=== PATIENT | female | born 1955 ===

== ENCOUNTER → 2022-01-19 11:05 | Outpatient (CLI) | payer MEDICARE, SELFPAY ==
--- NOTE | ~2022-01-19 | XR_ITS ---
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 RESULT: Lines, tubes, and devices: Bilateral breast augmentation. Lungs and pleura: Clear. Cardiomediastinal silhouette: Aortic ectasia, otherwise unremarkable. Other: No acute osseous or upper abdominal finding. Degenerative disc disease in the thoracic spine. IMPRESSION: No acute cardiopulmonary process. Reviewed, dictated and finalized at location K. Y MARKET DEALER
== END ==
PROVIDERS: PCP Internal Medicine; Visit Provider Internal Medicine
DX: R06.02 Shortness of breath (principal)
CPT/HCPCS: 71046

== ENCOUNTER 2022-02-18 10:08 | Inpatient (IN) | payer MEDICARE, SELFPAY ==
[2022-02-18] VITALS (37 sets, daily range): BP systolic 115–144; BP diastolic 70–97; PULSE 91–110; RESP 12–27; TEMP 36.6–36.7; O2SAT 95–100; BMI 22.1
--- NOTE | ~2022-02-18 | NM_ITS ---
EXAMINATION: NM hepatobiliary wo pharm DATE: 02/19/2022 14:28 INDICATION: Gallbladder sludge. COMPARISON: Abdomen ultrasound 02/18/2022 TECHNIQUE: 5.9 mCi Tc-99m mebrofenin (Choletec) was administered intravenously. Scintigraphic images of the abdomen were obtained for 52 minutes. The patient ended the exam at that time. FINDINGS: There is normal clearance of radiotracer from the blood pool. There is homogeneous tracer u ptake by the liver. Activity progresses to the bowel and gallbladder. IMPRESSION: 1. Normal hepatobiliary scintigraphy. Gallbladder ejection fraction was not measured. Reviewed, dictated and finalized at location A. OMER SUCCESS DIRECTOR IMPRESSION: 1. Normal hepatobiliary scintigraphy. Gallbladder ejection fraction was not me asured.
--- NOTE | ~2022-02-18 | US_ITS ---
EXAMINATION: US abdomen limited DATE: 02/18/2022 13:45 INDICATION: Elevated liver enzymes TECHNIQUE: Multiple grayscale and Doppler ultrasound images of the abdomen were obtained. COMPARISON: None available FINDINGS: The head and body of the pancreas are normal. The pancreatic tail is obscured by bowel gas. The liver demonstrates increased echogenicity, heterogenous echotexture, and decreased through trans mission. No surface nodularity. Normal hepatopetal flow in the main portal vein. There is sludge in t he gallbladder. No gallbladder wall thickening or pericholecystic fluid are identified. The normal co mmon bile duct measures 4 mm. There was no sonographic Trujillo sign. IMPRESSION: 1. Gallbladder sludge without additional findings to suggest cholecystitis. 2. Diffuse hepatic steatosis. Reviewed, dictated and finalized at location L. USION PRESS SUPERVISOR
--- NOTE | 2022-02-18 10:54 | ECG_ITS ---
Measurements Intervals [place] Rate: 90 P: -16 [place]: 144 QRS: 11 QRSD: 84 T: -6 QT: 353 QTc: 433 Interpretive Statements SINUS RHYTHM WITH SINUS ARRHYTHMIA NONSPECIFIC ST & T-WAVE ABNORMALITY NO PREVIOUS ECG AVAILABLE FOR COMPARISON Electronically Signed On 02-18-2022 14:59:45 BATHHOUSE ATTENDANT by Brian Musa M.D.
[2022-02-18] MEDS: SODIUM CHLORIDE 0.9% IV 1,000 ML 999 ML IV CONT (11:11)
[2022-02-18 11:12] LABS: Basophils Percent Auto 0.6 % (0.2-1.2); Hematocrit 26.6 % (37.0-47.0); Hemoglobin 8.8 g/dL (12.0-15.0); Immature Granulocyte Absolute 0.01 K/mm3 (0.00-0.031); Immature Granulocyte Percent A 0.3 % (0-0.5); Lymphocytes Absolute Auto 0.54 K/mm3 (0.9-3.2); Lymphocytes Percent Auto 16.5 % (18.3-44.2); Mean Corpuscular HGB Conc 33.1 g/dl (32-36); Mean Corpuscular Hemoglobin 33.5 pg (26-34); Mean Corpuscular Volume 101.1 fl (80-100); Mean Platelet Volume 9.2 fl (7.4-10.4); Monocytes Absolute Auto 0.4 K/mm3 (0.1-0.6); Monocytes Percent Auto 11.3 % (2.6-8.5); Neutrophils Absolute Auto 2.3 K/mm3 (1.3-6.7); Neutrophils Percent Auto 71.3 % (45.5-73.1); Platelet Count Result 256 k/mm3 (150-375); Red Blood Count 2.63 M/mm3 (4.2-5.4); Red Cell Distribution Width 17.8 % (11.5-14.5); White Blood Count 3.3 K/mm3 (4.5-10.0)
[2022-02-18 11:23] LABS: Alanine Aminotransferase 46 U/L (6-35); Albumin Level 3.3 g/dL (3.5-5.1); Alkaline Phosphatase 168 U/L (38-126); Anion Gap 9 mmol/L (8-16); Aspartate Amino Transferase 255 U/L (14-36); Bilirubin,Total 1.6 mg/dL (0.2-1.3); Blood Urea Nitrogen 6 mg/dL (7-17); Calcium 8.4 mg/dL (8.4-10.2); Carbon Dioxide 28 mmol/L (22-30); Chloride 96 mmol/L (98-107); Creatine Kinase < 20 U/L (30-135); Estimated CRCL calculation 52 ml/min; Estimated Glomerular Filt Rate > 60; Glucose 133 mg/dL (65-110); Lipase 116 U/L (23-300); Magnesium 1.3 mg/dL (1.6-2.3); Potassium 2.1 mmol/L (3.4-5.0); Sodium 133 mmol/L (137-145)
[2022-02-18 11:29] LABS: NT Pro B Type Natriuretic Pept 202 pg/mL (5-100)
[2022-02-18 11:34] LABS: Troponin I < 0.012 ng/mL (0.000-0.034)
[2022-02-18 11:45] LABS: Influenza A QL RT-PCR Negative (Negative); Influenza B QL RT-PCR Negative (Negative); RSV RNA, RT-PCR Negative (Negative); SARS-CoV-2 RNA PCR Negative
--- NOTE | 2022-02-18 12:18 | ED.GENADULT ---
HPI - General Adult General Chief complaint: Recheck/Abnormal Lab/Rx Stated complaint: ABNORMAL LABS Time Seen by Provider: 02/18/22 10:27 History of Present Illness HPI narrative: This is a 66-year-old female presenting ED with a chief complaint of abnormal lab work. Patient has been feeling weak over the last several days. She has had been having difficulty getting up and down the stairs in her house. She also had decreased appetite over the last several months. Patient has had several episodes of diarrhea. She denies fever, chills, headache, body aches, nausea or vomiting. She is vaccinated against flu and COVID. She wants our primary care physician who ordered some basic lab work. She was found have a dangerously low potassium was sent into the emergency department. The patient does not know what the potassium number was. Related Data Allergies Allergy/AdvReac Type Severity Reaction Status Date / Time No Known Allergies Allergy Verified 02/18/22 11:00 Review of Systems Review of Systems: CONSTITUTIONAL: Denies night sweats. EYES: No eye pain ENT: Denies rhinorrhea CARDIOVASCULAR: Denies palpitations RESPIRATORY: Denies hemoptysis GASTROINTESTINAL: Denies hematemesis GENITOURINARY: Denies hematuria. SKIN: Denies rash MUSCULOSKELETAL: Denies myalgia. NEUROLOGIC: Denies weakness. PSYCHIATRIC: Denies delusions PMFSH Past Medical History Medical History (Updated 02/18/22 @ 13:12 by Hiren Kirk MD) Hypertension Surgical History Surgical History (Updated 02/18/22 @ 12:20 by Hiren Kirk MD) H/O total knee replacement Social History Social History (Updated 02/18/22 @ 12:20 by Hiren Kirk MD) Social History: Denies use of drugs alcohol and tobacco Exam Narrative: APPEARANCE: patient appears frail, Head: atraumatic. EYES: EOMI, NOSE: Atraumatic NECK: Trachea midline RESPIRATORY: No increased rate of breathing, clear to auscultation CARDIOVASCULAR: RRR, no peripheral edema ABDOMINAL: Non-distended, nontender no guarding or rebound MUSCULOSKELETAl: No obvious deformities NEURO: Alert. Moving 4/4 extremities SKIN:: Warm, dry. Normal color PSYCHIATRIC: Normal affect Course Vital Signs Vital signs: Vital Signs Temperature 98.1 F 02/18/22 10:18 Pulse Rate 110 H 02/18/22 10:18 Respiratory Rate 16 12/29/22 10:18 Blood Pressure 115/76 02/18/22 10:18 Pulse Oximetry 100 02/18/22 10:18 Oxygen Delivery Room Air 02/18/22 10:18 Temperature 98.1 F 02/18/22 10:18 Pulse Rate 110 H 02/18/22 10:18 Respiratory Rate 16 02/18/22 10:18 Blood Pressure 115/76 02/18/22 10:18 Pulse Oximetry 100 02/18/22 10:18 Oxygen Delivery Room Air 02/18/22 10:18 Medical Decision Making MDM Narrative Medical decision making narrative: this is a 66-year-old female presenting for abnormal labs. Patient has had weakness over last several days. She will get lab work, viral swabs and urinalysis. Lab work was significant for potassium of 2.1. Magnesium is 1.3. These will be repleted via IV and orally. Viral swabs were negative. EKG interpretation: Rhythm [sinus], Rate 90, [place] -[normal], [place] -[normal], QRS [narrow], QTC [normal], T waves -[negative for concerning inversions], ST Segments - [Negative for concerning elevations] Final interpretations: Normal sinus rhythm with nonspecific T-wave abnormalities Urinalysis was indicative of infection. The patient will be started on ceftriaxone. Patient has had decreased oral intake for several months. Additionally she has had diarrhea over the last several days. Hyperkalemia is likely multifactorial. patient will be admitted to the hospital for repletion of her potassium. Vital Signs Vital Signs: Vital Signs Temperature 98.1 F 02/18/22 10:18 Pulse Rate 110 H 02/18/22 10:18 Respiratory Rate 16 02/18/22 10:18 Blood Pressure 115/76 02/18/22 10:18 Pulse Oximetry 100 02/18/22 10:18 O
[2022-02-18 12:27] LABS: Add Urine Microscopic? YES; Appearance Urine Cloudy (Clear); Bilirubin Urine 1+ (Negative); Blood Urine Trace-Intact (Negative); Color Urine Yellow (Yellow); Glucose Urine UA Negative (Negative); Ketones Urine Negative (Negative); Leukocyte Esterase Ur 3+ LEU/UL (Negative); Nitrate Urine Positive (Negative); Protein Urine Trace mg/dL (Negative); Specific Grav Ur <= 1.005 (1.001-1.035)
[2022-02-18] MEDS: MAGNESIUM SULF 2 GM/WATER 50ML 2 GM/50 ML BAG IVPB (12:35)
[2022-02-18] MEDS: POTASSIUM CHLORIDE 20 MEQ TABLET 80 MEQ PO (12:36)
[2022-02-18] MEDS: POTASSIUM CHLORIDE INJ 40 MEQ in SODIUM CHLORIDE 0.9% IV 500 ML 130 MEQ IVPB ×2 (12:44→23:27)
[2022-02-18 12:46] LABS: Bacteria Urine 1+ /hpf; Mucus Urine Rare /lpf; Squamous Epithelial Cell Urine Few /hpf (Few); WBC Clumps Urine Present /HPF; WBC Urine >75 /hpf
--- NOTE | 2022-02-18 13:19 | PM.IMHP ---
H&P: HPI History of Present Illness Date/Time: 02/18/22 13:19 Chief Complaint: Abnormal labs Narrative: This is a 66-year-old female patient who has been feeling ill for the last several days. The patient recently had an abdominal CT and was seen by Dr. julio. The patient received a phone call today telling her that she needed to go to the emergency room due to her abnormal labs. The patient has been feeling weak over the last several days. She has had poor oral intake. She has been having difficulty getting up and down her stairs due to the weakness. She has had decreased appetite over the last several months. The patient stated that she was a heavy drinker until this last October she quit drinking. The patient was told today that she has a dangerously low potassium and needed to go to the emergency room. The patient is no longer on hydrochlorothiazide as she stopped taking that 1 month ago. She has had no fever chills and no nausea and vomiting. However she has had several episodes of diarrhea. Her white count is 3.3. Her hemoglobin is 8.8 and hematocrit 26.6. I have no previous labs for comparison. Sodium 133. Potassium is 2.1. Chloride 96. Magnesium was 1.3. Total bilirubin 1.6. AST 255, ALT 46, alkaline phosphatase 168, and total creatinine kinase less than 20. The patient was found to be positive for UTI. She was negative for influenza A/B RSV and COVID. The patient was started on Rocephin. Patient was given magnesium, IV fluids Rocephin, IV potassium and p.o. potassium. The patient is being admitted to observation status on the date of service of 02/18/2022. Review of Systems Review of Systems: See HPI All systems reviewed & are unremarkable except as noted in HPI and below Constitutional: Constitutional: Reports as per HPI and Reports no additional constitutional complaints Eyes: Eyes: Reports as per HPI and Reports no additional eye complaints ENT: Reports system reviewed and no additional complaints, except as documented and Reports Normal hearing present Cardiovascular: Cardiovascular: Reports no additional cardiovascular complaints Respiratory: Respiratory: Reports no additional respiratory complaints and Reports no additional respiratory complaints Gastrointestinal: Gastrointestinal: Reports as per HPI and Reports no additional gastrointestinal complaints Musculoskeletal: Musculoskeletal: Reports no additional musculoskeletal complaints Integumentary/Breasts: Skin/Breast: Reports system reviewed and no additional complaints, except as docu and Reports as per HPI Neurologic: Reports system reviewed and no additional complaints, except as documented, Reports as per HPI and Reports Normal hearing present Psychiatric: Psychiatric: Reports no additional psychiatric complaints and Reports as per HPI Endocrine: Endocrine: Reports no additional endocrine complaints Hematologic/Lymphatic: Hematologic/Lymphatic: Reports no additional hematologic/lymphatic complaints Allergic/Immunologic: Allergic/Immunologic: Reports no additional allergic/immunologic complaints PMFSH Past Medical History Medical History (Updated 02/18/22 @ 14:03 by Bety Wong NP) History of alcoholism History of marijuana use Hypertension Tobacco abuse Surgical History Surgical History (Updated 02/18/22 @ 13:22 by Bety Wong NP) H/O total knee replacement History of parathyroid surgery Family History Family History (Updated 02/18/22 @ 13:26 by Bety Wong NP) Sibling Hypothyroidism Mother Diabetes mellitus Hypertension Father Heart disease Social History Social History (Updated 02/18/22 @ 14:04 by Bety oWng NP) Social History: The patient used to use marijuana but not recently. The patient stated she was a heavy drinker up until October of this year. The patient has 3 children and she is . 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 She does not have a du
[2022-02-18 14:59] LABS: Hepatitis B Surface Antigen Negative (Negative)
[2022-02-18 15:01] LABS: HAV RESULT Negative (Negative); Hepatitis B Core IgM Result Negative (Negative)
[2022-02-18] MEDS: LACTATED RINGERS 1,000 ML 100 ML IV CONT (15:10)
[2022-02-18 15:13] LABS: Hepatitis C Virus Antibody Negative (Negative)
[2022-02-18] MEDS: ACETAMINOPHEN 500 MG TABLET 1000 MG PO (15:20)
[2022-02-18] MEDS: PANTOPRAZOLE SODIUM IV 40 MG VIAL IV PUSH ×2 (15:21→20:33)
--- NOTE | 2022-02-18 17:31 | ADMGEN ---
This patient, Bharati Varma, was admitted to [facility] Surg Room 307-01 at 1620. Patient/family oriented to hospital policies and general routines including ID bracelet, bed and alarms, visiting hours, pain management, procedures, bathroom and other care routines, personal items, smoking policy, room service/diet, and visiting hours. Information on how to activate the Rapid Response Team has been discussed. Patient/Family are encouraged to report perceived risks to care and to ask questions if they do not understand what they are told or what they should do.
[2022-02-18 18:12] LABS: Hematocrit 27.3 % (37.0-47.0); Hemoglobin 8.7 g/dL (12.0-15.0); Immature Reticulocyte Fraction 21.1 % (3.0-15.9); Reticulocyte Hemoglobin Conten 26.2 pg (28.2-35.7); Reticulocyte Percent 1.03 % (0.7-4.3); Reticulocytes Absolute 0.03 B/L (32.2-175.7)
[2022-02-18 18:36] LABS: Iron 185 ug/dL (37-170)
[2022-02-18 18:44] LABS: Transferrin 135 mg/dL (206-381)
[2022-02-18 18:48] LABS: Percent Iron Saturation 137 % (20-50)
[2022-02-18 19:44] LABS: Folic Acid 2.5 ng/mL (2.76->20)
[2022-02-18 22:15] LABS: Anion Gap 5 mmol/L (8-16); Blood Urea Nitrogen 5 mg/dL (7-17); Calcium 7.7 mg/dL (8.4-10.2); Carbon Dioxide 24 mmol/L (22-30); Chloride 104 mmol/L (98-107); Estimated CRCL calculation 58 ml/min; Estimated Glomerular Filt Rate > 60; Glucose 102 mg/dL (65-110); Potassium 2.8 mmol/L (3.4-5.0); Sodium 133 mmol/L (137-145)
[2022-02-18] MEDS: LORazepam INJ (*CRX) 2 MG/ML VIAL 0.5 MG IV PUSH (22:43)
[2022-02-18] MEDS: POTASSIUM CHLORIDE 20 MEQ PACKET (FOR LIQUID) 80 MEQ PO (22:46)
[2022-02-19] VITALS (8 sets, daily range): BP systolic 126–139; BP diastolic 81–99; PULSE 86–97; RESP 16–18; TEMP 36.2–36.6; O2SAT 99–100; BMI 22.1
[2022-02-19 00:46] LABS: Hematocrit 22.1 % (37.0-47.0)
[2022-02-19] MEDS: LACTATED RINGERS 1,000 ML 100 ML IV CONT ×2 (02:00→09:26)
[2022-02-19 03:17] LABS: Basophils Percent Auto 0.8 % (0.2-1.2); Eosinophils Percent Auto 1.5 % (0-4.4); Hematocrit 23.7 % (37.0-47.0); Hemoglobin 7.4 g/dL (12.0-15.0); Immature Granulocyte Absolute 0.01 K/mm3 (0.00-0.031); Immature Granulocyte Percent A 0.4 % (0-0.5); Lymphocytes Absolute Auto 0.92 K/mm3 (0.9-3.2); Lymphocytes Percent Auto 34.7 % (18.3-44.2); Mean Corpuscular HGB Conc 31.2 g/dl (32-36); Mean Corpuscular Hemoglobin 32.5 pg (26-34); Mean Corpuscular Volume 103.9 fl (80-100); Mean Platelet Volume 9.7 fl (7.4-10.4); Monocytes Absolute Auto 0.3 K/mm3 (0.1-0.6); Monocytes Percent Auto 9.4 % (2.6-8.5); Neutrophils Absolute Auto 1.4 K/mm3 (1.3-6.7); Neutrophils Percent Auto 53.2 % (45.5-73.1); Platelet Count Result 213 k/mm3 (150-375); Red Blood Count 2.28 M/mm3 (4.2-5.4); Red Cell Distribution Width 18.1 % (11.5-14.5); White Blood Count 2.7 K/mm3 (4.5-10.0)
[2022-02-19 03:27] LABS: Alanine Aminotransferase 42 U/L (6-35); Albumin Level 2.8 g/dL (3.5-5.1); Alkaline Phosphatase 140 U/L (38-126); Anion Gap 5 mmol/L (8-16); Aspartate Amino Transferase 232 U/L (14-36); Bilirubin,Total 1.2 mg/dL (0.2-1.3); Blood Urea Nitrogen 4 mg/dL (7-17); Calcium 7.4 mg/dL (8.4-10.2); Carbon Dioxide 23 mmol/L (22-30); Chloride 111 mmol/L (98-107); Estimated CRCL calculation 58 ml/min; Estimated Glomerular Filt Rate > 60; Glucose 96 mg/dL (65-110); Lactate Dehydrogenase 250 U/L (120-246); Magnesium 1.8 mg/dL (1.6-2.3); Potassium 3.5 mmol/L (3.4-5.0); Sodium 139 mmol/L (137-145)
[2022-02-19 04:12] LABS: Thyroid Stimulating Hormone Reflex 0.925 uIU/mL (0.465-4.68)
--- NOTE | 2022-02-19 08:46 | PM.IMPN ---
Progress Note: A&P Assessment and Plan (1) Urinary tract infection: Code(s): N39.0 - Urinary tract infection, site not specified Status: Acute Assessment and Plan: UA concerning for infection. +suprapubic tenderness and frequency. continue with Rocephin. Adjust antibiotics per urine culture, which is pending. (2) Acute hypokalemia: Code(s): E87.6 - Hypokalemia Status: Acute Assessment and Plan: K 2.1 on admission. May be related to poor oral intake, frequent diarrhea and prior HCTZ use, although she has not taken it for at least a month. Given 80 mEQ PO KCL and 40 mEQ IV KCL x 2 in the ED and upon admission to the floor Repeat K today 3.5. Monitor telemetry. Replace K as needed. (3) Low magnesium level: Code(s): R79.0 - Abnormal level of blood mineral Status: Acute Assessment and Plan: Magnesium 1.3 and 2 grams IVPB given in the ED. Likely secondary to diarrhea and poor oral intake. Repeat magnesium 1.8 Monitor. (4) Transaminitis: Code(s): R74.01 - Elevation of levels of liver transaminase levels Status: Acute Assessment and Plan: -the patient stated that Dr. Simms recently performed a CT on her and I a.m. attempting to obtain records from that office for the CT scan results. -hepatitis panel negative -the patient is a recovering alcoholic and quit drinking this past October. -GI has been consulted. -her ultrasounds showed is some gallbladder sludge HIDA scan shows normal gallbladder. Trend LFTs. Reinforce alcohol cessation (5) Anemia: Code(s): D64.9 - Anemia, unspecified Status: Acute Assessment and Plan: Hemoglobin 8.8 on admission, 7.4 this morning. The patient stated she has been having some black stools. stool for occult blood ordered. GI consulted and appreciate recommendations. Trend H/H. Transfuse if Hgb <7 Folate low- supplement with folic acid 1 mg daily B12 486, however, she does endorse symptoms of neuropathy. Will defer to hematology. Continue PPI BID (6) Tobacco abuse: Code(s): Z72.0 - Tobacco use Status: Acute Assessment and Plan: the patient stated that she is down to about 2-3 cigarettes a day and would like information about smoking cessation. counseled to quit. (7) Hypertension: Code(s): I10 - Essential (primary) hypertension Status: Acute Assessment and Plan: -continue with home medication. except hold HCTZ -p.r.n. hydralazine with parameters. Time Spent With Patient Time with patient: 15 - 25 minutes Subjective Date/time seen: 02/19/22 08:46 She feels less weak today than yesterday. She endorses shooting pains to both legs for the past few weeks and has been unable to keep them still. She has to elevate them on pillows due to pain. She has some loose stools still. No abdominal pain, nausea, or vomiting. Urinary frequency and hesitacy is improving. Review of Systems Review of Systems: All systems reviewed & are unremarkable except as noted in HPI and below Exam Narrative: General: No acute distress.? Well-developed older adult female sitting up in bed. Mental Status/Psych: Awake, alert and oriented x4 with clear speech. Neutral mood and affect. Pleasant and cooperative. Skin: Skin fair, warm, dry and intact without rashes or lesions. Normal color for ethnicity. HEENT: Normocephalic. Sclera is non-icteric. Pupils equal and round. Grossly normal hearing. Oral mucosa pink and moist. Tongue midline. Oropharynx within normal limits. Neck: Supple. Thyroid without nodularity. Trachea midline. No JVD. Heart: S1 and S2 regular rate and rhythm. No murmurs, gallops, or rubs auscultated. Chest: Respirations even and unlabored. Lung sounds are clear to auscultation in all lobes bilaterally without wheezes, rhonchi, or rales. Abdomen: Soft, round and mild suprapubic tenderness to palpation.? Bowel sounds present in all 4 quadrants. No CVA
[2022-02-19] MEDS: amLODIPine BESYLATE 5 MG TABLET 10 MG PO (09:26)
[2022-02-19] MEDS: PANTOPRAZOLE SODIUM IV 40 MG VIAL IV PUSH ×2 (09:27→21:32)
[2022-02-19 11:00] LABS: IFOB Positive Control Positive; Immunochemical Fecal Occult Bl Negative (N)
[2022-02-19 11:05] LABS: Toxigenic C. Diff NEGATIVE (NEGATIVE)
--- NOTE | 2022-02-19 13:39 | PDONCCONNOTE ---
Impression mild leukopenia and anemia with macrocytosis would supplement Folate and follow as outpatient for further work up if necessary [facility] - Date/Time Seen 02/19/22 13:39 - History of Present Illness 66 yo female with mild anemia and leukopenia with macrocytosis she has history of alcohol intake in the past U/S shows steatosis she has no history of blood disorders She has a mildly decreased Folate - Medical History Medical History (Last Updated 02/18/22 @ 14:03 by Bety Wong NP) History of alcoholism History of marijuana use Hypertension Tobacco abuse - Surgical History Surgical History (Last Updated 02/18/22 @ 13:22 by Bety Wong NP) H/O total knee replacement History of parathyroid surgery - Family History Family History (Last Updated 02/18/22 @ 13:26 by Bety Wong NP) Sibling Hypothyroidism Mother Diabetes mellitus Hypertension Father Heart disease - Social History Social History (Last Updated 02/18/22 @ 14:04 by Bety Wong NP) Alcohol Use: Alcohol intake: former Substance Use: Substance use: never Others: Spiritual care concerns: No Smoking Status: Smoking status: Current every day smoker Tobacco type: cigarettes Smoking Pack-years: Smoking cigarettes per day: 3 Social Determinants of Health: Has the Lack of Transportation Kept You From Medical Appointments or From Getting Medications?: No Within the Past 12 Months, Were You Worried Whether Your Food Would Run Out Before You Got Money to Buy More?: Never True What is Your Housing Situation Today?: I Have Housing Are You Worried That in the Next 2 Months, You May Not Have Your Own Housing to Live In?: No Do You Have Trouble Paying Your Heating Or Electricity Bill?: No Do You Have Trouble Paying For Medicines?: No Are You Currently Unemployed and Looking for Work?: No Highest Level of Education Completed: Associate Degree Do You Have Trouble With Childcare or the Care of a Family Member?: No - Medications Active Medications Generic Name Dose Route Start Last Admin Trade Name Freq PRN Reason Stop Dose Admin Amlodipine Besylate 10 mg 02/19/22 09:00 02/19/22 09:26 Amlodipine Besylate 5 Mg Tablet PO 10 mg DAILY DONALD Administration Hydralazine HCl 10 mg 02/18/22 14:09 Hydralazine Hcl 20 Mg/Ml Vial IV PUSH Q8H PRN Blood Pressure - High Lactated Ringer's 1,000 mls @ 100 mls/hr 02/18/22 12:45 02/19/22 09:26 Lr - Lactated Ringers Iv IV CONT 100 mls/hr .Q10H DONALD Administration Ceftriaxone Sodium/Dextrose 1 gm in 50 mls @ 100 mls/hr 02/19/22 16:00 Rocephin 1 Gm/D5w 50 Ml IVPB Q24H DONALD Pantoprazole Sodium 40 mg 02/18/22 21:00 02/19/22 09:27 Pantoprazole Sodium Iv 40 Mg Vial IV PUSH 40 mg Q12HR DONALD Administration - Allergies Allergies Allergy/AdvReac Type Severity Reaction Status Date / Time No Known Allergies Allergy Verified 02/18/22 11:00 Review of Systems - Review of Systems All systems reviewed & are unremarkable except as noted in HPI and bel - Constitutional Reports anorexia - Respiratory Reports dyspnea - Neurologic Reports system reviewed and no additional complaints, except as documented, Reports hearing normal Exam - Vital Signs Vital Signs - 24 hr 02/18/22 13:45 02/18/22 13:46 02/18/22 14:31 Temperature Pulse Rate 92 92 Respiratory Rate 13 13 Blood Pressure Pulse Oximetry 96 Oxygen Delivery 02/18/22 14:45 02/18/22 15:07 02/18/22 15:09 Temperature Pulse Rate 92 Respiratory Rate 27 H 14 Blood Pressure 142/97 H Pulse Oximetry 97 98 Oxygen Delivery 02/18/22 15:15 02/18/22 15:16 02/18/22 15:31 Temperature Pulse Rate 94 92 92 Respiratory Rate 12 14 15 Blood Pressure 144/94 H 133/90 Pulse Oximetry 98 97 97 Oxygen Delivery 02/18/22 15:32 02/18/22 15:45 02/18/22 15:46 Te
--- NOTE | 2022-02-19 15:21 | WPDGICN ---
Assessment and Plan Assessment and plan (1) Weakness: Code(s): R53.1 - Weakness Status: Acute Assessment and Plan: Patient has been weak for the last several weeks particularly last several days. Likely related to urinary tract infection. Potentially related to alcoholic liver disease and macrocytic anemia. (2) Urinary tract infection: Code(s): N39.0 - Urinary tract infection, site not specified Status: Acute Assessment and Plan: Patient with apparent UTI. This likely contributes to weakness. Treatment defer to the primary care service. (3) Alcoholic hepatitis: Code(s): K70.10 - Alcoholic hepatitis without ascites Status: Acute Assessment and Plan: Patient with elevated LFTs. Suspicious for alcohol liver disease with AST more than 5 times her ALT. Patient has an extended long history of alcohol abuse until recently when it was discontinued. Hepatitis viral serologies are negative. Other lab parameters including antinuclear antibody will be obtained. Recommend observation at this time. hepatic steatosis identified on ultrasound. No clear indication for cirrhosis on imaging studies but potentially so given her lab parameters that include elevated LFTs and macrocytic anemia. Recommend conservative therapy at this time. In observation. Currently she appears clinically compensated. Continued alcohol abstinence strongly encouraged. Outpatient follow-up is encouraged electively. She can be discharged from our perspective. Follow-up with primary care service and C are office as needed. (4) Macrocytic anemia: Code(s): D53.9 - Nutritional anemia, unspecified Status: Acute Assessment and Plan: Macrocytic anemia peers to be on the basis of alcoholic liver disease. Folate B12 level should be obtained if not already accomplished. Continue to monitor conservatively at this time. Hematology is already assess patient. GI Consult Note Consult date/time: 02/19/22 15:21 Reason for consult: Elevated LFTs. HPI: Bharati Varma is a 66 year old female I am asked to see at the request of the hospitalist service. Patient reports feeling poorly and very weak over the last several weeks. She is followed by Dr. Bill child in. Outpatient CT scan and laboratory test apparently were identified she was sent to the emergency room. In our emergency room she was identified as having a urinary tract infection. Her LFTs are quite elevated. Patient has a history of rather heavy alcohol intake for many years. She discontinue this in October. She has had no recent change in medications. She has no known exposure to hepatitis. She has never had hepatitis in the past. No one she is associated with his ill. Family history is noncontributory. Review of Systems Review of Systems: Review of systems noncontributory. [facility] Past Medical History Medical History (Updated 02/19/22 @ 15:27 by Rodolfo Browne MD) History of alcoholism History of marijuana use Hypertension Tobacco abuse Surgical History Surgical History (Updated 02/18/22 @ 13:22 by Bety Wong NP) H/O total knee replacement History of parathyroid surgery Family History Family History (Updated 02/18/22 @ 13:26 by Bety Wong NP) Sibling Hypothyroidism Mother Diabetes mellitus Hypertension Father Heart disease Social History Social History (Updated 02/18/22 @ 14:04 by Bety Wong NP) Social History: The patient used to use marijuana but not recently. The patient stated she was a heavy drinker up until October of this year. The patient has 3 children and she is . 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 She does not have a durable power managing attorney for healthcare. Patient only smokes a couple cigarettes a day. Code status full code Smoking status: Current every day smoker Tobacco type: cigarettes Alcohol intake: former Subs
[2022-02-19] MEDS: MELATONIN 5 MG TABLET PO (21:32)
[2022-02-19] MEDS: PROMETHAZINE HCL 25 MG TABLET PO (22:21)
--- NOTE | 2022-02-20 02:13 | PC.NURSE ---
Patient ripped out IV causing left arm skin tear #2 to self from leftover tape. Cleaned wound with water. Mepilex dressing applied to both skin tears. No bleeding noted.
[2022-02-20] MEDS: LACTATED RINGERS 1,000 ML 100 ML IV CONT ×3 (02:50→23:52)
--- NOTE | 2022-02-20 03:01 | PC.NURSE ---
Walked into patients room following bed alarm going off. Patient is up trying to go to bathroom with IV almost coming out. Walked patient SB assist to the bathroom. Noticed IV was very bloody, but is still intact and flushing. Upon walking her back to bed, noticed a small red abrasion on left knee. When asking her about the abrasion, she admitted to falling during day shift on 02/20/22. Scab looks dried. Will chart wound assessment in chart. Bed alarm has been on patient throughout shift. Patient is now high fall risk and impulsive. Will communicate to charge nurse, dayshift nurse, and tech. High risk fall safety precautions in place currently.
[2022-02-20] MEDS: PROMETHAZINE HCL 25 MG/ML AMPUL 12.5 MG IV PUSH ×2 (03:34→20:33)
[2022-02-20 05:39] VITALS: BP 125/82; PULSE 91; RESP 18; TEMP 36.4; O2SAT 100
[2022-02-20 07:52] LABS: Basophils Percent Auto 0.6 % (0.2-1.2); Eosinophils Absolute Auto 0.1 K/mm3 (0-0.3); Eosinophils Percent Auto 2.6 % (0-4.4); Hematocrit 25.9 % (37.0-47.0); Immature Granulocyte Absolute 0.02 K/mm3 (0.00-0.031); Immature Granulocyte Percent A 0.6 % (0-0.5); Lymphocytes Percent Auto 48.1 % (18.3-44.2); Mean Corpuscular HGB Conc 30.9 g/dl (32-36); Mean Corpuscular Hemoglobin 32.1 pg (26-34); Monocytes Absolute Auto 0.2 K/mm3 (0.1-0.6); Monocytes Percent Auto 7.7 % (2.6-8.5); Neutrophils Absolute Auto 1.3 K/mm3 (1.3-6.7); Neutrophils Percent Auto 40.4 % (45.5-73.1); Platelet Count Result 260 k/mm3 (150-375); Red Blood Count 2.49 M/mm3 (4.2-5.4); Red Cell Distribution Width 18.1 % (11.5-14.5); White Blood Count 3.1 K/mm3 (4.5-10.0)
[2022-02-20 08:09] LABS: Alanine Aminotransferase 40 U/L (6-35); Albumin Level 3.4 g/dL (3.5-5.1); Alkaline Phosphatase 150 U/L (38-126); Anion Gap 4 mmol/L (8-16); Aspartate Amino Transferase 166 U/L (14-36); Bilirubin,Total 0.8 mg/dL (0.2-1.3); Blood Urea Nitrogen 2 mg/dL (7-17); Calcium 8.2 mg/dL (8.4-10.2); Carbon Dioxide 31 mmol/L (22-30); Chloride 101 mmol/L (98-107); Estimated CRCL calculation 65 ml/min; Estimated Glomerular Filt Rate > 60; Glucose 95 mg/dL (65-110); Magnesium 1.4 mg/dL (1.6-2.3); Sodium 136 mmol/L (137-145)
[2022-02-20 08:54] VITALS: BP 118/82; PULSE 87; O2SAT 100
[2022-02-20] MEDS: POTASSIUM CHLORIDE 20 MEQ TABLET 60 MEQ PO (09:36)
[2022-02-20] MEDS: MAGNESIUM SULF 2 GM/WATER 50ML 2 GM/50 ML BAG IVPB (09:36)
[2022-02-20] MEDS: amLODIPine BESYLATE 5 MG TABLET 10 MG PO (09:43)
[2022-02-20] MEDS: FOLIC ACID 1 MG TABLET PO (09:43)
[2022-02-20] MEDS: PANTOPRAZOLE SODIUM IV 40 MG VIAL IV PUSH ×2 (09:43→20:33)
[2022-02-20] MEDS: NITROFURANTOIN MONOHYD MACROCR 100 MG CAP PO ×2 (10:03→20:32)
[2022-02-20] MEDS: ACETAMINOPHEN 500 MG TABLET 1000 MG PO ×2 (11:12→23:51)
[2022-02-20] MEDS: CYANOCOBALAMIN INJ 1,000 MCG/ML VIAL 1000 MCG IM (13:47)
[2022-02-20] MEDS: LOPERAMIDE HCL 2 MG CAPSULE PO (13:47)
[2022-02-20 14:00] VITALS: BP 131/82; PULSE 89; RESP 16; TEMP 36.6; O2SAT 100
--- NOTE | 2022-02-20 15:55 | PM.IMPN ---
Progress Note: A&P Assessment and Plan (1) Urinary tract infection: Qualifiers: Urinary tract infection type: acute cystitis Hematuria presence: without hematuria Qualified Code(s): N30.00 - Acute cystitis without hematuria Code(s): N39.0 - Urinary tract infection, site not specified Status: Acute Assessment and Plan: UA concerning for infection. +suprapubic tenderness and frequency. Treated with Rocephin 02/18-02/19 urine culture without growth, however, patient has symptoms consistent with UTI. Change to macrobid 100 mg BID x 5 days (2) Acute hypokalemia: Code(s): E87.6 - Hypokalemia Status: Acute Assessment and Plan: K 2.1 on admission. May be related to poor oral intake, frequent diarrhea and prior HCTZ use, although she has not taken it for at least a month.? Given 80 mEQ PO KCL and 40 mEQ IV KCL x 2 in the ED and upon admission to the floor Repeat K today 3.5. Monitor telemetry. 02/20 K 3.0. Give additional 60 mEQ PO x1. Repeat labs in am. Start loperamide for diarrhea (3) Low magnesium level: Code(s): R79.0 - Abnormal level of blood mineral Status: Acute Assessment and Plan: Magnesium 1.3 and 2 grams IVPB given in the ED. Likely secondary to diarrhea and poor oral intake. Repeat magnesium 1.8 02/19 02/20 Magnesium 1.4. give additional 2 grams IVPB x1. Slow loose stool as above. Monitor. (4) Transaminitis: Code(s): R74.01 - Elevation of levels of liver transaminase levels Status: Acute Assessment and Plan: She reported Dr. Simms recently performed a CT on her and attempting to obtain records from that office. hepatitis panel negative the patient is a recovering alcoholic and quit drinking this past October. GI consulted and likely alcoholic hepatitis. Recommending conservative therapy. Abd ultrasound showed gallbladder sludge. HIDA scan shows normal gallbladder. Unlikely cause of transaminitis. Trend LFTs. Reinforce alcohol cessation (5) Alcoholic hepatitis: Qualifiers: Ascites presence: without ascites Qualified Code(s): K70.10 - Alcoholic hepatitis without ascites Code(s): K70.10 - Alcoholic hepatitis without ascites Status: Acute Assessment and Plan: As above. (6) Macrocytic anemia: Code(s): D53.9 - Nutritional anemia, unspecified Status: Acute Assessment and Plan: Hemoglobin 8.8 on admission, 7.4 the following morning. The patient stated she has been having some black stools prior to admission. stool for occult blood negative GI consulted and appreciate recommendations. Trend H/H. Transfuse if Hgb <7 Folate low- supplement with folic acid 1 mg daily. Slow diarrhea B12 486, however, she does endorse symptoms of neuropathy. Give B12 1000 mcg IM injection x1 now. On PPI BID (7) Tobacco abuse: Code(s): Z72.0 - Tobacco use Status: Acute Assessment and Plan: the patient stated that she is down to about 2-3 cigarettes a day and would like information about smoking cessation.? counseled to quit (8) Hypertension: Qualifiers: Hypertension type: primary hypertension Qualified Code(s): I10 - Essential (primary) hypertension Code(s): I10 - Essential (primary) hypertension Status: Acute Assessment and Plan: Chronic, continue with home medication.? except hold HCTZ d/t electrolyte abnormalities -p.r.n. hydralazine with parameters. (9) Restless leg syndrome: Code(s): G25.81 - Restless legs syndrome Status: Acute Assessment and Plan: Secondary to folate and ?B12 deficiency. She refused gabapentin or Requip. B12 1000 mcg IM x1 given Continue folic acid She reports mild snoring, but denies daytime fatigue or family reported episodes of apnea. PRN acetaminophen & norco (10) Weakness: Code(s): R53.1 - Weakness Status: Acute Assessment and Plan: Secondary to anemia and U
[2022-02-20] MEDS: HYDROcodone/acetaminophen (*CRX) 5-325 MG TABLET 1 TAB PO (16:34)
[2022-02-20 17:06] VITALS: BP 111/80; BP 123/85; PULSE 93; O2SAT 100
[2022-02-20 20:15] VITALS: BP 104/72; PULSE 91; RESP 20; TEMP 36.6; O2SAT 100
[2022-02-20] MEDS: MELATONIN 5 MG TABLET PO (20:32)
[2022-02-21] VITALS (8 sets, daily range): BP systolic 100–123; BP diastolic 61–88; PULSE 88–102; RESP 16–18; TEMP 35.8–36.6; O2SAT 96–100
[2022-02-21 06:59] LABS: Alanine Aminotransferase 29 U/L (6-35); Albumin Level 2.7 g/dL (3.5-5.1); Alkaline Phosphatase 123 U/L (38-126); Anion Gap 2 mmol/L (8-16); Aspartate Amino Transferase 93 U/L (14-36); Bilirubin,Total 0.5 mg/dL (0.2-1.3); Blood Urea Nitrogen 2 mg/dL (7-17); Calcium 7.6 mg/dL (8.4-10.2); Carbon Dioxide 31 mmol/L (22-30); Chloride 106 mmol/L (98-107); Estimated CRCL calculation 65 ml/min; Estimated Glomerular Filt Rate > 60; Glucose 87 mg/dL (65-110); Potassium 2.9 mmol/L (3.4-5.0); Sodium 139 mmol/L (137-145)
[2022-02-21 08:25] LABS: Basophils Percent Auto 0.9 % (0.2-1.2); Eosinophils Absolute Auto 0.1 K/mm3 (0-0.3); Eosinophils Percent Auto 3.4 % (0-4.4); Hematocrit 22.1 % (37.0-47.0); Immature Granulocyte Absolute 0.02 K/mm3 (0.00-0.031); Immature Granulocyte Percent A 0.9 % (0-0.5); Lymphocytes Absolute Auto 0.99 K/mm3 (0.9-3.2); Lymphocytes Percent Auto 42.7 % (18.3-44.2); Mean Corpuscular HGB Conc 31.2 g/dl (32-36); Mean Corpuscular Hemoglobin 32.5 pg (26-34); Mean Corpuscular Volume 104.2 fl (80-100); Mean Platelet Volume 10.3 fl (7.4-10.4); Monocytes Absolute Auto 0.2 K/mm3 (0.1-0.6); Monocytes Percent Auto 9.5 % (2.6-8.5); Neutrophils Percent Auto 42.6 % (45.5-73.1); Platelet Count Result 246 k/mm3 (150-375); Red Blood Count 2.12 M/mm3 (4.2-5.4); Red Cell Distribution Width 18.5 % (11.5-14.5); White Blood Count 2.3 K/mm3 (4.5-10.0)
[2022-02-21 08:31] LABS: Hemoglobin 6.9 g/dL (12.0-15.0)
--- NOTE | 2022-02-21 08:32 | PM.IMPN ---
Progress Note: A&P Assessment and Plan (1) Urinary tract infection: Qualifiers: Hematuria presence: without hematuria Urinary tract infection type: acute cystitis Qualified Code(s): N30.00 - Acute cystitis without hematuria Code(s): N39.0 - Urinary tract infection, site not specified Status: Acute Assessment and Plan: UA concerning for infection. +suprapubic tenderness and frequency. Treated with Rocephin 02/18-02/19 urine culture without growth, however, patient has symptoms consistent with UTI. 02/20 Changed to macrobid 100 mg BID x 5 days (2) Acute hypokalemia: Code(s): E87.6 - Hypokalemia Status: Acute Assessment and Plan: K 2.1 on admission. May be related to poor oral intake, frequent diarrhea and prior HCTZ use, although she has not taken it for at least a month.? Given 80 mEQ PO KCL and 40 mEQ IV KCL x 2 in the ED and upon admission to the floor Repeat K today 3.5. Monitor telemetry. 02/20 K 3.0. Give additional 60 mEQ PO x1. Repeat labs in am. Start loperamide for diarrhea 02/21/22 K 2.9. Give 80 mEQ PO x1, 40 mEQ IV x1, check urine potassium and urine creatinine. check magnesium level. repeat K at 1400. Decrease protonix to 20 mg PO daily. Start daily supplement 40 mEQ daily (3) Low magnesium level: Code(s): R79.0 - Abnormal level of blood mineral Status: Acute Assessment and Plan: Magnesium 1.3 and 2 grams IVPB given in the ED. Likely secondary to diarrhea and poor oral intake. Repeat magnesium 1.8 02/19 02/20 Magnesium 1.4. give additional 2 grams IVPB x1. Slow loose stool as above. 02/21/22 Magnesium 1.6 Monitor. (4) Transaminitis: Code(s): R74.01 - Elevation of levels of liver transaminase levels Status: Acute Assessment and Plan: She reported Dr. Simms recently performed a CT on her and attempting to obtain records from that office. hepatitis panel negative the patient is a recovering alcoholic and quit drinking this past October. GI consulted and likely alcoholic hepatitis. Recommending conservative therapy. Abd ultrasound showed gallbladder sludge. HIDA scan shows normal gallbladder. Unlikely cause of transaminitis. Trend LFTs - improving Reinforce alcohol cessation (5) Alcoholic hepatitis: Qualifiers: Ascites presence: without ascites Qualified Code(s): K70.10 - Alcoholic hepatitis without ascites Code(s): K70.10 - Alcoholic hepatitis without ascites Status: Acute Assessment and Plan: As above. (6) Macrocytic anemia: Code(s): D53.9 - Nutritional anemia, unspecified Status: Acute Assessment and Plan: Hemoglobin 8.8 on admission, 7.4 the following morning. The patient stated she has been having some black stools prior to admission. stool for occult blood negative GI consulted and appreciate recommendations. Trend H/H. Transfuse if Hgb <7 Folate low- supplement with folic acid 1 mg daily. Slow diarrhea B12 486, however, she does endorse symptoms of neuropathy. Give B12 1000 mcg IM injection x1 now. Change protonix 20 mg PO daily since FOBT is negative 02/21/22 Hgb 6.9. Patient was tachycardic walking from the bathroom and c/o fatigue. Transfuse 1 unit PRBC. Patient is agreeable. (7) Tobacco abuse: Code(s): Z72.0 - Tobacco use Status: Acute Assessment and Plan: the patient stated that she is down to about 2-3 cigarettes a day and would like information about smoking cessation.? counseled to quit (8) Hypertension: Qualifiers: Hypertension type: primary hypertension Qualified Code(s): I10 - Essential (primary) hypertension Code(s): I10 - Essential (primary) hypertension Status: Acute Assessment and Plan: Chronic, continue amlodipine Holding HCTZ d/t electrolyte abnormalities -p.r.n. hydralazine with parameters. (9) Restless leg syndrome: Code(s): G25.81 - Restless legs syndrome Status: Acut
[2022-02-21 08:33] LABS: Anisocytosis 1+ (NORMAL); Ovalocytes 1+ (NORMAL); Platelet Estimate Adequate (Adequate); Schistocytes None Seen (NORMAL); Target Cells 1+ (NORMAL)
[2022-02-21 08:53] LABS: Magnesium 1.6 mg/dL (1.6-2.3)
[2022-02-21] MEDS: POTASSIUM CHLORIDE INJ 40 MEQ in SODIUM CHLORIDE 0.9% IV 500 ML 130 MEQ IVPB (09:16)
[2022-02-21] MEDS: PROMETHAZINE HCL 25 MG/ML AMPUL 12.5 MG IV PUSH ×2 (09:16→21:08)
[2022-02-21] MEDS: amLODIPine BESYLATE 5 MG TABLET 10 MG PO (10:50)
[2022-02-21] MEDS: POTASSIUM CHLORIDE 20 MEQ TABLET 80 MEQ PO (10:50)
[2022-02-21] MEDS: FOLIC ACID 1 MG TABLET PO (10:50)
[2022-02-21] MEDS: NITROFURANTOIN MONOHYD MACROCR 100 MG CAP PO ×2 (10:51→21:04)
[2022-02-21 12:33] LABS: Creatinine Urine 51.7 mg/dL
[2022-02-21 12:36] LABS: Potassium Urine Random 23.3 meq/L
--- NOTE | 2022-02-21 13:10 | PC.NURSE ---
discussed reason for tele r/t low potassium and receiving potassium. our concern is heart dysrrthymias and changes that might not be noticed immediately without the heart monitor. patient states that she understands the reason for the heart monitor and that she is aware of the risk, but refusing to have the heart monitor. she states that it is too bulky and it makes her too anxious. Provider aware.
[2022-02-21] MEDS: SODIUM CHLORIDE 0.9% IV 250 ML 30 ML IV CONT (14:28)
[2022-02-21] MEDS: HYDROcodone/acetaminophen (*CRX) 5-325 MG TABLET 1 TAB PO (17:00)
--- NOTE | 2022-02-21 17:00 | PC.NURSE ---
Lab had been in the room about 1400 to draw potassium level, but no results in the computer. Lab notified and they stated that there had been an issue with the sample and they would need to redraw. Lab stated that the phlebotamist would be up soon
--- NOTE | 2022-02-21 19:45 | PC.NURSE ---
lab here now to draw potassium level and h/h
[2022-02-21 19:54] LABS: Hematocrit 29.8 % (37.0-47.0); Hemoglobin 9.4 g/dL (12.0-15.0)
[2022-02-21] MEDS: MELATONIN 5 MG TABLET PO (21:04)
[2022-02-22 06:00] VITALS: BP 121/84; PULSE 92; RESP 18; TEMP 36.9; O2SAT 100
[2022-02-22] MEDS: POTASSIUM CHLORIDE 20 MEQ TABLET.ER 40 MEQ PO (08:17)
[2022-02-22] MEDS: amLODIPine BESYLATE 5 MG TABLET 10 MG PO (08:17)
[2022-02-22] MEDS: NITROFURANTOIN MONOHYD MACROCR 100 MG CAP PO (08:17)
[2022-02-22] MEDS: FOLIC ACID 1 MG TABLET PO (08:17)
[2022-02-22] MEDS: PANTOPRAZOLE SOD SESQUIHYDRATE 20 MG TAB PO (08:17)
[2022-02-22] MEDS: PROMETHAZINE HCL 25 MG/ML AMPUL 12.5 MG IV PUSH (08:22)
[2022-02-22 08:27] LABS: Potassium 4.2 mmol/L (3.4-5.0)
[2022-02-22] MEDS: HYDROcodone/acetaminophen (*CRX) 5-325 MG TABLET 1 TAB PO (10:11)
[2022-02-22 10:27] LABS: Hematocrit 28.8 % (37.0-47.0); Hemoglobin 9.1 g/dL (12.0-15.0)
[2022-02-22 10:37] LABS: Anion Gap 6 mmol/L (8-16); Blood Urea Nitrogen 3 mg/dL (7-17); Calcium 7.5 mg/dL (8.4-10.2); Carbon Dioxide 24 mmol/L (22-30); Chloride 106 mmol/L (98-107); Estimated CRCL calculation 65 ml/min; Estimated Glomerular Filt Rate > 60; Glucose 123 mg/dL (65-110); Magnesium 1.3 mg/dL (1.6-2.3); Potassium 3.8 mmol/L (3.4-5.0); Sodium 136 mmol/L (137-145)
[2022-02-22] MEDS: MAGNESIUM SULF 2 GM/WATER 50ML 2 GM/50 ML BAG IVPB (11:13)
--- NOTE | 2022-02-22 13:29 | PM.DS ---
DS: Admitting Diagnosis Discharge Date 02/22/2022 1329 Admitting Diagnosis Urinary tract infection? Acute hypokalemia? Low magnesium level Transaminitis Anemia Tobacco abuse DS: Discharge Diagnosis Discharge Diagnosis (1) Urinary tract infection: Qualifiers: Hematuria presence: without hematuria Urinary tract infection type: acute cystitis Qualified Code(s): N30.00 - Acute cystitis without hematuria Code(s): N39.0 - Urinary tract infection, site not specified Status: Acute Assessment and Plan: UA concerning for infection. +suprapubic tenderness and frequency on physical exam Treated with Rocephin 02/18-02/19 urine culture without growth, however, patient had symptoms consistent with UTI. 02/20 Changed to macrobid 100 mg BID x 5 days (2) Acute hypokalemia: Code(s): E87.6 - Hypokalemia Status: Acute Assessment and Plan: K 2.1 on admission. Secondary to poor oral intake, frequent diarrhea and prior HCTZ use, although she has not taken it for at least a month.? Given 80 mEQ PO KCL and 40 mEQ IV KCL x 2 in the ED and upon admission to the floor Repeat K 3.5 hospital day 2 Monitored telemetry. 02/20 K 3.0. Give additional 60 mEQ PO x1. Repeat labs in am. Start loperamide for diarrhea 02/21/22 K 2.9. Give 80 mEQ PO x1, 40 mEQ IV x1, urine potassium and urine creatinine within normal limits. Decreased protonix to 20 mg PO daily. Started daily supplement 40 mEQ daily 02/22/22 K 3.8 (3) Low magnesium level: Code(s): R79.0 - Abnormal level of blood mineral Status: Acute Assessment and Plan: Magnesium 1.3 and 2 grams IVPB given in the ED. Likely secondary to diarrhea and poor oral intake. Repeat magnesium 1.8 02/19 02/20 Magnesium 1.4. give additional 2 grams IVPB x1. Slow loose stool as above. 02/21/22 Magnesium 1.6 02/22/22 Magnesium 1.3 (4) Transaminitis: Code(s): R74.01 - Elevation of levels of liver transaminase levels Status: Acute Assessment and Plan: She reported Dr. Simms recently performed a CT on her and attempting to obtain records from that office. hepatitis panel negative the patient is a recovering alcoholic and quit drinking this past October. GI consulted and likely alcoholic hepatitis. Recommending conservative therapy. Abd ultrasound showed gallbladder sludge. HIDA scan shows normal gallbladder. Unlikely cause of transaminitis. LFTs trending down Reinforced alcohol cessation (5) Alcoholic hepatitis: Qualifiers: Ascites presence: without ascites Qualified Code(s): K70.10 - Alcoholic hepatitis without ascites Code(s): K70.10 - Alcoholic hepatitis without ascites Status: Acute Assessment and Plan: As above. (6) Macrocytic anemia: Code(s): D53.9 - Nutritional anemia, unspecified Status: Acute Assessment and Plan: Hemoglobin 8.8 on admission, 7.4 the following morning. The patient stated she has been having some black stools prior to admission. stool for occult blood negative GI consulted and appreciate recommendations. Trended H/H. Transfuse if Hgb <7 Folate low- supplement with folic acid 1 mg daily. Slow diarrhea with loperamide B12 486, however, she does endorse symptoms of neuropathy. Give B12 1000 mcg IM injection x1. Changed protonix 20 mg PO daily since FOBT is negative 02/21/22 Hgb 6.9. Patient was tachycardic walking from the bathroom and c/o fatigue. Transfused 1 unit PRBC. 02/22/22 Hgb 9.1 (7) Tobacco abuse: Code(s): Z72.0 - Tobacco use Status: Chronic Assessment and Plan: the patient stated that she is down to about 2-3 cigarettes a day and would like information about smoking cessation.? counseled to quit (8) Hypertension: Qualifiers: Hypertension type: primary hypertension Qualified Code(s): I10 - Essential (primary) hypertension Code(s): I10 - Essential (primary) hypertension Status: Chronic Assess
[2022-02-22 21:04] LABS: Mitochondrial (M2) Ab (IgG) <=20.0 U (<=20.0)
[2022-02-23 10:02] LABS: Ceruloplasmin 24 mg/dL (18-53)
[2022-02-23 10:02] LABS: Haptoglobin 116 mg/dL (43-212)
[2022-02-24 18:07] LABS: Soluble Transferrin Receptor 1.18 mg/L (0.76-1.76)
[2022-02-26 00:20] LABS: Creatinine, Random Urine 94 mg/dL (20-275); Total Protein/Creatinine Ratio 351 mg/g creat (24-184)
== END 2022-02-22 14:30 | disposition home or self-care (01) | DRG 641 ==
LOC: ANHED 12:23 → ANH3MEDSUR 18:08 → ANH2MED 02-19 11:19 → ANH3MEDSUR 02-19 11:19
PROVIDERS: Internal Medicine Gastroenterology; Nurse Practitioner; Admitting Provider Chiropractor; Emergency Provider Emergency Medicine; PCP Internal Medicine; Visit Provider Nurse Practitioner Family
DX: E87.6 Hypokalemia (principal); N39.0 Urinary tract infection, site not specified; E83.42 Hypomagnesemia; K70.10 Alcoholic hepatitis without ascites; K76.0 Fatty (change of) liver, not elsewhere classified; D53.9 Nutritional anemia, unspecified; I10 Essential (primary) hypertension; G25.81 Restless legs syndrome; R19.7 Diarrhea, unspecified; F10.21 Alcohol dependence, in remission; F17.210 Nicotine dependence, cigarettes, uncomplicated; Z20.822 Contact with and (suspected) exposure to COVID-19; Z96.659 Presence of unspecified artificial knee joint
CPT/HCPCS: 36415; 36430; 76705; 78226; 80048; 80053; 80074; 81001; 82274; 82390; 82550; 82570; 82607; 82728; 82746; 83010; 83520; 83540; 83550; 83615; 83690; 83735; 83880; 84100; 84132; 84133; 84156; 84166; 84238; 84443; 84466; 84484; 85014; 85018; 85025; 85046; 86850; 86880; 86900; 86901; 86923; 87040; 87045; 87086; 87269; 87272; 87427; 87493; 87637; 89055; 93005; 96365; 96366; 96367; 96375; 97161; 97165; 99285; A9270; A9537; C9113; G0378; J0696; J2060; J2550; J3420; J3475; J3480; J7030; J7040; J7050; J7120; P9016

== ENCOUNTER 2023-03-27 17:27 | Inpatient (IN) | payer MEDICARE, SELFPAY ==
[2023-03-27] VITALS (8 sets, daily range): BP systolic 106–165; BP diastolic 75–104; PULSE 91–111; RESP 11–26; TEMP 37; O2SAT 99–100
--- NOTE | ~2023-03-27 | US_ITS ---
EXAMINATION: US right upper quadrant DATE: 03/28/2023 14:58 INDICATION: Hepatitis TECHNIQUE: Multiple grayscale and Doppler ultrasound images of the abdomen were obtained. COMPARISON: CT abdomen and pelvis dated 03/27/2023 FINDINGS: The visualized proximal inferior vena cava is normal. Liver has normal contour, with a smooth surface . There is increased parenchymal echogenicity and coarsened echotexture consistent with diffuse hepat ic steatosis. No liver lesion identified. No intrahepatic biliary duct dilation suspected. Portal ve nous flow was seen in the hepatopetal, normal direction and has normal Doppler waveform. The gallblad meredith is normal in appearance. There is no cholelithiasis. The common bile duct measures 3 mm, which i s normal. Sonographic Trujillo sign was reported as positive by the shirt operator. The pancreatic head an d body are normal in appearance. The pancreatic tail is not visualized. Visualized portion of the ri ght kidney demonstrates normal contour and echogenicity with no hydronephrosis. IMPRESSION: 1. Diffuse hepatic steatosis. 2. Positive sonographic Trujillo's on but with normal-appearing gallbladder and no cholelithiasis. If t here is clinical concern for acute cholecystitis could consider HIDA scan for further evaluation. Reviewed, dictated and finalized at location A. [employer]ES IMPRESSION: 1. Diffuse hepatic steatosis. 2. Positive sonographic Trujillo's on but with normal-appearing gallbladder and n o cholelithiasis. If there is clinical concern for acute cholecystitis could co nsider HIDA scan for further evaluation.
--- NOTE | ~2023-03-27 | CT_ITS ---
EXAMINATION: CT abdomen pelvis w con DATE: 03/27/2023 23:39 INDICATION: Abdominal pain. TECHNIQUE: Computed tomography (CT) of the abdomen and pelvis was performed with 100 mL Omnipaque 350 intravenous contrast. Automated exposure control and iterative reconstruction technique were employe d. The dose-length product was 342.77 mGy-cm. COMPARISON: None. FINDINGS: The visualized portions of the lung bases demonstrate mild atelectasis. There are subpleura l bands in right lower lobe. No pleural effusion. The heart size is normal. There are coronary artery calcifications. No pericardial effusion. There are bilateral breast implants. There is diffuse hepat ic steatosis. There is a paraumbilical portacaval shunt. Paraesophageal varices are noted. The spleen , pancreas, and adrenal glands are normal. There are cysts in the kidneys measuring up to 5 mm on the right. There are 4 mm and 2 mm stones in right kidney. There are 3 stones in left kidney measuring u p to 6 mm. There is diverticulosis of the colon without evidence of diverticulitis. The appendix is n ormal. There are no pathologically enlarged lymph nodes. There is no free intraperitoneal fluid. Ther e is severe thoracic and lumbar spondylosis. IMPRESSION: 1. Diffuse hepatic steatosis. 2. Portal venous hypertension. 3. Bilateral nonobstructing kidney stones. Reviewed, dictated and finalized at location E. OFF WORKER
--- NOTE | 2023-03-27 21:01 | PC.NURSE ---
Pt daughter, who states is she POA, comes up to desk stating I think there are more things I need to tell you that she didn't . She continues to state that pt struggles with alcoholism, drinks vodka everyday, has fatty liver disease & cirrhosis, but patient does not disclose this.
--- NOTE | 2023-03-27 21:19 | ECG_ITS ---
Measurements Intervals [place] Rate: 101 P: 8 [place]: 149 QRS: 17 QRSD: 78 T: 20 QT: 349 QTc: 454 Interpretive Statements SINUS TACHYCARDIA NONSPECIFIC ST AND T-WAVE ABNORMALITY ABNORMAL ECG COMPARED TO ECG 02/18/2022 11:49:54 NO SIGNIFICANT CHANGE Electronically Signed On 03-28-2023 7:41:31 [employer]NAGER [employer]ICE by Alexis Robles M.D.
[2023-03-27 21:25] LABS: Basophils Percent Auto 0.6 % (0.2-1.2); Hematocrit 33.8 % (37.0-47.0); Hemoglobin 10.9 g/dL (12.0-15.0); Immature Granulocyte Absolute 0.01 K/mm3 (0.00-0.031); Immature Granulocyte Percent A 0.3 % (0-0.5); Lymphocytes Absolute Auto 0.84 K/mm3 (0.9-3.2); Lymphocytes Percent Auto 23.2 % (18.3-44.2); Mean Corpuscular HGB Conc 32.2 g/dl (32-36); Mean Corpuscular Hemoglobin 33.5 pg (26-34); Monocytes Absolute Auto 0.3 K/mm3 (0.1-0.6); Monocytes Percent Auto 8.3 % (2.6-8.5); Neutrophils Absolute Auto 2.5 K/mm3 (1.3-6.7); Neutrophils Percent Auto 67.6 % (45.5-73.1); Platelet Count Result 171 k/mm3 (150-375); Red Blood Count 3.25 M/mm3 (4.2-5.4); Red Cell Distribution Width 15.4 % (11.5-14.5); White Blood Count 3.6 K/mm3 (4.5-10.0)
[2023-03-27 21:36] LABS: Alanine Aminotransferase 62 U/L (6-35); Albumin Level 3.9 g/dL (3.5-5.1); Alkaline Phosphatase 183 U/L (38-126); Anion Gap 24 mmol/L (8-16); Aspartate Amino Transferase 209 U/L (14-36); Bilirubin,Total 2.3 mg/dL (0.2-1.3); Blood Urea Nitrogen 15 mg/dL (7-17); Calcium 9.3 mg/dL (8.4-10.2); Carbon Dioxide 12 mmol/L (22-30); Chloride 97 mmol/L (98-107); Estimated CRCL calculation 46 ml/min; Estimated Glomerular Filt Rate 55; Glucose 101 mg/dL (65-110); Lipase 138 U/L (23-300); Potassium 3.7 mmol/L (3.4-5.0); Sodium 133 mmol/L (137-145)
--- NOTE | 2023-03-27 22:19 | ED.WEAKNESS ---
HPI - Weakness General Chief complaint: Weakness Stated complaint: weak Time Seen by Provider: 03/27/23 21:44 Source: patient Mode of arrival: ambulatory Limitations: no limitations History of Present Illness HPI Narrative: this is a 67-year-old female that presents to the emergency department for generalized weakness. Reports she has been having black stools the last week. She has been feeling lightheaded. Also reports abdominal discomfort. No previous history of GI bleeding. She is not on anticoagulation. Denies fevers or vomiting. Related Data Home Medications Medication Instructions Recorded Confirmed amlodipine 10 mg tablet 10 mg PO DAILY 02/18/22 02/18/22 omeprazole 20 mg tablet,delayed 20 mg PO DAILY 02/18/22 02/18/22 release Allergies Allergy/AdvReac Type Severity Reaction Status Date / Time tramadol AdvReac Intermediate Itching Verified 03/27/23 17:27 Review of Systems Review of Systems: CONSTITUTIONAL: Denies fever GASTROINTESTINAL: Reports abdominal pain and diarrhea. Denies vomiting All systems reviewed & are unremarkable except as noted in HPI and below PMFSH Past Medical History Medical History (Updated 03/28/23 @ 03:23 by Flora Torres PA-C) History of alcoholism History of marijuana use Hypertension Tobacco abuse Surgical History Surgical History (Updated 02/20/22 @ 16:11 by Kenzie Norris, STUMP SHOOTER) H/O total knee replacement History of parathyroid surgery Family History Family History (Updated 02/18/22 @ 13:26 by Bety Wong NP) Sibling Hypothyroidism Mother Diabetes mellitus Hypertension Father Heart disease Social History Social History (Updated 02/18/22 @ 14:04 by Bety Wong NP) Social History: The patient used to use marijuana but not recently. The patient stated she was a heavy drinker up until October of this year. The patient has 3 children and she is . 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 She does not have a durable power insurance defense attorney for healthcare. Patient only smokes a couple cigarettes a day. Code status full code Smoking status: Current every day smoker Tobacco type: cigarettes Alcohol intake: former Substance use: never Lack of Transportation: No Lack of Food: Never True Current Housing: I Have Housing Concerned About Future Housing: No Difficulty Paying Gas/Electric Bills: No Difficulty Paying for Meds: No Currently Unemployed: No Education: Associate Degree Difficulty w/ Childcare or Family Care: No Spiritual care concerns: No Exam Narrative: GENERAL: Well-appearing, well-nourished, and in no acute distress. HEAD: Normocephalic, atraumatic. EYES: EOMI. ENT: Nares clear, no rhinorrhea or epistaxis. Mucous membranes moist. Oropharynx without tonsillar hypertrophy exudate or other lesions. CHEST: Clear to auscultation. No respiratory distress. No wheezes rales or rhonchi HEART: Regular rate and rhythm. No murmur heard. Normal peripheral pulses. ABDOMEN: Soft, nondistended, normal active bowel sounds. Mild tenderness to palpation in the mid abdomen, without guarding EXTREMITIES: Normal range of motion. No edema. SKIN: Warm, dry, no rash. NEURO: No focal deficits. Alert and oriented x3. PSYCH: Normal mood and affect RECTAL: Hemoccult positive Course Course Emergency Course: Patient updated on workup and recommendation for admission Consultations Consultation #1: Spoke with hospitalist about patient and workup who accepts admission. Patient will be started on bicarb drip. Hold off on antibiotics for colitis for now as patient is afebrile without leukocytosis Date: 03/28/23 Consultation #2: Spoke with GI, Dr. Salinas who will consult Date: 03/28/23 Vital Signs Vital signs: Vital Signs Temperature 98.6 F 03/27/23 17:28 Pulse Rate 100 03/27/23 17:28 Respiratory Rate 18 03/27/23 17:28 Blood Pressure 106/75 03/27/23 17:28 Pu
[2023-03-27] MEDS: SODIUM CHLORIDE 0.9% IV 500 ML 999 ML IV CONT (22:38)
[2023-03-27] MEDS: PANTOPRAZOLE SODIUM IV 40 MG VIAL 80 MG IV PUSH (22:39)
[2023-03-28] VITALS (15 sets, daily range): BP systolic 110–181; BP diastolic 64–105; PULSE 87–104; RESP 10–22; TEMP 36.5–37.9; O2SAT 99–100; BMI 23.2
[2023-03-28 00:42] LABS: Appearance Urine Clear (Clear); Bacteria Urine None Seen /hpf; Bilirubin Urine 1+ (Negative); Blood Urine Negative (Negative); Color Urine Dark Yellow (Yellow); Glucose Urine UA Negative (Negative); Ketones Urine 3+ mg/dL (Negative); Leukocyte Esterase Ur Negative LEU/UL (Negative); Need Manual Microscopic Reviewed; Nitrate Urine Negative (Negative); Protein Urine Trace mg/dL (Negative); RBC Urine 0-2 /hpf (0-2); Squamous Epithelial Cell Urine None seen /hpf (Few); WBC Urine 0-5 /hpf
[2023-03-28 00:43] LABS: Add Urine Microscopic? YES
[2023-03-28] MEDS: SODIUM CHLORIDE 0.9% IV 500 ML 999 ML IV CONT (01:07)
[2023-03-28] MEDS: PROMETHAZINE HCL 25 MG/ML AMPUL 12.5 MG IV PUSH (01:07)
[2023-03-28 02:35] LABS: Lactic Acid Reflex 0.9 mmol/L (0.7-2.0)
[2023-03-28] MEDS: SODIUM CHLORIDE 0.9% IV 1,000 ML 999 ML IV CONT (02:37)
[2023-03-28 02:38] LABS: Fractional Inspired Oxygen 21 %; HCO3 VBG 12.6 mEq/l (24.0-30.0); PO2 VBG 63.7 mmHg (35.0-45.0); pH VBG 7.381 (7.300-7.400)
[2023-03-28 02:40] LABS: Device ROOM AIR; PCO2 VBG 21.8 mmHg (42.0-48.0)
[2023-03-28 02:54] LABS: Ethanol < 10 mg/dL (<10)
--- NOTE | 2023-03-28 05:30 | ADMGEN ---
This patient, Bharati Varma, was admitted to 3 [facility] Surg Room 306-01. Patient/family oriented to hospital policies and general routines including ID bracelet, bed and alarms, visiting hours, pain management, procedures, bathroom and other care routines, personal items, smoking policy, room service/diet, and visiting hours. Information on how to activate the Rapid Response Team has been discussed. Patient/Family are encouraged to report perceived risks to care and to ask questions if they do not understand what they are told or what they should do.
[2023-03-28] MEDS: SODIUM BICARBONATE 8.4% 150 MEQ in DEXTROSE 5% 1,000 ML 950 ML IV CONT ×2 (05:59→15:24)
[2023-03-28] MEDS: ONDANSETRON INJ 4 MG/2 ML VIAL IV PUSH (06:00)
[2023-03-28 06:50] LABS: Hematocrit 29.8 % (37.0-47.0); Hemoglobin 9.5 g/dL (12.0-15.0)
--- NOTE | 2023-03-28 07:01 | PC.NURSE ---
Patient admitted from ER with complaints of abdominal discomfort and black/tarry stools over past week. Patient alert and oriented to person, place and time. Tremors noted to upper extremities and generalized weakness. Complains of nausea present medications given. 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 Patient does have recent history of alcohol abuse. Patient oriented to room and call system, all questions answered at time of admission. Awaiting plan of care.
[2023-03-28 08:11] LABS: Basophils Percent Auto 0.8 % (0.2-1.2); Eosinophils Percent Auto 0.3 % (0-4.4); Hematocrit 29.2 % (37.0-47.0); Hemoglobin 9.3 g/dL (12.0-15.0); Immature Granulocyte Absolute 0.02 K/mm3 (0.00-0.031); Immature Granulocyte Percent A 0.5 % (0-0.5); Lymphocytes Absolute Auto 1.15 K/mm3 (0.9-3.2); Lymphocytes Percent Auto 30.7 % (18.3-44.2); Mean Corpuscular HGB Conc 31.8 g/dl (32-36); Mean Corpuscular Hemoglobin 33.7 pg (26-34); Mean Corpuscular Volume 105.8 fl (80-100); Mean Platelet Volume 10.6 fl (7.4-10.4); Monocytes Absolute Auto 0.3 K/mm3 (0.1-0.6); Monocytes Percent Auto 7.5 % (2.6-8.5); Neutrophils Absolute Auto 2.3 K/mm3 (1.3-6.7); Neutrophils Percent Auto 60.2 % (45.5-73.1); Platelet Count Result 133 k/mm3 (150-375); Red Blood Count 2.76 M/mm3 (4.2-5.4); Red Cell Distribution Width 15.6 % (11.5-14.5); White Blood Count 3.7 K/mm3 (4.5-10.0)
[2023-03-28] MEDS: PANTOPRAZOLE SODIUM IV 40 MG VIAL IV PUSH ×2 (08:45→21:25)
[2023-03-28 08:49] LABS: Hypochromasia 1+ (NORMAL); Schistocytes None Seen (NORMAL)
[2023-03-28 09:00] LABS: Alanine Aminotransferase 52 U/L (6-35); Albumin Level 3.1 g/dL (3.5-5.1); Alkaline Phosphatase 158 U/L (38-126); Anion Gap 18 mmol/L (8-16); Aspartate Amino Transferase 179 U/L (14-36); Bilirubin,Total 2.7 mg/dL (0.2-1.3); Blood Urea Nitrogen 14 mg/dL (7-17); Calcium 7.9 mg/dL (8.4-10.2); Carbon Dioxide 14 mmol/L (22-30); Chloride 102 mmol/L (98-107); Estimated CRCL calculation 46 ml/min; Estimated Glomerular Filt Rate 55; Glucose 87 mg/dL (65-110); Magnesium 1.8 mg/dL (1.6-2.3); Phosphorus 2.2 mg/dL (2.5-4.5); Potassium 3.1 mmol/L (3.4-5.0); Sodium 134 mmol/L (137-145)
--- NOTE | 2023-03-28 11:58 | PM.IMHP ---
H&P: HPI History of Present Illness Date/Time: 03/28/23 11:58 Chief Complaint: Abdominal pain Narrative: 67yo female with hx of alcoholism, HTN and tobacco abuse here for abdominal pain. Patient has been having weakness and abdominal pain for the past 3 days prior to admission. She has had no appetite. She is having nausea with vomiting. She has emesis mostly in the morning when she wakes up and is grayish in color. She sometimes says there was coffee-ground appearance to it. She has had upper abdominal pain for the past 3 days. She had this before last year. She was seen at [place] at that time and underwent colonoscopy and EGD both of which were unrevealing. The abdominal pain is sharp and can last up to 5-10 minutes. She believes that eating meat makes this worse. Usually it is better overall when she eats food however. No dysuria or hematuria. No fevers or chills. No new medications. She takes ibuprofen about once a week. She is on omeprazole at home and takes this daily. She states she quit drinking about 3 weeks ago. She normally drinks bloody Gisell's and drinks about 4 times per week. No chest pain. She does drink excessive amounts of water up to 3 quarts a day. Over the past few weeks she has been having lightheadedness worse in the morning, dyspnea on exertion and shortness of breath at rest, low back pain and diarrhea this occasion black in color. Because of the weakness and abdominal pain, she presented to the emergency room for evaluation. In the ED, vital signs are stable. Stool was guaiac positive. White count was 3600 with hemoglobin 10.9. She had macrocytosis. Serum bicarb was 12 with anion gap 24. Lactic acid was normal. LFTs were elevated. Lipase was normal. Urinalysis was clear but did show 3+ ketones. Alcohol levels less than 10. CT of the abdomen pelvis showed diffuse hepatic steatosis, portal venous hypertension and bilateral nonobstructing renal stones. Also of note is that she had a paraumbilical portacaval shunt and a paraesophageal varices. EKG showed sinus tachycardia rate of [address]-T wave changes but no significant change from prior. She was given IV fluids and IV Protonix. She was started on IV fluids with bicarb. She was admitted for a care. Review of Systems Review of Systems: All systems reviewed & are unremarkable except as noted in HPI and below PMFSH Past Medical History Medical History (Updated 03/28/23 @ 12:39 by Kenton Holman MD) History of alcoholism History of marijuana use Hypertension Tobacco abuse Surgical History Surgical History H/O total knee replacement History of parathyroid surgery Family History Family History Sibling Hypothyroidism Mother Diabetes mellitus Hypertension Father Heart disease Social History Social History Social History: The patient used to use marijuana about once per month. The patient stated she was a heavy drinker and quit 3 weeks ago. The patient has 3 children and she is . 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 She denies other drug use. No hx if IVDU. Smokes 1/4pack per week and has smoked for about 20 yrs. Full code. She nominates her dtr to be the individual to make medical decisions for her if she is unable. Smoking packs per day: 0.5 Smoking cigarettes per day: 10.0 Years smoked: 20 Smoking pack-years: 10.00 Smoking status: Current some day smoker Tobacco type: cigarettes Alcohol intake: current Drinks per week: 4 Substance use: never Do You Feel Safe in your Home?: Yes Lack of Transportation: No Lack of Food: Never True Current Housing: I Have Housing Concerned About Future Housing: No Difficulty Paying Gas/Electric Bills: No Difficulty Paying for Meds: No Currently Unemp
[2023-03-28 12:27] LABS: Hematocrit 26.6 % (37.0-47.0); Hemoglobin 8.4 g/dL (12.0-15.0)
[2023-03-28] MEDS: POTASSIUM CHLORIDE 20 MEQ PACKET (FOR LIQUID) 40 MEQ PO (15:21)
[2023-03-28] MEDS: POTASSIUM/PHOSPHORUS/SODIUM 1.5 GM PACKET 1 PACKET PO (15:22)
[2023-03-28] MEDS: FOLIC ACID 1 MG/0.2 ML INJ IV PUSH (15:22)
[2023-03-28] MEDS: THIAMINE HCL 200 MG/2 ML VIAL 100 MG IV PUSH (15:22)
--- NOTE | 2023-03-28 16:01 | WPDGICN ---
Assessment and Plan Assessment and plan (1) Melena: Code(s): K92.1 - Melena Status: Acute Assessment and Plan: will do egd, history of alcoholic disease differential include varices, ulcer, esophagitis, etc monitor for signs of bleeding, iv protonix, npo after midnight (2) Macrocytic anemia: Code(s): D53.9 - Nutritional anemia, unspecified Status: Acute Assessment and Plan: from liver disease monitor h/h (3) Alcoholic hepatitis: Qualifiers: Ascites presence: without ascites Qualified Code(s): K70.10 - Alcoholic hepatitis without ascites Code(s): K70.10 - Alcoholic hepatitis without ascites Status: Acute Assessment and Plan: thiamine, mvi, nutrition support trend lft she needs to quit drinking altogether (4) Transaminitis: Code(s): R74.01 - Elevation of levels of liver transaminase levels Status: Acute (5) Alcoholic hepatitis: Code(s): K70.10 - Alcoholic hepatitis without ascites Status: Acute Assessment and Plan: thiamine, mvi ciwa protocol and monitor for withdrawal GI Consult Note Consult date/time: 03/28/23 16:01 Reason for consult: melena, abdominal pain, alcoholic liver disease HPI: Bharati Varma is a 67 year old female hx of alcoholism (she claims now only drinking 3-4 drinks a week), HTN and tobacco abuse here for almost 2 weeks of nausea, diffuse abdominal pain, generalized weakness and dark stools. She says that had EGD and colonoscopy 1 year ago at [facility], apparently no major findings per patient.?She has moderate upper abdominal pain, sharp and can last up to 5-10 minutes.? She is on omeprazole at home. ED revealed stool guaiac positive. White count was 3600 with hemoglobin 10.9.? She had macrocytosis.? Serum bicarb was 12 with anion gap 24.? Lactic acid was normal.? bili 2.7, transaminases 50-170 c/w alcohol use. Lipase was normal.? Alcohol levels less than 10.? CT of the abdomen pelvis showed diffuse hepatic steatosis, portal venous hypertension and bilateral nonobstructing renal stones.? Also of note is that she had a paraumbilical portacaval shunt and a paraesophageal varices. Review of Systems Constitutional: Constitutional: Reports weakness Eyes: Eyes: Denies blurry vision ENT: Reports Normal hearing present Cardiovascular: Cardiovascular: Denies chest pain Respiratory: Respiratory: Denies cough Gastrointestinal: Gastrointestinal: Reports abdominal pain Genitourinary: Genitourinary: Denies urinary urgency Musculoskeletal: Musculoskeletal: Denies neck pain Integumentary/Breasts: Skin/Breast: Denies rash Neurologic: Denies confusion Psychiatric: Psychiatric: Reports anxiety PMFSH Past Medical History Medical History (Updated 03/28/23 @ 16:09 by Alfredo Dorman MD) Alcoholic hepatitis History of alcoholism History of marijuana use Hypertension Melena Tobacco abuse Surgical History Surgical History H/O total knee replacement History of parathyroid surgery Family History Family History Sibling Hypothyroidism Mother Diabetes mellitus Hypertension Father Heart disease Social History Social History Social History: The patient used to use marijuana about once per month. The patient stated she was a heavy drinker and quit 3 weeks ago. The patient has 3 children and she is . 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 She denies other drug use. No hx if IVDU. Smokes 1/4pack per week and has smoked for about 20 yrs. Full code. She nominates her dtr to be the individual to make medical decisions for her if she is unable. Smoking packs per day: 0.5 Smoking cigarettes per day: 10.0 Years smoked: 20 Smoking pack-years: 10.00 Smoking status: Current some day smoker Tobacc
[2023-03-28 18:08] LABS: Glucose Point of Care 125 mg/dl (65-105)
[2023-03-28 18:33] LABS: Hematocrit 28.7 % (37.0-47.0)
[2023-03-28 18:44] LABS: Ammonia < 9 umol/L (9-30)
[2023-03-28 18:58] LABS: Iron 168 ug/dL (37-170)
[2023-03-28 19:08] LABS: Percent Iron Saturation 101 % (20-50)
[2023-03-28 19:30] LABS: Thyroid Stimulating Hormone Reflex 0.817 uIU/mL (0.465-4.68)
[2023-03-28 19:35] LABS: Hepatitis B Surface Antigen Negative (Negative)
[2023-03-28 19:41] LABS: HAV RESULT Negative (Negative); Hepatitis B Core IgM Result Negative (Negative)
[2023-03-28 20:05] LABS: Hepatitis B Surface Anti Res Positive; Hepatitis C Virus Antibody Negative (Negative)
[2023-03-28 23:43] LABS: Glucose Point of Care 209 mg/dl (65-105)
[2023-03-29] VITALS (8 sets, daily range): BP systolic 103–118; BP diastolic 63–75; PULSE 76–102; RESP 16–20; TEMP 36.4–37.1; O2SAT 98–100
[2023-03-29] MEDS: SODIUM BICARBONATE 8.4% 150 MEQ in DEXTROSE 5% 1,000 ML 950 ML IV CONT (04:00)
[2023-03-29 06:35] LABS: Glucose Point of Care 155 mg/dl (65-105)
[2023-03-29 06:36] LABS: Basophils Percent Auto 0.2 % (0.2-1.2); Eosinophils Percent Auto 0.5 % (0-4.4); Hematocrit 25.4 % (37.0-47.0); Hemoglobin 8.6 g/dL (12.0-15.0); Immature Granulocyte Absolute 0.01 K/mm3 (0.00-0.031); Immature Granulocyte Percent A 0.2 % (0-0.5); Immature Platelet Fraction Pct 7.8 % (0.9-11.2); Lymphocytes Absolute Auto 1.21 K/mm3 (0.9-3.2); Lymphocytes Percent Auto 27.9 % (18.3-44.2); Mean Corpuscular HGB Conc 33.9 g/dl (32-36); Mean Corpuscular Hemoglobin 33.7 pg (26-34); Mean Corpuscular Volume 99.6 fl (80-100); Mean Platelet Volume 10.8 fl (7.4-10.4); Monocytes Absolute Auto 0.2 K/mm3 (0.1-0.6); Monocytes Percent Auto 4.2 % (2.6-8.5); Neutrophils Absolute Auto 2.9 K/mm3 (1.3-6.7); Nucleated Red Blood Cells Perc 0.5 % (0.0-0.2); Platelet Count Result 100 k/mm3 (150-375); Red Blood Count 2.55 M/mm3 (4.2-5.4); Red Cell Distribution Width 14.6 % (11.5-14.5); White Blood Count 4.3 K/mm3 (4.5-10.0)
[2023-03-29 06:45] LABS: INR 0.9; Prothrombin Time 12.8 Seconds (11.1-14.7)
[2023-03-29 06:48] LABS: Alanine Aminotransferase 41 U/L (6-35); Albumin Level 2.8 g/dL (3.5-5.1); Alkaline Phosphatase 135 U/L (38-126); Anion Gap 3 mmol/L (8-16); Aspartate Amino Transferase 133 U/L (14-36); Bilirubin,Total 1.9 mg/dL (0.2-1.3); Blood Urea Nitrogen 8 mg/dL (7-17); Carbon Dioxide 35 mmol/L (22-30); Chloride 94 mmol/L (98-107); Estimated CRCL calculation 64 ml/min; Estimated Glomerular Filt Rate > 60; Glucose 125 mg/dL (65-110); Magnesium 1.5 mg/dL (1.6-2.3); Potassium 2.7 mmol/L (3.4-5.0); Sodium 132 mmol/L (137-145)
--- NOTE | 2023-03-29 06:55 | PC.NURSE ---
Critical potassium results reported to Dr. Barfield. New orders received for Magnesium 4gm IVPB followed by x2 K-Riders 40 meq to total Potassium 80 meq IVPB.
[2023-03-29 07:12] LABS: Phosphorus < 1.0 mg/dL (2.5-4.5)
[2023-03-29 07:55] LABS: Glucose Point of Care 143 mg/dl (65-105)
[2023-03-29] MEDS: MAGNESIUM SULF 4 GM/WATER100ML 4 GM/100 ML BAG IVPB (08:59)
[2023-03-29] MEDS: POTASSIUM CHLORIDE INJ 40 MEQ in SODIUM CHLORIDE 0.9% IV 500 ML 130 MEQ IVPB ×2 (09:00→12:47)
[2023-03-29] MEDS: THIAMINE HCL 200 MG/2 ML VIAL 100 MG IV PUSH (09:01)
[2023-03-29] MEDS: PANTOPRAZOLE SODIUM IV 40 MG VIAL IV PUSH ×2 (09:01→20:50)
[2023-03-29] MEDS: FOLIC ACID 1 MG/0.2 ML INJ IV PUSH (12:10)
--- NOTE | 2023-03-29 13:03 | WPDGIPROGNO ---
Progress Note: A&P Assessment and Plan (1) Melena: Code(s): K92.1 - Melena Status: Acute Assessment and Plan: egd in am h/h low but stable ppi daily (2) Alcoholic hepatitis: Code(s): K70.10 - Alcoholic hepatitis without ascites Status: Acute Assessment and Plan: liver enzymes trending down thiamine and nutrition support (3) Elevated liver enzymes: Code(s): R74.8 - Abnormal levels of other serum enzymes Status: Acute (4) Abdominal pain: Code(s): R10.9 - Unspecified abdominal pain Status: Acute (5) Hypokalemia: Code(s): E87.6 - Hypokalemia Status: Acute Assessment and Plan: repleting- anesthesia cancelled egd egd tomorrow Subjective Date/time seen: 03/29/23 13:03 Interval history: feeling better today, she is eating lunch no melena today EGD postponed because low K Review of Systems Review of Systems: All systems reviewed & are unremarkable except as noted in HPI and below Exam Const: General: comfortable and no acute distress HENMT: Face/Nose/Sinus: Normal nares present Eyes: Sclera: sclerae normal Neck: Neck: supple Resp: Auscultation: clear to auscultation bilaterally Cardio: Rate: regular rate Rhythm: regular rhythm GI: GI Palp: Yes Soft to palpation and Yes Tenderness to palpation present (GI) (mild epigastric pain) Auscultation: normal bowel sounds Skin: General skin exam: normal color Neuro: Speech: normal speech Motor exam (neuro): 5/5 motor strength present throughout Extrem: General: normal to inspection Psych: Mental Status: mental status grossly normal Objective Data Vital Signs Vital Signs: Vital Signs - 24 hr 03/28/23 16:00 03/28/23 16:00 03/28/23 20:00 Temperature 100.3 F H 97.7 F Pulse Rate 94 95 96 Respiratory Rate 16 20 Blood Pressure 138/85 121/82 Pulse Oximetry 100 100 Oxygen Delivery 03/28/23 20:00 03/28/23 22:00 03/29/23 00:00 Temperature 97.8 F 97.8 F Pulse Rate 92 80 Respiratory Rate 22 H 20 Blood Pressure 110/64 116/63 Pulse Oximetry 99 99 99 Oxygen Delivery Room Air 03/28/23 20:00 03/29/23 00:00 03/29/23 04:00 Temperature 97.7 F Pulse Rate 93 88 83 Respiratory Rate 20 Blood Pressure 118/69 Pulse Oximetry 98 Oxygen Delivery 03/29/23 04:00 03/29/23 06:00 03/29/23 09:04 Temperature 97.8 F Pulse Rate 76 83 Respiratory Rate 20 Blood Pressure 118/69 Pulse Oximetry 98 Oxygen Delivery Room Air 03/29/23 09:01 03/29/23 11:11 Temperature Pulse Rate Respiratory Rate Blood Pressure Pulse Oximetry Oxygen Delivery Room Air Room Air Intake/Output Intake/Output: Intake & Output 03/26/23 03/27/23 03/28/23 03/29/23 23:59 23:59 23:59 23:59 Intake Total 500 4020 120 Balance 500 4020 120 Meds/Results Medications: Active Medications Generic Name Dose Route Start Last Admin Trade Name Freq PRN Reason Stop Dose Admin Folic Acid 1 mg 03/29/23 09:00 03/29/23 12:10 Folic Acid 1 Mg/0.2 Ml Inj IV PUSH 1 mg QAM DONALD Administration Sodium Bicarbonate 150 meq/ 1,100 mls @ 150 mls/hr 03/28/23 03:15 03/29/23 04:00 Dextrose IV CONT 150 mls/hr .[id number] DONALD Administration Potassium Chloride 40 meq/ 520 mls @ 130 mls/hr 03/29/23 11:00 Sodium Chloride IVPB 03/29/23 14:59 ONCE ONE Lorazepam 2 mg 03/28/23 12:48 Lorazepam Inj (*Crx) 2 Mg/Ml Vial IV PUSH Q2H PRN CIWA > 15 Ondansetron HCl 4 mg 03/28/23 03:12 03/28/23 06:00 Ondansetron Inj 4 Mg/2 Ml Vial IV PUSH 4 mg Q4H PRN Administration Nausea Pantoprazole Sodium 40 mg 03/28/23 09:00 03/29/23 09:01 Pantoprazole Sodium Iv 40 Mg Vial IV PUSH 40 mg Q12HR DONALD Administration Thiamine HCl 100 mg 03/29/23 09:00 03/29/23 09:01 Thiamine Hcl 200 Mg/2 Ml Vial IV PUSH 100 mg QAM DONALD Administration Radiology Results: ITS Impressions Abdomen/Pelvis CT 03/28/23 07:03
--- NOTE | 2023-03-29 13:57 | PM.IMPN ---
Progress Note: A&P Assessment and Plan (1) Acute GI bleeding: Code(s): K92.2 - Gastrointestinal hemorrhage, unspecified Status: Acute Assessment and Plan: Patient presents to the emergency room with complaints of weakness and abdominal pain. She was guaiac positive. Hemoglobin was 10.9 and has trended down to 8-9 range. She drinks alcohol on takes ibuprofen; concerned for gastritis versus peptic ulcer disease. She may also has esophageal varices but felt less likely causing her symptoms since it does not. Continue IV Protonix. GI consulted with plans for EGD. (2) Abdominal pain: Code(s): R10.9 - Unspecified abdominal pain Status: Acute Assessment and Plan: Related to above. Follow. (3) Metabolic acidosis: Code(s): E87.20 - Acidosis, unspecified Status: Acute Assessment and Plan: Patient had a significant metabolic gap acidosis related to alcoholism and ketosis. She was started on a bicarb drip. Repeat labs showing resolution of acidosis. Bicarb drip stopped. Also with low potassium, mag and Phos. Replace electrolytes. (4) Alcoholic hepatitis: Qualifiers: Ascites presence: without ascites Qualified Code(s): K70.10 - Alcoholic hepatitis without ascites Code(s): K70.10 - Alcoholic hepatitis without ascites Status: Acute Assessment and Plan: AST/ALT elevated on admission and are trednig down. Viral Hepatitis panel negative. HepB surface Ab positive. RUQ showing diffuse hepatic steatosis with positive Trujillo's sign. Suspect related to alcoholic hepatitis complicated by hepatic steatosis. Consider HIDA if continues to have pain (5) Macrocytic anemia: Code(s): D53.9 - Nutritional anemia, unspecified Status: Acute Assessment and Plan: Patient with macrocytic anemia. B12 and folate levels are normal. TSH normal. Iron studies are more consistent with anemia of chronic disease. May have underlying acute blood loss related to the GI bleed. Has very high iron studies. Check hemochrom PCR Hemoglobin was 10.9 on admission but has dropped to the 8-9 range. Continue to monitor and transfuse as needed. (6) Weakness: Code(s): R53.1 - Weakness Status: Acute Assessment and Plan: Related to above PT/OT ordered (7) Hypertension: Qualifiers: Hypertension type: primary hypertension Qualified Code(s): I10 - Essential (primary) hypertension Code(s): I10 - Essential (primary) hypertension Status: Chronic Assessment and Plan: Patient's blood pressure was reviewed on 03/29 Blood pressure was elevated yesterday but better controlled now. Will continueto monitor (8) History of alcoholism: Code(s): F10.21 - Alcohol dependence, in remission Status: Acute Assessment and Plan: Patient was educated about the benefits of staying from alcohol use. No evidence of alcohol withdrawal. CIWA mostly 4-7 range. Continue thiamine and folate. Continue CIWA protocol. (9) Tobacco abuse: Code(s): Z72.0 - Tobacco use Status: Chronic Assessment and Plan: Patient was educated about the benefits of abstaining from tobacco use Plan DVT prophylaxis - SCDs Code status - full Subjective Date/time seen: 03/29/23 13:57 Interval history: 67yo female with hx of alcoholism, HTN and tobacco abuse here for abdominal pain.?? Patient feeling better. Ate well today and tolerated it. Still with nausea but no vomiting. Exam Narrative: AF 97.8 118/69 83 20 98% ra Gen - NARD Chest - right base crackles o/w clear, nml RR CV - RRR. S1-S2. Abd - soft, protuberat, +BS, nontender Ext - no pedal edema. Neuro - alert and appropriate. Psych - normal mood and affect. Skin - warm and dry. Objective Data Vital Signs Vital Signs: Vital Signs - 24 hr 03/28/23 16:00 03/28/23 16:00 03/28
[2023-03-29] MEDS: PROMETHAZINE HCL 25 MG TABLET PO (16:29)
[2023-03-29] MEDS: POTASSIUM/PHOSPHORUS/SODIUM 1.5 GM PACKET 1 PACKET PO ×2 (16:29→20:50)
[2023-03-29 18:52] LABS: Magnesium 2.6 mg/dL (1.6-2.3); Potassium 3.4 mmol/L (3.4-5.0)
[2023-03-29] MEDS: SODIUM PHOSPHATE 20 MM in DEXTROSE 5% IN WATER 250 ML 50 MM IVPB (20:50)
[2023-03-30] VITALS (7 sets, daily range): BP systolic 101–133; BP diastolic 53–86; PULSE 58–86; RESP 14–18; TEMP 36.5–37.4; O2SAT 92–99
[2023-03-30 06:42] LABS: Basophils Percent Auto 0.5 % (0.2-1.2); Eosinophils Percent Auto 1.5 % (0-4.4); Hematocrit 22.5 % (37.0-47.0); Hemoglobin 7.1 g/dL (12.0-15.0); Immature Granulocyte Absolute 0.01 K/mm3 (0.00-0.031); Immature Granulocyte Percent A 0.5 % (0-0.5); Immature Platelet Fraction Pct 10.3 % (0.9-11.2); Lymphocytes Absolute Auto 0.83 K/mm3 (0.9-3.2); Lymphocytes Percent Auto 40.7 % (18.3-44.2); Mean Corpuscular HGB Conc 31.6 g/dl (32-36); Mean Corpuscular Hemoglobin 32.7 pg (26-34); Mean Corpuscular Volume 103.7 fl (80-100); Mean Platelet Volume 10.8 fl (7.4-10.4); Monocytes Absolute Auto 0.1 K/mm3 (0.1-0.6); Monocytes Percent Auto 6.4 % (2.6-8.5); Neutrophils Percent Auto 50.4 % (45.5-73.1); Platelet Count Result 87 k/mm3 (150-375); Red Blood Count 2.17 M/mm3 (4.2-5.4); Red Cell Distribution Width 15.6 % (11.5-14.5)
[2023-03-30 08:33] LABS: Alanine Aminotransferase 43 U/L (6-35); Albumin Level 2.7 g/dL (3.5-5.1); Alkaline Phosphatase 148 U/L (38-126); Anion Gap -1 mmol/L (8-16); Aspartate Amino Transferase 168 U/L (14-36); Bilirubin,Total 1.2 mg/dL (0.2-1.3); Blood Urea Nitrogen 6 mg/dL (7-17); Calcium 7.8 mg/dL (8.4-10.2); Carbon Dioxide 37 mmol/L (22-30); Chloride 97 mmol/L (98-107); Estimated CRCL calculation 64 ml/min; Estimated Glomerular Filt Rate > 60; Glucose 104 mg/dL (65-110); Magnesium 2.1 mg/dL (1.6-2.3); Phosphorus 1.8 mg/dL (2.5-4.5); Potassium 2.8 mmol/L (3.4-5.0); Sodium 133 mmol/L (137-145)
[2023-03-30] MEDS: PROMETHAZINE HCL 25 MG TABLET PO (08:35)
[2023-03-30] MEDS: PANTOPRAZOLE SODIUM IV 40 MG VIAL IV PUSH ×2 (08:35→20:53)
[2023-03-30] MEDS: THIAMINE HCL 200 MG/2 ML VIAL 100 MG IV PUSH (08:35)
[2023-03-30] MEDS: POTASSIUM CHLORIDE INJ 40 MEQ in SODIUM CHLORIDE 0.9% IV 500 ML 130 MEQ IVPB (09:15)
[2023-03-30] MEDS: FOLIC ACID 1 MG/0.2 ML INJ IV PUSH (09:37)
[2023-03-30] MEDS: POTASSIUM CHLORIDE 20 MEQ PACKET (FOR LIQUID) 30 MEQ PO (09:38)
[2023-03-30] MEDS: POTASSIUM CHLORIDE 20 MEQ ER TABLET PO (09:38)
[2023-03-30 13:38] LABS: Anion Gap 3 mmol/L (8-16); Blood Urea Nitrogen 5 mg/dL (7-17); Calcium 7.9 mg/dL (8.4-10.2); Carbon Dioxide 31 mmol/L (22-30); Chloride 101 mmol/L (98-107); Estimated CRCL calculation 74 ml/min; Estimated Glomerular Filt Rate > 60; Glucose 98 mg/dL (65-110); Potassium 4.3 mmol/L (3.4-5.0); Sodium 135 mmol/L (137-145)
--- NOTE | 2023-03-30 14:08 | WPDGIPROGNO ---
Progress Note: A&P Assessment and Plan (1) Melena: Code(s): K92.1 - Melena Status: Acute Assessment and Plan: no more signs of bleeding, EGD postponed again by anesthesia because low K- she is getting more kcl h/h low but stable ppi daily (2) Alcoholic hepatitis: Code(s): K70.10 - Alcoholic hepatitis without ascites Status: Acute Assessment and Plan: liver enzymes trending down thiamine and nutrition support (3) Elevated liver enzymes: Code(s): R74.8 - Abnormal levels of other serum enzymes Status: Acute (4) Abdominal pain: Code(s): R10.9 - Unspecified abdominal pain Status: Acute Assessment and Plan: this has improved (5) Hypokalemia: Code(s): E87.6 - Hypokalemia Status: Acute Assessment and Plan: hopefully egd tomorrow Subjective Date/time seen: 03/30/23 14:08 Interval history: Similar nausea with mild abdominal pain- she is hungry, had normal stool without dark material anesthesia cancelled procedure because low K- she is getting KCL now Review of Systems Review of Systems: All systems reviewed & are unremarkable except as noted in HPI and below Exam Const: General: comfortable and no acute distress HENMT: Face/Nose/Sinus: Normal nares present Eyes: Sclera: sclerae normal Neck: Neck: supple Resp: Auscultation: clear to auscultation bilaterally Cardio: Rate: regular rate Rhythm: regular rhythm GI: GI Palp: Yes Soft to palpation and Yes Tenderness to palpation present (GI) (mild epigastric pain) Auscultation: normal bowel sounds Skin: General skin exam: normal color Neuro: Speech: normal speech Motor exam (neuro): 5/5 motor strength present throughout Extrem: General: normal to inspection Psych: Mental Status: mental status grossly normal Objective Data Vital Signs Vital Signs: Vital Signs - 24 hr 03/29/23 16:00 03/29/23 16:00 03/29/23 20:00 Temperature 97.5 F L 98.8 F Pulse Rate 95 85 88 Respiratory Rate 16 16 Blood Pressure 106/63 103/66 Pulse Oximetry 100 98 Oxygen Delivery 03/29/23 20:00 03/30/23 00:00 03/29/23 20:00 Temperature 98.2 F Pulse Rate 78 101 H Respiratory Rate 16 Blood Pressure 101/66 Pulse Oximetry 98 98 Oxygen Delivery Room Air 03/30/23 00:00 03/30/23 04:00 03/30/23 04:00 Temperature 97.7 F Pulse Rate 75 77 77 Respiratory Rate 14 Blood Pressure 109/53 L Pulse Oximetry 96 Oxygen Delivery 03/30/23 08:00 03/30/23 08:00 03/30/23 12:00 Temperature 99.4 F 98.6 F Pulse Rate 79 75 75 Respiratory Rate 16 16 Blood Pressure 133/86 130/76 Pulse Oximetry 98 99 Oxygen Delivery 03/30/23 08:00 03/30/23 12:00 Temperature Pulse Rate 75 77 Respiratory Rate 16 Blood Pressure Pulse Oximetry 99 Oxygen Delivery Room Air Intake/Output Intake/Output: Intake & Output 03/27/23 03/28/23 03/29/23 03/30/23 23:59 23:59 23:59 23:59 Intake Total 500 4020 2650 Balance 500 4020 2650 Meds/Results Medications: Active Medications Generic Name Dose Route Start Last Admin Trade Name Freq PRN Reason Stop Dose Admin Folic Acid 1 mg 03/29/23 09:00 03/30/23 09:37 Folic Acid 1 Mg/0.2 Ml Inj IV PUSH 1 mg QAM DONALD Administration Lorazepam 2 mg 03/28/23 12:48 Lorazepam Inj (*Crx) 2 Mg/Ml Vial IV PUSH Q2H PRN CIWA > 15 Pantoprazole Sodium 40 mg 03/28/23 09:00 03/30/23 08:35 Pantoprazole Sodium Iv 40 Mg Vial IV PUSH 40 mg Q12HR DONALD Administration Potassium Chloride 20 meq 03/30/23 08:00 03/30/23 09:38 Potassium Chloride 20 Meq Er Tablet PO 20 meq DAILY@0800 DONALD Administration Promethazine HCl 25 mg 03/29/23 13:57 03/30/23 08:35 Promethazine Hcl 25 Mg Tablet PO 25 mg Q4H PRN Administration Nausea And Vomiting Thiamine HCl 100 mg 03/29/23 09:00 03/30/23 08:35 Thiamine Hcl 200 Mg/2 Ml Vial IV PUSH 100 mg QAM DONALD Administration Radiolo
[2023-03-30 15:35] LABS: Glucose Point of Care 98 mg/dl (65-105)
--- NOTE | 2023-03-30 16:19 | PM.IMPN ---
Progress Note: A&P Assessment and Plan (1) Acute GI bleeding: Code(s): K92.2 - Gastrointestinal hemorrhage, unspecified Status: Acute Assessment and Plan: Patient presents to the emergency room with complaints of weakness and abdominal pain. She was guaiac positive. Hemoglobin was 10.9 and has trended down to 8-9 range. She drinks alcohol on takes ibuprofen; concerned for gastritis versus peptic ulcer disease. She may also has esophageal varices but felt less likely causing her symptoms since it does not. Continue IV Protonix. GI consulted with plans for EGD. 03/30/23: Slated for EGD today (2) Abdominal pain: Code(s): R10.9 - Unspecified abdominal pain Status: Acute Assessment and Plan: Related to above. Follow. (3) Metabolic acidosis: Code(s): E87.20 - Acidosis, unspecified Status: Acute Assessment and Plan: Patient had a significant metabolic gap acidosis related to alcoholism and ketosis. She was started on a bicarb drip. Repeat labs showing resolution of acidosis. Bicarb drip stopped. Also with low potassium, mag and Phos. Replace electrolytes. (4) Alcoholic hepatitis: Qualifiers: Ascites presence: without ascites Qualified Code(s): K70.10 - Alcoholic hepatitis without ascites Code(s): K70.10 - Alcoholic hepatitis without ascites Status: Acute Assessment and Plan: AST/ALT elevated on admission and are trednig down. Viral Hepatitis panel negative. HepB surface Ab positive. RUQ showing diffuse hepatic steatosis with positive Trujillo's sign. Suspect related to alcoholic hepatitis complicated by hepatic steatosis. Consider HIDA if continues to have pain (5) Macrocytic anemia: Code(s): D53.9 - Nutritional anemia, unspecified Status: Acute Assessment and Plan: Patient with macrocytic anemia. B12 and folate levels are normal. TSH normal. Iron studies are more consistent with anemia of chronic disease. May have underlying acute blood loss related to the GI bleed. Has very high iron studies. Check hemochrom PCR Hemoglobin was 10.9 on admission but has dropped to the 8-9 range. Continue to monitor and transfuse as needed. (6) Weakness: Code(s): R53.1 - Weakness Status: Acute Assessment and Plan: Related to above PT/OT ordered (7) Hypertension: Qualifiers: Hypertension type: primary hypertension Qualified Code(s): I10 - Essential (primary) hypertension Code(s): I10 - Essential (primary) hypertension Status: Chronic Assessment and Plan: Patient's blood pressure was reviewed on 03/29 Blood pressure was elevated yesterday but better controlled now. Will continueto monitor (8) History of alcoholism: Code(s): F10.21 - Alcohol dependence, in remission Status: Acute Assessment and Plan: Patient was educated about the benefits of staying from alcohol use. No evidence of alcohol withdrawal. CIWA mostly 4-7 range. Continue thiamine and folate. Continue CIWA protocol. 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
[2023-03-30 16:36] LABS: Basophils Percent Auto 0.4 % (0.2-1.2); Eosinophils Percent Auto 1.1 % (0-4.4); Hematocrit 27.7 % (37.0-47.0); Hemoglobin 8.6 g/dL (12.0-15.0); Immature Granulocyte Absolute 0.02 K/mm3 (0.00-0.031); Immature Granulocyte Percent A 0.8 % (0-0.5); Immature Platelet Fraction Pct 9.8 % (0.9-11.2); Lymphocytes Absolute Auto 1.02 K/mm3 (0.9-3.2); Lymphocytes Percent Auto 38.8 % (18.3-44.2); Mean Corpuscular Volume 106.1 fl (80-100); Mean Platelet Volume 11.2 fl (7.4-10.4); Monocytes Absolute Auto 0.2 K/mm3 (0.1-0.6); Monocytes Percent Auto 7.2 % (2.6-8.5); Neutrophils Absolute Auto 1.4 K/mm3 (1.3-6.7); Neutrophils Percent Auto 51.7 % (45.5-73.1); Platelet Count Result 110 k/mm3 (150-375); Red Blood Count 2.61 M/mm3 (4.2-5.4); Red Cell Distribution Width 15.9 % (11.5-14.5); White Blood Count 2.6 K/mm3 (4.5-10.0)
[2023-03-30 17:30] LABS: Alanine Aminotransferase 49 U/L (6-35); Albumin Level 3.2 g/dL (3.5-5.1); Alkaline Phosphatase 157 U/L (38-126); Anion Gap 5 mmol/L (8-16); Aspartate Amino Transferase 215 U/L (14-36); Bilirubin,Total 1.2 mg/dL (0.2-1.3); Blood Urea Nitrogen 5 mg/dL (7-17); Calcium 8.3 mg/dL (8.4-10.2); Carbon Dioxide 28 mmol/L (22-30); Chloride 101 mmol/L (98-107); Estimated CRCL calculation 74 ml/min; Estimated Glomerular Filt Rate > 60; Glucose 93 mg/dL (65-110); Potassium 3.7 mmol/L (3.4-5.0); Sodium 134 mmol/L (137-145)
[2023-03-30 19:06] LABS: Platelet Estimate Decreased (Adequate); Schistocytes None Seen (NORMAL)
[2023-03-30 19:07] LABS: Anisocytosis 3+ (NORMAL); Macrocytosis 1+ (NORMAL); Microcytosis 1+ (NORMAL)
[2023-03-30 21:56] LABS: Glucose Point of Care 118 mg/dl (65-105)
[2023-03-31] VITALS (11 sets, daily range): BP systolic 99–151; BP diastolic 57–89; PULSE 77–107; RESP 16–22; TEMP 36.6–37.1; O2SAT 98–99
[2023-03-31 00:30] LABS: Toxigenic C. Diff POSITIVE (NEGATIVE)
[2023-03-31 01:14] LABS: Glucose Point of Care 112 mg/dl (65-105)
[2023-03-31] MEDS: VANCOMYCIN HCL 125 MG ORAL CAPSULE PO ×2 (04:00→12:16)
[2023-03-31 04:10] LABS: Hepatitis B Core Ab Total Nonreactive (Nonreactive)
[2023-03-31 06:54] LABS: Alanine Aminotransferase 50 U/L (6-35); Alkaline Phosphatase 167 U/L (38-126); Anion Gap 6 mmol/L (8-16); Aspartate Amino Transferase 180 U/L (14-36); Bilirubin,Total 0.9 mg/dL (0.2-1.3); Blood Urea Nitrogen 4 mg/dL (7-17); Calcium 8.8 mg/dL (8.4-10.2); Carbon Dioxide 29 mmol/L (22-30); Chloride 100 mmol/L (98-107); Estimated CRCL calculation 64 ml/min; Estimated Glomerular Filt Rate > 60; Glucose 110 mg/dL (65-110); Potassium 3.7 mmol/L (3.4-5.0); Sodium 135 mmol/L (137-145)
[2023-03-31 07:01] LABS: Basophils Percent Auto 0.9 % (0.2-1.2); Eosinophils Absolute Auto 0.1 K/mm3 (0-0.3); Eosinophils Percent Auto 2.2 % (0-4.4); Hematocrit 24.7 % (37.0-47.0); Hemoglobin 7.8 g/dL (12.0-15.0); Immature Granulocyte Absolute 0.02 K/mm3 (0.00-0.031); Immature Granulocyte Percent A 0.9 % (0-0.5); Immature Platelet Fraction Pct 10.2 % (0.9-11.2); Lymphocytes Absolute Auto 0.95 K/mm3 (0.9-3.2); Lymphocytes Percent Auto 42.4 % (18.3-44.2); Mean Corpuscular HGB Conc 31.6 g/dl (32-36); Mean Corpuscular Hemoglobin 33.6 pg (26-34); Mean Corpuscular Volume 106.5 fl (80-100); Mean Platelet Volume 11.1 fl (7.4-10.4); Monocytes Absolute Auto 0.2 K/mm3 (0.1-0.6); Monocytes Percent Auto 8.9 % (2.6-8.5); Neutrophils Percent Auto 44.7 % (45.5-73.1); Platelet Count Result 115 k/mm3 (150-375); Red Blood Count 2.32 M/mm3 (4.2-5.4); White Blood Count 2.2 K/mm3 (4.5-10.0)
[2023-03-31 07:01] LABS: Glucose Point of Care 127 mg/dl (65-105)
[2023-03-31] MEDS: THIAMINE HCL 200 MG/2 ML VIAL 100 MG IV PUSH (08:27)
[2023-03-31] MEDS: POTASSIUM CHLORIDE 20 MEQ ER TABLET PO (08:28)
[2023-03-31] MEDS: PANTOPRAZOLE SODIUM IV 40 MG VIAL IV PUSH (08:28)
[2023-03-31 08:35] LABS: Anisocytosis 1+ (NORMAL); Hypochromasia 1+ (NORMAL); Macrocytosis 1+ (NORMAL); Platelet Estimate Adequate (Adequate); Schistocytes None Seen (NORMAL)
[2023-03-31] MEDS: FOLIC ACID 1 MG/0.2 ML INJ IV PUSH (09:26)
--- NOTE | 2023-03-31 09:35 | PM.IMPN ---
Progress Note: A&P Assessment and Plan (1) Acute GI bleeding: Code(s): K92.2 - Gastrointestinal hemorrhage, unspecified Status: Acute Assessment and Plan: Patient presents to the emergency room with complaints of weakness and abdominal pain. She was guaiac positive. Hemoglobin was 10.9 and has trended down to 8-9 range. She drinks alcohol on takes ibuprofen; concerned for gastritis versus peptic ulcer disease. She may also has esophageal varices but felt less likely causing her symptoms since it does not. Continue IV Protonix. GI consulted with plans for EGD. 03/30/23: Slated for EGD today but post-poned due to hypokalemia (2) Abdominal pain: Code(s): R10.9 - Unspecified abdominal pain Status: Acute Assessment and Plan: Related to above. Follow. (3) Metabolic acidosis: Code(s): E87.20 - Acidosis, unspecified Status: Acute Assessment and Plan: Patient had a significant metabolic gap acidosis related to alcoholism and ketosis. She was started on a bicarb drip. Repeat labs showing resolution of acidosis. Bicarb drip stopped. Also with low potassium, mag and Phos. Replace electrolytes. (4) Alcoholic hepatitis: Qualifiers: Ascites presence: without ascites Qualified Code(s): K70.10 - Alcoholic hepatitis without ascites Code(s): K70.10 - Alcoholic hepatitis without ascites Status: Acute Assessment and Plan: AST/ALT elevated on admission and are trednig down. Viral Hepatitis panel negative. HepB surface Ab positive. RUQ showing diffuse hepatic steatosis with positive Trujillo's sign. Suspect related to alcoholic hepatitis complicated by hepatic steatosis. Consider HIDA if continues to have pain (5) Macrocytic anemia: Code(s): D53.9 - Nutritional anemia, unspecified Status: Acute Assessment and Plan: Patient with macrocytic anemia. B12 and folate levels are normal. TSH normal. Iron studies are more consistent with anemia of chronic disease. May have underlying acute blood loss related to the GI bleed. Has very high iron studies. Check hemochrom PCR Hemoglobin was 10.9 on admission but has dropped to the 8-9 range. Continue to monitor and transfuse as needed. (6) Weakness: Code(s): R53.1 - Weakness Status: Acute Assessment and Plan: Related to above PT/OT ordered (7) Hypertension: Qualifiers: Hypertension type: primary hypertension Qualified Code(s): I10 - Essential (primary) hypertension Code(s): I10 - Essential (primary) hypertension Status: Chronic Assessment and Plan: Patient's blood pressure was reviewed on 03/29 Blood pressure was elevated yesterday but better controlled now. Will continueto monitor (8) History of alcoholism: Code(s): F10.21 - Alcohol dependence, in remission Status: Acute Assessment and Plan: Patient was educated about the benefits of staying from alcohol use. No evidence of alcohol withdrawal. CIWA mostly 4-7 range. Continue thiamine and folate. Continue CIWA protocol. (9) Tobacco abuse: Code(s): Z72.0 - Tobacco use Status: Chronic Assessment and Plan: Patient was educated about the benefits of abstaining from tobacco use (10) Hypokalemia: Code(s): E87.6 - Hypokalemia Status: Acute Assessment and Plan: Replete and monitor (11) C. difficile diarrhea: Code(s): A04.72 - Enterocolitis due to Clostridium difficile, not specified as recurrent Status: Acute Assessment and Plan: On PO Vancomycin Plan DVT prophylaxis - SCDs Code status - press tender short goods Spent With Patient Time with patient: 25 - 35 minutes Subjective Date/time seen: 03/31/23 09:35 Interval history: Similar nausea with mild abdominal pain - she is hungry, had normal stool without dark material Review of Systems Review of Systems:
--- NOTE | 2023-03-31 09:50 | PCNFU ---
Nutrition Follow-Up Complete: Inadequate energy intake related to diet order as evidenced by NPO status Goal:Diet advanced PO intake 75% of meals Pt was progressing towards goal. Pt current nutrition is NPO for EGD today. Nutrition recommendation: resume diet post EGD, add Ensure Clear with meals Last recorded weight is 67.2 kg. Bowel Motility: +BM 2/6 Labs Reviewed: Hgb:7.8, HCT:24.7, Alb:3.0, NA:135, BUN:4 Meds Noted: protonix, folic acid, KCL Skin: no skin issues noted Additional Notes: Pt NPO today for EGD, was on a soft diet, intake charted at 75%. Recommend to resume diet post procedure and add Ensure clear as a supplement Monitor diet order, intake, wt, labs. Follow up in 3 days.
--- NOTE | 2023-03-31 10:30 | WPDANESEPPF ---
Anes - Initial Pre Proc Eval Procedure: Operation Date: 03/31/23 13:30 Proposed Procedures p Esophagogastroduodenoscopy - Alfredo Dorman MD Date/Time: 03/31/23 10:30 Surgeon: Soraya Barfield DO Pre Op Diagnosis: GI Bleed Patient Data Age: 67 Gender: F Height: 1.7 m Weight: 67.2 kg Last Vital Signs Temp 98.0 F 03/31/23 08:00 Pulse 77 03/31/23 08:30 Resp 16 03/31/23 08:00 BP 139/89 03/31/23 08:00 Pulse Ox 99 03/31/23 08:00 O2 Del Method Room Air 03/31/23 08:30 Allergies Allergy/AdvReac Type Severity Reaction Status Date / Time tramadol AdvReac Intermediate Itching Verified 03/28/23 05:43 Home Medications Medication Instructions Recorded Confirmed Type amlodipine 10 mg tablet 10 mg PO DAILY 02/18/22 03/28/23 History omeprazole 20 mg tablet,delayed 20 mg PO DAILY 02/18/22 03/28/23 History release folic acid 1 mg tablet 1 mg PO DAILY #30 tabs 02/22/22 03/28/23 Rx potassium chloride 20 mEq 20 meq PO DAILY@0800 #14 tabs 02/22/22 03/28/23 Rx tablet,extended release (K-Tab) Laboratory Tests 03/28/23 03/30/23 03/30/23 18:17 13:23 15:32 WBC RBC Hgb Hct MCV MCH MCHC RDW Plt Count MPV Immature Gran % (Auto) Neut % (Auto) Lymph % (Auto) [place] % (Auto) Eos % (Auto) Baso % (Auto) Lymph # (Auto) [place] # (Auto) Eos # (Auto) Baso # (Auto) Abs Immat Gran (auto) Absolute Neuts (auto) Absolute Nucleated RBC Nucleated RBC % Platelet Estimate % Immature Plt Fraction Hypochromasia Anisocytosis Microcytosis Macrocytosis Schistocytes Sodium 135 L mmol/L (137-145) Potassium 4.3 mmol/L (3.4-5.0) Chloride 101 mmol/L (98-107) Carbon Dioxide 31 H mmol/L (22-30) Anion Gap 3 L mmol/L (8-16) BUN 5 L mg/dL (7-17) Creatinine 0.60 L mg/dL (0.7-1.0) Estim Creat Clear Calc 74 ml/min Estimated GFR > 60 (59 - ) Glucose 98 mg/dL (65-110) POC Capillary Glucose 98 mg/dl (65-105) Calcium 7.9 L mg/dL (8.4-10.2) Total Bilirubin AST ALT Alkaline Phosphatase Total Protein Albumin C. difficile (PCR) Hep B Core Total Ab Nonreactive (Nonreactive) 03/30/23 03/30/23 03/30/23 16:24 21:10 22:42 WBC 2.6 L K/mm3 (4.5-10.0) RBC 2.61 L M/mm3 (4.2-5.4) Hgb 8.6 L g/dL (12.0-15.0) Hct 27.7 L % (37.0-47.0) MCV 106.1 H fl (80-100) MCH 33.0 pg (26-34) MCHC 31.0 L g/dl (32-36) RDW 15.9 H % (11.5-14.5) Plt Count 110 L k/mm3 (150-375) MPV 11.2 H fl (7.4-10.4) Immature Gran % (Auto) 0.8 H % (0-0.5) Neut % (Auto) 51.7 % (45.5-73.1) Lymph % (Auto) 38.8 % (18.3-44.2) [place] % (Auto) 7.2 % (2.6-8.5) Eos % (Auto) 1.1 % (0-4.4) Baso % (Auto) 0.4 % (0.2-1.2) Lymph # (Auto) 1.02 K/mm3 (0.9-3.2) [place] # (Auto) 0.2 K/mm3 (0.1-0.6) Eos # (Auto) 0.0 K/mm3 (0-0.3) Baso # (Auto) 0.0 K/mm3 (0.0-0.1) Abs Immat Gran (auto) 0.02 K/mm3 (0.00-0.031) Absolute Neuts (auto) 1.4 K/mm3 (1.3-6.7) Absolute Nucleated RBC 0.0 K/mm3 (0.0-0.012) Nucleated RBC % 0.0 % (0.0-0.2) Platelet Estimate Decreased (Adequate) % Immature Plt Fraction 9.8 % (0.9-11.2) Hypochromasia Anisocytosis 3+ (NORMAL)
[2023-03-31] MEDS: LACTATED RINGERS 1,000 ML 150 ML IV CONT (10:31)
[2023-03-31] MEDS: BENZOCAINE (*SP) 60 ML SPRAY CAN (HURRICAINE) 1 SPRAY MUCOUS MEM (10:43)
[2023-03-31 12:23] LABS: Glucose Point of Care 102 mg/dl (65-105)
--- NOTE | 2023-03-31 14:43 | PM.DS ---
DS: Admitting Diagnosis Discharge Date 03/31/23 Admitting Diagnosis 1. GI Bleed 2. Gastritis, Alcoholic 3.Metabolic acidosis. Improved 4. Alcoholic hepatitis 5. Macrocytic Anemia. Alcoholic 6. Alcohol dependence, without withdrawal 7. Nicotine dependence 8. Hypokalemia DS: Discharge Diagnosis Discharge Diagnosis (1) Acute GI bleeding: Code(s): K92.2 - Gastrointestinal hemorrhage, unspecified Status: Acute Assessment and Plan: Probably 2/2 Alcohol consumption (2) Abdominal pain: Code(s): R10.9 - Unspecified abdominal pain Status: Acute Assessment and Plan: Improved (3) Metabolic acidosis: Code(s): E87.20 - Acidosis, unspecified Status: Acute Assessment and Plan: Improved (4) Alcoholic hepatitis: Qualifiers: Ascites presence: without ascites Qualified Code(s): K70.10 - Alcoholic hepatitis without ascites Code(s): K70.10 - Alcoholic hepatitis without ascites Status: Acute Assessment and Plan: Cessation counseling, 3 minutes US Liver every 6 months to screen for HCC (5) Macrocytic anemia: Code(s): D53.9 - Nutritional anemia, unspecified Status: Acute Assessment and Plan: Due to alcoholism; Cessation counseling (6) Weakness: Code(s): R53.1 - Weakness Status: Acute Assessment and Plan: Probably 2/2 alcohol induced deconditioning (7) Hypertension: Qualifiers: Hypertension type: primary hypertension Qualified Code(s): I10 - Essential (primary) hypertension Code(s): I10 - Essential (primary) hypertension Status: Chronic Assessment and Plan: chronic, stable (8) History of alcoholism: Code(s): F10.21 - Alcohol dependence, in remission Status: Acute Assessment and Plan: Chronic; Cessation counseling (9) Tobacco abuse: Code(s): Z72.0 - Tobacco use Status: Chronic Assessment and Plan: Chronic; Cessation counseling, 3 minutes (10) Hypokalemia: Code(s): E87.6 - Hypokalemia Status: Acute Assessment and Plan: Acute; Replete and monitor (11) C. difficile diarrhea: Code(s): A04.72 - Enterocolitis due to Clostridium difficile, not specified as recurrent Status: Acute Assessment and Plan: Discharged on PO Vancomycin Plan 1. GI Bleed 2. Gastritis, Alcoholic 3.Metabolic acidosis. Improved 4. Alcoholic hepatitis 5. Macrocytic Anemia. Alcoholic 6. Alcohol dependence, without withdrawal 7. Nicotine dependence 8. Hypokalemia 9. C-diff infection DS: Summary Hospital Course Reason for hospitalization: 1. GI Bleed 2. Gastritis, Alcoholic 3.Metabolic acidosis. Improved 4. Alcoholic hepatitis 5. Macrocytic Anemia. Alcoholic 6. Alcohol dependence, without withdrawal 7. Nicotine dependence 8. Hypokalemia Hospital Course: 67yo female with hx of alcoholism, HTN and tobacco abuse here for abdominal pain.? Patient has been having weakness and abdominal pain for the past 3 days prior to admission.? She has had no appetite.? She is having nausea with vomiting.? She has emesis mostly in the morning when she wakes up and is grayish in color.? She sometimes says there was coffee-ground appearance to it. ? She has had upper abdominal pain for the past 3 days.? She had this before last year. She was seen at [facility] at that time and underwent colonoscopy and EGD both of which were unrevealing.? The abdominal pain is sharp and can last up to 5-10 minutes.? She believes that eating meat makes this worse.? Usually it is better overall when she eats food however.? No dysuria or hematuria.? No fevers or chills.? No new medications.? She takes ibuprofen about once a week.? She is on omeprazole at home and takes this daily.? She states she quit drinking about 3 weeks ago.? She normally drinks bloody [employer] and drinks about 4 times per week.? No chest pain.? She does drink excessive amounts of water up to 3 quarts a
== END 2023-03-31 15:25 | disposition home or self-care (01) | DRG 378 ==
LOC: ANHED 03-28 03:23 → ANH3MEDSUR 03-28 04:15
PROVIDERS: Emergency Medicine; Internal Medicine; Internal Medicine Gastroenterology; Student in an Organized Health Care Education/Training Program; Admitting Provider Internal Medicine; Emergency Provider Physician Assistant; PCP Internal Medicine; Visit Provider Internal Medicine
PROC: 0DJ08ZZ Inspection of Upper Intestinal Tract, Via Natural or Artificial Opening Endoscopic (ICD-10-PCS; CPT 43235; principal; 2023-03-31 13:30)
DX: K92.2 Gastrointestinal hemorrhage, unspecified (principal); A04.72 Enterocolitis due to Clostridium difficile, not specified as recurrent; E87.20 Acidosis, unspecified; K76.6 Portal hypertension; K29.20 Alcoholic gastritis without bleeding; K70.10 Alcoholic hepatitis without ascites; I10 Essential (primary) hypertension; E86.0 Dehydration; E87.6 Hypokalemia; K76.0 Fatty (change of) liver, not elsewhere classified; D53.9 Nutritional anemia, unspecified; F10.21 Alcohol dependence, in remission; F17.210 Nicotine dependence, cigarettes, uncomplicated; Z96.659 Presence of unspecified artificial knee joint
CPT/HCPCS: 36415; 74177; 76705; 80048; 80053; 80307; 81001; 81256; 82140; 82607; 82728; 82746; 82803; 82948; 83540; 83550; 83605; 83690; 83735; 84100; 84132; 84443; 85014; 85018; 85025; 85055; 85610; 86704; 86705; 86706; 86709; 86803; 87340; 87493; 88305; 93005; 96361; 96365; 96366; 96375; 96376; 97161; 97165; 99285; A9270; C9113; G0378; J2001; J2405; J2550; J2704; J3411; J3475; J3480; J7030; J7040; J7060; J7070; J7120; Q9967

== ENCOUNTER 2024-02-25 08:42 | Outpatient (CLI) | payer MEDICARE, SELFPAY ==
--- NOTE | ~2024-02-25 | XR_ITS ---
XR lumbar spine 2-3V DATE: 02/25/2024 09:29 INDICATION: Lumbar radiculopathy TECHNIQUE: AP, lateral, coned lateral lumbosacral standing views COMPARISON: None FINDINGS: Osteopenia. There is mild lumbar dextroscoliosis. There is grade 2 anterolisthesis at L4-5 Severe degenerative disc disease and L4-5. Moderately severe degenerative disc disease at L3-4 and L5-S1. Prominent degenerative change of the apophyseal joints. No fracture or bone destruction is evident. Sacroiliac joints are intact. 4 mm calcification overlying the kidney, suggesting left nephrolithiasis. IMPRESSION: Mild lumbar dextroscoliosis Multilevel degenerative disease, most prominent at L4-5 Osteoarthritic change of the facet joints with associated grade 2 anterolisthesis at L4-5 Reviewed, dictated and finalized at location A. UNT LIAISON IMPRESSION: Mild lumbar dextroscoliosis Multilevel degenerative disease, most prominent at L4-5 Osteoarthritic change of the facet joints with associated grade 2 anterolisthes is at L4-5
--- NOTE | ~2024-02-25 | XR_ITS ---
XR hand LT min 3V DATE: 02/25/2024 09:29 INDICATION: Pain TECHNIQUE: 3 views COMPARISON: None FINDINGS: Osteopenia. Prominent chondrocalcinosis at the triangular cartilage as well as some chondrocalcinosis of the wris t joint. Severe joint space narrowing and spurring at the first carpometacarpal joint consistent with severe o steoarthritis. There is severe osteoarthritis as well at the second and third metacarpophalangeal garth nts and moderate osteophyte is at the remaining metacarpophalangeal joints. Osteoarthritic changes ar e noted at the interphalangeal joints. No fracture, dislocation, periosteal reaction or bone destruction is detected. IMPRESSION: Prominent polyarticular osteoarthritis. Chondrocalcinosis Osteopenia Reviewed, dictated and finalized at location A. AL EDUCATION DIRECTOR
--- NOTE | ~2024-02-25 | XR_ITS ---
XR thoracic spine 3V DATE: 02/25/2024 09:29 INDICATION: Thoracic radiculopathy TECHNIQUE: AP, lateral and swimmer's standing views COMPARISON: None FINDINGS: Mild anterolisthesis at C4-5 3. Degenerative disease C5-6 and C6-7. There is prominent levoscoliosis of the lower thoracic spine. There is prominent degenerative spurrin g involving particularly the mid and lower thoracic spine. No fracture or bone destruction is evident. The thoracic pedicles appear intact. No paraspinal soft t issue thickening. IMPRESSION: Osteopenia Thoracic levoscoliosis Prominent degenerative spurring Reviewed, dictated and finalized at location A. ARCH METHODS INSTRUCTOR
--- NOTE | ~2024-02-25 | XR_ITS ---
XR hand RT min 3V DATE: 02/25/2024 09:29 INDICATION: Pain TECHNIQUE: 3 views COMPARISON: None FINDINGS: Osteopenia. Prominent triangle, image and wrist joint chondrocalcinosis. Polyarticular arthritis is noted at the triscaphe, first carpometacarpal, all metacarpophalangeal and interphalangeal joints. No fracture, dislocation, periosteal reaction or bone destruction is detected. IMPRESSION: Polyarticular osteoarthritis Chondrocalcinosis Osteopenia Reviewed, dictated and finalized at location A. MAKER
--- NOTE | ~2024-02-25 | XR_ITS ---
XR cervical spine 4-5V DATE: 02/25/2024 09:29 INDICATION: Cervical radiculopathy TECHNIQUE: AP, open-mouth, lateral views COMPARISON: None FINDINGS: Straightening of the cervical spine which may be due to muscle spasm. There is 2.8 mm anterolisthesis at C4-5. There is severe degenerative disc disease and prominent anterior and posterior spurring in addition t o minimal retrolisthesis at C5-6. There is severe degenerative disc disease at C6-7. There is prominent uncovertebral joint spurring at C5-6 and C6-7. There is degenerative change at the facet joints. C1 and C2 are normally aligned and the odontoid process is intact. No fracture or dislocation or lock ed facet or prevertebral soft tissue swelling. IMPRESSION: Severe degenerative disc disease, slight retrolisthesis and prominent anterior and marine design engineer ior spurring at C5-6 Severe degenerative disc disease at C6-7 Degenerative change at the facet joints of the cervical spine Degenerative change at the C5-6 and C6-7 uncovertebral joints Mild anterolisthesis at C4-5 Straightening of the cervical spine, possibly due to muscle spasm No fracture or dislocation or locked facet Reviewed, dictated and finalized at location A. ENT CURATOR IMPRESSION: Severe degenerative disc disease, slight retrolisthesis and promine nt anterior and posterior spurring at C5-6 Severe degenerative disc disease at C6-7 Degenerative change at the facet joints of the cervical spine Degenerative change at the C5-6 and C6-7 uncovertebral joints Mild anterolisthesis at C4-5 Straightening of the cervical spine, possibly due to muscle spasm No fracture or dislocation or locked facet
== END 2024-02-25 08:43 | disposition home or self-care (01) ==
PROVIDERS: PCP Internal Medicine
DX: F41.1 Generalized anxiety disorder (principal); M47.22 Other spondylosis with radiculopathy, cervical region; M47.23 Other spondylosis with radiculopathy, cervicothoracic region; M17.9 Osteoarthritis of knee, unspecified; M19.041 Primary osteoarthritis, right hand; M85.841 Other specified disorders of bone density and structure, right hand; M19.042 Primary osteoarthritis, left hand; M85.842 Other specified disorders of bone density and structure, left hand; M51.369 Other intervertebral disc degeneration, lumbar region without mention of lumbar back pain or lower extremity pain; M85.88 Other specified disorders of bone density and structure, other site
CPT/HCPCS: 72050; 72072; 72100; 73130

== ENCOUNTER 2024-04-25 06:29 | Emergency (ER) | payer MEDICARE, SELFPAY ==
[2024-04-25] VITALS (10 sets, daily range): BP systolic 124–179; BP diastolic 81–101; PULSE 94–99; RESP 16–18; TEMP 36.4–36.7; O2SAT 97–100
--- NOTE | ~2024-04-25 | CT_ITS ---
CT brain wo con Ordering provider: Jenna Hudson PA-C History: 68 years Female with . R sided weakness . Comparison: None. Technique: CT of the head without contrast. Radiation reduction technique utilized. The dose-length p roduct was 605.33 mGy-cm. FINDINGS: BRAIN PARENCHYMA AND CSF SPACES: Moderate leukoaraiosis and diffuse cortical atrophy. Moderate athero matous disease. No midline shift, mass effect or hemorrhage. The brain parenchyma and CSF spaces are otherwise normal. VISUALIZED PARANASAL SINUSES: Well aerated. MASTOIDS: Well aerated. BONES: The bones appear intact. SOFT TISSUES: Visualized nasopharynx is normal. Superficial soft tissues are normal. IMPRESSION: No acute intracranial findings. Reviewed, dictated and finalized at location A. EPOINT NET DEVELOPER
--- NOTE | ~2024-04-25 | XR_ITS ---
XR hip RT 2V w AP pelvis Ordering provider: Jnena Hudson PA-C History: . R hip pain x 3d . Comparison: None. FINDINGS: BONES: Sclerotic area in the right inferior pubic ramus with small bony fragment is seen which may in dicate acute or chronic healed fracture. CT evaluation advised. HIP JOINT SPACES: Mild to moderate osteoarthritic changes. SACROILIAC JOINT SPACES/LUMBAR SPINE: The sacroiliac joint spaces are normal. Mild degenerative dennis es of the visualized lower lumbar spine. PUBIC SYMPHYSIS: Normal. SOFT TISSUES: Normal. IMPRESSION: Possible fracture in the right inferior pubic ramus CT evaluation advised. Reviewed, dictated and finalized at location A. ER OR BEAUTY SHOP MANAGER
--- NOTE | ~2024-04-25 | XR_ITS ---
XR shoulder RT min 2V Ordering provider: Jenna Hudson PA-C History: . pain, right shoulder pain . Comparison: None. FINDINGS: BONES: No acute fracture or dislocation. Osteophyte formation in the acromion process with narrowing of the joint space superiorly is seen which may indicate tendinitis injury. JOINT SPACES: The acromioclavicular joint is normal. The glenohumeral joint is normal. SOFT TISSUES: Normal. IMPRESSION: No acute osseous abnormality right shoulder. Narrowing of the joint space superiorly with osteophyte formation in the acromion process. Tendinitis is not excluded. Reviewed, dictated and finalized at location A. O COMMUNICATION COORDINATOR IMPRESSION: No acute osseous abnormality right shoulder. Narrowing of the joint space superiorly with osteophyte formation in the acromi on process. Tendinitis is not excluded.
--- NOTE | ~2024-04-25 | XR_ITS ---
EXAMINATION: XR wrist RT min 3V DATE: 04/25/2024 09:51 INDICATION: Right wrist pain and swelling TECHNIQUE: Posteroanterior, ulnar deviation, oblique, and lateral views of the right wrist were obtai kaci. COMPARISON: Right hand radiographs dated 02/25/24 FINDINGS: Bone alignment is normal. No fracture. Chondrocalcinosis in the region of the triangular fibrocartila ge complex. Polyarticular osteoarthritis, moderate severity at the triscaphe, first carpal metacarpal and second and third metacarpophalangeal joints and mild at the distal radioulnar and remaining carp ometacarpal, metacarpophalangeal and visualized interphalangeal joints. Mild soft tissue swelling abo ut the carpus. IMPRESSION: 1. 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 The dispropo rtion predominance at the second and third metacarpophalangeal joints and chondral calcinosis in the triangular fibrocartilage complex are typical findings associated with calcium pyrophosphate depositi on (CPPD) disease. Reviewed, dictated and finalized at location B. OGICAL MODELER IMPRESSION: 1. Mild to moderate polyarticular osteoarthritis at the right wrist and visuali zed hand. The disproportion predominance at the second and third metacarpophala ngeal joints and chondral calcinosis in the triangular fibrocartilage complex a re typical findings associated with calcium pyrophosphate deposition (CPPD) dis ease.
--- NOTE | ~2024-04-25 | CT_ITS ---
CT pelvis wo con Ordering provider: Jenna Hudson PA-C History: . r hip pain, possible pubic rami fx . Comparison: March 27, 2023 Technique: CT pelvis without oral and IV contrast. . Automated exposure control and iterative recons truction technique were employed. The dose-length product was 284.87 mGy-cm. Findings: BONES: Healing right inferior pubic ramus fracture is noted. Lucency in the right pubic bone is noted most likely due to old fracture. Age appropriate degenerative changes of the visualized lower lumbar spine. Minimal anterolisthesis at the level of L4-L5. The sacroiliac joint spaces are well maintaine d. Mild to moderate osteoarthritic changes of both hips is seen. Pubic symphysitis. SUPERFICIAL SOFT TISSUES: Normal. PELVIC ORGANS: The bladder is normal. VISUALIZED BOWEL AND MESENTERY: Normal. No free air or free fluid. No lymphadenopathy. Bilateral tiny kidney stones are noted. RETROPERITONEUM: Mild atheromatous disease. IMPRESSION: Healing fracture in the right inferior pubic ramus. Bilateral kidney stones. Reviewed, dictated and finalized at location A. UNICATION SIGNALS INTELLIGENCE
--- OUTSIDE RECORDS SUMMARY | 2024-04-25 06:32 | XMS_ITS | Encounter Summary ---
Author Organization [facility] Healthcare Address [address] [place] [id number] Care Team Providers Care Dyer Helper Name Role Phone Bill Simms MD Primary Care Provider [phone] Reason for Visit * Reason Onset Date Comments Ready to schedule 03/11/2022 Encounter Details Date Type Department Care Team (Late st Contact Info) Description 03/11/2022 Telephone [facility] Specialty Services [address] [place] [phone] Miscellaneous, Not In File Ready to schedule Social History Tobacco Use Types Packs/Day Years Used Date Smoking Tobacco: Some Days Cigarettes 0.1 30.2 Started: 1994 Smokeless Tobacco: Never Comments:smokes every other day Alcohol Use Standard Drinks/Week Comments Yes 6 (1 standard drink = 0.6 oz pur e alcohol) social AUDIT-C Answer Date Recorded Q1: How often do you have a drink containing alc ohol? 2-4 times a month 06/17/2020 Q2: How many drinks containi ng alcohol do you have on a typical day when you are drinking? 1 or 2 06/17/2020 Q3: How often do you have si x or more drinks on one occasion? Never 06/17/2020 Comments No Sex and Gender Information Value Date Recorded Sex Assigned at Not on file Legal Sex Female 1:31 AM DIET AIDE Gender Identity Not on file Sexual Orientation Not on file Occupation Industry Job Start Date Job End Date disabled as of 2013 Not on file Not on file Not on f ile documented as of this encounter Plan of Treatment Not on file documented as of this encounter Visit Diagnoses Not on filedocumented in this encounter Care Teams Dyer Helper Relationship Specialty Start Date End Date Bill Simms MD [id number] [facility] [address] [place] [address] PCP - General 07/24/19 documented as of this encounter
--- OUTSIDE RECORDS SUMMARY | 2024-04-25 06:32 | XMS_ITS | Data Portability ---
Author Organization [facility] Address [address] 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 400 mg q.p.m. that seems to be helping with her pain avoidance of alcohol and tobacco discussed in detail GERD continue with omeprazole hypertension Nahun pressure is up just a little bit we will continue to monitor I am not going to change medications quickly because of her recent falls liver steatosis anemia GERD hypertension low vitamin-D level discussed in conjunction with her other medications she will see me back in a couple of months recommended to stay up-to-date on her respiratory immunizations [email or web address] Not available 12/24/2023 16:04:34 03/09/2024 03/09/2024 continue current therapy labs quitting tobacco care instructions all questions answered follow up in 3 months Not available 03/09/2024 21:30:39 Plan of Treatment Reminders Order Date Submit Date Provider Last Modified By Organization Details Last Modified Time Details Appointments ANY 15 2024 10:15A Regan Velez MD Not available Not available Not available Lab lipid panel, serum 2024 025 [facility] [address], [place], [address], 03/10/2024 06:19:18 CMP, serum or plasma 2024 025 [facility] [address], [place], [address], 03/10/2024 06:19:19 CBC w/ auto diff 2024 025 [facility], [address], [place], [address], 03/10/2024 06:19:21 magnesium , serum or plasma 2024 025 [facility] [address], [place], [address], 03/10/2024 06:19:20 Referral None recorded. Procedures None recorded. Surgeries None recorded. Imaging None recorded. Medication Orders gabapenti n 100 mg capsule [address] [facility] [address] [facility], [address] [place], [address], 12/23/2023 13:42:59 gabapenti n 400 mg capsule [address] [facility], [address] [place], [address], 12/23/2023 13:42:59 Patient TargetsNo targets recorded. Patient Instructions Encounter Date Encounter Id Patient Instructions Last Modified By Organization Details Last Modified Time 09/13/2023 [id number] preventing falls : care instructions [email or web address] Not available 09/13/2023 12:34:37 Medicare Well[facility] Preventive Checklist [email or web address] Not available 09/13/2023 12:34:37 03/09/2024 [id number] Quitting Tobacco : Care Instructions [email or web address] Not available 03/09/2024 16:15:18 Reason for Referral None Reported. Results Created Date Observation Date Name Description Value Unit Range Abnormal Flag Note LastModifiedBy Organization Detail LastModifiedTime 08/19/19 24 08/20/2023 COMP. METAB OLIC PANEL (14) glucose 105 mg/dL 70-99 above high normal Not Available [facility] ([facility]) [address] [place], [address], 08/20/2023 08:23:53 08/19/19 24 08/20/2023 COMP. METAB OLIC PANEL (14) BUN 7 mg/dL 8-27 below low normal Not Available [facility] ([facility]) [address] [place], [address], 08/20/2023 08:23:53 08/19/19 24 08/20/2023 COMP. METAB OLIC PANEL (14) creatinine 0.73 mg/dL 0.57-1 .00 Not Available [facility] ([facility]) [address] [place], [address], 08/20/2023 08:23:53 08/19/19 24 08/20/2023 COMP. METAB OLIC PANEL (14) eGFR 89 mL/mi n/1.7 3 >59 Not Available [facility] ([facility]) [address] [place], [address], 08/20/2023 08:23:53 08/19/19 24 08/20/2023 COMP. METAB OLIC PANEL (14) BUN/creatini ne ratio 10 12-28 below low normal Not Available [facility] ([facility]) [address] [place], [address], 08/20/2023 08:23:53 08/19/19 24 08/20/2023 COMP. METAB OLIC PANEL (14) sodium 139 mmol/ L 134-14 4 Not Available [facility] ([facility]) [address] [place], [address], 08/20/2023 08:23:53 08/19/19 24 08/20/2023 COMP. METAB OLIC PANEL (14) potassium 2.9 mmol/ L 3.5-5. 2 below low normal Not Available [facility] ([facility]) [address] [place], [address], 08/20/2023 08:23:53 08/19/19 24 08/20/2023 COMP. METAB OLIC PANEL (14) chloride 97 mmol/ L 96-106 Not Available [facility] ([facility]) [address] [place], [address], 08/20/2023 08:23:53 08/19/19 24 08/20/2023 COMP. METAB OLIC PANEL (14) carbon dioxide, total 24 mmol/ L Not Available [facility] ([facility]) [address] [place], [address], 08/20/2023 08:23:53 08/19/19 24 08/20/2023 COMP. METAB OLIC PANEL (14) calcium 9.1 mg/dL 8.7-10 .3 Not Available [facility] ([facility]) [address] [place], [address], 08/20/2023 08:23:53 08/19/19 24 08/20/2023 COMP. METAB OLIC PANEL (14) protein, total 6.2 g/dL 6.0-8. 5 Not Available [facility] ([facility]) [address] [place], [address], 08/20/2023 08:23:53 08/19/19 24 08/20/2023 COMP. METAB OLIC PANEL (14) albumin 3.6 g/dL 3.9-4. 9 below low normal Not Available [facility] ([facility]) [address] [place], [address], 08/20/2023 08:23:53 08/19/19 24 08/20/2023 COMP. METAB OLIC PANEL (14) globulin, total 2.6 g/dL 1.5-4. 5 Not Available [facility] ([facility]) [address] [place], [address], 08/20/2023 08:23:53 08/19/19 24 08/20/2023 COMP. METAB OLIC PANEL (14) bilirubin, total 0.6 mg/dL 0.0-1. 2 Not Available [facility] ([facility]) [address] [facility] [place], [address], 08/20/2023 08:23:53 08/19/19 24 08/20/2023 COMP. METAB OLIC PANEL (14) alkaline phosphatase 206 IU/L 44-121 above high normal Not Available [facility] ([facility]) [address] [facility] [place], [address], 08/20/2023 08:23:53 08/19/19 24 08/20/2023 COMP. METAB OLIC PANEL (14) AST (SGOT) 258 IU/L 0-40 above high normal Not Available [facility] ([facility]) [address] [facility] [place], [address], 08/20/2023 08:23:53 08/19/19 24 08/20/2023 COMP. METAB OLIC PANEL (14) ALT (SGPT) 62 IU/L 0-32 above high normal Not Available [facility] ([facility]) [address] [facility] [place], [address], 08/20/2023 08:23:53 08/19/19 24 08/20/2023 MAGNE SIUM magnesium 1.7 mg/dL 1.6-2. 3 Not Available [facility] ([facility]) [address] [facility] [place], [address], 08/20/2023 08:23:54 08/19/19 24 08/20/2023 CBC WITH DIFFE RENTI AL/PL ATELE T WBC 3.1 x10e3 /uL 3.4-10 .8 below low normal Not Available [facility] ([facility]) [address] [facility] [place], [address], 08/20/2023 08:23:55 08/19/19 24 08/20/2023 CBC WITH DIFFE RENTI AL/PL ATELE T RBC 3.31 x10e6 /uL 3.77-5 .28 below low normal Not Available [facility] ([facility]) [address] [facility] [place], [address], 08/20/2023 08:23:55 08/19/19 24 08/20/2023 CBC WITH DIFFE RENTI AL/PL ATELE T hemoglobin 11.1 g/dL 11.1-1 5.9 Not Available [facility] ([facility]) [address] [place], [address], 08/20/2023 08:23:55 08/19/19 24 08/20/2023 CBC WITH DIFFE RENTI AL/PL ATELE T hematocrit 32.8 % 34.0-4 6.6 below low normal Not Available [facility] ([facility]) [address] [place], [address], 08/20/2023 08:23:55 08/19/19 24 08/20/2023 CBC WITH DIFFE RENTI AL/PL ATELE T MCV 99 fL 79-97 above high normal Not Available [facility] ([facility]) [address] [place], [address], 08/20/2023 08:23:55 08/19/19 24 08/20/2023 CBC WITH DIFFE RENTI AL/PL ATELE T MCH 33.5 pg 26.6-3 3.0 above high normal Not Available [facility] ([facility]) [address] [facility], [place], [address], 08/20/2023 08:23:55 08/19/19 24 08/20/2023 CBC WITH DIFFE RENTI AL/PL ATELE T MCHC 33.8 g/dL 31.5-3 5.7 Not Available [facility] ([facility]) [address] [facility], [place], [address], 08/20/2023 08:23:55 08/19/19 24 08/20/2023 CBC WITH DIFFE RENTI AL/PL ATELE T RDW 16.9 % 11.7-1 5.4 above high normal Not Available [facility] ([facility]) [address] [facility], [place], [address], 08/20/2023 08:23:55 08/19/19 24 08/20/2023 CBC WITH DIFFE RENTI AL/PL ATELE T platelets 160 x10e3 /uL 150-45 0 Not Available [facility] ([facility]) [address] [facility], [place], [address], 08/20/2023 08:23:55 08/19/19 24 08/20/2023 CBC WITH DIFFE RENTI AL/PL ATELE T neutrophils 39 % notest ab. Not Available [facility] ([facility]) [address] [place], [address], 08/20/2023 08:23:55 08/19/19 24 08/20/2023 CBC WITH DIFFE RENTI AL/PL ATELE T lymphs 49 % notest ab. Not Available [facility] ([facility]) [address] [place], [address], 08/20/2023 08:23:55 08/19/19 24 08/20/2023 CBC WITH DIFFE RENTI AL/PL ATELE T monocytes 10 % notest ab. Not Available [facility] ([facility]) [address] [facility], [place], [address], 08/20/2023 08:23:55 08/19/19 24 08/20/2023 CBC WITH DIFFE RENTI AL/PL ATELE T eos 1 % notest ab. Not Available [facility] ([facility]) [address] [facility], [place], [address], 08/20/2023 08:23:55 08/19/19 24 08/20/2023 CBC WITH DIFFE RENTI AL/PL ATELE T basos 1 % notest ab. Not Available [facility] ([facility]) [address] [facility], [place], [address], 08/20/2023 08:23:55 08/19/19 24 08/20/2023 CBC WITH DIFFE RENTI AL/PL ATELE T neutrophils (absolute) 1.2 x10e3 /uL 1.4-7. 0 below low normal Not Available [facility] ([facility]) [address] [place], [address], 08/20/2023 08:23:55 08/19/19 24 08/20/2023 CBC WITH DIFFE RENTI AL/PL ATELE T lymphs (absolute) 1.5 x10e3 /uL 0.7-3. 1 Not Available [facility] ([facility]) [address] [place], [address], 08/20/2023 08:23:55 08/19/19 24 08/20/2023 CBC WITH DIFFE RENTI AL/PL ATELE T monocytes(ab solute) 0.3 x10e3 /uL 0.1-0. 9 Not Available [facility] ([facility]) [address] [place], [address], 08/20/2023 08:23:55 08/19/19 24 08/20/2023 CBC WITH DIFFE RENTI AL/PL ATELE T eos (absolute) 0.0 x10e3 /uL 0.0-0. 4 Not Available [facility] ([facility]) [address] [place], [address], 08/20/2023 08:23:55 08/19/19 24 08/20/2023 CBC WITH DIFFE RENTI AL/PL ATELE T baso (absolute) 0.0 x10e3 /uL 0.0-0. 2 Not Available [facility] ([facility]) [address] [place], [address], 08/20/2023 08:23:55 08/19/19 24 08/20/2023 CBC WITH DIFFE RENTI AL/PL ATELE T immature granulocytes 0 % notest ab. Not Available [facility] ([facility]) [address] [place], [address], 08/20/2023 08:23:55 08/19/19 24 08/20/2023 CBC WITH DIFFE RENTI AL/PL ATELE T immature grans (abs) 0.0 x10e3 /uL 0.0-0. 1 Not Available [facility] ([facility]) [address] [place], [address], 08/20/2023 08:23:55 08/19/19 24 08/20/2023 CBC WITH DIFFE RENTI AL/PL ATELE T NRBC 1 % 0-0 above high normal Not Available [facility] ([facility]) [address] [place], [address], 08/20/2023 08:23:55 03/09/19 25 03/10/2024 LIPID PANEL cholesterol, total 227 mg/dL 100-19 9 above high normal Not Available [facility] ([facility]) [address] [place], [address], 03/10/2024 06:19:18 03/09/19 25 03/10/2024 LIPID PANEL triglyceride s 129 mg/dL 0-149 Not Available [facility] ([facility]) [address] [place], [address], 03/10/2024 06:19:18 03/09/19 25 03/10/2024 LIPID PANEL HDL cholesterol 66 mg/dL >39 Not Available [facility] ([facility]) [address] [place], [address], 03/10/2024 06:19:18 03/09/19 25 03/10/2024 LIPID PANEL VLDL cholesterol henrique 23 mg/dL 5-40 Not Available [facility] ([facility]) [address] [place], [address], 03/10/2024 06:19:18 03/09/19 25 03/10/2024 LIPID PANEL LDL chol calc ([facility]) 138 mg/dL 0-99 above high normal Not Available [facility] ([facility]) [address] [place], [address], 03/10/2024 06:19:18 03/09/19 25 03/10/2024 COMP. METAB OLIC PANEL (14) glucose 95 mg/dL 70-99 Not Available [facility] ([facility]) [address] [place], [address], 03/10/2024 06:19:19 03/09/19 25 03/10/2024 COMP. METAB OLIC PANEL (14) BUN 11 mg/dL 8-27 Not Available [facility] ([facility]) [address] [place], [address], 03/10/2024 06:19:19 03/09/19 25 03/10/2024 COMP. METAB OLIC PANEL (14) creatinine 0.88 mg/dL 0.57-1 .00 Not Available [facility] ([facility]) [address] [facility], [address], 03/10/2024 06:19:19 03/09/19 25 03/10/2024 COMP. METAB OLIC PANEL (14) eGFR 71 mL/mi n/1.7 3 >59 Not Available [facility] ([facility]) [address], [place], [address], 03/10/2024 06:19:19 03/09/19 25 03/10/2024 COMP. METAB OLIC PANEL (14) BUN/creatini ne ratio 13 12-28 Not Available [facility] ([facility]) [address] [facility], [place], [address], 03/10/2024 06:19:19 03/09/19 25 03/10/2024 COMP. METAB OLIC PANEL (14) sodium 138 mmol/ L 134-14 4 Not Available [facility] ([facility]) [address] [facility], [place], [address], 03/10/2024 06:19:19 03/09/19 25 03/10/2024 COMP. METAB OLIC PANEL (14) potassium 4.5 mmol/ L 3.5-5. 2 Not Available [facility] ([facility]) [address], [place], [address], 03/10/2024 06:19:19 03/09/19 25 03/10/2024 COMP. METAB OLIC PANEL (14) chloride 102 mmol/ L 96-106 Not Available [facility] ([facility]) [address] [facility] [place], [address], 03/10/2024 06:19:19 03/09/19 25 03/10/2024 COMP. METAB OLIC PANEL (14) carbon dioxide, total 23 mmol/ L 20-29 Not Available [facility] ([facility]) [address] [facility] [place], [address], 03/10/2024 06:19:19 03/09/19 25 03/10/2024 COMP. METAB OLIC PANEL (14) calcium 9.8 mg/dL 8.7-10 .3 Not Available [facility] ([facility]) [address] [place], [address], 03/10/2024 06:19:19 03/09/19 25 03/10/2024 COMP. METAB OLIC PANEL (14) protein, total 7.2 g/dL 6.0-8. 5 Not Available [facility] ([facility]) [address] [place], [address], 03/10/2024 06:19:19 03/09/1903/10/2024 COMP. METAB OLIC PANEL (14) albumin 4.2 g/dL 3.9-4. 9 Not Available [facility] ([facility]) [address] [place], [address], 03/10/2024 06:19:19 03/09/19 25 03/10/2024 COMP. METAB OLIC PANEL (14) globulin, total 3.0 g/dL 1.5-4. 5 Not Available [facility] ([facility]) [address] [place], [address], 03/10/2024 06:19:19 03/09/19 25 03/10/2024 COMP. METAB OLIC PANEL (14) bilirubin, total 0.2 mg/dL 0.0-1. 2 Not Available [facility] ([facility]) [address] [place], [address], 03/10/2024 06:19:19 03/09/1903/10/2024 COMP. METAB OLIC PANEL (14) alkaline phosphatase 173 IU/L 44-121 above high normal Not Available [facility] ([facility]) [address] [place], [address], 03/10/2024 06:19:19 03/09/19 25 03/10/2024 COMP. METAB OLIC PANEL (14) AST (SGOT) 33 IU/L 0-40 Not Available [facility] ([facility]) [address] [place], [address], 03/10/2024 06:19:19 03/09/19 25 03/10/2024 COMP. METAB OLIC PANEL (14) ALT (SGPT) 21 IU/L 0-32 Not Available [facility] ([facility]) [address] [facility], [place], [address], 03/10/2024 06:19:19 03/09/1903/10/2024 MAGNE SIUM magnesium 2.1 mg/dL 1.6-2. 3 Not Available [facility] ([facility]) [address] [place], [address], 03/10/2024 06:19:20 03/09/1903/09/2024 CBC WITH DIFFE RENTI AL/PL ATELE T WBC 6.7 x10e3 /uL 3.4-10 .8 Not Available [facility] ([facility]) [address] [place], [address], 03/10/2024 06:19:21 03/09/19 25 03/09/2024 CBC WITH DIFFE RENTI AL/PL ATELE T RBC 4.40 x10e6 /uL 3.77-5 .28 Not Available [facility] ([facility]) [address] [place], [address], 03/10/2024 06:19:21 03/09/1903/09/2024 CBC WITH DIFFE RENTI AL/PL ATELE T hemoglobin 12.9 g/dL 11.1-1 5.9 Not Available [facility] ([facility]) [address] [place], [address], 03/10/2024 06:19:21 03/09/19 25 03/09/2024 CBC WITH DIFFE RENTI AL/PL ATELE T hematocrit 40.3 % 34.0-4 6.6 Not Available [facility] ([facility]) [address] [place], [address], 03/10/2024 06:19:21 03/09/19 25 03/09/2024 CBC WITH DIFFE RENTI AL/PL ATELE T MCV 92 fL 79-97 Not Available [facility] ([facility]) [address] [facility], [place], [address], 03/10/2024 06:19:21 03/09/19 25 03/09/2024 CBC WITH DIFFE RENTI AL/PL ATELE T MCH 29.3 pg 26.6-3 3.0 Not Available [facility] ([facility]) [address] [facility], [place], [address], 03/10/2024 06:19:21 03/09/19 25 03/09/2024 CBC WITH DIFFE RENTI AL/PL ATELE T MCHC 32.0 g/dL 31.5-3 5.7 Not Available [facility] ([facility]) [address] [place], [address], 03/10/2024 06:19:21 03/09/19 25 03/09/2024 CBC WITH DIFFE RENTI AL/PL ATELE T RDW 13.1 % 11.7-1 5.4 Not Available [facility] ([facility]) [address] [place], [address], 03/10/2024 06:19:21 03/09/19 25 03/09/2024 CBC WITH DIFFE RENTI AL/PL ATELE T platelets 266 x10e3 /uL 150-45 0 Not Available [facility] ([facility]) [address] [place], [address], 03/10/2024 06:19:21 03/09/19 25 03/09/2024 CBC WITH DIFFE RENTI AL/PL ATELE T neutrophils 51 % notest ab. Not Available [facility] ([facility]) [address] [facility], [place], [address], 03/10/2024 06:19:21 03/09/1903/09/2024 CBC WITH DIFFE RENTI AL/PL ATELE T lymphs 34 % notest ab. Not Available [facility] ([facility]) [address] [facility], [place], [address], 03/10/2024 06:19:21 03/09/19 25 03/09/2024 CBC WITH DIFFE RENTI AL/PL ATELE T monocytes 11 % notest ab. Not Available [facility] ([facility]) [address] [facility], [place], [address], 03/10/2024 06:19:21 03/09/1903/09/2024 CBC WITH DIFFE RENTI AL/PL ATELE T eos 3 % notest ab. Not Available [facility] ([facility]) [address] [facility], [place], [address], 03/10/2024 06:19:21 03/09/1903/09/2024 CBC WITH DIFFE RENTI AL/PL ATELE T basos 1 % notest ab. Not Available [facility] ([facility]) [address] [facility], [place], [address], 03/10/2024 06:19:21 03/09/1903/09/2024 CBC WITH DIFFE RENTI AL/PL ATELE T neutrophils (absolute) 3.4 x10e3 /uL 1.4-7. 0 Not Available [facility] ([facility]) [address] [facility], [place], [address], 03/10/2024 06:19:21 03/09/19 25 03/09/2024 CBC WITH DIFFE RENTI AL/PL ATELE T lymphs (absolute) 2.3 x10e3 /uL 0.7-3. 1 Not Available [facility] ([facility]) [address] [facility], [place], [address], 03/10/2024 06:19:21 03/09/1903/09/2024 CBC WITH DIFFE RENTI AL/PL ATELE T monocytes(ab solute) 0.7 x10e3 /uL 0.1-0. 9 Not Available [facility] ([facility]) [address] [facility], [place], [address], 03/10/2024 06:19:21 03/09/1903/09/2024 CBC WITH DIFFE RENTI AL/PL ATELE T eos (absolute) 0.2 x10e3 /uL 0.0-0. 4 Not Available [facility] ([facility]) [address] [facility], [place], [address], 03/10/2024 06:19:21 03/09/19 25 03/09/2024 CBC WITH DIFFE RENTI AL/PL ATELE T baso (absolute) 0.0 x10e3 /uL 0.0-0. 2 Not Available [facility] ([facility]) [address] [facility], [place], [address], 03/10/2024 06:19:21 03/09/19 25 03/09/2024 CBC WITH DIFFE RENTI AL/PL ATELE T immature granulocytes 0 % notest ab. Not Available [facility] ([facility]) [address] [facility], [place], [address], 03/10/2024 06:19:21 03/09/1903/09/2024 CBC WITH DIFFE RENTI AL/PL ATELE T immature grans (abs) 0.0 x10e3 /uL 0.0-0. 1 Not Available [facility] ([facility]) [address] [facility], [place], [address], 03/10/2024 06:19:21 08/30/19 24 08/30/2023 CT, head + brain , w/wo contr ast No observ ation record ed. [facility] [address] [place], [address], 09/06/2023 17:12:21 08/30/19 24 08/30/2023 CT, maxil lofac ial, w/wo contr ast No observ ation record ed. [facility] [address] [place], [address], 09/06/2023 17:13:07 08/30/19 24 08/30/2023 CT, cervi henrique spine , w/o contr ast No observ ation record ed. [facility] [address] [place], [address], 09/06/2023 17:13:23 08/30/19 24 08/30/2023 XR, ribs, unila teral , w/ PA chest No observ ation record ed. [facility] [address] [place], [address], 09/06/2023 17:15:07 11/01/19 24 11/01/2023 XR, chest No observ ation record ed. [facility] [address] [place], [address], 11/02/2023 09:55:08 11/01/19 24 11/01/2023 CT, abdom en + pelvi s, w/ contr ast No observ ation record ed. [facility] [address] [place], [address], 11/02/2023 09:55:20 11/02/19 24 11/02/2023 CT, head, w/o contr ast No observ ation record ed. [facility] [address] [place], [address], 11/03/2023 09:40:06 02/25/19 25 02/25/2024 XR, thora cic spine No observ ation record ed. [email or web address] [facility] [address], [place], [address], 02/28/2024 17:44:01 02/25/19 25 02/25/2024 XR, hand No observ ation record ed. [email or web address] [facility] [address], [place], [address], 02/28/2024 17:44:01 02/25/19 25 02/25/2024 XR, lumba r spine No observ ation record ed. [facility] [address], [place], [address], 02/28/2024 17:44:01 02/26/19 25 02/25/2024 XR, cervi henrique spine No observ ation record ed. [email or web address] [facility] [address], [place], [address], 02/28/2024 17:44:02 Result Notes None recorded. Problems Name Problem SNOMED Code Status Onset Date Resolution Date Notes Provider Name and Address Organization Details Recorded Time Essential hypertensio n 81219300 Active 2023 Yasmeen Maddox [place] null, [place] [facility] 4 11:29:56 Anemia 341156547 Active 2023 Yasmeen Maddox [place], [place] [facility] 4 11:29:57 Anxiety 91049777 Active 2023 Yasmeen Maddox [place], [place] [facility] 4 11:29:57 Moderate smoker (20 or less per day) 02113011 Active 2023 Elaine Velez MD Attn: Anastasia roberts,[address] [place], [address] [place] [facility] 4 12:54:21 Alcohol dependence 98378723 Active 2023 Elaine Velez MD Attn: Anastasia roberts,[address] [facility], [place], [address], [place] [facility] 4 12:54:22 Steatosis of liver 279514245 Active 2023 Elaine Velez MD Attn: Anastasia alejandra,[address] [facility], [place], [address], [place] [facility] 4 12:54:24 Closed fracture of multiple left ribs 3745386743572 9102 Active 2023 Elaine Velez MD Attn: Anastasia roberts,[address] [facility], [place], [address] [facility] 4 08:14:12 Subarachnoi d hemorrhage 00306791 Active 2023 Elaine Velez MD Attn: Anastasia roberts,[address] [place], [address] [facility] 4 08:14:13 Subdural hematoma 46679745 Active 2023 Elaine Velez MD Attn: Anastasia roberts,[address] [facility], [place], [address], [place] [facility] 4 08:14:14 Fracture of ramus of pubis Active 2023 Elaine Velez MD Attn: Anastasia roberts,[address] [place], [address] [facility] 4 16:03:08 Gastroesoph ageal reflux disease without esophagitis 519202202 Active 2023 Elaine Velez MD Attn: Anastasia roberts,[address] [place], [address], [place] [facility] 4 16:05:09 Problem Notes None recorded. Procedures Surgical History Date Name Laterality Status Provider Name and Address Organization Details Recorded Time Joint Replacement completed Deepika Rodriguez MA [facility] 06/10/2023 10:58:19 Knee Surgery completed Deepika Rodriguez MA [place] - [facility] 06/10/2023 10:58:25 Imaging Results Imaging Date Name Status LastModified by [facility] Details LastModified Time 08/30/2023 CT, head + brain, w/wo contrast completed [facility] [address] [place], [address], 09/06/2023 17:12:21 08/30/2023 CT, maxillofacial , w/wo contrast completed [facility] [address] [place], [address], 09/06/2023 17:13:07 08/30/2023 CT, cervical spine, w/o contrast completed [facility] [address] [place], [address], 09/06/2023 17:13:23 08/30/2023 XR, ribs, unilateral, w/ PA chest completed [facility] [address] [place], [address], 09/06/2023 17:15:07 11/01/2023 XR, chest completed [facility] [address] [place], [address], 11/02/2023 09:55:08 11/01/2023 CT, abdomen + pelvis, w/ contrast completed [facility] [address] [place], [address], 11/02/2023 09:55:20 11/02/2023 CT, head, w/o contrast completed [facility] [address] [place], [address], 11/03/2023 09:40:06 02/25/2024 XR, thoracic spine completed [facility] [address], [place], [address], 02/28/2024 17:44:01 02/25/2024 XR, hand completed [facility] [address], [place], [address], 02/28/2024 17:44:01 02/25/2024 XR, lumbar spine completed [email or web address] [facility] [address], [place], [address], 02/28/2024 17:44:01 02/25/2024 XR, cervical spine completed [email or web address] [facility] [address], [place], [address], 02/28/2024 17:44:02 Procedure Notes None recorded. Medical Equipment None Reported. Allergies No known drug allergies Medications Name Sig Start Date Stop Date Status Note LastModified by Organization Details LastModified Time carvedilo l 6.25 mg tablet Take 1 tablet by mouth twice daily 2024 active Not Available Not Available Not Avai lable trazodone 50 mg tablet TAKE 1/2 (ONE-MILANA F) TABLET BY MOUTH ONCE DAILY AT BEDTIME 2024 active Not Available Not Available Not Avai lable gabapenti n 400 mg capsule TAKE 1 CAPSULE BY MOUTH IN THE EVENING active Not Available Not Available No t Available sulfameth oxazole 800 mg-trimet hoprim 160 mg tablet TAKE 1 TABLET BY MOUTH EVERY 12 HOURS FOR 2 DAYS 09/12 completed Not Available Not Available Not Available tramadol 50 mg tablet TAKE 1 TABLET BY MOUTH TWICE DAILY NEEDED active Not Available Not Available No t Available vancomyci n 125 mg capsule TAKE 1 CAPSULE BY MOUTH EVERY 6 HOURS 06/09 completed Not Available Not Available Not Available carvedilo l 3.125 mg tablet TAKE 2 TABLETS BY MOUTH TWICE DAILY 11/24 completed pt is taking 6.25mg BID Not Available Not Available Not Available famotidin e 20 mg tablet Take 1 tablet every day by oral route in the morning. active Not Available Not Available No t Available methocarb johnathon 750 mg tablet TAKE 1 TABLET BY MOUTH EVERY 8 HOURS FOR 15 DAYS 09/12 completed Not Available Not Available Not Available amlodipin e 10 mg tablet TAKE 1 TABLET BY MOUTH ONCE DAILY active Not Available Not Available No t Available cephalexi n 500 mg capsule TAKE 1 CAPSULE BY MOUTH EVERY 8 HOURS FOR 7 DAYS 06/09 completed Not Available Not Available Not Available promethaz ine 25 mg tablet TAKE 1 TABLET BY MOUTH 2 TO 3 TIMES DAILY NEEDED 08/18 completed Not Available Not Available Not Available omeprazol e 20 mg capsule,d elayed release Take 1 capsule every day by oral route. active Not Available Not Available No t Available mirtazapi ne 15 mg tablet TAKE 2 TABLETS BY MOUTH ONCE DAILY AT BEDTIME 2023 active Not Available Not Available Not Avai lable gabapenti n 100 mg capsule TAKE 2 CAPSULES BY MOUTH IN THE MORNING active Not Available Not Available No t Available cefdinir 300 mg capsule TAKE 1 CAPSULE BY MOUTH ONCE DAILY 06/09 completed Not Available Not Available Not Available oxycodone 5 mg tablet TAKE 1 TABLET BY MOUTH EVERY 6 HOURS NEEDED FOR MODERATE OR SEVERE PAIN FOR UP TO 5 DAYS, MAX DAILY AMOUNT OF 20MG 12/23 completed Not Available Not Available Not Available midodrine 10 mg tablet TAKE 1 TABLET BY MOUTH EVERY 8 HOURS 10/[address] Velez at visit Not Available Not Available Not Available cyclobenz aprine 5 mg tablet Take 1 tablet 3 times a day by oral route. 12/[address] Velez D/C see Clinical Document Not Available Not Available Not Available bupropion HCl XL 150 mg 24 hr tablet, extended release TAKE 1 TABLET BY MOUTH ONCE DAILY 11/24 completed Pt stopped, could not sleep while on it Not Available Not Available Not Available nitrofura ntoin monohydra te/macroc rystals 100 mg capsule TAKE 1 CAPSULE BY MOUTH TWICE DAILY FOR 5 DAYS 06/09 completed Not Available Not Available Not Available potassium chloride 20meq active Not Available Not Available Not Available folic acid active Not Available Not Available Not Available Probiotic active Not Available Not Va ilable Not Available Multi For Her 50 Plus active Not Available Not Available Not Available potassium chloride ER 20 mEq tablet,ex tended release TAKE 1 TABLET BY MOUTH TWICE DAILY active Not Available Not Available No t Available Voltaren Arthritis Pain 1 % topical gel APPLY 2 GRAMS TO THE AFFECTED AREA(S) BY TOPICAL ROUTE 4 TIMES PER DAY active Not Available Not Available No t Available aspirin 81 mg capsule Take 1 capsule every day by oral route. active Not Available Not Available No t Available Paxlovid 300 mg (150 mg x 2)-100 mg tablets in a dose pack USE DIRECTED 06/09 completed Not Available Not Available Not Available Vitals Date Recorded Body height Body mass index (BMI) Body weight Heart rate Oxygen saturation Oxygen saturation in Arterial blood by Pulse oximetry Systolic blood pressure Diastolic blood pressure Provider Name and Address Organization Details Last Updated DateTime 4 170.18 cm 21.5 kg/m2 41887.1 5 g 84 /min 99 % 99 % 116 mm[Hg] 68 mm[Hg] Sofie Collazo MA [facility] 4 11:47:18 Date Recorded Pain severity - 0-10 verbal numeric rating [Score] - Reported Provider Name and Address Organization Details Last Updated DateTime 09/13/2023 8 Jazzy Beck [facility] 09/13/2023 11:52:43 Date Recorded Body height Body mass index (BMI) Body weight Heart rate Oxygen saturation Oxygen saturation in Arterial blood by Pulse oximetry Systolic blood pressure Diastolic blood pressure Provider Name and Address Organization Details Last Updated DateTime 4 170.18 cm 21 kg/m2 43589.1 g 92 /min 98 % 98 % 112 mm[Hg] 68 mm[Hg] Deepika Rodriguez MA [facility] 4 16:02:59 Date Recorded Body height Body mass index (BMI) Body weight Heart rate Oxygen saturation Oxygen saturation in Arterial blood by Pulse oximetry Systolic blood pressure Diastolic blood pressure Provider Name and Address Organization Details Last Updated DateTime 4 170.18 cm 22.1 kg/m2 50418.6 g 100 /min 93 % 93 % 100 mm[Hg] 64 mm[Hg] Nay Anne MA [facility] 4 10:37:34 Date Recorded Body height Body mass index (BMI) Body weight Heart rate Oxygen saturation Oxygen saturation in Arterial blood by Pulse oximetry Systolic blood pressure Diastolic blood pressure Provider Name and Address Organization Details Last Updated DateTime 4 170.18 cm 22.1 kg/m2 12173.8 8 g 92 /min 98 % 98 % 142 mm[Hg] 64 mm[Hg] Deepika Rodriguez MA [facility] 4 12:07:33 Date Recorded Body height Body mass index (BMI) Body weight Heart rate Oxygen saturation Oxygen saturation in Arterial blood by Pulse oximetry Systolic blood pressure Diastolic blood pressure Provider Name and Address Organization Details Last Updated DateTime 5 170.18 cm 23 kg/m2 85433.7 2 g 81 /min 98 % 98 % 124 mm[Hg] 62 mm[Hg] Deepika Rodriguez [place] - [facility] 5 11:31:10 Social History Question Answer Notes LastModified by Organizat ion Details LastModified Time Tobacco Smoking Status Current Every Day Smoker Deepika Rodriguez MA null, [facility] 06/10/2023 10:55:34 Do You Have An Advance Directive? Yes Information not available 06/10/2023 What Is Your Level Of Alcohol Consumption? None Per Patient, Quit Information not available 09/13/2023 How Many Years Have You Consumed Alcohol? 30 Information not available 06/10/2023 Are You Blind Or Do You Have Difficulty Seeing? No Information not available 06/10/2023 What Is Your Level Of Caffeine Consumption? Moderate 2 Cups Of Coffee A Day, 1 Cup A Day, Green Tea [email or web address] Information not available 08/19/2023 In The 14 Days Before Symptom Onset, Have You Had Close Contact With A Laboratory-confir med COVID-19 While That Case Was Ill? No Information not available 06/10/2023 In The 14 Days Before Symptom Onset, Have You Had Close Contact With A Person Who Is Under Investigation For COVID-19 While That Person Was Ill? No Information not available 06/10/2023 Have You Been To An Area Known To Be High Risk For COVID-19? No Information not available 06/10/2023 Are You Currently Employed? No Information not available 09/13/2023 Are You Deaf Or Do You Have Serious Difficulty Hearing? No Information not available 06/10/2023 What Type Of Diet Are You Following? REGULAR Information not available 06/10/2023 What Is The Highest Grade Or Level Of School You Have Completed Or The Highest Degree You Have Received? [id number] Information not available 09/13/2023 Are There Any Guns Present In Your Home? Yes Information not available 09/13/2023 In The Past 7 Days, How Many Days Did You Exercise? 7 Information not available 09/13/2023 On The Days When You Exercised, How Long Did You Exercise Each Day (in Minutes)? 60 Information not available 09/13/2023 How Intense Was Your Typical Exercise? Moderate (brisk Walking) Information not available 09/13/2023 In The Past 7 Days, How Much Pain Have You [place]? A Lot Information not available 09/13/2023 In General, Would You Say You Health Is: Good Information not available 09/13/2023 How Would You Describe The Condition Of Your Mouth And Teeth- Including False Teeth Or Dentures? Good Information not available 09/13/2023 Each Night, How Many Hours Of Sleep Do You Get? 7 Information no t available 09/13/2023 Has Anyone Ever Told You That You Snore? No Information not available 09/13/2023 In The Past 7 Days, How Often Have You [place] Sleepy In The Daytime? Never Information not available 09/13/2023 # Alcohol Drinks Per Week 0 Information not available 09/13/2023 What Was The Date Of Your Most Recent Tobacco Screening? 03/09/2024 Information not available 03/09/2024 What Is Your Relationship Status? Information not available 06/10/2023 Do You Use Your Seat Belt Or Car Seat Routinely? Yes Information not available 06/10/2023 Do You Have Smoke And Carbon Monoxide Detectors In Your Home? Yes Information not available 06/10/2023 At What Age Did You Start Smoking Tobacco? 34 Information not available 09/13/2023 How Much Tobacco Do You Smoke? 0.25 PPD Information not available 09/13/2023 Do You Feel Stressed (tense, Restless, Nervous, Or Anxious, Or Unable To Sleep At Night)? [id number] Information not available 06/10/2023 Do You Use Any Illicit Or Recreational Drugs? No Information not available 06/10/2023 Do You Use Sunscreen Routinely? Yes Information not available 06/10/2023 Has Tobacco Cessation Counseling Been Provided? No Information not available 06/10/2023 Do You Or Have You Ever Used Any Other Forms Of Tobacco Or Nicotine? No Information not available 06/10/2023 Sex: Female Functional Status Question Answer Note LastModified by Organizat ion Details LastModified Time Are you able to care for yourself? Yes Information not available 06/10/2023 What is your exercise level? Moderate daily walk Information not available 09/13/2023 Mental Status None recorded. Family History Relationship Description Onset Age of this Age Resolved Age Notes LastModified by Organization Details LastModified Time Sister Alcohol abuse mebyma Not available 2023 10:54:43 Brother Alcohol abuse mebyma Not available 2023 10:54:43 Mother Cerebrovascu lar accident mebyma Not available 10:55:00 Mother Hypertensive disorder mebyma Not available 2023 10:55:23 Father Coronary arterioscler osis mebyma Not available 2023 10:55:06 Father Heart disease mebyma Not available 2023 10:55:16 Medical History Condition Response Coronary Artery Disease N Other N High Blood Pressure Y Atrial Fibrillation N Thyroid Problems N Kidney or Bladder Problems N Blood Clots N COPD N Depression Y GI Problems N Have you had a mammogram in the last yea r? N Skin Problems N Anemia Y Heart Attack ([place]) N Anxiety Disorder N Diabetes N Muscle, Joint, or Bone Problems Y Seizures/Epilepsy N Have you had a colonoscopy in the last 1 0 years? Y Acid Reflux (GERD) Y Cancer N Stroke N Asthma N Allergies N Have you had a PSA blood test in the las t year? N High Cholesterol N Hepatitis N Liver Disease Y Headaches N Heart Failure N Osteoporosis N Gynecological History Statement/Question Response If Post Menopausal, Age at Menopause 39 Obstetrics History GPAL:G 0 P 0 0 0 0 Immunizations Vaccine Type Date Status Note Provider Nam e and Address Organization Details Recorded Time Influenza, high-dose, quadrivalent, PF 3 completed Jazzy conway [place] [facility] 06/13/2023 13:52:47 Influenza, high-dose, quadrivalent, PF 2 completed Jazzy [place]way, [place] [facility] 06/13/2023 13:52:47 Influenza, adjuvanted, quadrivalent, PF 1 completed Jazzy Lopezhl [place], [place] [facility] 06/13/2023 13:52:47 COVID-19, mRNA, LNP-S, PF, 100 mcg/0.5mL dose or 50 mcg/0.25mL dose 2 completed [place]az[place] [facility] 06/13/2023 13:52:47 COVID-19, mRNA, LNP-S, PF, 30 mcg/0.3 mL dose 1 completed [place]az[place] [facility] 06/13/2023 13:52:47 COVID-19, mRNA, LNP-S, PF, 30 mcg/0.3 mL dose 1 completed [place]az[place] [facility] 06/13/2023 13:52:47 influenza, unspecified formulation 0 completed [place] [facility] 06/13/2023 13:52:47 Influenza, high-dose, trivalent, PF 4 completed Deepika [place] [facility] 03/09/2024 11:28:40 Pneumococcal conjugate PCV20, polysaccharide YLN011 conjugate, adjuvant, PF 4 completed Deepika [place] [facility] 03/09/2024 11:29:17 Past Encounters Encounter ID Performer Location Encounter Start Date Encounter Closed Date Diagnosis/Indication Diagnosis SNOMED-CT Code Diagnosis ICD10 Code Diagnosis Note [id number] MD Ofelia Clemente (Adult Med) [address] [place] [phone] 06/10/2023 10:18:52 06/10/2023 11:31:10 Anemia 459305284 D64.9 Essential hypertension 52728816 I10 Anxiety 29453839 F41.9 Steatosis of liver 06821 1007 K76.0 Alcohol dependence 27060 003 F10.20 Moderate s moker (20 or less per day) 99013430 F17.142 [id number] MD Ofelia Clemente (Adult Med) [address] [place] [phone] 08/19/2023 10:46:58 08/19/2023 12:08:21 Depression screening 405529360 Z13.31 Smoker 14119432 F17.200 Essential hypertension 46794076 I10 Steatosis of liver 1007 K76.0 [id number] MD Ofelia Clemente (Adult Med) [address] [place] [phone] 09/13/2023 11:16:57 09/13/2023 12:31:45 Adult health examination 398900224 Z00.00 Health Risk Assessment collected and reviewed [id number] MD Ofelia Clemente (Adult Med) [address] [place] [phone] 10/05/2023 15:47:19 10/05/2023 17:02:41 Closed fracture of multiple left ribs 6620515164 4666437 S22.42XD Subarachno id hemorrhage 75012873 I60.9 Subdural hematoma 553885 01 S06.5X0D Essential hypertension 32995395 I10 Steatosis of liver 1007 K76.0 [id number] MD Ofelia Clemente (Adult Med) [address] [place] [phone] 11/25/2023 10:08:41 11/25/2023 11:00:25 Fracture of ramus of pubis 7165102495 S32.501D Gastroesop hageal reflux disease without esophagitis 757395936 K21.9 Anxiety 97946704 F41.9 Essential hypertension 16273686 I10 Steatosis of liver 1007 K76.0 [id number] MD Ofelia Clemente (Adult Med) [address] [place] [phone] 12/23/2023 11:39:31 12/23/2023 13:00:38 Renewal of prescription 723686674 Z76.0 Essential hypertension 31422727 I10 Anxiety 21828824 F41.9 Steatosis of liver 1007 K76.0 Fracture o f ramus of pubis 5921983500 S32.501D Gastroesop hageal reflux disease without esophagitis 598619430 K21.9 [id number] MD Ofelia Clemente (Adult Med) [address] [place] [phone] 03/09/2024 11:00:31 03/09/2024 12:10:58 Smoker 47689457 F17.200 Body mass index 20-24 - normal 064402399 Z68.23 Essential hypertension 12120344 I10 Steatosis of liver 1007 K76.0 Gastroesop hageal reflux disease without esophagitis 203459243 K21.9 Health Concerns Section Related Observation LastModified by Organization Detai ls LastModified Time None Recorded Concern Status LastModified by Organization Details LastModified Time None Recorded Advance Directives Directive Y: Payers Encounter Date Sequence Insurance Name Policy Number Policy Burgos Covered Member ID Burgos Member ID Guarantor Name 09/13/2023 1 [place] Bharati C Foster [id number] Bharati Foster 09/13/2023 2 [employer] OPTIONS (MEDICARE SUPPLEMENT) Bharati Foster [id number] Bharati Foster 10/05/2023 1 [place] Bharati C Foster [id number] Bharati Foster 10/05/2023 2 [employer] OPT[employer] (MEDICARE SUPPLEMENT) Bharati Foster [id number] Bharati Foster 11/25/2023 1 [place] Bharati C Foster [id number] Bharati Foster 11/25/2023 2 [employer] OPTIONS (MEDICARE SUPPLEMENT) Bharati Foster [id number] Bharati Foster 12/23/2023 1 [place] Bharati C Foster [id number] Bharati Foster 12/23/2023 2 [employer] OPTIONS (MEDICARE SUPPLEMENT) Bharati Foster [id number] Bharati Foster 03/09/2024 1 [place] Bharati C Foster [id number] Bharati Foster 03/09/2024 2 [employer] (MEDICARE SUPPLEMENT) Bharati Foster [id number] Bharati Foster Notes Date Note Type Note Provider Name and Address Organization Details Recorded Time 09/13/2023 text/html MAW 2Reported bypatient.Diet and Nutrition:healthy diet Fracture Risk:no sudden unexplained fractures;history of fractures Concentration and Memory:no decreased concentrating ability; no memory lapses or loss; does not forget words Speech/Motor difficulties:no speech difficulties; no difficulty expressing formulated concepts; no difficulty with fine manipulative tasks; no difficulty writing/copying; no slowed reaction time; does not knock things over when trying to pick them up Hearing:no loss of hearing Vision:worse with distance(glasses) Activities of Daily Living:able to bathe with limited or no assistance; able to contol urination and bowels; able to dress with limited or no assistance; able to feed self with limited or no assistance; able to get out of chair or bed with limited or no assistance; able to groom with limited or no assistance; able to toilet with limited or no assistance Instrumental Activities of Daily Living:able to do house work with limited or no assistance; able to grocery shop with limited or no assistance; able to manage medications with limited or no assistance; able to manage money with limited or no assistance; able to prepare meals with limited or no assistance; able to use the phone with limited or no assistance Falls Risk Assessment:no frequent falls while walking; no dizziness/vertigo; fall(s) in the past year 1; fall(s) since last visit1 Home Safety:no unsafe dipesh hazzards; no unsafe stairs; working smoke/CO detectors; practicing 'safer sex'; has hand bars in the bathroom/shower; good lighting in the home;fire arms Elaine Velez MD Attn: Accounting[address] [place], [address], [facility] 09/24/2023 15:18:40 10/05/2023 text/html Subarachnoid hemorrhage no headache no blurred vision. Traumatic intracranial bleed she has had no neurological findings rib fractures healing overall feeling pretty good physically ribs are healing she has gotten no neurological complaints it does have some stress from a daughter who has been in a very challenging situation Elaine Velez MD Attn: [address] [place], [address], [facility] 10/06/2023 08:14:31 11/25/2023 text/html fall after drink ing pubic rami fracture hospitalized in [facility] now home Elaine Velez MD Attn: [address]ing[address] [place], [address], [facility] 12/25/2023 22:38:11 12/23/2023 text/html she has been feeling all right she had a pubic ramus fracture right hip hematoma microcytic anemia hepatic steatosis GERD low vitamin-D level hypertension chronic back pain Elaine Velez MD Attn: [address]ing[address] [place], [address], [facility] 12/24/2023 16:05:44 03/09/2024 text/html Follow up of medical problems her GERD has been doing fine blood pressure has been controlled she is seeing pain management for possible shot in her neck anxiety has been managed her insomnia is doing good Elaine Velez MD Attn: Accounting[address] [facility], [place], [address], [facility] 03/09/2024 21:31:02 OBGyn Episode No OBEpisode recorded.
--- OUTSIDE RECORDS SUMMARY | 2024-04-25 06:32 | XMS_ITS | Referral Summary ---
Author Organization [facility] Address [address] [place] [address] Care Team Providers Care Sales Office Coordinator Name Role Phone Bill Simms MD Primary Care Provider Allergies No known active allergies Medications amLODIPine (NORVASC) 10 mg tabletIndications :Essential hypertension Take 1 tablet (10 mg total) by mouth every morning 90 tablet 3 2 Active omeprazole (PriLOSEC) 20 mg capsule TAKE ONE CAPSULE BY MOUTH EVERY DAY 90 capsule 3 Active magnesium oxide 400 mg magnesium capsule Take 1 capsule by mouth daily Active Active Problems Problem Noted Date Diagnosed Date Anemia 03/09/2022 Assessment & Plan (03/09/2022 12:55 PM HEAD OF MATHEMATICS): [place]/EGD Steatohepatitis 03/09/2022 Assessment & Plan (03/09/2022 12:55 PM HEAD OF MATHEMATICS): Hepatology referral Angeles's esophagus without dysplasia 07/03/2020 Bronchitis 01/24/2020 Generalized osteoarthritis 01/24/2020 Cervical radiculopathy at C5 01/02/2020 Assessment & Plan (04/03/2020 11:58 AM HEAD OF MATHEMATICS): Discussed the possibility of doing a a nerve conduction study to rule out the possibility of carpal tunnel or ulnar tunnel. She would prefer to wait at this time while she completes her therapy but will let me know if this persists Assessment & Plan (01/02/2020 11:53 AM HEAD OF MATHEMATICS): Continues to do stretching. Is kept awake at night at times with this. Refer to Dr. Teague Essential hypertension 10/02/2019 Hyperparathyroidism (CMS/HCC) 10/02/2019 Assessment & Plan (06/09/2020 11:34 AM CDT): Labs Anxiety 09/20/2018 Dyslipidemia 09/20/2018 Resolved Problems Problem Noted Date Diagnosed Date Resolved Date Abdominal pain 02/17/2022 03/09/2022 Assessment & Plan (02/17/2022 2:07 PM HEAD OF MATHEMATICS): Labs today EGD/COLO referral after labs received (suspect she is anemic) Fall 03/09/2021 02/17/2022 Assessment & Plan (03/09/2021 11:17 AM HEAD OF MATHEMATICS): Exam is reassuring (pulses, DTR's, strength WNL) If this reoccurs to call for L-spine MRI Epigastric pain 06/09/2020 02/17/2022 Assessment & Plan (10/16/2021 9:43 AM CDT): With 8 pound weight loss. Has hepatomegaly. Check labs, check ct Assessment & Plan (06/09/2020 11:33 AM CDT): Hx gastritis, repeat EGD (previous in [place], prefers [facility] now) H. Pylori today Start omeprazole 20mg daily x 6-8 weeks then taper off May use OTC pepcid, calcium carbonate PRN Backache 01/24/2020 02/17/2022 Immunizations Immunization Administration Dates Next Due Influenza, Unspecified 01/24/2020 Pfizer SARS-CoV-2 Monovalent Vaccination (12+ Yrs) PURPLE 05/13/2020,04/22/2020 Social History Tobacco Use Types Packs/Day Years Used Date Smoking Tobacco: Some Days Cigarettes 0.1 30.2 Started: 1994 Smokeless Tobacco: Never Comments:smokes every other day Alcohol Use Standard Drinks/Week Comments Yes 6 (1 standard drink = 0.6 oz pur e alcohol) social AUDIT-C Answer Date Recorded Q1: How often do you have a drink containing alcohol? Never 03/25/2022 Q2: How many drinks containi ng alcohol do you have on a typical day when you are drinking? Patient does not drink Q3: How often do you have si x or more drinks on one occasion? Never 03/25/2022 Personal Safety Answer Date Recorded Getting School Help Needed Denies 02/02 Comments No Sex and Gender Information Value Date Recorded Sex Assigned at Not on file Legal Sex Female 1:31 AM HEAD OF MATHEMATICS Gender Identity Not on file Sexual Orientation Not on file Occupation Industry Job Start Date Job End Date disabled as of 2013 Not on file Not on file Not on f ile Last Filed Vital Signs Vital Sign Reading Time Taken Comments Blood Pressure 143/88 03/25/2022 12:28 PM HEAD OF MATHEMATICS Pulse 103 03/25/2022 12:28 PM HEAD OF MATHEMATICS Temperature 36 C (96.8 F) 03/25/2022 12:08 PM HEAD OF MATHEMATICS Respiratory Rate 16 03/25/2022 12:28 PM HEAD OF MATHEMATICS Oxygen Saturation 95% 03/25/2022 12:28 PM HEAD OF MATHEMATICS Inhaled Oxygen Concentration - - Weight 69.4 kg (153 lb) 03/25/2022 10:51 AM HEAD OF MATHEMATICS Height 170.2 cm (5' 7 ) 03/25/2022 10:51 AM HEAD OF MATHEMATICS Body Mass Index 23.96 03/25/2022 10:51 AM HEAD OF MATHEMATICS Plan of Treatment Not on file Procedures Procedure Name Priority Date/Time Associated Diagnosis Comments COLONOSCOPY 03/25/2022 11:48 AM HEAD OF MATHEMATICS HEPATITIS PANEL, ACUTE Routine 10/20/2021 11:08 AM CDT Elevated LFTs from Last 3 Months or Most Recently Relevant to Health Maintenance Results * COLONOSCOPY (03/25/2022 11:48 AM HEAD OF MATHEMATICS) Anatomical Region Laterality Modality Other Narrative Procedure Note Donato Hartley MD - 03/25/2022 11:48 AM [facility] Patient Name: Bharati Varma Procedure Date: 03/25/2022 11:48 AM Date of : 1955 Admit Type: Outpatient Age: 66 Gender: Female Attending MD: Donato Hartley M.D. Room: [facility] ENDOSCOPY ROOM 3 Note Status: Finalized Procedure: Colonoscopy Indications: Iron deficiency anemia Referring MD: Kevin McguireNAnanda Providers: Donato Hartley M.D. Medicines: Monitored Anesthesia Care Complications: No immediate complications. Estimated Blood Loss: Estimated blood loss: none. Procedure: Pre-Anesthesia Assessment: - Immediately prior to administration ofmedications, the patient was re-assessed for adequacy to receive sedatives. - The risks and benefits of the procedure and the sedation options and risks were discussed with the patient. All questions were answered and informed consent was obtained. The benefits, risks and alternatives of theprocedure and sedation were discussed and informed consentwas obtained. All questions were answered. Please referto the signed informed consent document in the medical record. The scope was passed under direct vision.The [id number] endoscope was introduced through the anus and advanced to the cecum, identified by appendiceal orifice and ileocecal valve. The colonoscopy was performed without difficulty. The patient tolerated the procedure well. The qualityof the bowel preparation was good. The bowelpreparation used was HalfLytely. Findings: The perianal and digital rectal examinations were normal. The terminal ileum appeared normal. A few small-mouthed diverticula were found in the sigmoid colon. Internal hemorrhoids were found during retroflexion. The hemorrhoids were small. Impression: - Sigmoid diverticulosis coli - Small internal hemorrhoids Recommendation: - Consider obtaining VCE if the source of anemia is confirmed to be due to GI loss. Electronically Signed by Donato Hartley M.D. Donato Hartley M.D. 03/25/2022 12:06:24 PM . Number of Addenda: 0 Note Initiated On: 03/25/2022 11:48 AM Recognized by the [employer] for promoting quality in endoscopy Donato Hartley MD ENDOSCOPY PROCEDURES F inal Result * Hepatitis panel, acute (10/20/2021 11:08 AM CDT) Hep A IgM Negative Negative [facility] - 01 HepBsAg Negative Negative [facility] - 01 Hep B core IgM Negative Negative [facility] - 01 Hep C Ab <0.1 0.0 - 0.9 s/co ratio [facility] - 01 Blood specimen (specimen) 10/20/2021 11:08 AM CDT 10/20/2021 Narrative [facility] - 10/21/2021 3:08 PM CDT Performed at: 01 - [facility] [address] [id number] [place] Nurse: Edilberto Rivera PhD, Phone: [phone] us Bill Simms MD LAB MICROBIOLOGY - GENERAL OR DERABLES Final Result [facility] - 01 from Last 3 Months or Most Recently Relevant to Health Maintenance Insurance [employer] MEDICARE MEDICARE [facility] MEDICARE [facility] MEDICARE [facility] MEDICARE Advance Directives For more information, please contact: [phone] * Full Code (Latest Code Status on File) Date Activated Date Inactivated Comments 03/25/2022 10:46 AM 03/25/2022 5:01 PM * Full Code Date Activated Date Inactivated Comments 06/17/2020 11:45 AM 06/17/2020 5:23 PM * Full Code Date Activated Date Inactivated Comments 10/02/2019 3:41 PM 10/03/2019 1:18 AM Care Teams Sales Office Coordinator Relationship Specialty Start Date End Date Bill Simms MD [id number] [place] [address] PCP - General 07/24/19
--- OUTSIDE RECORDS SUMMARY | 2024-04-25 06:32 | XMS_ITS | Clinical Summary ---
Author Organization [facility] Address [address] [place] [address] Care Team Providers Care Coffee Roaster Helper Name Role Phone Bill Simms MD Primary Care Provider [phone] Allergies No known active allergies Medications amLODIPine [...] 03/09/2022 Assessment & Plan (03/09/2022 12:55 PM PSYCHOLOGIST CLINICAL): [place]/EGD Steatohepatitis 03/09/2022 Assessment & Plan (03/09/2022 12:55 PM PSYCHOLOGIST CLINICAL): Hepatology referral Angeles's esophagus without dysplasia 07/03/2020 Bronchitis 01/24/2020 Generalized osteoarthritis 01/24/2020 Cervical radiculopathy at C5 01/02/2020 Assessment & Plan (04/03/2020 11:58 AM PSYCHOLOGIST CLINICAL): Discussed the possibility of doing a a nerve conduction study to rule out the possibility of carpal tunnel or ulnar tunnel. She would prefer to wait at this time while she completes her therapy but will let me know if this persists Assessment & Plan (01/02/2020 11:53 AM PSYCHOLOGIST CLINICAL): Continues to do stretching. Is kept awake at night at times with this. Refer to Dr. Teague Essential hypertension 10/02/2019 Hyperparathyroidism (CMS/HCC) 10/02/2019 Assessment & Plan (06/09/2020 11:34 AM CDT): Labs Anxiety 09/20/2018 Dyslipidemia 09/20/2018 Resolved Problems Problem Noted Date Diagnosed Date Resolved Date Abdominal pain 02/17/2022 03/09/2022 Assessment & Plan (02/17/2022 2:07 PM PSYCHOLOGIST CLINICAL): Labs today EGD/COLO referral after labs received (suspect she is anemic) Fall 03/09/2021 02/17/2022 Assessment & Plan (03/09/2021 11:17 AM PSYCHOLOGIST CLINICAL): Exam is reassuring (pulses, DTR's, strength WNL) If this reoccurs to call for L-spine MRI Epigastric pain 06/09/2020 02/17/2022 Assessment & Plan (10/16/2021 9:43 AM CDT): With 8 pound weight loss. Has hepatomegaly. Check labs, check ct Assessment & Plan (06/09/2020 11:33 AM CDT): Hx gastritis, repeat EGD (previous in [place], prefers [facility] now) H. Pylori today Start omeprazole 20mg daily x 6-8 weeks then taper off May use OTC pepcid, calcium carbonate PRN Backache 01/24/2020 02/17/2022 Immunizations Immunization Administration Dates Next Due Influenza, Unspecified 01/24/2020 Pfizer SARS-CoV-2 Monovalent Vaccination (12+ Yrs) PURPLE 05/13/2020,04/22/2020 Surgical History Surgery Date Site/Laterality Comments REPLACEMENT TOTAL KNEE 02/22/2004 - 02/20/2005 Right REPLACEMENT TOTAL KNEE 02/21/2010 - 02/20/2011 Left SECTION 1984,1988 OTHER SURGICAL HISTORY 09/14/2019 Thyroid Biopsy PARATHYROID GLAND SURGERY 09/22/2019 - 10/22/2019 removed 1 of the glands Medical History Medical History Date Comments Hypertension Osteoporosis Family History Medical History Relation Name Comments Heart disease Father Arthritis Mother Hypertension Mother Stroke Mother Relation Name Status Comments Father Mother Social History Tobacco Use Types Packs/Day Years [...] on file Legal Sex Female 1:31 AM PSYCHOLOGIST CLINICAL Gender Identity Not on file Sexual Orientation Not on file Occupation Industry Job Start Date Job End Date disabled as 2013 Not on file Not on file Not on f ile Obstetrics History Comments Menopause at age 54 y/o Last Filed Vital Signs Vital Sign Reading Time Taken Comments Blood Pressure 143/88 03/25/2022 12:28 PM PSYCHOLOGIST CLINICAL Pulse 103 03/25/2022 12:28 PM PSYCHOLOGIST CLINICAL Temperature 36 C (96.8 F) 03/25/2022 12:08 PM PSYCHOLOGIST CLINICAL Respiratory Rate 16 03/25/2022 12:28 PM PSYCHOLOGIST CLINICAL Oxygen Saturation 95% 03/25/2022 12:28 PM PSYCHOLOGIST CLINICAL Inhaled Oxygen Concentration - - Weight 69.4 kg (153 lb) 03/25/2022 10:51 AM PSYCHOLOGIST CLINICAL Height 170.2 cm (5' 7 ) 03/25/2022 10:51 AM PSYCHOLOGIST CLINICAL Body Mass Index 23.96 03/25/2022 10:51 AM PSYCHOLOGIST CLINICAL Plan of Treatment Health Maintenance Due Date Last Done Comments Breast Cancer Screening-Mammogram 1955 Depression Screening 1955 Osteoporosis Screening-Bone Density Scan 1955 DTaP/Tdap/Td Vaccine (1 - Tdap) 1965 Hepatitis B Screening 1972 Pneumococcal vaccine 65+ (1 of 2 - PCV) 1973 Zoster Vaccine (1 of 2) 2004 Well Visit 65+ 07/16/2019 Fall Risk Assessment 03/25/2023 03/25/2022 Covid-19 Vaccine ( season) 2023, 04/22/2020 Influenza Vaccine (#1) 2023 01/24/2020 Colon Cancer Screening-Colonoscopy 03/25/20322022, 07/03/2018 Hepatitis C Screening Completed 10/20/2021 Colon Cancer Screening-CT Colonography Discontinued , 07/03/2018 Colon Cancer Screening-DNA Stool Discontinued 03/25/19, 07/03/2018 Colon Cancer Screening-FIT Discontinued 03/25/2022, Colon Cancer Screening-Sigmoidoscopy Discontinued 03/2022, 07/03/2018 Procedures Procedure Name Priority Date/Time Associated Diagnosis Comments COLONOSCOPY 03/25/2022 11:48 AM PSYCHOLOGIST CLINICAL HEPATITIS PANEL, ACUTE Routine 10/20/2021 11:08 AM CDT Elevated LFTs from Last 3 Months or Most Recently Relevant to Health Maintenance Results * COLONOSCOPY (03/25/2022 11:48 AM PSYCHOLOGIST CLINICAL) Anatomical Region Laterality Modality Other Narrative Procedure Note Donato Hartley MD - 03/25/2022 11:48 AM CST [facility] Patient Name: Bharati Varma Procedure Date: 03/25/2022 11:48 AM Date of : 1955 Admit Type: Outpatient Age: 66 Gender: Female Attending MD: Donato Hartley M.D. Room: [facility] 3 Note Status: Finalized Procedure: Colonoscopy Indications: Iron deficiency anemia Referring MD: Oscar Mcguire Providers: Donato Hartley M.D. Medicines: Monitored Anesthesia [...] The scope was passed under direct vision.The [id number] endoscope was introduced through the anus and [...] On: 03/25/2022 11:48 AM Recognized by the [employer] for promoting quality [...] - 10/21/2021 3:08 PM CDT Performed at: - [facility] [address] [id number] Childhood Teacher: Edilberto Rivera PhD, Phone: [phone] us Bill Simms MD LAB MICROBIOLOGY - GENERAL OR DERABLES Final Result Performing Organization Address City/State/ZIP Co mi Phone Number [facility] - 01 from Last 3 Months or Most Recently Relevant to Health Maintenance Insurance [facility] MEDICARE MEDICARE [facility] MEDICARE [employer] MEDICARE [facility] MEDICARE Advance Directives For more information, please contact: [phone] * Full Code (Latest Code Status on File) Date Activated Date Inactivated Comments 03/25/2022 10:46 AM 03/25/2022 5:01 PM * Full Code Date Activated Date Inactivated Comments 06/17/2020 11:45 AM 06/17/2020 5:23 PM * Full Code Date Activated Date Inactivated Comments 10/02/2019 3:41 PM 10/03/2019 1:18 AM Care Teams Coffee Roaster Helper Relationship Specialty Start Date End Date Bill Simms MD [address] [address] PCP - General 07/24/19
--- OUTSIDE RECORDS SUMMARY | 2024-04-25 06:33 | XMS_ITS | Referral Summary ---
Author Organization [facility] Address [address] [place] [address] Care Team Providers Care Log Scaler Name Role Phone Alexis Velez MD Primary Care Provider [phone] Source Comments [facility],non-owned Affiliates and Associated Physician Practices is amultiple site organization consisting of ambulatory clinics and hospital sitesin [place], [place], [place] and [place]. This disclosure is being madepursuant to the Care Everywhere program and may not contain all information available regarding this patient. Last updated 17.[facility] [employer] Allergies No known active allergies Medications * Be aware that medications may not be up to date on this document. Alwaysverify current medications with the patient. Medication Sig Dispensed Refills Start Date End Date Status carvedilol (Coreg) 3.125 MG tablet Take 2 (two) tablets by mouth 2 times daily 06/14/2023 Active promethazine (Phenergan) 25 MG tablet TAKE 1 TABLET BY MOUTH 2 TO 3 TIMES DAILY NEEDED Active lidocaine (Lidoderm) 5 % patch Apply 1 (one) patch to skin every 24 hours Apply patch to most painful area and remove after 12 hours. May reapply a new patch 12 hours later. 09/03/2023 Active cyanocobalamin 100 MCG tablet Take 1 (one) tablet by mouth once daily 09/04/2023 Active folic acid (Folvite) 1 MG tablet Take 1 (one) tablet by mouth once daily 09/04/2023 Active multiple vitamins with minerals tablet Take 1 (one) tablet by mouth once daily 09/04/2023 Active bacitracin ointment Apply to affected area 3 times daily 30 g 09/03/2023 Active thiamine (Vitamin B-1) 100 MG tablet Take 1 (one) tablet by mouth once daily 09/04/2023 Active vitamin D3 (Cholecaciferol) 125 MCG (5000 UT) tablet Take 1 (one) tablet by mouth once daily 09/04/2023 Active acetaminophen (Tylenol) 500 MG tablet Take 2 (two) tablets by mouth every 8 hours Maximum allowable Acetaminophen amount = 4 Grams (4000 mg) / 24 hours. 11/14/2023 Active diclofenac sodium (Voltaren) 1 % gel Apply 2 (two) g to affected area 4 times daily 11/14/2023 Active vitamin D, ergocalciferol, (Drisdol) 1.25 MG (36974 UT) capsuleIndications :Vitamin D Deficiency Take 1 (one) capsule by mouth every 7 days Reasons: Vitamin D Deficiency 11/16/2023 Active oxyCODONE, immediate release, (Roxicodone) 10 MG tabletIndications: Closed fracture of ramus of right pubis, initial encounter ([facility]) Take 1 (one) tablet by mouth every 6 hours as needed 20 tablet 11/14/2023 Active mirtazapine (Remeron) 7.5 MG tablet Take 1 (one) tablet by mouth at bedtime 11/14/2023 Active Active Problems Problem Noted Date Diagnosed Date Alcohol use disorder 11/12/2023 Suicidal ideation 11/12/2023 Alcohol withdrawal 11/12/2023 Hypokalemia 11/08/2023 Macrocytic anemia 11/08/2023 Primary hypertension 11/08/2023 Steatosis of liver 11/08/2023 Transaminitis 11/08/2023 Encounter for screening for diabetes mellitus Vitamin D deficiency 11/08/2023 Pubic ramus fracture, right, closed, initial enc ounter 11/07/2023 Hematoma 11/07/2023 Contusion of right hip, initial encounter 2023 Pelvic hematoma in female 11/07/2023 Closed fracture of ramus of right pubis, initial encounter 11/07/2023 Acute alcoholic intoxication without complicatio n 11/07/2023 Acute pain due to trauma 08/31/2023 Impaired mobility and ADLs 08/31/2023 Acute blood loss anemia 08/31/2023 SAH (subarachnoid hemorrhage) 08/30/2023 SDH (subdural hematoma) 08/30/2023 Fall, initial encounter 08/30/2023 Closed fracture of multiple ribs of left side, initial encounter 08/30/2023 Resolved Problems Problem Noted Date Diagnosed Date Resolved Date Alcohol abuse 11/07/2023 11/12/2023 Social History Tobacco Use Types Packs/Day Years Used Date Smoking Tobacco: Never Passive Smoke Exposure: Past Smokeless Tobacco: Never Tobacco Cessation:Counseling Given: Not Answered Alcohol Use Standard Drinks/Week Comments Not Currently 0 (1 standard drink = 0.6 oz pur e alcohol) AUDIT-C Answer Date Recorded Q1: How often do you have a drink containing alc ohol? 2-3 times a week 11/11/2023 Q2: How many drinks containi ng alcohol do you have on a typical day when you are drinking? 1 or 2 11/11/2023 Q3: How often do you have si x or more drinks on one occasion? Never 11/11/2023 Overall Financial Resource Strain (CARDIA) Answe r Date Recorded How hard is it for you to pa y for the very basics like food, housing, medical care, and heating? Somewhat hard 11/10/2023 [facility] - Occupational Stress Questionnaire Answer Date Recorded Do you feel stress - tense, restless, nervous, or anxious, or unable to sleep at night because your mind is troubled all the time - these days? Not at all 11/10/2023 Hunger Vital Sign Answer Date Recorded Within the past 12 months, y ou worried that your food would run out before you got the money to buy more. Patient declined Within the past 12 months, t he food you bought just didn't last and you didn't have money to get more. Never true PRAPARE - Transportation Answer Date Re corded In the past 12 months, has l ack of transportation kept you from medical appointments or from getting medications? No 10/22 In the past 12 months, has l ack of transportation kept you from meetings, work, or from getting things needed for daily living? No 11/10/2023 Housing Stability Vital Sign Answer Eric e Recorded In the last 12 months, was t here a time when you were not able to pay the mortgage or rent on time? No 11/10/2023 In the last 12 months, how many places have you lived? 1 11/10/2023 In the last 12 months, was t here a time when you did not have a steady place to sleep or slept in a long-term (including now)? No 11/10/2023 Sex and Gender Information Value Date Recorded Sex Assigned at Not on file Gender Identity Not on file Sexual Orientation Not on file Last Filed Vital Signs Vital Sign Reading Time Taken Comments Blood Pressure 123/86 11/14/2023 8:22 AM CDT Pulse 79 11/14/2023 8:22 AM CDT Temperature 36.7 C (98.1 F) 11/14/2023 8:22 AM CDT Respiratory Rate 18 11/14/2023 8:22 AM CDT Oxygen Saturation 96% 11/14/2023 8:22 AM CDT Inhaled Oxygen Concentration 21% 08/30/2023 7 :31 PM CDT Weight 59.9 kg (132 lb) 11/06/2023 9:19 PM CDT Height 170.2 cm (5' 7 ) 11/06/2023 9:19 PM CDT Body Mass Index 20.67 11/06/2023 9:19 PM CDT Functional Status Functional Status Response Date of Assess ment Is person deaf or have serious hearing difficult y? No 11/10/2023 Is person blind or have serious difficulty seein g? No 11/10/2023 Does person have serious dif ficulty walking/climbing stairs? No 11/10/2023 Does person have difficulty dressing/bathing? No 11/10/2023 Does person have difficulty doing errands alone? No 11/10/2023 Cognitive Status Response Date of Assessm ent Does person have difficulty concentrating/remembering/making decisions? No 11/10/2023 Plan of Treatment Not on file Procedures Procedure Name Priority Date/Time Associated Diagnosis Comments HEPATITIS C AB SCREEN RFLX NAAT QUANT STAT 11/07/2023 10:20 AM CDT from Last 3 Months or Most Recently Relevant to Health Maintenance Results * HEPATITIS C AB SCREEN RFLX NAAT QUANT (11/07/2023 10:20 AM CDT) Hepatitis C Antibody Non-react zion Non-reac tive 11/07/2023 11:[address] [facility] Comment:Hepatitis C Antibody screen indicates no serologic evidence of past or current infection with Hepatitis C Virus. Patients with unexplained liver disease who are immunocompromised or suspected of having acute Hepatitis C infection may benefit from Nucleic Acid Test (RADHA) for Hepatitis C Viral RNA to confirm Hepatitis C status. Blood BLOOD SPECIMEN / Unknown Venipuncture / Unknown 11/07/2023 10:20 AM CDT 11/07/2023 10:26 AM CDT Seth Ovalles MD LAB - CHEMISTRY [facility]ERY[facility] Organization Address City/State/ZIP Co de Phone Number [facility] [address] [place] [address], [facility] [phone] from Last 3 Months or Most Recently Relevant to Health Maintenance Additional Health Concerns Infection Onset Date Last Indicated C Diff Hx 11/09/2023 11/09/2023 Advance Directives * LIMITED RESUSCITATION-PRIOR AND AFTER ARREST (Latest Code Status on File) Date Activated Date Inactivated Comments 11/15/2023 3:00 PM 11/24/2023 1:08 PM Question Answer Comments Limited Resuscitation: Other Limitations (ENTER COMMENT) Intravenous medications as needed * Full Code Date Activated Date Inactivated Comments 11/14/2023 6:44 PM 11/15/2023 3:00 PM * LIMITED RESUSCITATION-PRIOR AND AFTER ARREST Date Activated Date Inactivated Comments 11/07/2023 3:06 PM 11/14/2023 6:26 PM Question Answer Comments Limited Resuscitation: No Chest Compress ionNo Intubation, No Invasive VentilationNo Cardioversion, No Defibrilation, No External or Internal Pacemaker * LIMITED RESUSCITATION-PRIOR AND AFTER ARREST Date Activated Date Inactivated Comments 08/31/2023 1:58 PM 09/03/2023 3:40 PM Question Answer Comments Limited Resuscitation: No Chest Compress ionNo Intubation, No Invasive Ventilation * Full Code Date Activated Date Inactivated Comments 08/30/2023 3:12 PM 08/31/2023 1:58 PM Care Teams Log Scaler Relationship Specialty Start Date End Date Alexis Velez MD [address] [place] [phone] PCP - General Internal Medicine 08/30/23
--- OUTSIDE RECORDS SUMMARY | 2024-04-25 06:33 | XMS_ITS | Data Portability ---
Author Organization [place] [facility] [employer], Main Office Address [address] [place] [address] Assessment Encounter Date Assessment Date Assessment LastModified by Organization Details LastModified Time 07/14/2022 07/14/2022 Obtain blood work. Start Remeron 15 mg q.h.s. see me back in a month alcohol avoidance paramount Not available 07/17/2022 15:21:11 08/27/2022 08/27/2022 Continue current therapy 3 month follow-up UTI has resolved hospital records reviewed [email or web address] Not available 08/29/2022 21:25:13 01/03/2023 01/03/2023 Overall seems to be doing fine blood pressure seems to be stable she will see me back in 4 months mammogram will be ordered all diagnosis have been discussed no side effects from medications [email or web address] Not available 01/03/2023 22:19:32 Plan of Treatment Reminders Order Date Submit Date Provider Last Modified By Organization Details Last Modified Time Details Appointments None recorded. Lab CMP, serum or plasma 2022 023 [facility] (Lab), [address] [place], [address], 3 11:58:38 lipid panel, serum 2022 023 [facility] (Lab), [address] [place], [address], 3 12:07:23 CBC w/ auto diff 2022 023 [facility] (Lab), [address] [place], [address], 3 11:02:09 magnesium, serum or plasma 2022 023 [facility] (Lab), [address] [place], [address], 3 12:48:45 CBC w/ auto diff 2022 023 [facility] (Lab), [address] [place], [address], 3 14:14:20 CMP, serum or plasma 2022 023 [facility] (Lab), [address] [place], [address], 3 15:10:15 lipid panel, serum 2022 023 [facility] (Lab), [address] [place], [address], 3 15:10:18 T4, free, serum 2022 023 [facility] (Lab), [address] [place], [address], 3 15:30:05 T3, free, serum or plasma 2022 023 [facility] (Lab), [address] [place], [address], 3 15:30:06 TSH, serum or plasma 2022 023 [facility] (Lab), [address] [place], [address], 3 15:36:11 vitamin B12 + folate, serum or blood 2022 023 [facility] (Lab), [address] [place], [address], 3 09:18:20 magnesium, serum or plasma 2022 023 PET[facility]A [facility] (Lab), [address] [place], [address], 3 15:10:25 Referral None recorded. Procedures None recorded. Surgeries None recorded. Imaging MAMMO, screening, digital, bilateral 2022 023 [email or web address] 25 [facility] ([facility]), [address] [place], [address], 4 08:29:45 Medication Orders Remeron 15 mg tablet 2022 023 [email or web address] [facility] [place], [address], 3 16:55:15 Patient TargetsNo targets recorded. Patient InstructionsNo instructions recorded. Reason for Referral None Reported. Results Created Date Observation Date Name Description Value Unit Range Abnormal Flag Note LastModifiedBy Organization Detail LastModifiedTime 07/27/1907/26/2022 CBC/C OMPLE TE BLD COUNT W/DIF F white blood cells 4.7 x10'3 /uL 4.2-10 .8 Not Available [facility] (Lab) [address] [place], [address], 07/26/2022 14:14:20 07/27/19 23 07/26/2022 CBC/C OMPLE TE BLD COUNT W/DIF F red blood cells 3.66 x10'6 /uL 3.80-5 .20 low Not Available [facility] (Lab) [address] [place], [address], 07/26/2022 14:14:20 07/27/19 23 07/26/2022 CBC/C OMPLE TE BLD COUNT W/DIF F hemoglobin 12.6 g/dL 12.0-1 5.6 Not Available [facility] (Lab) [address] [place], [address], 07/26/2022 14:14:20 07/27/19 23 07/26/2022 CBC/C OMPLE TE BLD COUNT W/DIF F hematocrit 38.0 % 35.7-4 5.7 Not Available [facility] (Lab) [address] [place], [address], 07/26/2022 14:14:20 07/27/19 23 07/26/2022 CBC/C OMPLE TE BLD COUNT W/DIF F mean red cell volume 103.8 fL 82.0-9 9.0 high Not Available [facility] (Lab) [address] [place], [address], 07/26/2022 14:14:20 07/27/19 23 07/26/2022 CBC/C OMPLE TE BLD COUNT W/DIF F mean red cell hemoglobin 34.4 pg 27.0-3 3.0 high Not Available [facility] (Lab) [address] [place], [address], 07/26/2022 14:14:20 07/27/19 23 07/26/2022 CBC/C OMPLE TE BLD COUNT W/DIF F mean RBC HGB concentratio n 33.2 g/dL 31.0-3 6.0 Not Available [facility] (Lab) [address] [place], [address], 07/26/2022 14:14:20 07/27/19 23 07/26/2022 CBC/C OMPLE TE BLD COUNT W/DIF F red cell distribution width 15.9 % 11.8-1 5.5 high Not Available [facility] (Lab) [address] [place], [address], 07/26/2022 14:14:20 07/27/19 23 07/26/2022 CBC/C OMPLE TE BLD COUNT W/DIF F platelets 265 x10'3 /uL 150-40 0 Not Available [facility] (Lab) [address] [place], [address], 07/26/2022 14:14:20 07/27/19 23 07/26/2022 CBC/C OMPLE TE BLD COUNT W/DIF F mean platelet volume 9.8 fL 9.0-12 .4 Not Available [facility] (Lab) [address] [place], [address], 07/26/2022 14:14:20 07/27/19 23 07/26/2022 CBC/C OMPLE TE BLD COUNT W/DIF F neutrophils 48.9 % 39.0-7 2.0 Not Available [facility] (Lab) [address] [place], [address], 07/26/2022 14:14:20 07/27/19 23 07/26/2022 CBC/C OMPLE TE BLD COUNT W/DIF F lymphocytes 40.1 % 16.0-4 7.0 Not Available [facility] (Lab) [address] [place], [address], 07/26/2022 14:14:20 07/27/19 23 07/26/2022 CBC/C OMPLE TE BLD COUNT W/DIF F monocytes 9.0 % 5.0-12 .0 Not Available [facility] (Lab) [address] [place], [address], 07/26/2022 14:14:20 07/27/19 23 07/26/2022 CBC/C OMPLE TE BLD COUNT W/DIF F eosinophils 0.9 % 1.0-7. 0 low Not Available [facility] (Lab) [address] [place], [address], 07/26/2022 14:14:20 07/27/19 23 07/26/2022 CBC/C OMPLE TE BLD COUNT W/DIF F basophils 0.9 % 0.0-2. 0 Not Available [facility] (Lab) [address] [place], [address], 07/26/2022 14:14:20 07/27/19 23 07/26/2022 CBC/C OMPLE TE BLD COUNT W/DIF F immature granulocytes 0.2 % 0.00-0 .50 Not Available [facility] (Lab) [address] [place], [address], 07/26/2022 14:14:20 07/27/19 23 07/26/2022 CBC/C OMPLE TE BLD COUNT W/DIF F neutrophils, absolute count 2.30 x10'3 /uL 1.5-8. 0 Not Available [facility] (Lab) [address] [place], [address], 07/26/2022 14:14:20 07/27/19 23 07/26/2022 CBC/C OMPLE TE BLD COUNT W/DIF F lymphocytes, absolute count 1.88 x10'3 /uL 1.07-3 .43 Not Available [facility] (Lab) [address] [place], [address], 07/26/2022 14:14:20 07/27/19 23 07/26/2022 CBC/C OMPLE TE BLD COUNT W/DIF F monocytes, absolute count 0.42 x10'3 /uL 0.29-0 .99 Not Available [facility] (Lab) [address] [place], [address], 07/26/2022 14:14:20 07/27/1907/26/2022 CBC/C OMPLE TE BLD COUNT W/DIF F eosinophils, absolute count 0.04 x10'3 /uL 0.02-0 .53 Not Available [facility] (Lab) [address] [place], [address], 07/26/2022 14:14:20 07/27/19 23 07/26/2022 CBC/C OMPLE TE BLD COUNT W/DIF F basophils, absolute count 0.04 x10'3 /uL 0.01-0 .08 Not Available [facility] (Lab) [address] [place], [address], 07/26/2022 14:14:20 07/27/19 23 07/26/2022 CBC/C OMPLE TE BLD COUNT W/DIF F immature granulocytes ,absolute 0.01 x10'3 /uL 0.00-0 .05 Not Available [facility] (Lab) [address] [place], [address], 07/26/2022 14:14:20 07/27/19 23 07/26/2022 CBC/C OMPLE TE BLD COUNT W/DIF F nucleated red blood cells 0.0 % -0 Not Available [facility] (Lab) [address] [place], [address], 07/26/2022 14:14:20 07/27/19 23 07/26/2022 CBC/C OMPLE TE BLD COUNT W/DIF F NRBC# 0.00 x10'3 /uL Not Available [facility] (Lab) [address] [place], [address], 07/26/2022 14:14:20 07/27/19 23 07/26/2022 COMPR EHENS ESTER METAB OLIC PANEL sodium 140 mmol/ L 137-14 5 Not Available [facility] (Lab) [address] [place], [address], 07/26/2022 15:10:14 07/27/19 23 07/26/2022 COMPR EHENS ESTER METAB OLIC PANEL potassium 3.0 mmol/ L 3.5-5. 1 low Not Available [facility] (Lab) [address] [place], [address], 07/26/2022 15:10:14 07/27/19 23 07/26/2022 COMPR EHENS ESTER METAB OLIC PANEL chloride 103 mmol/ L 98-107 Not Available [facility] (Lab) [address] [place], [address], 07/26/2022 15:10:14 07/27/19 23 07/26/2022 COMPR EHENS ESTER METAB OLIC PANEL carbon dioxide 27 mmol/ L 22-30 Not Available [facility] (Lab) [address] [place], [address], 07/26/2022 15:10:14 07/27/19 23 07/26/2022 COMPR EHENS ESTER METAB OLIC PANEL anion gap 13.0 mmol/ L 14-22 low Not Available [facility] (Lab) [address] [place], [address], 07/26/2022 15:10:14 07/27/19 23 07/26/2022 COMPR EHENS ESTER METAB OLIC PANEL glucose 83 mg/dL 70-99 Not Available [facility] (Lab) [address] [place], [address], 07/26/2022 15:10:14 07/27/19 23 07/26/2022 COMPR EHENS ESTER METAB OLIC PANEL BUN 11 mg/dL 8-19 Not Available [facility] (Lab) [address] [place], [address], 07/26/2022 15:10:14 07/27/19 23 07/26/2022 COMPR EHENS ESTER METAB OLIC PANEL creatinine 0.70 mg/dL 0.66-1 .25 Not Available [facility] (Lab) [address] [place], [address], 07/26/2022 15:10:14 07/27/19 23 07/26/2022 COMPR EHENS ESTER METAB OLIC PANEL GFR >60 Refer ence Range : Alto ge GFR Healt hy Adult : >60 mL/mi n/1.7 3 m2 Chron ic Kidne y Disea se: 15-60 mL/mi n/1.7 3 m2 Kidne y Failu re: <15/m L/min /1.73 m2 www.n iddk. nih.g ov The MDRD study equat ion has not been valid ated in child pérez <18 years of age; pregn ant women ; the elder ly >85 years of age; or in some racia l or ethni c subgr oups, such as Hispa nics. Outsi de the valid ated carolyn eters , estim ated GFR is less accur ate, requi ring clini henrique judgm ent on a case- by-ca se basis . Clini henrique inter preta tion for other races and ages must be made by the clini buck. The MDRD study equat ion has not been valid ated for the evalu ation of serum creat inine relat ed to nutri meaghan l statu s or medic ation usage . For perso ns <18 years of age, a pedia tric GFR calcu lator is avail able on the [facility] websi te: https ://summer w.jacob vasquez.o rg/pr ofess ional s/kdo qi/gf r_cal culat or Not Available [facility] (Lab) [address] [place], [address], 07/26/2022 15:10:14 07/27/19 23 07/26/2022 COMPR EHENS ESTER METAB OLIC PANEL alkaline phosphatase 198 U/L 38-126 high Not Available [facility] (Lab) [address] [place], [address], 07/26/2022 15:10:14 07/27/19 23 07/26/2022 COMPR EHENS ESTER METAB OLIC PANEL alanine aminotransfe rase 68 U/L 0-35 high Not Available [facility] (Lab) [address] [place], [address], 07/26/2022 15:10:14 07/27/19 23 07/26/2022 COMPR EHENS ESTER METAB OLIC PANEL aspartate aminotransfe rase 227 U/L 15-37 high Not Available [facility] (Lab) [address] [place], [address], 07/26/2022 15:10:14 07/27/19 23 07/26/2022 COMPR EHENS ESTER METAB OLIC PANEL bilirubin, total 0.60 mg/dL 0.20-1 .30 Not Available [facility] (Lab) [address] [place], [address], 07/26/2022 15:10:14 07/27/19 23 07/26/2022 COMPR EHENS ESTER METAB OLIC PANEL calcium 9.2 mg/dL 8.4-10 .2 Not Available [facility] (Lab) [address] [place], [address], 07/26/2022 15:10:14 07/27/19 23 07/26/2022 COMPR EHENS ESTER METAB OLIC PANEL total protein 7.0 g/dL 6.3-8. 2 Not Available [facility] (Lab) [address] [place], [address], 07/26/2022 15:10:14 07/27/19 23 07/26/2022 COMPR EHENS ESTER METAB OLIC PANEL albumin 3.5 g/dL 3.0-4. 4 Not Available [facility] (Lab) [address] [place], [address], 07/26/2022 15:10:14 07/27/19 23 07/26/2022 COMPR EHENS ESTER METAB OLIC PANEL globulin 3.5 g/dL 2.6-4. 2 Not Available [facility] (Lab) [address] [place], [address], 07/26/2022 15:10:14 07/27/19 23 07/26/2022 COMPR EHENS ESTER METAB OLIC PANEL A/G ratio 1.0 ratio 1.0-2. 0 Not Available [facility] (Lab) [address] [place], [address], 07/26/2022 15:10:14 07/27/19 23 07/26/2022 LIPID PANEL cholesterol 268 mg/dL 140-19 9 high NIH POPPY NSUS RECOM MENDA TION FOR MARY STERO L: ADULT CHILD LOW RISK: <200 <170 BORDE RLINE : <200- 239 ----- HIGH RISK: >240 >200 Not Available [facility] (Lab) [address] [place], [address], 07/26/2022 15:29:04 07/27/19 23 07/26/2022 LIPID PANEL triglyceride s 206 mg/dL 0-150 high NIH POPPY NSUS REPOR T RECOM MENDA TION FOR TRIGL YCERI MICHAEL: ADULT CHILD LOW RISK: <150 ----- BODER LINE: 150-1 99 ----- HIGH RISK: >200 ----- Not Available [facility] (Lab) [address] [place], [address], 07/26/2022 15:29:04 07/27/19 23 07/26/2022 LIPID PANEL HDL cholesterol 176 mg/dL 40- Not Available [facility] (Lab) [address] [place], [address], 07/26/2022 15:29:04 07/27/19 23 07/26/2022 LIPID PANEL LDL cholesterol, calculated 51 mg/dL 0-130 NIH POPPY NSUS REPOR T RECOM MENDA TIONS FOR LDL: ADULT CHILD LOW RISK <130 <110 (OPTI MAL LDL) <100 ----- BORDE RLINE : 130-1 59 ----- HIGH RISK: >160 >130 A TRIGL YCERI DE RESUL T >400 INVAL IDATE S THE CALCU LATIO N FOR LDL FRACT IONAT ION - THE LDL RESUL T WILL NOT BE REPOR DOMINIC. Not Available [facility] (Lab) [address] [place], [address], 07/26/2022 15:29:04 07/27/19 23 07/26/2022 MAGNE SIUM magnesium 1.6 mg/dL 1.6-2. 3 Not Available [facility] (Lab) [address] [place], [address], 07/26/2022 15:10:25 07/27/19 23 07/26/2022 VITAM IN B12 (SOURAV KADE ) vb12 312 pg/mL 239-93 1 Not Available [facility] (Lab) [address] [place], [address], 07/26/2022 15:22:59 07/27/19 23 07/26/2022 FOLAT E, SERUM /PLAS MA folate 3.18 NG/mL 2.76-2 0.0 Not Available [facility] (Lab) [address] [place], [address], 07/26/2022 15:23:00 07/27/19 23 07/26/2022 T4 FREE free T4 0.89 NG/dL 0.78-2 .19 Not Available [facility] (Lab) [address] [place], [address], 07/26/2022 15:30:05 07/27/19 23 07/26/2022 T3 FREE free T3 4.0 pg/mL 2.77-5 .27 Not Available [facility] (Lab) [address] [place], [address], 07/26/2022 15:30:06 07/27/19 23 07/26/2022 TSH thyroid-stim ulating hormone 0.228 uIU/m L 0.465- 4.680 low Not Available [facility] (Lab) [address] [place], [address], 07/26/2022 15:36:11 01/08/20 23 01/10/2023 CBC/C OMPLE TE BLD COUNT W/DIF F white blood cells 4.5 x10'3 /uL 4.2-10 .8 Not Available [facility] (Lab) [address] [place], [address], 01/10/2023 09:40:10 01/08/20 23 01/10/2023 CBC/C OMPLE TE BLD COUNT W/DIF F red blood cells 3.22 x10'6 /uL 3.80-5 .20 low Not Available [facility] (Lab) [address] [place], [address], 01/10/2023 09:40:10 01/08/2001/10/2023 CBC/C OMPLE TE BLD COUNT W/DIF F hemoglobin 11.8 g/dL 12.0-1 5.6 low Not Available [facility] (Lab) [address] [place], [address], 01/10/2023 09:40:10 01/08/20 23 01/10/2023 CBC/C OMPLE TE BLD COUNT W/DIF F hematocrit 36.0 % 35.7-4 5.7 Not Available [facility] (Lab) [address] [place], [address], 01/10/2023 09:40:10 01/08/20 23 01/10/2023 CBC/C OMPLE TE BLD COUNT W/DIF F mean red cell volume 111.8 fL 82.0-9 9.0 high Not Available [facility] (Lab) [address] [place], [address], 01/10/2023 09:40:10 01/08/20 23 01/10/2023 CBC/C OMPLE TE BLD COUNT W/DIF F mean red cell hemoglobin 36.6 pg 27.0-3 3.0 high Not Available [facility] (Lab) [address] [place], [address], 01/10/2023 09:40:10 01/08/20 23 01/10/2023 CBC/C OMPLE TE BLD COUNT W/DIF F mean RBC HGB concentratio n 32.8 g/dL 31.0-3 6.0 Not Available [facility] (Lab) [address] [place], [address], 01/10/2023 09:40:10 01/08/20 23 01/10/2023 CBC/C OMPLE TE BLD COUNT W/DIF F red cell distribution width 16.2 % 11.8-1 5.5 high Not Available [facility] (Lab) [address] [place], [address], 01/10/2023 09:40:10 01/08/2001/10/2023 CBC/C OMPLE TE BLD COUNT W/DIF F platelets 235 x10'3 /uL 150-40 0 Not Available [facility] (Lab) [address] [place], [address], 01/10/2023 09:40:10 01/08/20 23 01/10/2023 CBC/C OMPLE TE BLD COUNT W/DIF F mean platelet volume 9.8 fL 9.0-12 .4 Not Available [facility] (Lab) [address] [place], [address], 01/10/2023 09:40:10 01/08/20 23 01/10/2023 CBC/C OMPLE TE BLD COUNT W/DIF F neutrophils 44.6 % 39.0-7 2.0 Not Available [facility] (Lab) [address] [place], [address], 01/10/2023 09:40:10 01/08/20 23 01/10/2023 CBC/C OMPLE TE BLD COUNT W/DIF F lymphocytes 42.4 % 16.0-4 7.0 Not Available [facility] (Lab) [address] [place], [address], 01/10/2023 09:40:10 01/08/20 23 01/10/2023 CBC/C OMPLE TE BLD COUNT W/DIF F monocytes 9.3 % 5.0-12 .0 Not Available [facility] (Lab) [address] [place], [address], 01/10/2023 09:40:10 01/08/20 23 01/10/2023 CBC/C OMPLE TE BLD COUNT W/DIF F eosinophils 2.4 % 1.0-7. 0 Not Available [facility] (Lab) [address] [place], [address], 01/10/2023 09:40:10 01/08/20 23 01/10/2023 CBC/C OMPLE TE BLD COUNT W/DIF F basophils 1.1 % 0.0-2. 0 Not Available [facility] (Lab) [address] [place], [address], 01/10/2023 09:40:10 01/08/20 23 01/10/2023 CBC/C OMPLE TE BLD COUNT W/DIF F immature granulocytes 0.2 % 0.00-0 .50 Not Available [facility] (Lab) [address] [place], [address], 01/10/2023 09:40:10 01/08/20 23 01/10/2023 CBC/C OMPLE TE BLD COUNT W/DIF F neutrophils, absolute count 2.00 x10'3 /uL 1.5-8. 0 Not Available [facility] (Lab) [address] [place], [address], 01/10/2023 09:40:10 01/08/20 23 01/10/2023 CBC/C OMPLE TE BLD COUNT W/DIF F lymphocytes, absolute count 1.91 x10'3 /uL 1.07-3 .43 Not Available [facility] (Lab) [address] [place], [address], 01/10/2023 09:40:10 01/08/20 23 01/10/2023 CBC/C OMPLE TE BLD COUNT W/DIF F monocytes, absolute count 0.42 x10'3 /uL 0.29-0 .99 Not Available [facility] (Lab) [address] [place], [address], 01/10/2023 09:40:10 01/08/20 23 01/10/2023 CBC/C OMPLE TE BLD COUNT W/DIF F eosinophils, absolute count 0.11 x10'3 /uL 0.02-0 .53 Not Available [facility] (Lab) [address] [place], [address], 01/10/2023 09:40:10 01/08/20 23 01/10/2023 CBC/C OMPLE TE BLD COUNT W/DIF F basophils, absolute count 0.05 x10'3 /uL 0.01-0 .08 Not Available [facility] (Lab) [address] [place], [address], 01/10/2023 09:40:10 01/08/20 23 01/10/2023 CBC/C OMPLE TE BLD COUNT W/DIF F immature granulocytes ,absolute 0.01 x10'3 /uL 0.00-0 .05 Not Available [facility] (Lab) [address] [place], [address], 01/10/2023 09:40:10 01/08/20 23 01/10/2023 CBC/C OMPLE TE BLD COUNT W/DIF F nucleated red blood cells 0.0 % -0 Not Available [facility] (Lab) [address] [place], [address], 01/10/2023 09:40:10 01/08/20 23 01/10/2023 CBC/C OMPLE TE BLD COUNT W/DIF F NRBC# 0.00 x10'3 /uL Not Available [facility] (Lab) [address] [place], [address], 01/10/2023 09:40:10 01/08/20 23 01/10/2023 CBC/C OMPLE TE BLD COUNT W/DIF F anisocytosis OCCASI ONAL Not Available [facility] (Lab) [address] [place], [address], 01/10/2023 09:40:10 01/08/20 23 01/10/2023 CBC/C OMPLE TE BLD COUNT W/DIF F poikilocytos is OCCASI ONAL Not Available [facility] (Lab) [address] [place], [address], 01/10/2023 09:40:10 01/08/20 23 01/10/2023 CBC/C OMPLE TE BLD COUNT W/DIF F microcytosis 2+ Not Available [facility] (Lab) [address] [place], [address], 01/10/2023 09:40:10 01/08/20 23 01/10/2023 CBC/C OMPLE TE BLD COUNT W/DIF F teardrop red blood cells OCCASI ONAL Not Available [facility] (Lab) [address] [place], [address], 01/10/2023 09:40:10 01/08/20 23 01/07/2023 COMPR EHENS ESTER METAB OLIC PANEL sodium 140 mmol/ L 137-14 5 Not Available [facility] (Lab) [address] [place], [address], 01/07/2023 11:58:38 01/08/20 23 01/07/2023 COMPR EHENS ESTER METAB OLIC PANEL potassium 3.6 mmol/ L 3.5-5. 1 Not Available [facility] (Lab) [address] [place], [address], 01/07/2023 11:58:38 01/08/20 23 01/07/2023 COMPR EHENS ESTER METAB OLIC PANEL chloride 105 mmol/ L 98-107 Not Available [facility] (Lab) [address] [facility] [place] [place], [address], 01/07/2023 11:58:38 01/08/20 23 01/07/2023 COMPR EHENS ESTER METAB OLIC PANEL carbon dioxide 23 mmol/ L 22-30 Not Available [facility] (Lab) [address] [place], [address], 01/07/2023 11:58:38 01/08/20 23 01/07/2023 COMPR EHENS ESTER METAB OLIC PANEL anion gap 15.6 mmol/ L 14-22 Not Available [facility] (Lab) [address] [place], [address], 01/07/2023 11:58:38 01/08/20 23 01/07/2023 COMPR EHENS ESTER METAB OLIC PANEL glucose 101 mg/dL 70-99 high Not Available [facility] (Lab) [address] [place], [address], 01/07/2023 11:58:38 01/08/20 23 01/07/2023 COMPR EHENS ESTER METAB OLIC PANEL BUN 9 mg/dL 8-19 Not Available [facility] (Lab) [address] [place], [address], 01/07/2023 11:58:38 01/08/20 23 01/07/2023 COMPR EHENS ESTER METAB OLIC PANEL creatinine 0.78 mg/dL 0.66-1 .25 Not Available [facility] (Lab) [address] [place], [address], 01/07/2023 11:58:38 01/08/20 23 01/07/2023 COMPR EHENS ESTER METAB OLIC PANEL GFR >60 Refer ence Range : [place] GFR Healt hy Adult : >60 mL/mi n/1.7 3 m2 Chron ic Kidne y Disea se: 15-60 mL/mi n/1.7 3 m2 Kidne y Failu re: <15/m L/min /1.73 m2 www.n iddk. nih.g ov The MDRD study equat ion has not been valid ated in child pérez <18 years of age; pregn ant women ; the elder ly >85 years of age; or in some racia l or ethni c subgr oups, such as Hispa nics. Outsi de the valid ated carolyn eters , estim ated GFR is less accur ate, requi ring clini henrique judgm ent on a case- by-ca se basis . Clini henrique inter preta tion for other races and ages must be made by the clini buck. The MDRD study equat ion has not been valid ated for the evalu ation of serum creat inine relat ed to nutri meaghan l statu s or medic ation usage . For perso ns <18 years of age, a pedia tric GFR calcu lator is avail able on the [facility] websi te: https ://summer dillard.jacob vasquez.o charly/pr chipess ional s/kdo qi/gf r_cal culat or Not Available [facility] (Lab) [address] [place], [address], 01/07/2023 11:58:38 01/08/20 23 01/07/2023 COMPR EHENS ESTER METAB OLIC PANEL alkaline phosphatase 191 U/L 38-126 high Not Available [facility] (Lab) [address] [place], [address], 01/07/2023 11:58:38 01/08/20 23 01/07/2023 COMPR EHENS ESTER METAB OLIC PANEL alanine aminotransfe rase 72 U/L 0-35 high Not Available [facility] [place] (Lab) [address] [place], [address], 01/07/2023 11:58:38 01/08/20 23 01/07/2023 COMPR EHENS ESTER METAB OLIC PANEL aspartate aminotransfe rase 270 U/L 15-37 high Not Available [facility] (Lab) [address] [place], [address], 01/07/2023 11:58:38 01/08/20 23 01/07/2023 COMPR EHENS ESTER METAB OLIC PANEL bilirubin, total 1.00 mg/dL 0.20-1 .30 Not Available [facility] (Lab) [address] [place], [address], 01/07/2023 11:58:38 01/08/20 23 01/07/2023 COMPR EHENS ESTER METAB OLIC PANEL calcium 9.0 mg/dL 8.4-10 .2 Not Available [facility] (Lab) [address] [place], [address], 01/07/2023 11:58:38 01/08/20 23 01/07/2023 COMPR EHENS ESTER METAB OLIC PANEL total protein 6.8 g/dL 6.3-8. 2 Not Available [facility] (Lab) [address] [place], [address], 01/07/2023 11:58:38 01/08/20 23 01/07/2023 COMPR EHENS ESTER METAB OLIC PANEL albumin 3.4 g/dL 3.0-4. 4 Not Available [facility] (Lab) [address] [place], [address], 01/07/2023 11:58:38 01/08/20 23 01/07/2023 COMPR EHENS ESTER METAB OLIC PANEL globulin 3.4 g/dL 2.6-4. 2 Not Available [facility] (Lab) [address] [place], [address], 01/07/2023 11:58:38 01/08/20 23 01/07/2023 COMPR EHENS ESTER METAB OLIC PANEL A/G ratio 1.0 ratio 1.0-2. 0 Not Available [facility] (Lab) [address] [place], [address], 01/07/2023 11:58:38 01/08/20 23 01/07/2023 LIPID PANEL cholesterol 258 mg/dL 140-19 9 high NIH POPPY NSUS RECOM MENDA TION FOR MARY STERO L: ADULT CHILD LOW RISK: <200 <170 BORDE RLINE : <200- 239 ----- HIGH RISK: >240 >200 Not Available [facility] (Lab) [address] [place], [address], 01/07/2023 12:48:40 01/08/20 23 01/07/2023 LIPID PANEL triglyceride s 137 mg/dL 0-150 NIH POPPY NSUS REPOR T RECOM MENDA TION FOR TRIGL YCERI MICHAEL: ADULT CHILD LOW RISK: <150 ----- BODER LINE: 150-1 99 ----- HIGH RISK: >200 ----- Not Available [facility] (Lab) [address] [place], [address], 01/07/2023 12:48:40 01/08/20 23 01/07/2023 LIPID PANEL HDL cholesterol 136 mg/dL 40- Not Available [facility] (Lab) [address] [place], [address], 01/07/2023 12:48:40 01/08/20 23 01/07/2023 LIPID PANEL LDL cholesterol, calculated 95 mg/dL 0-130 NIH POPPY NSUS REPOR T RECOM MENDA TIONS FOR LDL: ADULT CHILD LOW RISK <130 <110 (OPTI MAL LDL) <100 ----- BORDE RLINE : 130-1 59 ----- HIGH RISK: >160 >130 A TRIGL YCERI DE RESUL T >400 INVAL IDATE S THE CALCU LATIO N FOR LDL FRACT IONAT ION - THE LDL RESUL T WILL NOT BE REPOR DOMINIC. Not Available [facility] (Lab) [address] [place], [address], 01/07/2023 12:48:40 01/08/20 23 01/07/2023 MAGNE SIUM magnesium 1.6 mg/dL 1.6-2. 3 Not Available [facility] (Lab) [address] [facility] [place], [address], 01/07/2023 12:48:45 03/28/19 24 03/27/2023 CT, abdom en + pelvi s, w/ contr ast No observ ation record ed. [address] [facility], [place], [address], 04/12/2023 12:59:59 03/28/19 24 03/28/2023 US, abdom en, limit ed No observ ation record ed. [address] [facility], [place], [address], 04/12/2023 13:02:10 Result Notes None recorded. Problems Name Problem SNOMED Code Status Onset Date Resolution Date Notes Provider Name and Address Organization Details Recorded Time Backache 944481493 Active Not Available [facility] 3 23:11:12 Degenerative joint disease involving multiple joints 289286233 Active Not Available [facility] 3 23:11:12 Bronchitis 22421516 Active Not Available [facility] 3 23:11:12 Dyslipidemia 761805469 Active 2018 Not Available [facility] 3 23:11:12 Anxiety 27896146 Active 2018 Not Available [facility] 3 23:11:12 Essential hypertension 55027027 Active Not Available [facility] 3 23:11:12 Anemia 096181009 Active 2022 Not Available [facility] 3 23:11:12 Hypokalemia 12406799 Active 2022 Not Available [facility] 3 23:11:12 Problem Notes None recorded. Procedures Surgical History Date Name Laterality Status Provider Name and Address Organization Details Recorded Time Knee Replacement completed TED Newberry [facility] [employer] [facility] 07/14/2022 14:57:56 section completed TED [place]berry [place] [facility] [employer] [facility] 07/14/2022 14:58:18 Imaging Results Imaging Date Name Status LastModified by Organiz ation Details LastModified Time 03/27/2023 CT, abdomen + pelvis, w/ contrast completed [address] [place] [address], [address], 04/12/2023 12:59:59 03/28/2023 US, abdomen, limited completed [address], [place], [address], 04/12/2023 13:02:10 Procedure Notes None recorded. Medical Equipment None Reported. Allergies Allergen ID Allergen Name Allergen Category Reaction Reaction Severity Criticality Documentation Date Start Date Code Code System Note Provider Name and Address Organization Details Recorded Time 04374 Xanax medicatio n Not available Not available Not available 08/27/202275691 3 RxNorm incoh TED Verma man, [facility] [employer] [facility] 3 12:24:10 85828 Ativan medicatio n Not available Not available Not available 08/27/202256385 9 RxNorm incoh TED Verma man, [facility] [employer] [facility] 3 12:24:44 Medications Name Sig Start Date Stop Date Status Note LastModified by Organization Details LastModified Time cyclobenz aprine 10 mg tablet Take 1 tablet every day by oral route at bedtime. 01/16 completed Not Available Not Available Not Available Lopressor 50 mg tablet Take 1 tablet(s ) every day by oral route. 12/30 completed Not Available Not Available Not Available hydrocodo ne 7.5 mg-ibupro fen 200 mg tablet take one tablet onced a day as needed for pain 06/14 completed Not Available Not Available Not Available atorvasta tin 10 mg tablet Take 1 tablet every day by oral route. 10/12 completed Not Available Not Available Not Available azithromy kings 250 mg tablet 1 a day 05/17 completed Not Available Not Available Not Available metoprolo l succinate ER 50 mg tablet,ex tended release 24 hr Take 1 tablet every day by oral route as directed . 06/14 completed Not Available Not Available Not Available valsartan 80 mg tablet TAKE ONE TABLET BY MOUTH EVERY DAY 07/14 completed Not Available Not Available Not Available peg-elect rolyte solution 420 gram oral solution DRINK 2 L(HALF OF JUG)AT 6 PM NIGHT BEFORE PROCEDUR E AND 2 L(REMAIN CODEY OF JUG)AT 815 AM DAY OF TEST FOLLOW INSTRUCT IONS SENT BY OUR OFFICE 07/14 completed Not Available Not Available Not Available potassium chloride ER 20 mEq tablet,ex tended release(p art/cryst ) TAKE 1 TABLET BY MOUTH ONCE DAILY active Not Available Not Available No t Available amitripty line 25 mg tablet Take 1 tablet every day by oral route at bedtime for 30 days. active Not Available Not Available No t Available amitripty line 10 mg tablet TAKE TWO TABLETS BY MOUTH DAILY AT BEDTIME 12/30 completed Not Available Not Available Not Available amlodipin e 10 mg tablet TAKE ONE TABLET BY MOUTH ONE TIME DAILY active Not Available Not Available No t Available cephalexi n 500 mg capsule TAKE 1 CAPSULE BY MOUTH EVERY 8 HOURS FOR 7 DAYS 08/27 completed Not Available Not Available Not Available pantopraz ole 40 mg tablet,de layed release TAKE 1 TABLET BY MOUTH ONCE DAILY 07/14 completed Not Available Not Available Not Available promethaz ine 25 mg tablet TAKE 1 TABLET BY MOUTH 2 TO 3 TIMES DAILY NEEDED active Not Available Not Available No t Available hydrochlo rothiazid e 12.5 mg capsule Take 1 capsule every day by oral route. 06/14 completed Not Available Not Available Not Available omeprazol e 20 mg capsule,d elayed release Take 1 capsule every day by oral route. active Not Available Not Available No t Available chlordiaz epoxide 10 mg capsule TAKE 1 CAPSULE BY MOUTH THREE TIMES DAILY 07/14 completed Not Available Not Available Not Available benazepri l 20 mg tablet Take 1 tablet every day by oral route as directed for 90 days. 05/17 completed Not Available Not Available Not Available etodolac 400 mg tablet Take 1 tablet twice a day by oral route for 30 days. 11/03 completed tears patients stomach up Not Available Not Available Not Available mirtazapi ne 15 mg tablet TAKE 2 TABLETS BY MOUTH ONCE DAILY AT BEDTIME active Not Available Not Available No t Available cefdinir 300 mg capsule TAKE 1 CAPSULE BY MOUTH ONCE DAILY 01/03 completed Not Available Not Available Not Available amlodipin e 10 mg-benaze pril 20 mg capsule TAKE ONE CAPSULE BY MOUTH ONE TIME DAILY active Not Available Not Available No t Available duloxetin e 30 mg capsule,d elayed release Take 1 capsule every day by oral route. 07/17 completed pt stopped on her own Not Available Not Available Not Available Cymbalta 60 mg capsule,d elayed release Take 1 capsule( s) every day by oral route. 06/24 completed Not Available Not Available Not Available Vitamin B-12 active Not Available Not Available Not Available Vitamin B-1 active Not Available Not Available Not Available folic acid active Not Available Not Available Not Available Bystolic 10 mg tablet Take 1 tablet every day by oral route. 12/30 completed Not Available Not Available Not Available magnesium 400 mg (as magnesium oxide) capsule Take by oral route. active Not Available Not Available No t Available potassium chloride ER 20 mEq tablet,ex tended release TAKE 1 TABLET BY MOUTH ONCE DAILY active Not Available Not Available No t Available Vitals Date Recorded Body weight Body mass index (BMI) Body height Body temperature Heart rate Systolic blood pressure Diastolic blood pressure Provider Name and Address Organization Details Last Updated DateTime 3 10864.9 3 g 21.9 kg/m2 170.18 cm 97.2 [degF] 98 /min 100 mm[Hg] 70 mm[Hg] TED Newberry [facility] [employer] [facility] 3 15:02:31 Date Recorded Body height Body mass index (BMI) Body weight Body temperature Heart rate Systolic blood pressure Diastolic blood pressure Provider Name and Address Organization Details Last Updated DateTime 3 170.18 cm 23.5 kg/m2 64384.8 6 g 98.1 [degF] 100 /min 120 mm[Hg] 82 mm[Hg] TED Newberry [facility] [employer] [facility] 3 12:27:22 Date Recorded Body height Body mass index (BMI) Body weight Body temperature Heart rate Systolic blood pressure Diastolic blood pressure Provider Name and Address Organization Details Last Updated DateTime 3 170.18 cm 24.1 kg/m2 03780.2 2 g 98.5 [degF] 94 /min 138 mm[Hg] 88 mm[Hg] Jane TED Garrido [facility] [employer] [facility] 3 10:45:35 Social History Question Answer Notes LastModified by Organizat ion Details LastModified Time Tobacco Smoking Status Current Every Day Smoker TED Newberry null, [facility] [employer] [facility] 07/14/2022 14:56:49 Do You Have An Advance Directive? No [email or web address] Information not available 07/14/2022 What Is Your Level Of Alcohol Consumption? Occasional [email or web address] Information not available 07/14/2022 Is Blood Transfusion Acceptable In An Emergency? Yes [email or web address] Information not available 07/14/2022 What Is Your Level Of Caffeine Consumption? None [email or web address] Information not available 07/14/2022 In The 14 Days Before Symptom Onset, Have You Had Close Contact With A Laboratory-confi rmed COVID-19 While That Case Was Ill? No [email or web address] Information not available 07/14/2022 In The 14 Days Before Symptom Onset, Have You Had Close Contact With A Person Who Is Under Investigation For COVID-19 While That Person Was Ill? No [email or web address] Information not available 07/14/2022 Are You Currently Employed? No [email or web address] Information not available 07/14/2022 What Type Of Diet Are You Following? REGULAR [email or web address] Information not available 07/14/2022 What Is The Highest Grade Or Level Of School You Have Completed Or The Highest Degree You Have Received? HK97503-0 [email or web address] Information not available 07/14/2022 Have There Been Any Changes To Your Family Or Social Situation? No [email or web address] Information not available 07/14/2022 What Is The Fluoride Status Of Your Home? Unknown [email or web address] Information not available 07/14/2022 Do You Use Insect Repellent Routinely? No [email or web address] Information not available 07/14/2022 Where [facility] You Live? [facility] [email or web address] Information not available 07/14/2022 Do You Have A Medical Power Of Coping Machine Assembler? No [email or web address] Information not available 07/14/2022 What Was The Date Of Your Most Recent Tobacco Screening? 01/03/2023 [email or web address] Information not available 01/03/2023 How Many Children Do You Have? 3 [email or web address] Information not available 07/14/2022 Do You Have Any Pets? Yes [email or web address] Information not available 07/14/2022 What Is Your Relationship Status? Information not available 07/14/2022 Do You Use Your Seat Belt Or Car Seat Routinely? Yes [email or web address] Information not available 07/14/2022 Do You Have Smoke And Carbon Monoxide Detectors In Your Home? Yes [email or web address] Information not available 07/14/2022 Are You Passively Exposed To Smoke? Yes [email or web address] Information not available 07/14/2022 Are There Any Smokers In Your House? No Information not available 07/14/2022 How Much Tobacco Do You Smoke? No 2 CIGS/DAY [email or web address] Information not available 07/14/2022 Do You Feel Stressed (tense, Restless, Nervous, Or Anxious, Or Unable To Sleep At Night)? GV62419-4 [email or web address] Information not available 07/14/2022 Do You Use Any Illicit Or Recreational Drugs? No [email or web address] Information not available 07/14/2022 Do You Use Sunscreen Routinely? Yes [email or web address] Information not available 07/14/2022 Have You Recently Traveled Abroad? No Information not available 07/14/2022 Do You Have Any Dietary Restrictions? No [email or web address] Information not available 07/14/2022 Do You Or Have You Ever Used Any Other Forms Of Tobacco Or Nicotine? No [email or web address] Information not available 07/14/2022 Sex: Unknown Functional Status Question Answer Note LastModified by Organization D etails LastModified Time What is your exercise level? Moderate [email or web address] Information not available 07/14/2022 Mental Status None recorded. Family History Relationship Description Onset Age of this Age Resolved Age Notes LastModified by Organization Details LastModified Time Mother Essential hypertension [email or web address] Not available 0 07/14/2022 15:04:49 Medical History Condition Response ANXIETY DISORDER Y HAVE YOU BEEN HOSPITALIZED OR SEEN IN TH E ER IN THE PAST YEAR ? Y ANEMIA/BLOOD DISORDER Y HYPERTENSION Y Gynecological HistoryNo gynecological history recorded. Obstetrics History GPAL:G 0 P 0 0 0 0 Immunizations Vaccine Type Date Status Note Provider Nam e and Address Organization Details Recorded Time COVID-19, mRNA, LNP-S, PF, 10 mcg/0.2 mL dose, daniele-sucrose 04/22/2020 completed Not Available [facility] 023 23:11:12 COVID-19, mRNA, LNP-S, PF, 10 mcg/0.2 mL dose, daniele-sucrose 05/13/2020 completed Not Available [facility] 023 23:11:12 Past Encounters Encounter ID Performer Location Encounter Start Date Encounter Closed Date Diagnosis/Indication Diagnosis SNOMED-CT Code Diagnosis ICD10 Code Diagnosis Note [id number] Alexis Velez MD [facility] Internal Med [address] [place] [address] 1 07/14/2022 14:32:22 07/14/2022 15:59:27 Dyslipidemia 926210472 E78.5 Essential hypertension 78063702 I10 Anemia 793328025 D64.9 Anxiety 15203172 F41.9 [id number] Alexis Velez MD [facility] Internal Med [facility] [address] [facility] [address] [address] 08/27/2022 12:18:07 08/27/2022 13:33:09 Anxiety 51560293 F41.9 Dyslipidemia 251244019 E 78.5 Essential hypertension 19995638 I10 [id number] Alexis Velez MD [facility] Internal Med [facility] [address] [place] [address] 1 01/03/2023 10:29:26 01/03/2023 11:46:22 Dyslipidemia 492384841 E78.5 Essential hypertension 92504947 I10 Screening mammography 24 081976 Z12.31 Anxiety 73901375 F41.9 Health Concerns Section Related Observation LastModified by Organization Detai ls LastModified Time None Recorded Concern Status LastModified by Organization Details LastModified Time None Recorded Advance Directives Directive N: Payers Encounter Date Sequence Insurance Name Policy Number Policy Burgos Covered Member ID Burgos Member ID Guarantor Name 07/14/2022 1 [place] Bharati Varma [id number] Bharati Muro Foster 07/14/2022 2 [employer] HE[employer] OPTIONS (MEDICARE SUPPLEMENT) Bharati Varma [id number] Bharati Muro Foster 08/27/2022 1 [place] Bharati Muro Foster [id number] Bharati Muro Foster 08/27/2022 2 [employer] HE[employer] OPTIONS (MEDICARE SUPPLEMENT) Bharati Varma [id number] Bharati Muro Foster 01/03/2023 1 [place] Bharati Varma [id number] Bharati Muro Foster 01/03/2023 2 [employer] HE[employer] OPTIONS (MEDICARE SUPPLEMENT) Bharati Varma [id number] Bharati Varma Notes Date Note Type Note Provider Name and Address Organization Details Recorded Time 07/14/2022 text/html 67-year-old come s in to reestablish care history dyslipidemia. Hypertension. Anemia. Anxiety. Kidney stone. Alcohol abuse.Medications folic acid magnesium whui-lid-juuzuma omeprazole 20 mg daily potassium 20 mEq daily and vitamin B12. Allergies none surgery and knee replacement Alexis Velez MD [address], [place], [address], [employer] 07/17/2022 15:21:40 08/27/2022 text/html Hospitalized for weakness found to have a UTI she is feeling better mirtazapine seems to be helping as well for her anxiety and depression no SI or HI Alexis Velez MD [address], [place], [address], [employer] 08/29/2022 21:25:30 01/03/2023 text/html Dyslipidemia trying to watch her diet hypertension no headache no dizziness anxiety is doing little bit better no SI or HI GERD better Alexis Velez MD [address], [place], [address], [employer] 01/03/2023 22:19:49 OBGyn Episode No OBEpisode recorded.
--- OUTSIDE RECORDS SUMMARY | 2024-04-25 06:33 | XMS_ITS | Clinical Summary ---
Author Organization [facility] Address [address] [place] [address] Care Team Providers Care Soap Maker Name Role Phone Alexis Velez MD Primary Care Provider [phone] Source Comments [facility] [employer],non-owned Affiliates and Associated Physician Practices is amultiple site organization consisting of ambulatory clinics and hospital sitesin [place], [place], [place] and [place]. This disclosure is being madepursuant to the Care Everywhere program and may not contain all information available regarding this patient. Last updated 17.[facility] [employer] Allergies No known active allergies Medications * [...] Active vitamin D, ergocalciferol, (Drisdol) 1.25 MG (71456 UT) capsuleIndications :Vitamin D Deficiency Take 1 (one) capsule by mouth every 7 days Reasons: Vitamin D Deficiency 11/16/2023 Active oxyCODONE, immediate release, (Roxicodone) 10 MG tabletIndications: Closed fracture of ramus of right pubis, initial encounter ([facility]) Take 1 (one) tablet by mouth every [...] medical care, and heating? Somewhat hard 11/10/2023 [facility] [place] [facility] - Occupational Stress [...] place to sleep or slept in a nursing home (including now)? No 11/10/2023 Sex and Gender [...] Mass Index 20.67 11/06/2023 9:19 PM CDT Plan of Treatment Health Maintenance Due Date Last Done Comments BONE DENSITY TESTING 1955 COLOGUARD (AGES 45-75) - COLON CA SCREENING [address] COLONOGRAPHY - COLON CA SCREENING 1954 FIT - COLON CA SCREENING 1954 FLEX SIG - COLON CA SCREENING 1954 LIPID TESTING 1954 MAMMOGRAM 1954 MEDICARE AWV 12 MONTHS 1954 DTAP/TDAP/TD VACCINES (1 - Tdap) 1973 PNEUMOCOCCAL VACCINE 50+ (1 of 2 - PCV) 1973 ZOSTER VACCINE (1 of 2) 2004 Respiratory Syncytial Virus (RSV) Vaccine Pt: or over 60 yrs (1 - Risk 60-74 years 1-dose series) 2014 COVID-19 VACCINE ( - season) 2023 03/03/2021, 05/13/2020, 04/22/2020 INFLUENZA VACCINE (#1) 2023 3, 01/20/2022, 01/07/2021, Additional history exists DEPRESSION SCREENING 02/22/2024 COLONOSCOPY - COLON CA SCREENING 03/25/2032 03/25/2022 Colorectal Cancer Screening 03/25/2032 HEPATITIS C SCREENING Completed 11/07/2023 HEPATITIS B VACCINE Aged Out No longe r eligible based on patient's age to complete this topic HIB VACCINE Aged Out No longer eligi ble based on patient's age to complete this topic HPV VACCINE Aged Out No longer eligi ble based on patient's age to complete this topic MENINGOCOCCAL (Group B) VACCINE Aged Out No longer eligible based on patient's age to complete this topic MENINGOCOCCAL VACCINE Aged Out No eva chandni eligible based on patient's age to complete this topic Procedures Procedure Name Priority Date/Time Associated Diagnosis Comments HEPATITIS C AB SCREEN RFLX NAAT QUANT STAT 11/07/2023 10:20 AM CDT from Last 3 Months or Most Recently Relevant to Health Maintenance Results * HEPATITIS C AB SCREEN RFLX NAAT QUANT (11/07/2023 10:20 AM CDT) Hepatitis C Antibody Non-react zion Non-reac tive 11/07/2023 11:20 AM CDT [facility] Comment:Hepatitis C Antibody screen indicates no serologic [...] Ovalles MD LAB - CHEMISTRY [facility] [address] [address], [facility] [phone] from Last 3 Months or Most Recently [...] 3:12 PM 08/31/2023 1:58 PM Care Teams Soap Maker Relationship Specialty Start Date End Date Alexis Velez MD [address] [place] [address] PCP - General Internal Medicine 08/30/23
--- OUTSIDE RECORDS SUMMARY | 2024-04-25 06:33 | XMS_ITS | Clinical Summary ---
Author Organization [facility] Address [address] [place] [address] Care Team Providers Care Information Technology Auditor Name Role Phone Alexis Velez Primary Care Provider Unavailabl e Allergies Active Allergy Reactions Criticality Noted Date Comments Alprazolam 11/14/2023 Other Reaction(s): Not available Lorazepam 11/14/2023 Other Reaction(s): Not available Medications ergocalciferol (vitamin D2, Ergocalciferol, ) 1.25 MG (91164 UT) capsule Take 1 capsule (50,000 Units total) by mouth once a week. Active bacitracin ointment Apply 1 application (1 g total) topically 3 (three) times a day. To affected area Active Cyanocobalamin 100 MCG tablet Take 1 tablet (100 mcg total) by mouth in the morning. Active multivitamin-ir hn-gkixpxhf-obr ic acid (THERAPEUTIC-M) tablet tablet Take 1 tablet by mouth in the morning. Active promethazine (PHENERGAN) 25 MG tablet Take 1 tablet (25 mg total) by mouth 3 (three) times a day as needed for nausea or vomiting (2 to 3 times daily as needed). Active acetaminophen (TYLENOL) 500 MG tablet Take 2 tablets (1,000 mg total) by mouth every 8 (eight) hours. 4 Active carvedilol (COREG) 6.25 MG tablet Take 1 tablet (6.25 mg total) by mouth 2 (two) times a day with Breakfast and Dinner. 60 tablet 4 Active cyclobenzaprine (FLEXERIL) 5 MG tablet Take 1 tablet (5 mg total) by mouth 3 (three) times a day. 90 tablet 4 Active Diclofenac Sodium (VOLTAREN) 1 % gel Apply 2 g topically in the morning and 2 g at noon and 2 g in the evening and 2 g before bedtime. 100 g 4 Active famotidine (PEPCID) 20 MG tablet Take 1 tablet (20 mg total) by mouth in the morning. 30 tablet 4 Active folic acid (FOLVITE) 1 MG tablet Take 1 tablet (1 mg total) by mouth in the morning. 4 Active gabapentin (NEURONTIN) 400 MG capsule Take 1 capsule (400 mg total) by mouth nightly. 30 capsule 4 Active lidocaine (LIDOCARE) 4 % patch patch Place 2 patches on the skin in the morning. 4 Active mirtazapine (REMERON) 7.5 MG tablet Take 1 tablet (7.5 mg total) by mouth nightly. 4 Active aspirin 81 MG EC tablet Take 1 tablet (81 mg total) by mouth in the morning. 30 tablet 4 Active amLODIPine (NORVASC) 10 MG tablet Take 1 tablet (10 mg total) by mouth in the morning. 30 tablet 4 Active Active Problems Problem Noted Date Diagnosed Date Fracture of superior pubic ramus 11/15/2023 Fall 11/14/2023 Pelvic hematoma 11/07/2023 Alcohol dependence 06/11/2023 Anemia 03/09/2022 Repeated falls 02/22/2000 Immunizations Immunization Administration Dates Next Due Influenza, Unspecified 12/12/2022,2021,01/07/2021,2019 Pfizer SARS-CoV-2 Vaccination 03/03/2021, 021,04/22/2020 Pfizer SARS-CoV-2 Vaccinatio n (Wolf Cap) 11/14/2023(Deferred: Not available - not avalable),05/13/2020,04/22/2020 Social History Tobacco Use Types Packs/Day Years Used Date Smoking Tobacco: Every Day Cigarettes 0.3 3.2 Started: 2021 Smokeless Tobacco: Never Tobacco Cessation:Ready to Q uit: No; Counseling Given: Yes Alcohol Use Standard Drinks/Week Comments Yes 25 (1 standard drink = 0.6 oz pu re alcohol) [facility] Utilities Answer Date Recorded In the past 12 months has th e electric, gas, oil, or water [employer] threatened to shut off services in your home? Patient declined 11/15/2023 Social Connection and Isolation Panel [NHANES] A nswer Date Recorded In a typical week, how many times do you talk on the phone with family, friends, or neighbors? Patient declined 11/15/2023 How often do you get togethe r with friends or relatives? Patient declined 11/15/2023 How often do you attend gnosticist or shinto serv ices? Patient declined 11/15/2023 Do you belong to any clubs o r organizations such as gnosticist groups, unions, fraternal or athletic groups, or school groups? Patient declined 11/15/2023 How often do you attend meet ings of the clubs or organizations you belong to? Patient declined 11/15/2023 Are you , , di vorced, , never , or living with a partner? Patient declined 11/15/2023 AUDIT-C Answer Date Recorded Q1: How often do you have a drink containing alcohol? 4 or more times a week 11/14/2023 Q2: How many drinks containi ng alcohol do you have on a typical day when you are drinking? 3 or 4 Q3: How often do you have si x or more drinks on one occasion? Daily or almost daily 11/14/2023 Overall Financial Resource Strain (CARDIA) Answe r Date Recorded How hard is it for you to pa y for the very basics like food, housing, medical care, and heating? Patient declined 11/15/2023 [facility] - Occupational Stress Questionnaire Answer Date Recorded Do you feel stress - tense, restless, nervous, or anxious, or unable to sleep at night because your mind is troubled all the time - these days? Not at all 11/24/2023 Hunger Vital Sign Answer Date Recorded Within the past 12 months, y ou worried that your food would run out before you got the money to buy more. Patient declined Within the past 12 months, t he food you bought just didn't last and you didn't have money to get more. Patient declined Housing Stability Vital Sign Answer Eric e Recorded In the last 12 months, was t here a time when you were not able to pay the mortgage or rent on time? Patient declined 11/15/19 24 In the past 12 months, how m any times have you moved where you were living? 1 11/15/2023 At any time in the past 12 m [facility], were you homeless or living in a jail (including now)? Patient declined 11/15/2023 Domestic Abuse Assessment Answer Date R ecorded Do you feel safe in your relationships at home? Yes 11/14/2023 Physical Abuse Denies 11/14/2023 HRSN Domestic Abuse - Type of Abuse Not on file 11/14/2023 HRSN Domestic Abuse - Time Frame Not on file 11/14/2023 HRSN Domestic Abuse - Signs and Symptoms Not on file 11/14/2023 Verbal Abuse Denies 11/14/2023 HRSN Domestic Abuse - Reported To Not on file 11/14/2023 SDOH Transportation Source Answer Da te Recorded Has lack of transportation k ept you from medical appointments or from getting medications? No 11/23/2023 Has lack of transportation k ept you from meetings, work, or from getting things needed for daily living? No 11/23/2023 [facility] Depression PHQ-2 Answer Date Recor ded Feeling down, depressed, or hopeless 0 11/24/2023 Little interest or pleasure in doing things 0 11/24/2023 Comments Unknown Sex and Gender Information Value Date Recorded Sex Assigned at Not on file Legal Sex Female 6:08 PM EDT Gender Identity Not on file Sexual Orientation Not on file Last Filed Vital Signs Vital Sign Reading Time Taken Comments Blood Pressure 154/100 11/24/2023 6:53 AM CDT Pulse 80 11/24/2023 6:53 AM CDT Temperature 36.6 C (97.9 F) 11/24/2023 6:53 AM CDT Respiratory Rate 17 11/24/2023 6:53 AM CDT Oxygen Saturation 94% 11/24/2023 6:53 AM CDT Inhaled Oxygen Concentration - - Weight 58.5 kg (128 lb 15.5 oz) 11/14/2023 6:35 PM CDT Height 170.2 cm (5' 7 ) 11/14/2023 6:35 PM CDT Body Mass Index 20.2 11/14/2023 6:35 PM CDT Plan of Treatment Health Maintenance Due Date Last Done Comments CT Colonography 1954 FIT-DNA (Cologuard) 1954 FIT 1954 FOBT 1954 Sigmoidoscopy 1954 Annual Visit Topic 07/16/1955 DTaP/Tdap/Td Vaccines (1 - Tdap) 1961 Hepatitis C Screening 1972 Pneumococcal Vaccine: 65+ Ye ars (1 of 4 - PCV) 1973 Colonoscopy 03/25/2032 03/25/2022 Colorectal Cancer Screening 03/25/2032 HIB Vaccines Aged Out No longer eligi ble based on patient's age to complete this topic HPV Vaccines Aged Out No longer eligi ble based on patient's age to complete this topic Hepatitis A Vaccines Aged Out No long er eligible based on patient's age to complete this topic Hepatitis B Vaccines Aged Out No long er eligible based on patient's age to complete this topic IPV Vaccines Aged Out No longer eligi ble based on patient's age to complete this topic Meningococcal Vaccine Aged Out No eva chandni eligible based on patient's age to complete this topic Medical Devices Implanted Type Area Pen Tender Device Identifier Shelf Expiration Date Model / Serial / Lot [employer] Advance Directives * Full Resuscitation (Latest Code Status on File) Date Activated Date Inactivated Comments 11/16/2023 6:35 PM 11/24/2023 3:05 PM Question Answer Comments I have discussed this order with the patient or his/her surrogate and have received informed consent. Yes * DNR Date Activated Date Inactivated Comments 11/15/2023 10:29 AM 11/16/2023 6:35 PM Question Answer Comments I have discussed this order with the patient or his/her surrogate and have received informed consent. Yes * Full Resuscitation Date Activated Date Inactivated Comments 11/14/2023 7:46 PM 11/15/2023 10:29 AM Question Answer Comments I have discussed this order with the patient or his/her surrogate and have received informed consent. Yes Care Teams Information Technology Auditor Relationship Specialty Start Date End Date Alexis Velez [address] [id number] PCP - General 11/14/23
--- OUTSIDE RECORDS SUMMARY | 2024-04-25 06:33 | XMS_ITS | Patient Health Summary ---
Author Organization [facility] Address [address] [place] [address] Care Team Providers Care Senior Erp Consultant Name Role Phone Alexis Velez MD Primary Care Provider [phone] Note from [facility],non-owned Affiliates and Associated Physician Practices is amultiple site organization consisting of ambulatory clinics and hospital sitesin [place], [place], [place] and [place]. This disclosure is being madepursuant to the Care Everywhere program and may not contain all information available regarding this patient. Last updated 17.[facility] Allergies No known active allergies Medications * Be aware that medications may not be up to date on this document. Alwaysverify current medications with the patient. * carvedilol (Coreg) 3.125 MG tablet(Started 06/14/2023) Take 2 (two) tablets by mouth 2 times daily * promethazine (Phenergan) 25 MG tablet TAKE 1 TABLET BY MOUTH 2 TO 3 TIMES DAILY NEEDED * lidocaine (Lidoderm) 5 % patch(Started 09/03/2023) Apply 1 (one) patch to skin every 24 hours Apply patch to most painful area and remove after 12 hours. May reapply a new patch 12 hours later. * cyanocobalamin 100 MCG tablet(Started 09/04/2023) Take 1 (one) tablet by mouth once daily * folic acid (Folvite) 1 MG tablet(Started 09/04/2023) Take 1 (one) tablet by mouth once daily * multiple vitamins with minerals tablet(Started 09/04/2023) Take 1 (one) tablet by mouth once daily * bacitracin ointment(Started 09/03/2023) Apply to affected area 3 times daily * thiamine (Vitamin B-1) 100 MG tablet(Started 09/04/2023) Take 1 (one) tablet by mouth once daily * vitamin D3 (Cholecaciferol) 125 MCG (5000 UT) tablet(Started 09/04/2023) Take 1 (one) tablet by mouth once daily * acetaminophen (Tylenol) 500 MG tablet(Started 11/14/2023) Take 2 (two) tablets by mouth every 8 hours Maximum allowable Acetaminophen amount = 4 Grams (4000 mg) / 24 hours. * diclofenac sodium (Voltaren) 1 % gel(Started 11/14/2023) Apply 2 (two) g to affected area 4 times daily * vitamin D, ergocalciferol, (Drisdol) 1.25 MG (28039 UT) capsule(Started 11/16/2023) Take 1 (one) capsule by mouth every 7 days Reasons: Vitamin D Deficiency * oxyCODONE, immediate release, (Roxicodone) 10 MG tablet(Started 11/14/2023) Take 1 (one) tablet by mouth every 6 hours as needed * mirtazapine (Remeron) 7.5 MG tablet(Started 11/14/2023) Take 1 (one) tablet by mouth at bedtime Active Problems Problem Noted Date Diagnosed Date [...] medical care, and heating? Somewhat hard 11/10/2023 [facility] [place] [facility] - Occupational Stress [...] place to sleep or slept in a fpc (including now)? No 11/10/2023 Sex and Gender [...] Mass Index 20.67 11/06/2023 9:19 PM CDT Procedures * BASIC METABOLIC PANEL (CALCIUM TOTAL)(Performed 11/24/2023) * CBC W/O DIFFERENTIAL(Performed 11/24/2023) * BASIC METABOLIC PANEL (CALCIUM TOTAL)(Performed 11/21/2023) * CBC W/O DIFFERENTIAL(Performed 11/21/2023) * BASIC METABOLIC PANEL (CALCIUM TOTAL)(Performed 11/17/2023) * CBC W/O DIFFERENTIAL(Performed 11/17/2023) * BASIC METABOLIC PANEL (CALCIUM TOTAL)(Performed 11/15/2023) * CBC W/O DIFFERENTIAL(Performed 11/15/2023) * URINALYSIS REFLEX MICROSCOPIC REFLEX CULTURE(Performed 11/13/2023) * GLUCOSE - POINT OF CARE(Performed 11/12/2023) * XR ABDOMEN KUB PORTABLE(Performed 11/11/2023) Performed for Abdominal distension * PHOSPHORUS BLOOD(Performed 11/10/2023) Performed for Hypokalemia * MAGNESIUM BLOOD(Performed 11/10/2023) Performed for Hypokalemia * CBC W AUTO DIFFERENTIAL(Performed 11/10/2023) Performed for Macrocytic anemia * COMPREHENSIVE METABOLIC PANEL(Performed 11/10/2023) Performed for Transaminitis, Steatosis of liver, Hypokalemia * DRUG SCREEN EXPANDED TOXICOLOGY URINE PANEL(Performed 11/09/2023) * PHOSPHORUS BLOOD(Performed 11/09/2023) Performed for Hypokalemia * MAGNESIUM BLOOD(Performed 11/09/2023) Performed for Hypokalemia * CBC W AUTO DIFFERENTIAL(Performed 11/09/2023) Performed for Macrocytic anemia * COMPREHENSIVE METABOLIC PANEL(Performed 11/09/2023) Performed for Transaminitis, Steatosis of liver, Hypokalemia * CARDIAC EKG ORDER(Performed 11/08/2023) * VITAMIN D 25-HYDROXY(Performed 11/08/2023) Performed for Fall, initial encounter, Closed fracture of ramus of right pubis, initial encounter (HCC), Vitamin D deficiency * PHOSPHORUS BLOOD(Performed 11/08/2023) Performed for Hypokalemia * MAGNESIUM BLOOD(Performed 11/08/2023) Performed for Hypokalemia * COMPREHENSIVE METABOLIC PANEL(Performed 11/08/2023) Performed for Transaminitis, Steatosis of liver, Hypokalemia * VITAMIN B12(Performed 11/08/2023) Performed for Macrocytic anemia * FOLATE(Performed 11/08/2023) * HEMOGLOBIN A1C(Performed 11/08/2023) Performed for Acute alcoholic intoxication without complication (HCC), Alcohol abuse, Transaminitis, Steatosis of liver, Primary hypertension, Encounter for screening for diabetes mellitus * CBC W AUTO DIFFERENTIAL(Performed 11/08/2023) Performed for Macrocytic anemia * HEPATITIS B SURFACE ANTIGEN W RFLX CONFIRMATION(Performed 11/08/2023) * XR PELVIS AP W INLET OUTLET(Performed 11/07/2023) Performed for Closed fracture of ramus of right pubis, initial encounter (HCC) * HEPATITIS C AB SCREEN RFLX NAAT QUANT(Performed 11/07/2023) * PHOSPHORUS BLOOD(Performed 11/07/2023) * MAGNESIUM BLOOD(Performed 11/07/2023) * COMPREHENSIVE METABOLIC PANEL(Performed 11/07/2023) * CBC W AUTO DIFFERENTIAL(Performed 11/07/2023) * XR PELVIS AP W INLET OUTLET(Performed 11/07/2023) Performed for Fall, initial encounter * CT HEAD WO CONTRAST(Performed 11/07/2023) Performed for Fall, initial encounter * CT LUMBAR SPINE WO CONTRAST(Performed 11/07/2023) Performed for Fall, initial encounter * CT THORACIC SPINE WO CONTRAST(Performed 11/07/2023) Performed for Fall, initial encounter * CT CHEST ABDOMEN PELVIS W CONT(Performed 11/07/2023) Performed for Fall, initial encounter * CT CERVICAL SPINE WO CONTRAST(Performed 11/07/2023) Performed for Fall, initial encounter * EKG 12-LEAD(Performed 11/06/2023) Performed for Fall, initial encounter * XR HIP RIGHT 2VW OR MORE(Performed 11/06/2023) Performed for Fall, initial encounter * XR PELVIS 1 OR 2VW(Performed 11/06/2023) Performed for Fall, initial encounter * TROPONIN-I HIGH SENSITIVE(Performed 11/06/2023) * PTT SLH(Performed 11/06/2023) * PT-INR SLH(Performed 11/06/2023) * CBC W AUTO DIFFERENTIAL(Performed 11/06/2023) * COMPREHENSIVE METABOLIC PANEL(Performed 11/06/2023) * ALCOHOL ETHYL BLOOD(Performed 11/06/2023) * XR CHEST 1VW PORTABLE(Performed 11/06/2023) Performed for Fall, initial encounter * CBC W/O DIFFERENTIAL(Performed 09/03/2023) * HEPATIC FUNCTION PANEL(Performed 09/03/2023) * PHOSPHORUS BLOOD(Performed 09/03/2023) * MAGNESIUM BLOOD(Performed 09/03/2023) * BASIC METABOLIC PANEL (CALCIUM TOTAL)(Performed 09/03/2023) * CALCIUM IONIZED WHOLE BLOOD(Performed 09/03/2023) * XR CHEST 1VW PORTABLE(Performed 09/02/2023) Performed for Fall, initial encounter * TSH REFLEX FREE T4(Performed 09/02/2023) * CORTISOL BLOOD AM(Performed 09/02/2023) * URINALYSIS REFLEX TO MICROSCOPIC NO CULTURE(Performed 09/02/2023) * HEPATIC FUNCTION PANEL(Performed 09/01/2023) * PHOSPHORUS BLOOD(Performed 09/01/2023) * MAGNESIUM BLOOD(Performed 09/01/2023) * CBC W/O DIFFERENTIAL(Performed 09/01/2023) * BASIC METABOLIC PANEL (CALCIUM TOTAL)(Performed 09/01/2023) * CALCIUM IONIZED WHOLE BLOOD(Performed 09/01/2023) * URINALYSIS REFLEX TO MICROSCOPIC NO CULTURE(Performed 09/01/2023) * CREATININE URINE RANDOM(Performed 09/01/2023) * OSMOLALITY URINE(Performed 09/01/2023) * LYTES (NA K CL) URINE RANDOM PANEL(Performed 09/01/2023) * BASIC METABOLIC PANEL (CALCIUM TOTAL)(Performed 09/01/2023) * XR CHEST 1VW PORTABLE(Performed 09/01/2023) Performed for Fall, initial encounter * C DIFFICILE GDH AG + TOXIN A+B(Performed 09/01/2023) * GASTROINTESTINAL PATHOGEN PANEL BY PCR(Performed 09/01/2023) * ECHO COMPLETE W CONTRAST(Performed 09/01/2023) Performed for Fall, initial encounter * CULTURE SPUTUM+GRAM STAIN(Performed 09/01/2023) * CULTURE BLOOD(Performed 09/01/2023) * TSH REFLEX FREE T4(Performed 09/01/2023) * CALCIUM IONIZED WHOLE BLOOD(Performed 09/01/2023) * PHOSPHORUS BLOOD(Performed 09/01/2023) * BASIC METABOLIC PANEL (CALCIUM TOTAL)(Performed 09/01/2023) * MAGNESIUM BLOOD(Performed 09/01/2023) * MRSA DNA PCR(Performed 09/01/2023) * CULTURE BLOOD(Performed 09/01/2023) * XR ABDOMEN KUB PORTABLE(Performed 09/01/2023) Performed for Fall, initial encounter * XR CHEST 1VW PORTABLE(Performed 09/01/2023) Performed for Fall, initial encounter * DIFFERENTIAL MANUAL(Performed 09/01/2023) * PHOSPHORUS BLOOD(Performed 09/01/2023) * MAGNESIUM BLOOD(Performed 09/01/2023) * COMPREHENSIVE METABOLIC PANEL(Performed 09/01/2023) * CBC W AUTO DIFFERENTIAL(Performed 09/01/2023) * VITAMIN B12(Performed 09/01/2023) * FOLATE(Performed 09/01/2023) * VITAMIN D 25-HYDROXY(Performed 09/01/2023) * PT EVAL AND TREAT(Performed 08/31/2023) * OT EVAL AND TREAT(Performed 08/31/2023) * CT HEAD WO CONTRAST(Performed 08/30/2023) Performed for Fall, initial encounter * BLOOD TYPE VERIFICATION(Performed 08/30/2023) * URINALYSIS W/MICROSCOPIC NO CULTURE(Performed 08/30/2023) * URINE DRUG SCREEN IMMUNOASSAY(Performed 08/30/2023) * TYPE + SCREEN PANEL(Performed 08/30/2023) * TEG 6S PLATELET MAPPING(Performed 08/30/2023) * TEG 6 GLOBAL HEMOSTASIS W/ LYSIS(Performed 08/30/2023) * PTT SLH(Performed 08/30/2023) * PT-INR [facility](Performed 08/30/2023) * CK BLOOD(Performed 08/30/2023) * CBC W AUTO DIFFERENTIAL(Performed 08/30/2023) * ALCOHOL ETHYL BLOOD(Performed 08/30/2023) * BASIC METABOLIC PANEL (CALCIUM TOTAL)(Performed 08/30/2023) * ALCOHOL ETHYL BLOOD(Performed 08/30/2023) * CT LUMBAR SPINE WO CONTRAST(Performed 08/30/2023) Performed for Fall, initial encounter * CT THORACIC SPINE WO CONTRAST(Performed 08/30/2023) Performed for Fall, initial encounter * CT CHEST ABDOMEN PELVIS W CONT(Performed 08/30/2023) Performed for Fall, initial encounter * CT CERVICAL SPINE WO CONTRAST(Performed 08/30/2023) Performed for Fall, initial encounter * CT FACIAL BONES WO CONTRAST(Performed 08/30/2023) Performed for Fall, initial encounter * CT HEAD WO CONTRAST(Performed 08/30/2023) Performed for Fall, initial encounter * XR PELVIS 1 OR 2VW(Performed 08/30/2023) Performed for Fall, initial encounter * XR CHEST 1VW PORTABLE(Performed 08/30/2023) Performed for Fall, initial encounter Results * (ABNORMAL) CBC W/O DIFFERENTIAL (11/24/2023 6:38 AM CDT) Only the most recent of6 resultswithin the time period is included. WBC 4.1 4.0 - 10.7 x10E9/L 11/24/2023 7:46 AM CDT [facility] RBC Count 3.30(L) 3.90 - 5.20 x10E12/L 11/24/2023 7:46 AM CDT [facility] Hemoglobin 10.7(L) 11.9 - 15.8 g/dL 11/24/2023 7:46 AM CDT [facility] Hematocrit 33.5(L) 34.8 - 46.1 % 11/24/2023 7:46 AM CDT [facility] MCV 101.5(H) 80.0 - 98.0 fL 11/24/2023 7:46 AM CDT [facility] MCH 32.4 26.7 - 33.6 pg 11/24/2023 7:46 AM CDT [facility] MCHC 31.9 31.7 - 36.3 g/dL 11/24/2023 7:46 AM CDT [facility] RDW-CV 14.2 11.3 - 14.8 % 11/24/2023 7:46 AM CDT [facility] Platelet Count 329 150 - 420 x10E9/L 11/24/2023 7:46 AM CDT [facility] MPV 9.0 7.8 - 11.4 fL 11/24/2023 7:46 AM CDT [facility] Blood BLOOD SPECIMEN / Unknown Lab Venipuncture / Unknown 11/24/2023 6:38 AM CDT 11/24/2023 7:33 AM CDT Yashira Hill MD LAB - HEMATOLOGY OR DERABLES [facility] [address] [place] [address] * (ABNORMAL) BASIC METABOLIC PANEL (CALCIUM TOTAL) (11/24/2023 6:38 AM CDT) Only the most recent of9 resultswithin the time period is included. Glucose 83 70 - 99 mg/dL 11/24/2023 8:29 AM CDT [facility] Sodium 140 136 - 145 mmol/L 11/24/2023 8:29 AM CDT [facility] Potassium 3.8 3.5 - 5.1 mmol/L 11/24/2023 8:29 AM CDT [facility] Chloride 104 98 - 107 mmol/L 11/24/2023 8:29 AM CDT [facility] CO2 27 22 - 29 mmol/L 11/24/2023 8:29 AM CDT [facility] Calcium 10.2 8.4 - 10.4 mg/dL 11/24/2023 8:29 AM CDT [facility] Anion Gap 9 6 - 16 mmol/L 11/24/2023 8:29 AM CDT [facility] BUN 16 7 - 26 mg/dL 11/24/2023 8:29 AM CDT [facility] Creatinine 0.84 0.57 - 1.11 mg/dL 11/24/2023 8:29 AM CDT [facility] eGFR by CKD-EPI 75(L) >=90 mL/min/1.7 3 m2 11/24/2023 8:29 AM CDT [facility] Blood BLOOD SPECIMEN / Unknown Lab Venipuncture / Unknown 11/24/2023 6:38 AM CDT 11/24/2023 7:33 AM CDT Yashira Hill MD LAB - CHEMISTRY ORD ERABLES [facility] [address] [place] [address] * (ABNORMAL) URINALYSIS REFLEX MICROSCOPIC REFLEX CULTURE (11/13/2023 11:26 PM CDT) Color UA Yellow Straw, Yellow 11/13/2023 11:50 PM [facility] Clarity UA Clear Clear 11/13/2023 11:50 PM [facility] Specific [place] UA 1.015 1.005 - 1.030 11/13/2023 11:50 PM [facility] pH UA 6.0 5.0 - 8.0 pH 11/13/2023 11:50 PM [facility] Protein UA Negative Negative 11/13/2023 11:50 PM [facility] Glucose UA Negative Negative 11/13/2023 11:50 PM [facility] Ketone UA Negative Negative 11/13/2023 11:50 PM [facility] Bilirubin UA Negative Negative 11/13/2023 11:50 PM [facility] Blood UA Negative Negative 11/13/2023 11:50 PM [facility] Nitrite UA Negative Negative 11/13/2023 11:50 PM [facility] Leukocyte Esterase Negative Negative 11/13/2023 11:50 PM [facility] Urobilinogen UA 2.0(A) Negative mg/dL 11/13/2023 11:50 PM CDT [facility] Comment UA Microscopic not indicated. 11/13/2023 11:50 PM CDT [facility] Urine URINE SPECIMEN OBTAINED BY CLEAN CATCH PROCEDURE / Unknown Collection / Unknown 11/13/2023 11:26 PM CDT 11/13/2023 11:36 PM CDT Narrative [facility] - 11/13/2023 11:50 PM CDT Seth Brown MD LAB - URINALYSIS ORD ERABLES Performing Organization Address City/[facility]/ZIP Co de Phone Number [address] [address], [place] [phone] * (ABNORMAL) GLUCOSE - POINT OF CARE (11/12/2023 7:44 PM CDT) Glucose WB/POC 140(H) 70 - 115 mg/dL 11/12/2023 7:49 PM CDT [facility] Specimen Type Cap Fingerstick 2023 7:49 PM CDT [facility] Blood BLOOD SPECIMEN / Unknown 11/12/2023 7:44 PM CDT 11/12/2023 7:49 PM CDT Jaci Harp MD LAB - POINT OF CARE ORDERABLES Performing Organization Address [facility]/ZIP Co de Phone Number [address] [address], [place] [phone] * XR Abdomen Kub Portable (11/11/2023 12:19 PM CDT) Only the most recent of2 resultswithin the time period is included. Anatomical Region Laterality Modality Abdomen Radiographic Anabel ging 11/11/2023 1:35 PM CDT Impressions 11/11/2023 3:11 PM CDT IMPRESSION: 1.Non-obstructive bowel gas pattern. 2.Moderate to large stool burden. 3.Left-sided nephrolithiasis. Report dictated by Scott Todd MD, PhD (radiology technologist). [facility] have personally reviewed and interpreted this examination/study. > Interpreting Provider: Lexa Lazo on 11/11/2023 3:11 PM Narrative 11/11/2023 3:11 PM CDT PROCEDURE: XR ABDOMEN KUB PORTABLE, DATE/TIME OF EXAM: 11/11/2023 12:19 PM, LOCATION [facility] INDICATION: R14.0: Abdominal distension ADDITIONAL CLINICAL INFORMATION: Ordering Provider Reason For Exam: WORKUP FOR ABDOMINAL DISTENSION Technologist Note: Additional: COMPARISON: Abdominal radiograph from 09/01/2023. CT chest abdomen pelvis from 11/11/2023. FINDINGS: Paucity of gas in small bowel. Moderate to large stool burden in the setting colon. Air is seen in the transverse colon. Stool is seen in the rectum. There is no dilatation of small or large bowel. Free intraperitoneal air is not adequately assessed on supine radiographs. Left midabdomen 5 mm density corresponds to renal calculus.. Degenerative changes are noted in the lumbar spine. The lung bases are clear. Procedure Note Lexa Lazo MD - 11/11/2023 PROCEDURE: XR ABDOMEN KUB PORTABLE, DATE/TIME OF EXAM: 11/11/2023 12:19 PM, LOCATION [facility] INDICATION: R14.0: Abdominal distension ADDITIONAL CLINICAL INFORMATION: Ordering Provider Reason For Exam: WORKUP FOR ABDOMINAL DISTENSION Technologist Note: Additional: COMPARISON: Abdominal radiograph from 09/01/2023. CT chest abdomen pelvis from 11/11/2023. FINDINGS: Paucity of gas in small bowel. Moderate to large stool burden in the setting colon. Air is seen in the transverse colon. Stool is seen in the rectum. There is no dilatation of small or large bowel. Free intraperitoneal air is not adequately assessed on supine radiographs.Left midabdomen 5 mm density corresponds to renal calculus.. Degenerative changes are noted in the lumbar spine. The lung bases are clear. IMPRESSION: 1.Non-obstructive bowel gas pattern. 2.Moderate to large stool burden. 3.Left-sided nephrolithiasis. Report dictated by Scott Todd MD, PhD (radiology technologist). [facility] have personally reviewed and interpreted this examination/study. > Interpreting Provider: Lexa Lazo on 11/11/2023 3:11 PM Seth Ovalles MD DIAGNOSTIC IMAGING O RDERABLES * (ABNORMAL) CBC W AUTO DIFFERENTIAL (11/10/2023 9:38 AM [facility]) Only the most recent of7 resultswithin the time period is included. WBC 5.3 4.0 - 10.7 x10E9/L 11/10/2023 10:02 AM [facility] RBC Count 3.17(L) 3.90 - 5.20 x10E12/L 11/10/2023 10:02 AM [facility] Hemoglobin 10.7(L) 11.9 - 15.8 g/dL 11/10/2023 10:02 AM [facility] Hematocrit 31.5(L) 34.8 - 46.1 % 11/10/2023 10:02 AM [facility] MCV 99.4(H) 80.0 - 98.0 fL 11/10/2023 10:02 AM [facility] MCH 33.8(H) 26.7 - 33.6 pg 11/10/2023 10:02 AM [facility] MCHC 34.0 31.7 - 36.3 g/dL 11/10/2023 10:02 AM [facility] RDW-CV 14.8 11.3 - 14.8 % 11/10/2023 10:02 AM [facility] Platelet Count 291 150 - 420 x10E9/L 11/10/2023 10:02 AM [facility] MPV 9.9 7.8 - 11.4 fL 11/10/2023 10:02 AM [facility] Neutrophil % 52.6 41.0 - 74.0 % 11/10/2023 10:02 AM [facility] Lymphocyte % 23.0 17.0 - 47.0 % 11/10/2023 10:02 AM [facility] Monocyte % 19.4(H) 3.0 - 11.0 % 11/10/2023 10:02 AM [facility] Eosinophil % 3.6 0.0 - 7.0 % 11/10/2023 10:02 AM [facility] Basophil % 0.8 0.0 - 1.6 % 11/10/2023 10:02 AM [facility] Immature Granulocytes % 0.6 0.0 - 1.0 % 11/10/2023 10:02 AM [facility] Neutrophil Absolute 2.80 1.60 - 7.50 x10E9/L 11/10/2023 10:02 AM [facility] Lymphocyte Absolute 1.22 1.00 - 4.40 x10E9/L 11/10/2023 10:02 AM [facility] Monocyte Absolute 1.03(H) 0.15 - 1.00 x10E9/L 11/10/2023 10:02 AM [facility] Eosinophil Absolute 0.19 0.00 - 0.60 x10E9/L 11/10/2023 10:02 AM [facility] Basophil Absolute 0.04 0.00 - 0.13 x10E9/L 11/10/2023 10:02 AM [facility] Blood BLOOD SPECIMEN / Unknown Lab Venipuncture / Unknown 11/10/2023 9:38 AM CDT 11/10/2023 9:50 AM CDT Seth Ovalles MD LAB - HEMATOLOGY ORD ERABLES [facility] [address] [place] [phone], [facility] [phone] * (ABNORMAL) COMPREHENSIVE METABOLIC PANEL (11/10/2023 9:38 AM CDT) Only the most recent of6 resultswithin the time period is included. BUN 11 7 - 26 mg/dL 11/10/2023 11:16 AM [facility] Creatinine 0.80 0.56 - 0.96 mg/dL 11/10/2023 11:16 AM [facility] Sodium 134(L) 136 - 145 mmol/L 11/10/2023 11:16 AM [facility] Potassium 4.3 3.5 - 4.5 mmol/L 11/10/2023 11:16 AM [facility] Chloride 107 98 - 107 mmol/L 11/10/2023 11:16 AM [facility] CO2 21(L) 22 - 29 mmol/L 11/10/2023 11:16 AM [facility] Glucose 110 70 - 115 mg/dL 11/10/2023 11:16 AM [facility] Calcium 9.5 8.4 - 10.2 mg/dL 11/10/2023 11:16 AM [facility] Protein Total 6.8 6.0 - 8.3 g/dL 11/10/2023 11:16 AM [facility] Albumin 2.8(L) 3.4 - 5.0 g/dL 11/10/2023 11:16 AM [facility] Bilirubin Total 0.4 0.2 - 1.2 mg/dL 11/10/2023 11:16 AM [facility] Alkaline Phosphatase 151(H) 40 - 150 U/L 11/10/2023 11:16 AM [facility] ALT 24 5 - 55 U/L 11/10/2023 11:16 AM [facility] AST 27 5 - 34 U/L 11/10/2023 11:16 AM [facility] Anion Gap 6 6 - 16 11/10/2023 11:16 AM [facility] BUN/Creatinine Ratio 14 7 - 23 11/10/2023 11:16 AM [facility] Osmolality Calculated 278 275 - 295 mOsm/kg 11/10/2023 11:16 AM [facility] Albumin/Globulin Ratio 0.7(L) 1.1 - 2.3 11/10/2023 11:16 AM [facility] eGFR by CKD-EPI 80(L) >=90 mL/min/1.7 3 m2 11/10/2023 11:16 AM [facility] Blood BLOOD SPECIMEN / Unknown Lab Venipuncture / Unknown 11/10/2023 9:38 AM T 11/10/2023 9:50 AM [facility] Seth Ovalles MD LAB - CHEMISTRY CHERYL [employer] Organization Address City/State/ZIP Co de Phone Number [facility] [address] [place] [address], [facility] [phone] * PHOSPHORUS BLOOD (11/10/2023 9:38 AM CDT) Only the most recent of8 resultswithin the time period is included. Pathologist [facility] Phosphorus 4.5 2.9 - 5.1 mg/dL 11/10/2023 10:49 AM CDT [facility] Blood BLOOD SPECIMEN / Unknown Lab Venipuncture / Unknown 11/10/2023 9:38 AM CDT 11/10/2023 9:50 AM CDT Seth Ovalles MD LAB - CHEMISTRY CHERYL ARGUELLO Performing Organization Address City/[facility]/ZIP Co de Phone Number [address] [address], [facility] [phone] * MAGNESIUM BLOOD (11/10/2023 9:38 AM CDT) Only the most recent of8 resultswithin the time period is included. [facility] Magnesium 1.9 1.6 - 2.6 mg/dL 11/10/2023 10:49 AM CDT [facility] Blood BLOOD SPECIMEN / Unknown Lab Venipuncture / Unknown 11/10/2023 9:38 AM CDT 11/10/2023 9:50 AM CDT Seth Ovalles MD LAB - CHEMISTRY CHERYL ARGUELLO [address] [address], [facility] [phone] * (ABNORMAL) DRUG SCREEN EXPANDED TOXICOLOGY URINE PANEL (11/09/2023 1:47 PM CDT) [facility] Expanded Drug Screen, Urine Positive(A) Negative 11/09/2023 4:56 PM CDT [facility] Findings Caffeine Chlordiazepoxid e Cotinine Lorazepam glucuronide Noroxycodone Oxycodone 11/09/2023 4:56 PM CDT [facility] Urine URINE / Unknown Collection / Unknown 11/09/2023 1:47 PM CDT 11/09/2023 1:56 PM CDT Narrative [facility] - 11/09/2023 4:56 PM CDT Testing performed by Liquid Chromatography-Quadrupole Time Flight Mass Spectrometry. While mass spectrometry is highly sensitive and specific, false-positive and false-negative findings may occur in rare circumstances. If consultation is needed, please contact the Clinical Pathology Resident instructional technology specialist at [phone] (M-F, 8 am 5 pm) or [phone] after hours. This test does not include THC or barbiturates. This testing was developed by the [facility] in keeping with CLIA requirements. The test has not been cleared or approved by the [place]. Food and Drug Administration. Seth Ovalles MD LAB - URINE CHEMISTR Y ORDERABLES [facility] [address] [phone] * CARDIAC EKG ORDER (11/08/2023 10:53 AM CDT) Narrative 11/08/2023 10:53 AM CDT Ordered by an unspecified provider. Scanned Document CARDIAC SERVICES ORD ERABLES * (ABNORMAL) VITAMIN D 25-HYDROXY (11/08/2023 4:48 AM CDT) Only the most recent of2 resultswithin the time period is included. Vitamin D, 25 Hydroxy 14.2(L) 30.0 - 80.0 ng/mL 11/08/2023 3:55 PM CDT [facility] Comment: The recommendations for 25-Hydroxy Vitamin D clinical decision points are as follows: Deficient: <20.0 ng/mL Insufficient: 20.0 - 29.9 ng/mL Sufficient: 30.0 - 100.0 ng/mL Potential Toxicity: >100 ng/mL Reference: The Endocrine Society Clinical Practice Guidelines. 2011 If the 25-Hydroxy Vitamin D results are inconsitent with clinical evidence, it is recommended that follow-up testing using a method such as LC/MS/MS be performed to confirm the result. Blood BLOOD SPECIMEN / Unknown Venipuncture / Unknown 11/08/2023 4:48 AM CDT 11/08/2023 5:43 AM CDT Diamante Arguelles PA-C LAB - CHEMIS TRY ORDERABLES Performing Organization Address City/[facility]/ZIP Co de Phone Number [facility] [address] [place] [id number], [place] [phone] * (ABNORMAL) FOLATE (11/08/2023 4:48 AM CDT) Only the most recent of2 resultswithin the time period is included. Folate 5.1(L) 7.0 - 31.4 ng/mL 11/08/2023 6:48 AM CDT [facility] Blood BLOOD SPECIMEN / Unknown Venipuncture / Unknown 11/08/2023 4:48 AM CDT 11/08/2023 5:43 AM CDT Seth Ovalles MD LAB - CHEMISTRY CHERYL ARGUELLO Performing Organization Address [facility] Co de Phone Number [address] [address], [place] [phone] * (ABNORMAL) VITAMIN B12 (11/08/2023 4:48 AM CDT) Only the most recent of2 resultswithin the time period is included. Vitamin B12 153(L) 213 - 816 pg/mL 11/08/2023 6:48 AM CDT [facility] Blood BLOOD SPECIMEN / Unknown Venipuncture / Unknown 11/08/2023 4:48 AM CDT 11/08/2023 5:43 AM CDT Seth Ovalles MD LAB - CHEMISTRY CHERYL ARGUELLO Performing Organization Address [facility]/ZIP Co de Phone Number [address] [address], [place] [phone] * HEMOGLOBIN A1C (11/08/2023 4:46 AM CDT) Hemoglobin A1c 4.5 <=5.6 % 11/08/2023 8:41 AM CDT [facility] Estimated Average Glucose 82 mg/dL 11/08/2023 8:41 AM CDT [facility] Comment: HbA1c Interpretation: Normal : < 5.7% Pre-diabetes: 5.7-6.4% Diabetes: Equal to or greater than 6.5% Test results diagnostic of diabetes should be repeated for confirmation. Treatment target values recommended by ADA and other clinical organizations should be used to evaluate metabolic control in patients. Reference: [place] [employer], Standards of Care in Diabetes -2020 In patients 70 years and older consider HbA1c target range of 7.0-7.5% (Reference: Fredo Vides et al. JAMDA. 2012) The Sebia assay for the measurement of HbA1c is a National Glycohemoglobin Standardization Program (NGSP) certified method. Blood BLOOD SPECIMEN / Unknown Venipuncture / Unknown 11/08/2023 4:46 AM CDT 11/08/2023 5:31 AM CDT Seth Ovalles MD LAB - CHEMISTRY CHERYL ARGUELLO [address] [address], [facility] [phone] * HEPATITIS B SURFACE ANTIGEN W RFLX CONFIRMATION (11/08/2023 4:46 AM CDT) Hepatitis B Virus Surface Antigen Non-reacti ve Non-reacti ve 11/08/2023 6:25 AM CDT [facility] Blood BLOOD SPECIMEN / Unknown Venipuncture / Unknown 11/08/2023 4:46 AM CDT 11/08/2023 5:30 AM CDT Seth Ovalles MD LAB - CHEMISTRY CHERYL ARGUELLO [address] [address], [facility] [phone] * XR Pelvis AP W Inlet Outlet (11/07/2023 12:08 PM CDT) Only the most recent of2 resultswithin the time period is included. Anatomical Region Laterality Modality Pelvis Radiographic Anabel ging 11/07/2023 12:3 1 PM CDT Narrative 11/07/2023 12:32 PM CDT PROCEDURE: XR PELVIS AP W INLET OUTLET DATE/TIME OF EXAM: 11/07/2023 12:08 PM CLINICAL INFORMATION: None relevant/not provided if blank. Indication: S32.591A: Closed fracture of ramus of right pubis, initial encounter ([facility]) Additional History: COMPARISON: Inlet outlet views on 11/07/2023 2:28 AM. FINDINGS/IMPRESSION: Known fracture of the right pubic body and right superior pubic ramus are not well seen. > Interpreting Provider: Desiree Adams MD on 11/07/2023 12:32 PM Procedure Note Desiree Adams MD - 11/07/2023 PROCEDURE: XR PELVIS AP W INLET OUTLET DATE/TIME OF EXAM: 11/07/2023 12:08 PM CLINICAL INFORMATION: None relevant/not provided if blank. Indication: S32.591A: Closed fracture of ramus of right pubis, initial encounter ([facility]) Additional History: COMPARISON: Inlet outlet views on 11/07/2023 2:28 AM. FINDINGS/IMPRESSION: Known fracture of the right pubic body and right superior pubic ramusare not well seen. > Interpreting Provider: Desiree Adams MD on 11/07/2023 12:32 PM Danielle Gibbons PA-C DIAGNOSTIC IMAGING ORDERABLES * HEPATITIS C AB SCREEN RFLX NAAT QUANT (11/07/2023 10:20 AM CDT) Pathologist [facility] Hepatitis C Antibody Non-react zion Non-reac tive 11/07/2023 11:20 AM CDT [facility] Comment:Hepatitis C Antibody screen indicates no [...] Ovalles MD LAB - CHEMISTRY CHERYL ARGUELLO [facility] [address] [place] [address], [facility] [phone] * CT THORAX ABDOMEN PELVIS W CONT - Abdominal - Pelvis trauma, blunt/penetrating (11/07/2023 12:01 AMCDT) Only the most recent of2 resultswithin the time period is included. Anatomical Region Laterality Modality Chest, Abdomen, Pelvis Computed Tomography 11/07/2023 12:0 2 AM CDT Impressions 11/07/2023 9:04 AM CDT Impression: 1.Mildly displaced fracture of the pubic body which extends predominantly into the superior pubic ramus (series 9 image 64, series 6 image 107-123). There are small hematomas in the adjacent musculature without a contrast blush to suggest active bleeding. 2.Small amount of stranding/hemorrhage on the undersurface of the mid/anterior bladder adjacent to the fracture. There is mild wall thickening of the inferior bladder wall adjacent to fracture, cannot exclude bladder wall contusion. 3.Nonspecific mesenteric stranding surrounding the proximal inferior mesenteric artery and to a lesser extent along the left aspect of the distal abdominal aorta which is increased from prior exam on 08/30/2023. The inferior mesenteric artery is patent without other evidence of a vascular injury. Findings are nonspecific but a vascular injury is not completely excluded. Given the persistence of findings, vasculitis is another consideration. Findings discussed with Dr. Brown by Dr. Xander Joel at 11/07/2023 12:42 AM with read back comprehension and verification. > Dictated by Xander Joel MD (radiology technologist). IMagnus MD have personally reviewed and interpreted this examination/study. > Interpreting Provider: Magnus Lazaro MD on 11/07/2023 9:04 AM Narrative 11/07/2023 9:04 AM CDT PROCEDURE: CT CHEST ABDOMEN PELVIS W CONT, DATE/TIME OF EXAM: 11/07/2023 12:02 AM, LOCATION [facility] INDICATION: W19.XXXA: Fall, initial encounter ADDITIONAL CLINICAL INFORMATION: Ordering Provider Reason For Exam: Trauma, fall COMPARISON: CT 08/30/2023 TECHNIQUE: CT of the chest, abdomen, and pelvis was performed after the uneventful administration of 100 mL of Isovue 370 intravenous contrast according to standard protocol. Findings: Chest: Lower Neck and Axillae: Subcentimeter hypodense nodules in the thyroid gland Lungs: Mild bilateral dependent atelectasis is present. There has been interval reexpansion of the right middle lobe. No suspicious pulmonary nodules are identified. No pleural fluid or pneumothorax is present. Heart and Pericardium: The cardiac chambers are normal in size. No pericardial fluid or thickening is present. The coronary arteries are atherosclerotic. Mediastinum and Alvina: No mediastinal hemorrhage is present. No enlarged lymph nodes are present. Thoracic Vasculature: The aorta and its branch vessels are atherosclerotic. Abdomen/pelvis: Liver: Normal. Gallbladder and Bile Ducts: Multiple gallstones are seen. No wall thickening or pericholecystic fluid. Spleen: Normal. Pancreas: Normal. Adrenals: Normal. Kidneys: Multiple nonobstructing stones in the bilateral kidneys. The largest is a 7 mm nonobstructing stone in the interpolar region of the left kidney. There is no hydronephrosis. There is nonspecific perinephric stranding of the bilateral kidneys which is slightly increased from prior exam. Gastrointestinal: The stomach and visualized loops of small bowel are unremarkable. Colonic diverticulosis without evidence of diverticulitis is seen. Normal appendix. Mesentery/Peritoneum/Retroperitoneum/Bladder: There is a small amount of stranding/hemorrhage on the undersurface of the mid/anterior bladder which likely represents a small hematoma given adjacent fracture (series 10 image 103, series 9 image 64). There is suggestion of mild wall thickening of the inferior bladder wall (image 107, series 10), may represent contusion of the bladder wall. There is no free fluid in the pelvis. Reproductive Organs: The uterus is absent. Abdominal Vasculature: There is nonspecific mesenteric stranding surrounding the proximal inferior mesenteric artery and to a lesser extent along the left aspect of the distal abdominal aorta which is increased from prior exam on 08/30/2023 (series 4 image 81). On the exam from 08/30/2023, there is minimal stranding adjacent to the proximal inferior mesenteric artery. The inferior mesenteric artery is patent. Atherosclerotic calcification of the aorta and its branch vessels. Bones: There is a mildly displaced fracture of the right pubic body which extends predominantly into the superior pubic ramus (series 9 image 64, series 6 image 107-123). There are small hematomas in the adjacent musculature without a contrast blush to suggest active bleeding. Multiple chronic bilateral rib fractures. Bone windows demonstrate no suspicious lytic or blastic lesions. There are degenerative changes in the spine. There is grade 1 anterolisthesis of L4 on L5. Soft tissues: Bilateral breast implants. There is fatty atrophy of the head gluteal muscles, more on the right. Procedure Note Rima Lazaro MD - 11/07/2023 PROCEDURE: CT CHEST ABDOMEN PELVIS W CONT, DATE/TIME OF EXAM:11/07/2023 12:02 AM, LOCATION [facility] INDICATION: W19.XXXA: Fall, initial encounter ADDITIONAL CLINICAL INFORMATION: Ordering Provider Reason For Exam: Trauma, fall COMPARISON: CT 08/30/2023 TECHNIQUE: CT of the chest, abdomen, and pelvis was performed after the uneventful administration of 100 mL of Isovue 370 intravenous contrast according to standard protocol. Findings: Chest: Lower Neck and Axillae: Subcentimeter hypodense nodules in the thyroid gland Lungs: Mild bilateral dependent atelectasis is present. There has been interval reexpansion of the right middle lobe. No suspicious pulmonary nodulesare identified. No pleural fluid or pneumothorax is present. Heart and Pericardium: The cardiac chambers are normal in size. No pericardial fluid orthickening is present. The coronary arteries are atherosclerotic. Mediastinum and Alvina: No mediastinal hemorrhage is present. No enlarged lymph nodes arepresent. Thoracic Vasculature: The aorta and its branch vessels are atherosclerotic. Abdomen/pelvis: Liver: Normal. Gallbladder and Bile Ducts: Multiple gallstones are seen. No wall thickening or pericholecystic fluid. Spleen: Normal. Pancreas: Normal. Adrenals: Normal. Kidneys: Multiple nonobstructing stones in the bilateral kidneys. The largest is a7 mm nonobstructing stone in the interpolar region of the left kidney.There is no hydronephrosis. There is nonspecific perinephric stranding of the bilateral kidneys which is slightly increased from prior exam. Gastrointestinal: The stomach and visualized loops of small bowel are unremarkable.Colonic diverticulosis without evidence of diverticulitis is seen. Normalappendix. Mesentery/Peritoneum/Retroperitoneum/Bladder: There is a small amount of stranding/hemorrhage on the undersurface ofthe mid/anterior bladder which likely represents a small hematoma given adjacent fracture (series 10 image 103, series 9 image 64). There is suggestion of mild wall thickening of the inferior bladder wall ([id number], series 10), may represent contusion of the bladder wall. There is no free fluid in the pelvis. Reproductive Organs: The uterus is absent. Abdominal Vasculature: There is nonspecific mesenteric stranding surrounding the proximalinferior mesenteric artery and to a lesser extent along the left aspect of the distal abdominal aorta which is increased from prior exam on 08/30/2023 (series 4 image 81). On the exam from 08/30/2023, there is minimalstranding adjacent to the proximal inferior mesenteric artery. The inferior mesenteric artery is patent. Atherosclerotic calcification of the aorta and its branch vessels. Bones: There is a mildly displaced fracture of the right pubic body whichextends predominantly into the superior pubic ramus (series 9 image 64, series 6 image 107-123). There are small hematomas in the adjacent musculature without a contrast blush to suggest active bleeding. Multiple chronic bilateral rib fractures. Bone windows demonstrate no suspicious lytic or blastic lesions. There are degenerative changes inthe spine. There is grade 1 anterolisthesis of L4 on L5. Soft tissues: Bilateral breast implants. There is fatty atrophy of the head gluteal muscles, more on the right. Impression: 1.Mildly displaced fracture of the pubic body which extendspredominantly into the superior pubic ramus (series 9 image 64, series 6 -259). There are small hematomas in the adjacent musculature without a contrast blush to suggest active bleeding. 2.Small amount of stranding/hemorrhage on the undersurface of the mid/anterior bladder adjacent to the fracture. There is mild wall thickening of the inferior bladder wall adjacent to fracture, cannot exclude bladder wall contusion. 3.Nonspecific mesenteric stranding surrounding the proximal inferior mesenteric artery and to a lesser extent along the left aspect of the distal abdominal aorta which is increased from prior exam on 08/30/2023.The inferior mesenteric artery is patent without other evidence of avascular injury. Findings are nonspecific but a vascular injury is not completely excluded. Given the persistence of findings, vasculitis is another consideration. Findings discussed with Dr. Brown by Dr. Xander Joel at :42 AM with read back comprehension and verification. > Dictated by Xander Joel MD (radiology technologist). Magnus Sneed MD have personally reviewed and interpreted this examination/study. > Interpreting Provider: Magnus Lazaro MD on 11/07/2023 9:04 AM Devante Hoang MD CT ORDERABLES * CT Lumbar Spine Wo Contrast (11/07/2023 12:01 AM CDT) Only the most recent of2 resultswithin the time period is included. Anatomical Region Laterality Modality Spine Computed Tomogra phy 11/07/2023 2:12 AM CDT Impressions 11/07/2023 7:07 AM CDT IMPRESSION: 1.Interval resolution of a left cerebral convexity subdural hematoma. No new hemorrhage identified. 2.No evidence of acute fracture in the cervical, thoracic, or lumbar spine. 3.Multilevel degenerative changes are redemonstrated throughout the spine as detailed above. 4.The separately dictated same day CT chest, abdomen and pelvis contain additional intrathoracic and intra-abdominal findings. Report dictated by Doug Gale MD (radiology technologist). Joe Sneed MD have personally reviewed and interpreted this examination/study. > Interpreting Provider: Joe Wood MD on 11/07/2023 7:07 AM Narrative 11/07/2023 7:07 AM CDT PROCEDURE: CT HEAD WO CONTRAST, CT CERVICAL SPINE WO CONTRAST, CT THORACIC SPINE WO CONTRAST, CT LUMBAR SPINE WO CONTRAST, DATE/TIME OF EXAM: 11/07/2023 12:02 AM, LOCATION [facility] INDICATION: W19.XXXA: Fall, initial encounter EXAMINATION: 1.Computed tomography (CT) of the head without contrast 2.CT of the cervical spine without contrast 3.CT of the thoracic spine without contrast 4.CT of the lumbar spine without contrast ADDITIONAL CLINICAL INFORMATION: Ordering Provider Reason For Exam: Fall (accession [id number]), Fall intoxicated (accession [id number]), Fall (accession [id number]), Fall back pain (accession [id number]) Technologist Note: None. Additional: None. TECHNIQUE: CT of the head and cervical spine was performed without contrast according to standard protocol. Reformatted axial, sagittal, and coronal images of the thoracic and lumbar spine were obtained by the technologist from a concurrently performed body CT and sent to the workstation for review. CT dose reduction technique was used, including Automated Exposure Control. COMPARISON: Head and total spine CT from 08/30/2023 FINDINGS: Head: Interval resolution of the previously seen left cerebral convexity subdural hematoma from 08/30/2023. No new acute intracranial hemorrhage. No new acute intra- or extra-axial fluid collections are identified. There is mild cerebral volume loss with associated ex vacuo ventricular dilatation. The basilar cisterns are patent. No mass effect or midline shift is seen, previously mild [id number] midline shift was seen. The gotti-white matter differentiation is normal. Periventricular white matter hypoattenuation is indicative of chronic small vessel ischemic disease. There is vascular calcification of the carotid siphons. No acute calvarial fracture is identified. The orbits appear normal. There is mild paranasal sinus disease. The mastoid air cells are clear. No soft tissue abnormality is identified. Cervical spine: Redemonstrated mild anterolisthesis of C4 on C5 and C7 on T1. Vertebral bodies are normal in height without evidence of acute fracture. The bones are mildly osteopenic. Other than middle atlantoaxial joint osteoarthritis, the craniocervical junction appears normal. There is mild degenerative disc disease. No high-grade central canal stenosis is seen. There are varying degrees of up to severe facet osteoarthritis. There are varying degrees of mild-moderate uncovertebral joint osteoarthritis with the same degree of neural foraminal stenosis at these levels. There is atherosclerotic calcification of the carotid bifurcations. Calcifications are seen in the bilateral thyroid lobes, incompletely characterized. Thoracic spine: Redemonstrated is S-shaped scoliosis of the thoracic spine. The bones are mildly osteopenic. Vertebral bodies are normal in height without evidence of acute fracture. There is mild-moderate degenerative disc disease. Redemonstrated findings consistent with diffuse idiopathic skeletal hyperostosis. No central canal stenosis is seen. There is mild facet osteoarthritis at multiple levels. There are varying degrees of neural foraminal stenosis at multiple levels. There is atherosclerotic calcification of the thoracic aorta and its branch vessels. Healing fracture of the posterior left third rib. Lumbar spine: Unchanged mild dextroscoliosis and grade 1 anterolisthesis of L4 on L5. Vertebral bodies are normal in height without evidence of acute fracture. The bones are moderately osteopenic. There is moderate-severe degenerative disc disease. Severe central canal stenosis at L4-5, unchanged. There is advanced facet osteoarthritis at multiple levels. There are varying degrees of neural foraminal stenosis at multiple levels. There is atherosclerotic calcification of the abdominal aorta and its branch vessels. There is atrophy of the paraspinal muscles Redemonstrated nonobstructive nephrolithiasis bilaterally. Brain injury guidelines: Skull fracture: No Subdural hematoma: No subdural hematoma. Epidural hematoma: No epidural hematoma. Intraparenchymal hemorrhage: No intraparenchymal hemorrhage. Subarachnoid hemorrhage: No subarachnoid hemorrhage. Intraventricular hemorrhage: No. Midline shift: No. Procedure Note Joe Wood MD - 11/07/2023 PROCEDURE: CT HEAD WO CONTRAST, CT CERVICAL SPINE WO CONTRAST, CTTHORACIC SPINE WO CONTRAST, CT LUMBAR SPINE WO CONTRAST, DATE/TIME OF EXAM: 11/07/2023 12:02 AM, LOCATION [facility] INDICATION: W19.XXXA: Fall, initial encounter EXAMINATION: 1.Computed tomography (CT) of the head without contrast 2.CT of the cervical spine without contrast 3.CT of the thoracic spine without contrast 4.CT of the lumbar spine without contrast ADDITIONAL CLINICAL INFORMATION: Ordering Provider Reason For Exam: Fall (accession [id number]), Fall intoxicated (accession [id number]), Fall (accession [id number]), Fall back pain (accession [id number]) Technologist Note: None. Additional: None. TECHNIQUE: CT of the head and cervical spine was performed withoutcontrast according to standard protocol. Reformatted axial, sagittal, and coronal images of the thoracic and lumbar spine were obtained by thetechnologist from a concurrently performed body CT and sent to the workstation for review. CT dose reduction technique was used, including AutomatedExposure Control. COMPARISON: Head and total spine CT from 08/30/2023 FINDINGS: Head: Interval resolution of the previously seen left cerebral convexitysubdural hematoma from 08/30/2023. No new acute intracranial hemorrhage. No new acute intra- or extra-axial fluid collections are identified.There is mild cerebral volume loss with associated ex vacuo ventricular dilatation. The basilar cisterns are patent. No mass effect or midline shift is seen, previously mild [id number] midline shift was seen. The gotti-white matter differentiation is normal. Periventricular whitematter hypoattenuation is indicative of chronic small vessel ischemic disease. There is vascular calcification of the carotid siphons. No acutecalvarial fracture is identified. The orbits appear normal. There is mildparanasal sinus disease. The mastoid air cells are clear. No soft tissueabnormality is identified. Cervical spine: Redemonstrated mild anterolisthesis of C4 on C5 and C7 on T1. Vertebral bodies are normal in height without evidence of acute fracture. Thebones are mildly osteopenic. Other than middle atlantoaxial jointosteoarthritis, the craniocervical junction appears normal. There is mild degenerativedisc disease. No high-grade central canal stenosis is seen. There are varying degrees of up to severe facet osteoarthritis. There are varying degreesof mild-moderate uncovertebral joint osteoarthritis with the same degree of neural foraminal stenosis at these levels. There is atherosclerotic calcification of the carotid bifurcations. Calcifications are seen inthe bilateral thyroid lobes, incompletely characterized. Thoracic spine: Redemonstrated is S-shaped scoliosis of the thoracic spine. The bonesare mildly osteopenic. Vertebral bodies are normal in height withoutevidence of acute fracture. There is mild-moderate degenerative disc disease. Redemonstrated findings consistent with diffuse idiopathic skeletal hyperostosis. No central canal stenosis is seen. There is mild facet osteoarthritis at multiple levels. There are varying degrees of neural foraminal stenosis at multiple levels. There is atherosclerotic calcification of the thoracic aorta and its branch vessels. Healing fracture of the posterior left third rib. Lumbar spine: Unchanged mild dextroscoliosis and grade 1 anterolisthesis of L4 on L5. Vertebral bodies are normal in height without evidence of acutefracture. The bones are moderately osteopenic. There is moderate-severedegenerative disc disease. Severe central canal stenosis at L4-5, unchanged. There is advanced facet osteoarthritis at multiple levels. There are varyingdegrees of neural foraminal stenosis at multiple levels. There isatherosclerotic calcification of the abdominal aorta and its branch vessels. There is atrophy of the paraspinal muscles Redemonstrated nonobstructive nephrolithiasis bilaterally. Brain injury guidelines: Skull fracture: No Subdural hematoma: No subdural hematoma. Epidural hematoma: No epidural hematoma. Intraparenchymal hemorrhage: No intraparenchymal hemorrhage. Subarachnoid hemorrhage: No subarachnoid hemorrhage. Intraventricular hemorrhage: No. Midline shift: No. IMPRESSION: 1.Interval resolution of a left cerebral convexity subdural hematoma. No new hemorrhage identified. 2.No evidence of acute fracture in the cervical, thoracic, or lumbarspine. 3.Multilevel degenerative changes are redemonstrated throughout thespine as detailed above. 4.The separately dictated same day CT chest, abdomen and pelvis contain additional intrathoracic and intra-abdominal findings. Report dictated by Doug Gale MD (radiology technologist). Joe Sneed MD have personally reviewed and interpretedthis examination/study. > Interpreting Provider: Joe Wood MD on 11/07/2023 7:07 AM Devante Hoang MD CT ORDERABLES * CT Thoracic Spine Wo Contrast (11/07/2023 12:01 AM CDT) Only the most recent of2 resultswithin the time period is included. Anatomical Region Laterality Modality Spine Computed Tomogra phy 11/07/2023 2:12 AM CDT Impressions 11/07/2023 7:07 AM CDT IMPRESSION: 1.Interval resolution of a left cerebral convexity subdural hematoma. No new hemorrhage identified. 2.No evidence of acute fracture in the cervical, thoracic, or lumbar spine. 3.Multilevel degenerative changes are redemonstrated throughout the spine as detailed above. 4.The separately dictated same day CT chest, abdomen and pelvis contain additional intrathoracic and intra-abdominal findings. Report dictated by Doug Gale MD (radiology technologist). Joe Sneed MD have personally reviewed and interpreted this examination/study. > Interpreting Provider: Joe Wood MD on 11/07/2023 7:07 AM Narrative 11/07/2023 7:07 AM CDT PROCEDURE: CT HEAD WO CONTRAST, CT CERVICAL SPINE WO CONTRAST, CT THORACIC SPINE WO CONTRAST, CT LUMBAR SPINE WO CONTRAST, DATE/TIME OF EXAM: 11/07/2023 12:02 AM, LOCATION [facility] INDICATION: W19.XXXA: Fall, initial encounter EXAMINATION: 1.Computed tomography (CT) of the head without contrast 2.CT of the cervical spine without contrast 3.CT of the thoracic spine without contrast 4.CT of the lumbar spine without contrast ADDITIONAL CLINICAL INFORMATION: Ordering Provider Reason For Exam: Fall (accession [id number]), Fall intoxicated (accession [id number]), Fall (accession [id number]), Fall back pain (accession [id number]) Technologist Note: None. Additional: None. TECHNIQUE: CT of the head and cervical spine was performed without contrast according to standard protocol. Reformatted axial, sagittal, and coronal images of the thoracic and lumbar spine were obtained by the technologist from a concurrently performed body CT and sent to the workstation for review. CT dose reduction technique was used, including Automated Exposure Control. COMPARISON: Head and total spine CT from 08/30/2023 FINDINGS: Head: Interval resolution of the previously seen left cerebral convexity subdural hematoma from 08/30/2023. No new acute intracranial hemorrhage. No new acute intra- or extra-axial fluid collections are identified. There is mild cerebral volume loss with associated ex vacuo ventricular dilatation. The basilar cisterns are patent. No mass effect or midline shift is seen, previously mild oqne-uk-yjccy midline shift was seen. The gotti-white matter differentiation is normal. Periventricular white matter hypoattenuation is indicative of chronic small vessel ischemic disease. There is vascular calcification of the carotid siphons. No acute calvarial fracture is identified. The orbits appear normal. There is mild paranasal sinus disease. The mastoid air cells are clear. No soft tissue abnormality is identified. Cervical spine: Redemonstrated mild anterolisthesis of C4 on C5 and C7 on T1. Vertebral bodies are normal in height without evidence of acute fracture. The bones are mildly osteopenic. Other than middle atlantoaxial joint osteoarthritis, the craniocervical junction appears normal. There is mild degenerative disc disease. No high-grade central canal stenosis is seen. There are varying degrees of up to severe facet osteoarthritis. There are varying degrees of mild-moderate uncovertebral joint osteoarthritis with the same degree of neural foraminal stenosis at these levels. There is atherosclerotic calcification of the carotid bifurcations. Calcifications are seen in the bilateral thyroid lobes, incompletely characterized. Thoracic spine: Redemonstrated is S-shaped scoliosis of the thoracic spine. The bones are mildly osteopenic. Vertebral bodies are normal in height without evidence of acute fracture. There is mild-moderate degenerative disc disease. Redemonstrated findings consistent with diffuse idiopathic skeletal hyperostosis. No central canal stenosis is seen. There is mild facet osteoarthritis at multiple levels. There are varying degrees of neural foraminal stenosis at multiple levels. There is atherosclerotic calcification of the thoracic aorta and its branch vessels. Healing fracture of the posterior left third rib. Lumbar spine: Unchanged mild dextroscoliosis and grade 1 anterolisthesis of L4 on L5. Vertebral bodies are normal in height without evidence of acute fracture. The bones are moderately osteopenic. There is moderate-severe degenerative disc disease. Severe central canal stenosis at L4-5, unchanged. There is advanced facet osteoarthritis at multiple levels. There are varying degrees of neural foraminal stenosis at multiple levels. There is atherosclerotic calcification of the abdominal aorta and its branch vessels. There is atrophy of the paraspinal muscles Redemonstrated nonobstructive nephrolithiasis bilaterally. Brain injury guidelines: Skull fracture: No Subdural hematoma: No subdural hematoma. Epidural hematoma: No epidural hematoma. Intraparenchymal hemorrhage: No intraparenchymal hemorrhage. Subarachnoid hemorrhage: No subarachnoid hemorrhage. Intraventricular hemorrhage: No. Midline shift: No. Procedure Note Joe Wood MD - 11/07/2023 PROCEDURE: CT HEAD WO CONTRAST, CT CERVICAL SPINE WO CONTRAST, CTTHORACIC SPINE WO CONTRAST, CT LUMBAR SPINE WO CONTRAST, DATE/TIME OF EXAM: 11/07/2023 12:02 AM, LOCATION [facility] INDICATION: W19.XXXA: Fall, initial encounter EXAMINATION: 1.Computed tomography (CT) of the head without contrast 2.CT of the cervical spine without contrast 3.CT of the thoracic spine without contrast 4.CT of the lumbar spine without contrast ADDITIONAL CLINICAL INFORMATION: Ordering Provider Reason For Exam: Fall (accession [id number]), Fall intoxicated (accession [id number]), Fall (accession [id number]), Fall back pain (accession [id number]) Technologist Note: None. Additional: None. TECHNIQUE: CT of the head and cervical spine was performed withoutcontrast according to standard protocol. Reformatted axial, sagittal, and coronal images of the thoracic and lumbar spine were obtained by thetechnologist from a concurrently performed body CT and sent to the workstation for review. CT dose reduction technique was used, including AutomatedExposure Control. COMPARISON: Head and total spine CT from 08/30/2023 FINDINGS: Head: Interval resolution of the previously seen left cerebral convexitysubdural hematoma from 08/30/2023. No new acute intracranial hemorrhage. No new acute intra- or extra-axial fluid collections are identified.There is mild cerebral volume loss with associated ex vacuo ventricular dilatation. The basilar cisterns are patent. No mass effect or midline shift is seen, previously mild rluz-mb-rbjli midline shift was seen. The gotti-white matter differentiation is normal. Periventricular whitematter hypoattenuation is indicative of chronic small vessel ischemic disease. There is vascular calcification of the carotid siphons. No acutecalvarial fracture is identified. The orbits appear normal. There is mildparanasal sinus disease. The mastoid air cells are clear. No soft tissueabnormality is identified. Cervical spine: Redemonstrated mild anterolisthesis of C4 on C5 and C7 on T1. Vertebral bodies are normal in height without evidence of acute fracture. Thebones are mildly osteopenic. Other than middle atlantoaxial jointosteoarthritis, the craniocervical junction appears normal. There is mild degenerativedisc disease. No high-grade central canal stenosis is seen. There are varying degrees of up to severe facet osteoarthritis. There are varying degreesof mild-moderate uncovertebral joint osteoarthritis with the same degree of neural foraminal stenosis at these levels. There is atherosclerotic calcification of the carotid bifurcations. Calcifications are seen inthe bilateral thyroid lobes, incompletely characterized. Thoracic spine: Redemonstrated is S-shaped scoliosis of the thoracic spine. The bonesare mildly osteopenic. Vertebral bodies are normal in height withoutevidence of acute fracture. There is mild-moderate degenerative disc disease. Redemonstrated findings consistent with diffuse idiopathic skeletal hyperostosis. No central canal stenosis is seen. There is mild facet osteoarthritis at multiple levels. There are varying degrees of neural foraminal stenosis at multiple levels. There is atherosclerotic calcification of the thoracic aorta and its branch vessels. Healing fracture of the posterior left third rib. Lumbar spine: Unchanged mild dextroscoliosis and grade 1 anterolisthesis of L4 on L5. Vertebral bodies are normal in height without evidence of acutefracture. The bones are moderately osteopenic. There is moderate-severedegenerative disc disease. Severe central canal stenosis at L4-5, unchanged. There is advanced facet osteoarthritis at multiple levels. There are varyingdegrees of neural foraminal stenosis at multiple levels. There isatherosclerotic calcification of the abdominal aorta and its branch vessels. There is atrophy of the paraspinal muscles Redemonstrated nonobstructive nephrolithiasis bilaterally. Brain injury guidelines: Skull fracture: No Subdural hematoma: No subdural hematoma. Epidural hematoma: No epidural hematoma. Intraparenchymal hemorrhage: No intraparenchymal hemorrhage. Subarachnoid hemorrhage: No subarachnoid hemorrhage. Intraventricular hemorrhage: No. Midline shift: No. IMPRESSION: 1.Interval resolution of a left cerebral convexity subdural hematoma. No new hemorrhage identified. 2.No evidence of acute fracture in the cervical, thoracic, or lumbarspine. 3.Multilevel degenerative changes are redemonstrated throughout thespine as detailed above. 4.The separately dictated same day CT chest, abdomen and pelvis contain additional intrathoracic and intra-abdominal findings. Report dictated by Doug Gale MD (radiology technologist). Joe Sneed MD have personally reviewed and interpretedthis examination/study. > Interpreting Provider: Joe Wood MD on 11/07/2023 7:07 AM Devante Hoang MD CT ORDERABLES * CT CERVICAL SPINE NON CONTRAST - Spine fx, traumatic, cervical (11/07/2023 12:01 AM CDT) Only the most recent of2 resultswithin the time period is included. Anatomical Region Laterality Modality Spine Computed Tomogra phy 11/07/2023 2:12 AM CDT Impressions 11/07/2023 7:07 AM CDT IMPRESSION: 1.Interval resolution of a left cerebral convexity subdural hematoma. No new hemorrhage identified. 2.No evidence of acute fracture in the cervical, thoracic, or lumbar spine. 3.Multilevel degenerative changes are redemonstrated throughout the spine as detailed above. 4.The separately dictated same day CT chest, abdomen and pelvis contain additional intrathoracic and intra-abdominal findings. Report dictated by Doug Gale MD (radiology technologist). Joe Sneed MD have personally reviewed and interpreted this examination/study. > Interpreting Provider: Joe Wood MD on 11/07/2023 7:07 AM Narrative 11/07/2023 7:07 AM CDT PROCEDURE: CT HEAD WO CONTRAST, CT CERVICAL SPINE WO CONTRAST, CT THORACIC SPINE WO CONTRAST, CT LUMBAR SPINE WO CONTRAST, DATE/TIME OF EXAM: 11/07/2023 12:02 AM, LOCATION [facility] INDICATION: W19.XXXA: Fall, initial encounter EXAMINATION: 1.Computed tomography (CT) of the head without contrast 2.CT of the cervical spine without contrast 3.CT of the thoracic spine without contrast 4.CT of the lumbar spine without contrast ADDITIONAL CLINICAL INFORMATION: Ordering Provider Reason For Exam: Fall (accession [id number]), Fall intoxicated (accession [id number]), Fall (accession [id number]), Fall back pain (accession [id number]) Technologist Note: None. Additional: None. TECHNIQUE: CT of the head and cervical spine was performed without contrast according to standard protocol. Reformatted axial, sagittal, and coronal images of the thoracic and lumbar spine were obtained by the technologist from a concurrently performed body CT and sent to the workstation for review. CT dose reduction technique was used, including Automated Exposure Control. COMPARISON: Head and total spine CT from 08/30/2023 FINDINGS: Head: Interval resolution of the previously seen left cerebral convexity subdural hematoma from 08/30/2023. No new acute intracranial hemorrhage. No new acute intra- or extra-axial fluid collections are identified. There is mild cerebral volume loss with associated ex vacuo ventricular dilatation. The basilar cisterns are patent. No mass effect or midline shift is seen, previously mild odhp-[id number]-[id number] midline shift was seen. The gotti-white matter differentiation is normal. Periventricular white matter hypoattenuation is indicative of chronic small vessel ischemic disease. There is vascular calcification of the carotid siphons. No acute calvarial fracture is identified. The orbits appear normal. There is mild paranasal sinus disease. The mastoid air cells are clear. No soft tissue abnormality is identified. Cervical spine: Redemonstrated mild anterolisthesis of C4 on C5 and C7 on T1. Vertebral bodies are normal in height without evidence of acute fracture. The bones are mildly osteopenic. Other than middle atlantoaxial joint osteoarthritis, the craniocervical junction appears normal. There is mild degenerative disc disease. No high-grade central canal stenosis is seen. There are varying degrees of up to severe facet osteoarthritis. There are varying degrees of mild-moderate uncovertebral joint osteoarthritis with the same degree of neural foraminal stenosis at these levels. There is atherosclerotic calcification of the carotid bifurcations. Calcifications are seen in the bilateral thyroid lobes, incompletely characterized. Thoracic spine: Redemonstrated is S-shaped scoliosis of the thoracic spine. The bones are mildly osteopenic. Vertebral bodies are normal in height without evidence of acute fracture. There is mild-moderate degenerative disc disease. Redemonstrated findings consistent with diffuse idiopathic skeletal hyperostosis. No central canal stenosis is seen. There is mild facet osteoarthritis at multiple levels. There are varying degrees of neural foraminal stenosis at multiple levels. There is atherosclerotic calcification of the thoracic aorta and its branch vessels. Healing fracture of the posterior left third rib. Lumbar spine: Unchanged mild dextroscoliosis and grade 1 anterolisthesis of L4 on L5. Vertebral bodies are normal in height without evidence of acute fracture. The bones are moderately osteopenic. There is moderate-severe degenerative disc disease. Severe central canal stenosis at L4-5, unchanged. There is advanced facet osteoarthritis at multiple levels. There are varying degrees of neural foraminal stenosis at multiple levels. There is atherosclerotic calcification of the abdominal aorta and its branch vessels. There is atrophy of the paraspinal muscles Redemonstrated nonobstructive nephrolithiasis bilaterally. Brain injury guidelines: Skull fracture: No Subdural hematoma: No subdural hematoma. Epidural hematoma: No epidural hematoma. Intraparenchymal hemorrhage: No intraparenchymal hemorrhage. Subarachnoid hemorrhage: No subarachnoid hemorrhage. Intraventricular hemorrhage: No. Midline shift: No. Procedure Note Joe Wood MD - 11/07/2023 PROCEDURE: CT HEAD WO CONTRAST, CT CERVICAL SPINE WO CONTRAST, CTTHORACIC SPINE WO CONTRAST, CT LUMBAR SPINE WO CONTRAST, DATE/TIME OF EXAM: 11/07/2023 12:02 AM, LOCATION [facility] INDICATION: W19.XXXA: Fall, initial encounter EXAMINATION: 1.Computed tomography (CT) of the head without contrast 2.CT of the cervical spine without contrast 3.CT of the thoracic spine without contrast 4.CT of the lumbar spine without contrast ADDITIONAL CLINICAL INFORMATION: Ordering Provider Reason For Exam: Fall (accession [id number]), Fall intoxicated (accession [id number]), Fall (accession [id number]), Fall back pain (accession [id number]) Technologist Note: None. Additional: None. TECHNIQUE: CT of the head and cervical spine was performed withoutcontrast according to standard protocol. Reformatted axial, sagittal, and coronal images of the thoracic and lumbar spine were obtained by thetechnologist from a concurrently performed body CT and sent to the workstation for review. CT dose reduction technique was used, including AutomatedExposure Control. COMPARISON: Head and total spine CT from 08/30/2023 FINDINGS: Head: Interval resolution of the previously seen left cerebral convexitysubdural hematoma from 08/30/2023. No new acute intracranial hemorrhage. No new acute intra- or extra-axial fluid collections are identified.There is mild cerebral volume loss with associated ex vacuo ventricular dilatation. The basilar cisterns are patent. No mass effect or midline shift is seen, previously mild tnys-jr-jzeuc midline shift was seen. The gotti-white matter differentiation is normal. Periventricular whitematter hypoattenuation is indicative of chronic small vessel ischemic disease. There is vascular calcification of the carotid siphons. No acutecalvarial fracture is identified. The orbits appear normal. There is mildparanasal sinus disease. The mastoid air cells are clear. No soft tissueabnormality is identified. Cervical spine: Redemonstrated mild anterolisthesis of C4 on C5 and C7 on T1. Vertebral bodies are normal in height without evidence of acute fracture. Thebones are mildly osteopenic. Other than middle atlantoaxial jointosteoarthritis, the craniocervical junction appears normal. There is mild degenerativedisc disease. No high-grade central canal stenosis is seen. There are varying degrees of up to severe facet osteoarthritis. There are varying degreesof mild-moderate uncovertebral joint osteoarthritis with the same degree of neural foraminal stenosis at these levels. There is atherosclerotic calcification of the carotid bifurcations. Calcifications are seen inthe bilateral thyroid lobes, incompletely characterized. Thoracic spine: Redemonstrated is S-shaped scoliosis of the thoracic spine. The bonesare mildly osteopenic. Vertebral bodies are normal in height withoutevidence of acute fracture. There is mild-moderate degenerative disc disease. Redemonstrated findings consistent with diffuse idiopathic skeletal hyperostosis. No central canal stenosis is seen. There is mild facet osteoarthritis at multiple levels. There are varying degrees of neural foraminal stenosis at multiple levels. There is atherosclerotic calcification of the thoracic aorta and its branch vessels. Healing fracture of the posterior left third rib. Lumbar spine: Unchanged mild dextroscoliosis and grade 1 anterolisthesis of L4 on L5. Vertebral bodies are normal in height without evidence of acutefracture. The bones are moderately osteopenic. There is moderate-severedegenerative disc disease. Severe central canal stenosis at L4-5, unchanged. There is advanced facet osteoarthritis at multiple levels. There are varyingdegrees of neural foraminal stenosis at multiple levels. There isatherosclerotic calcification of the abdominal aorta and its branch vessels. There is atrophy of the paraspinal muscles Redemonstrated nonobstructive nephrolithiasis bilaterally. Brain injury guidelines: Skull fracture: No Subdural hematoma: No subdural hematoma. Epidural hematoma: No epidural hematoma. Intraparenchymal hemorrhage: No intraparenchymal hemorrhage. Subarachnoid hemorrhage: No subarachnoid hemorrhage. Intraventricular hemorrhage: No. Midline shift: No. IMPRESSION: 1.Interval resolution of a left cerebral convexity subdural hematoma. No new hemorrhage identified. 2.No evidence of acute fracture in the cervical, thoracic, or lumbarspine. 3.Multilevel degenerative changes are redemonstrated throughout thespine as detailed above. 4.The separately dictated same day CT chest, abdomen and pelvis contain additional intrathoracic and intra-abdominal findings. Report dictated by Doug Gale MD (radiology technologist). I, Joe Wood MD have personally reviewed and interpretedthis examination/study. > Interpreting Provider: Joe Wood MD on 11/07/2023 7:07 AM Devante Hoang MD CT ORDERABLES * CT Head Wo Contrast (11/07/2023 12:01 AM CDT) Only the most recent of3 resultswithin the time period is included. Anatomical Region Laterality Modality Head Computed Tomogra phy 11/07/2023 2:12 AM CDT Impressions 11/07/2023 7:07 AM CDT IMPRESSION: 1.Interval resolution of a left cerebral convexity subdural hematoma. No new hemorrhage identified. 2.No evidence of acute fracture in the cervical, thoracic, or lumbar spine. 3.Multilevel degenerative changes are redemonstrated throughout the spine as detailed above. 4.The separately dictated same day CT chest, abdomen and pelvis contain additional intrathoracic and intra-abdominal findings. Report dictated by Doug Gale MD (radiology technologist). IJoe MD have personally reviewed and interpreted this examination/study. > Interpreting Provider: Joe Wood MD on 11/07/2023 7:07 AM Narrative 11/07/2023 7:07 AM CDT PROCEDURE: CT HEAD WO CONTRAST, CT CERVICAL SPINE WO CONTRAST, CT THORACIC SPINE WO CONTRAST, CT LUMBAR SPINE WO CONTRAST, DATE/TIME OF EXAM: 11/07/2023 12:02 AM, LOCATION [facility] INDICATION: W19.XXXA: Fall, initial encounter EXAMINATION: 1.Computed tomography (CT) of the head without contrast 2.CT of the cervical spine without contrast 3.CT of the thoracic spine without contrast 4.CT of the lumbar spine without contrast ADDITIONAL CLINICAL INFORMATION: Ordering Provider Reason For Exam: Fall (accession [id number]), Fall intoxicated (accession [id number]), Fall (accession [id number]), Fall back pain (accession [id number]) Technologist Note: None. Additional: None. TECHNIQUE: CT of the head and cervical spine was performed without contrast according to standard protocol. Reformatted axial, sagittal, and coronal images of the thoracic and lumbar spine were obtained by the technologist from a concurrently performed body CT and sent to the workstation for review. CT dose reduction technique was used, including Automated Exposure Control. COMPARISON: Head and total spine CT from 08/30/2023 FINDINGS: Head: Interval resolution of the previously seen left cerebral convexity subdural hematoma from 08/30/2023. No new acute intracranial hemorrhage. No new acute intra- or extra-axial fluid collections are identified. There is mild cerebral volume loss with associated ex vacuo ventricular dilatation. The basilar cisterns are patent. No mass effect or midline shift is seen, previously mild agra-qh-yelgv midline shift was seen. The gotti-white matter differentiation is normal. Periventricular white matter hypoattenuation is indicative of chronic small vessel ischemic disease. There is vascular calcification of the carotid siphons. No acute calvarial fracture is identified. The orbits appear normal. There is mild paranasal sinus disease. The mastoid air cells are clear. No soft tissue abnormality is identified. Cervical spine: Redemonstrated mild anterolisthesis of C4 on C5 and C7 on T1. Vertebral bodies are normal in height without evidence of acute fracture. The bones are mildly osteopenic. Other than middle atlantoaxial joint osteoarthritis, the craniocervical junction appears normal. There is mild degenerative disc disease. No high-grade central canal stenosis is seen. There are varying degrees of up to severe facet osteoarthritis. There are varying degrees of mild-moderate uncovertebral joint osteoarthritis with the same degree of neural foraminal stenosis at these levels. There is atherosclerotic calcification of the carotid bifurcations. Calcifications are seen in the bilateral thyroid lobes, incompletely characterized. Thoracic spine: Redemonstrated is S-shaped scoliosis of the thoracic spine. The bones are mildly osteopenic. Vertebral bodies are normal in height without evidence of acute fracture. There is mild-moderate degenerative disc disease. Redemonstrated findings consistent with diffuse idiopathic skeletal hyperostosis. No central canal stenosis is seen. There is mild facet osteoarthritis at multiple levels. There are varying degrees of neural foraminal stenosis at multiple levels. There is atherosclerotic calcification of the thoracic aorta and its branch vessels. Healing fracture of the posterior left third rib. Lumbar spine: Unchanged mild dextroscoliosis and grade 1 anterolisthesis of L4 on L5. Vertebral bodies are normal in height without evidence of acute fracture. The bones are moderately osteopenic. There is moderate-severe degenerative disc disease. Severe central canal stenosis at L4-5, unchanged. There is advanced facet osteoarthritis at multiple levels. There are varying degrees of neural foraminal stenosis at multiple levels. There is atherosclerotic calcification of the abdominal aorta and its branch vessels. There is atrophy of the paraspinal muscles Redemonstrated nonobstructive nephrolithiasis bilaterally. Brain injury guidelines: Skull fracture: No Subdural hematoma: No subdural hematoma. Epidural hematoma: No epidural hematoma. Intraparenchymal hemorrhage: No intraparenchymal hemorrhage. Subarachnoid hemorrhage: No subarachnoid hemorrhage. Intraventricular hemorrhage: No. Midline shift: No. Procedure Note Joe Wood MD - 11/07/2023 PROCEDURE: CT HEAD WO CONTRAST, CT CERVICAL SPINE WO CONTRAST, CTTHORACIC SPINE WO CONTRAST, CT LUMBAR SPINE WO CONTRAST, DATE/TIME OF EXAM: 11/07/2023 12:02 AM, LOCATION [facility] INDICATION: [id number].XXXA: Fall, initial encounter EXAMINATION: 1.Computed tomography (CT) of the head without contrast 2.CT of the cervical spine without contrast 3.CT of the thoracic spine without contrast 4.CT of the lumbar spine without contrast ADDITIONAL CLINICAL INFORMATION: Ordering Provider Reason For Exam: Fall (accession [id number]), Fall intoxicated (accession [id number]), Fall (accession [id number]), Fall back pain (accession [id number]) Technologist Note: None. Additional: None. TECHNIQUE: CT of the head and cervical spine was performed withoutcontrast according to standard protocol. Reformatted axial, sagittal, and coronal images of the thoracic and lumbar spine were obtained by thetechnologist from a concurrently performed body CT and sent to the workstation for review. CT dose reduction technique was used, including AutomatedExposure Control. COMPARISON: Head and total spine CT from 08/30/2023 FINDINGS: Head: Interval resolution of the previously seen left cerebral convexitysubdural hematoma from 08/30/2023. No new acute intracranial hemorrhage. No new acute intra- or extra-axial fluid collections are identified.There is mild cerebral volume loss with associated ex vacuo ventricular dilatation. The basilar cisterns are patent. No mass effect or midline shift is seen, previously mild [id number] midline shift was seen. The gotti-white matter differentiation is normal. Periventricular whitematter hypoattenuation is indicative of chronic small vessel ischemic disease. There is vascular calcification of the carotid siphons. No acutecalvarial fracture is identified. The orbits appear normal. There is mildparanasal sinus disease. The mastoid air cells are clear. No soft tissueabnormality is identified. Cervical spine: Redemonstrated mild anterolisthesis of C4 on C5 and C7 on T1. Vertebral bodies are normal in height without evidence of acute fracture. Thebones are mildly osteopenic. Other than middle atlantoaxial jointosteoarthritis, the craniocervical junction appears normal. There is mild degenerativedisc disease. No high-grade central canal stenosis is seen. There are varying degrees of up to severe facet osteoarthritis. There are varying degreesof mild-moderate uncovertebral joint osteoarthritis with the same degree of neural foraminal stenosis at these levels. There is atherosclerotic calcification of the carotid bifurcations. Calcifications are seen inthe bilateral thyroid lobes, incompletely characterized. Thoracic spine: Redemonstrated is S-shaped scoliosis of the thoracic spine. The bonesare mildly osteopenic. Vertebral bodies are normal in height withoutevidence of acute fracture. There is mild-moderate degenerative disc disease. Redemonstrated findings consistent with diffuse idiopathic skeletal hyperostosis. No central canal stenosis is seen. There is mild facet osteoarthritis at multiple levels. There are varying degrees of neural foraminal stenosis at multiple levels. There is atherosclerotic calcification of the thoracic aorta and its branch vessels. Healing fracture of the posterior left third rib. Lumbar spine: Unchanged mild dextroscoliosis and grade 1 anterolisthesis of L4 on L5. Vertebral bodies are normal in height without evidence of acutefracture. The bones are moderately osteopenic. There is moderate-severedegenerative disc disease. Severe central canal stenosis at L4-5, unchanged. There is advanced facet osteoarthritis at multiple levels. There are varyingdegrees of neural foraminal stenosis at multiple levels. There isatherosclerotic calcification of the abdominal aorta and its branch vessels. There is atrophy of the paraspinal muscles Redemonstrated nonobstructive nephrolithiasis bilaterally. Brain injury guidelines: Skull fracture: No Subdural hematoma: No subdural hematoma. Epidural hematoma: No epidural hematoma. Intraparenchymal hemorrhage: No intraparenchymal hemorrhage. Subarachnoid hemorrhage: No subarachnoid hemorrhage. Intraventricular hemorrhage: No. Midline shift: No. IMPRESSION: 1.Interval resolution of a left cerebral convexity subdural hematoma. No new hemorrhage identified. 2.No evidence of acute fracture in the cervical, thoracic, or lumbarspine. 3.Multilevel degenerative changes are redemonstrated throughout thespine as detailed above. 4.The separately dictated same day CT chest, abdomen and pelvis contain additional intrathoracic and intra-abdominal findings. Report dictated by Doug Gale MD (radiology technologist). IJoe MD have personally reviewed and interpretedthis examination/study. > Interpreting Provider: Joe Wood MD on 11/07/2023 7:07 AM Devante Hoang MD CT ORDERABLES * EKG 12-LEAD (11/06/2023 10:54 PM CDT) Ventricular Rate 90 BPM [facility] Atrial Rate 90 BPM [facility] P-R Interval 136 ms [facility] QRS Duration ms 80 ms [facility] Q-T Interval ms 366 ms [facility] QTC Calculation (Bezet) 447 ms [facility] Calculated P [place] 63 degrees [facility] Calculated R [place] 23 degrees [facility] Calculated T [place] -4 degrees [facility] Interpretation EKG NORMAL SINUS RHYTHM ST & T WAVE ABNORMALITY, CONSIDER ANTERIOR ISCHEMIA ABNORMAL ECG NO PREVIOUS ECGS AVAILABLE Confirmed by LOUISA HAYWARD MD ([id number]) on 11/13/2023 11:33:28 PM [facility]USE 11/06/2023 10:5 4 PM CDT 11/13/2023 11:33 PM CDT Devante Hoang MD ECG ORDERABLES [facility] MUSE * XR HIP 2+ VW RIGHT (11/06/2023 10:28 PM CDT) Anatomical Region Laterality Modality Pelvis, Lower Extremity Radiogra phic Imaging 11/06/2023 11:3 7 PM CDT Narrative 11/07/2023 12:27 PM CDT EXAMINATION: XR HIP RIGHT 2VW OR MORE DATE/TIME OF EXAM: 11/06/2023 10:29 PM, LOCATION [facility] HISTORY: W19.XXXA: Fall, initial encounter Right hip pain COMPARISON: Same day CT chest, abdomen and pelvis FINDINGS/IMPRESSION: A minimally displaced fracture of the right pubic body and superior ramus is poorly visualized on this study, best seen on the concurrent CT chest, abdomen and pelvis. The hip joint space is preserved. Bone density and texture are normal. Report dictated by Doug Gale MD (radiology technologist). IDesiree MD have personally reviewed and interpreted this examination/study. > Interpreting Provider: Desiree Adams MD on 11/07/2023 12:27 PM Procedure Note Desiree Adams MD - 11/07/2023 EXAMINATION: XR HIP RIGHT 2VW OR MORE DATE/TIME OF EXAM: 11/06/2023 10:29 PM, LOCATION [facility] HISTORY: [id number].XXXA: Fall, initial encounter Right hip pain COMPARISON: Same day CT chest, abdomen and pelvis FINDINGS/IMPRESSION: A minimally displaced fracture of the right pubic body and superiorramus is poorly visualized on this study, best seen on the concurrent CTchest, abdomen and pelvis. The hip joint space is preserved. Bone density and texture are normal. Report dictated by Doug Gale MD (radiology technologist). Desiree Sneed MD have personally reviewed and interpreted this examination/study. > Interpreting Provider: Desiree Adams MD on 11/07/2023 12:27 PM Devante Hoang MD DIAGNOSTIC IMAGING O RDERABLES * XR PELVIS 1 OR 2 VW (11/06/2023 10:20 PM CDT) Only the most recent of2 resultswithin the time period is included. Anatomical Region Laterality Modality Pelvis Radiographic Anabel ging 11/06/2023 11:3 4 PM CDT Impressions 11/07/2023 12:24 PM CDT IMPRESSION: Known fracture of the right pubic body and right superior pubic ramus are not well seen. Report dictated by Doug Gale MD (radiology technologist). Desiree Sneed MD have personally reviewed and interpreted this examination/study. > Interpreting Provider: Desiree Adams MD on 11/07/2023 12:24 PM Narrative 11/07/2023 12:24 PM CDT EXAMINATION: XR PELVIS 1 OR 2VW DATE/TIME OF EXAM: 11/06/2023 10:28 PM, LOCATION [facility] HISTORY: [id number].XXXA: Fall, initial encounter Right hip pain COMPARISON: Pelvis x-ray 08/30/2023, same day CT chest, abdomen and pelvis FINDINGS/IMPRESSION: A minimally displaced fracture of the right pubic body and superior ramus is poorly visualized on this study, best seen on the concurrent CT chest, abdomen and pelvis. Bilateral femoral heads are well-seated in respective acetabular fossas.Redemonstrated mild degenerative changes of the hips and the lower lumbosacral spine. There is no pubic symphysis diastasis. The osseous architecture and density are normal. The sacroiliac joints are not widened. Procedure Note Desiree Adams MD - 11/07/2023 EXAMINATION: XR PELVIS 1 OR 2VW DATE/TIME OF EXAM: 11/06/2023 10:28 PM, LOCATION [facility] HISTORY: [id number].XXXA: Fall, initial encounter Right hip pain COMPARISON: Pelvis x-ray 08/30/2023, same day CT chest, abdomen and pelvis FINDINGS/IMPRESSION: A minimally displaced fracture of the right pubic body and superiorramus is poorly visualized on this study, best seen on the concurrent CTchest, abdomen and pelvis. Bilateral femoral heads are well-seated inrespective acetabular fossas.Redemonstrated mild degenerative changes of the hipsand the lower lumbosacral spine. There is no pubic symphysis diastasis. The osseous architecture and density are normal. The sacroiliac joints arenot widened. IMPRESSION: Known fracture of the right pubic body and right superior pubic ramusare not well seen. Report dictated by Doug Gale MD (radiology technologist). I, Desiree Adams MD have personally reviewed and interpreted this examination/study. > Interpreting Provider: Desiree Adams MD on 11/07/2023 12:24 PM Devante Hoang MD DIAGNOSTIC IMAGING O RDERABLES * TROPONIN-I HIGH SENSITIVE (11/06/2023 10:13 PM CDT) Troponin I High Sensitive <3 <=14 ng/L 11/06/2023 10:55 PM CDT [facility] Blood BLOOD SPECIMEN / Unknown Venipuncture / Unknown 11/06/2023 10:13 PM CDT 11/06/2023 10:18 PM CDT Devante Hoang MD LAB - CHEMISTRY CHERYL ARGUELLO [facility] [address] [place] [address], [facility] [phone] * PTT [facility] (11/06/2023 10:13 PM CDT) Only the most recent of2 resultswithin the time period is included. APTT 25.2 23.0 - 38.4 Seconds 11/06/2023 10:37 PM CDT [facility] Comment:Suggested therapeuti c range for full dose I.V. unfractionated heparin therapy for venous thromboembolism is 71 to 109 seconds. Blood BLOOD SPECIMEN / Unknown Venipuncture / Unknown 11/06/2023 10:13 PM CDT 11/06/2023 10:16 PM CDT Devante Hoang MD LAB - COAGULATION OR DERABLES Performing Organization Address [facility] Co de Phone Number [address] [address], [facility] [phone] * (ABNORMAL) PT-INR [facility] (11/06/2023 10:13 PM CDT) Only the most recent of2 resultswithin the time period is included. PT 12.0(L) 12.1 - 14.8 Seconds 11/06/2023 10:37 PM CDT [facility] INR 0.9 See Comment 11/06/2023 10:37 PM CDT [facility] Comment:The suggested therap eutic range for standard coumadin (warfarin) therapy is an INR of 2.0-3.0. For high-risk patients (Mechanical Mitral Valve Prosthesis, etc.), the suggested prophylactic therapeutic range is an INR of 2.5-3.5. Blood BLOOD SPECIMEN / Unknown Venipuncture / Unknown 11/06/2023 10:13 PM CDT 11/06/2023 10:16 PM CDT Devante Hoang MD LAB - COAGULATION OR DERABLES Performing Organization Address [facility] Co de Phone Number [address] [address], [place] [phone] * (ABNORMAL) ALCOHOL ETHYL BLOOD (11/06/2023 10:13 PM CDT) Only the most recent of3 resultswithin the time period is included. Ethanol (mg/dL) 180(H) <10 mg/dL 10:51 PM CDT [facility] Ethanol Calculated (g/dL) 0.180(H) <=0.010 g/dL 11/06/2023 10:51 PM CDT [facility] Blood BLOOD SPECIMEN / Unknown Venipuncture / Unknown 11/06/2023 10:13 PM CDT 11/06/2023 10:18 PM CDT Narrative [facility] - 11/06/2023 10:51 PM CDT Ethanol Interp <10: None Detected. Depression of ASSOCIATE MEDIA DIRECTOR: >100 mg/dl Potentially Critical: >250 mg/dl Potentially Fatal >400 mg/dl Ethanol in the patient's blood will contribute to the osmolar gap. Ethanol's contribution to the osmolar gap can be estimated by dividing the concentration of ethanol in mg/dL by 4.6. This test is for clinical use only and does not equal a CHRISTINE for legal purposes. Devante Hoang MD LAB - CHEMISTRY CHERYL ARGUELLO [facility] Organization Address City/State/ZIP Co de Phone Number [address] [address], [facility] [phone] * XR CHEST 1VW PORTABLE (11/06/2023 10:12 PM CDT) Only the most recent of5 resultswithin the time period is included. Anatomical Region Laterality Modality Chest Radiographic Anabel ging 11/06/2023 11:2 9 PM CDT Narrative 11/07/2023 12:17 PM CDT PROCEDURE: XR CHEST 1VW PORTABLE, DATE/TIME OF EXAM: 11/06/2023 10:28 PM, LOCATION [facility] INDICATION: W19.XXXA: Fall, initial encounter ADDITIONAL CLINICAL INFORMATION: Ordering Provider Reason For Exam: Trauma Comparison: Chest x-ray 09/02/2023 FINDINGS/IMPRESSION: Interval removal of a right IJ approach central venous catheter. Interval resolution of bilateral lower lung field hazy opacities. There is no focal consolidation, pleural effusion, or pneumothorax. The cardiomediastinal silhouette is normal for portable technique. Redemonstration of left rib fractures which were acute on CT done 08/30/2023. Bilateral breast prosthesis redemonstrated. Report dictated by Doug Gale MD (radiology technologist). Desiree Sneed MD have personally reviewed and interpreted this examination/study. > Interpreting Provider: Desiree Adams MD on 11/07/2023 12:17 PM Procedure Note Desiree Adams MD - 11/07/2023 PROCEDURE: XR CHEST 1VW PORTABLE, DATE/TIME OF EXAM: 11/06/2023 10:28PM, LOCATION [facility] INDICATION: [id number].XXXA: Fall, initial encounter ADDITIONAL CLINICAL INFORMATION: Ordering Provider Reason For Exam: Trauma Comparison: Chest x-ray 09/02/2023 FINDINGS/IMPRESSION: Interval removal of a right IJ approach central venous catheter. Interval resolution of bilateral lower lung field hazy opacities. Thereis no focal consolidation, pleural effusion, or pneumothorax. The cardiomediastinal silhouette is normal for portable technique. Redemonstration of left rib fractures which were acute on CT done08/30/2023. Bilateral breast prosthesis redemonstrated. Report dictated by Doug Gale MD (radiology technologist). Desiree Sneed MD have personally reviewed and interpreted this examination/study. > Interpreting Provider: Desiree Adams MD on 11/07/2023 12:17 PM Devante Hoang MD DIAGNOSTIC IMAGING O RDERABLES * (ABNORMAL) CALCIUM IONIZED WHOLE BLOOD (09/03/2023 5:30 AM CDT) Only the most recent of3 resultswithin the time period is included. Calcium Ionized 1.19 mmol/L 09/03/2023 5:42 AM [facility] pH 7.36 7.35 - 7.45 pH 09/03/2023 5:42 AM [facility] Ionized Calcium pH Adjusted 1.17(L) 1.19 - 1.34 mmol/L 09/03/2023 5:42 AM [facility] Blood BLOOD SPECIMEN / Unknown Lab Venipuncture / Unknown 09/03/2023 5:30 AM CDT 09/03/2023 5:38 AM CDT Bairon Villa MD LAB - CHEMISTRY CHERYL ARGUELLO Performing Organization Address City/[facility]/ZIP Co de Phone Number [facility] [address] [place] [phone], [facility] [phone] * (ABNORMAL) HEPATIC FUNCTION PANEL (09/03/2023 5:30 AM CDT) Only the most recent of2 resultswithin the time period is included. Protein Total 5.0(L) 6.0 - 8.3 g/dL 024 6:13 AM [facility] Albumin 2.1(L) 3.4 - 5.0 g/dL 09/03/2023 6:13 AM [facility] Bilirubin Total 0.7 0.2 - 1.2 mg/dL 08/21 6:13 AM [facility] Bilirubin Conjugated 0.5 0.1 - 0.5 mg/dL 09/03/2023 6:13 AM [facility] Bilirubin Unconjugated 0.2 Unconjugated Bilirubin is a calculated value: Reference ranges have not been established. mg/dL 09/03/2023 6:13 AM [facility] Alkaline Phosphatase 99 40 - 150 U/L 09/03/2023 6:13 AM [facility] ALT 25 5 - 55 U/L 09/03/2023 6:13 AM [facility] AST 40(H) 5 - 34 U/L 09/03/2023 6:13 AM [facility] Albumin/Globulin Ratio 0.7(L) 1.1 - 2.3 09/03/2023 6:13 AM [facility] Blood BLOOD SPECIMEN / Unknown Lab Venipuncture / Unknown 09/03/2023 5:30 AM CDT 09/03/2023 5:42 AM CDT Bairon Villa MD LAB - CHEMISTRY CHERYL ARGUELLO [facility] [address] [place] [address], [facility] [phone] * TSH REFLEX FREE T4 (09/02/2023 3:17 AM CDT) Only the most recent of2 resultswithin the time period is included. Pathologist [facility] TSH 0.646 0.350 - 4.940 uIU/mL 09/02/2023 4:11 AM CDT [facility] Blood BLOOD SPECIMEN / Unknown Venipuncture / Unknown 09/02/2023 3:17 AM CDT 09/02/2023 3:25 AM CDT Krupa Callejas MD LAB - CHEMISTRY ORDERABLES [address] [address], [facility] [phone] * CORTISOL BLOOD AM (09/02/2023 3:17 AM CDT) [facility] Cortisol AM 15.4 3.7 - 19.4 ug/dL 09/02/2023 4:11 AM CDT [facility] Blood BLOOD SPECIMEN / Unknown Venipuncture / Unknown 09/02/2023 3:17 AM CDT 09/02/2023 3:25 AM CDT Narrative [facility] - 09/02/2023 4:11 AM CDT Normal cortisol levels are generally highest in the morning hours and lowest from late evening through the mask designer hours (8 PM to 4 AM). The PM measurements of cortisol run approximately one-half to one-third of the AM values. Krupa Callejas MD LAB - CHEMISTRY ORDERABLES [address] [address], [facility] [phone] * (ABNORMAL) URINALYSIS REFLEX TO MICROSCOPIC NO CULTURE (09/02/2023 2:47 AM CDT) Only the most recent of2 resultswithin the time period is included. Pathologist [facility] Color UA Yellow Straw, Yellow 09/02/2023 3:04 AM [facility] Clarity UA Clear Clear 09/02/2023 3:04 AM [facility] Specific [place] UA 1.018 1.005 - 1.030 09/02/2023 3:04 AM [facility] pH UA 5.0 5.0 - 8.0 pH 09/02/2023 3:04 AM [facility] Protein UA Negative Negative 09/02/2023 3:04 AM [facility] Glucose UA Negative Negative 09/02/2023 3:04 AM [facility] Ketone UA Negative Negative 09/02/2023 3:04 AM [facility] Bilirubin UA Negative Negative 09/02/2023 3:04 AM [facility] Blood UA 2+(A) Negative 09/02/2023 3:04 AM [facility] Nitrite UA Negative Negative 09/02/2023 3:04 AM [facility] Leukocyte Esterase 1+(A) Negative 09/02/2023 3:04 AM [facility] Urobilinogen UA Negative Negative mg/dL 09/02/2023 3:04 AM [facility] RBC UA 11-20(A) None Seen, 0-2, 3-5 /HPF 09/02/2023 3:04 AM [facility] WBC UA 11-20(A) None Seen, 0-5 /HPF 09/02/2023 3:04 AM [facility] Squamous Epithelial Cells UA None Seen None Seen, 0-2, 3-5 /HPF 09/02/2023 3:04 AM [facility] Urine URINE SPECIMEN OBTAINED VIA INDWELLING URINARY CATHETER / Unknown Collection / Unknown 09/02/2023 2:47 AM CDT 09/02/2023 2:49 AM [facility] - 09/02/2023 3:04 AM [facility] Josh Ocampo MAINTENANCE SHOP LABORER-CARPET YARN WINDER OPERATOR LAB - URINA LYSIS ORDERABLES [facility] [address] [place] [phone], [facility] [phone] * OSMOLALITY URINE (09/01/2023 3:25 PM CDT) Osmolality Urine 459 50 - 1,200 mOsm/kg 09/01/2023 4:08 PM CDT [facility] Urine URINE SPECIMEN OBTAINED BY CLEAN CATCH PROCEDURE / Unknown Collection / Unknown 09/01/2023 3:25 PM CDT 09/01/2023 3:49 PM CDT Bairon Villa MD LAB - URINE CHEMISTR Y ORDERABLES [address] [address], [place] [phone] * LYTES (NA K CL) URINE RANDOM PANEL (09/01/2023 3:25 PM CDT) Sodium Urine 51 Not Established mmol/L 09/01/2023 3:55 PM CDT [facility] Potassium Urine 69.5 Not Established mmol/L 09/01/2023 3:55 PM CDT [facility] Chloride Random Urine 40 Not Established mmol/L 09/01/2023 3:55 PM CDT [facility] Urine URINE SPECIMEN OBTAINED BY CLEAN CATCH PROCEDURE / Unknown Collection / Unknown 09/01/2023 3:25 PM CDT 09/01/2023 3:49 PM CDT Bairon Villa MD LAB - URINE CHEMISTR Y ORDERABLES [address] [address], [place] [phone] * CREATININE URINE RANDOM (09/01/2023 3:25 PM CDT) Creatinine Urine 59.19 Not Established mg/dL 09/01/2023 4:02 PM CDT [facility] Urine URINE SPECIMEN OBTAINED BY CLEAN CATCH PROCEDURE / Unknown Collection / Unknown 09/01/2023 3:25 PM CDT 09/01/2023 3:49 PM CDT Bairon Villa MD LAB - URINE CHEMISTR Y ORDERABLES [facility] [address] [place] [phone], [facility] [phone] * (ABNORMAL) GASTROINTESTINAL PATHOGEN PANEL BY PCR (09/01/2023 10:40 AM CDT) Campylobacter Not detected Not detected 09/01/2023 5:26 PM CDT [facility] Plesiomonas shigelloides Not detected Not detected 09/01/2023 5:26 PM CDT [facility] Salmonella Not detected Not detected 09/01/2023 5:26 PM CDT [facility] Vibrio Not detected Not detected 09/01/2023 5:26 PM CDT [facility] Vibrio cholerae Not detected Not detected 09/01/2023 5:26 PM CDT [facility] Yersinia enterocolitica Not detected Not detected 09/01/2023 5:26 PM CDT [facility] Enteroaggregative E coli (EAEC) Not detected Not detected 09/01/2023 5:26 PM CDT [facility] Enteropathogenic E coli (EPEC) Detected(A ) Not detected, N/A 09/01/2023 5:26 PM CDT [facility] Enterotoxigenic E coli (ETEC) LT/ST Not detected Not detected 09/01/2023 5:26 PM CDT [facility] Shiga-Like Toxin-Producing E coli (STEC) stx1/stx2 Not detected Not detected 09/01/2023 5:26 PM CDT [facility] E coli 0157 N/A Not detected, N/A 09/01/2023 5:26 PM CDT [facility] Shigella/Enteroinvas zion E coli Not detected Not detected 09/01/2023 5:26 PM CDT [facility] Cryptosporidium Not detected Not detected 09/01/2023 5:26 PM CDT [facility] Cyclospora cayetanensis Not detected Not detected 09/01/2023 5:26 PM CDT [facility] Entamoeba histolytica Not detected Not detected 09/01/2023 5:26 PM CDT [facility] Giardia lamblia Not detected Not detected 09/01/2023 5:26 PM CDT [facility] Adenovirus F 40/41 Not detected Not detected 09/01/2023 5:26 PM CDT [facility] Astrovirus Not detected Not detected 09/01/2023 5:26 PM CDT [facility] Norovirus GI/GII Not detected Not detected 09/01/2023 5:26 PM CDT [facility] Rotavirus A Not detected Not detected 09/01/2023 5:26 PM CDT [facility] Sapovirus Not detected Not detected 09/01/2023 5:26 PM CDT [facility] Stool STOOL SPECIMEN / Unknown Collection / Unknown 09/01/2023 10:40 AM CDT 09/01/2023 10:54 AM CDT Narrative [facility] - 09/01/2023 5:26 PM CDT Test performed by Proxible RT-PCR. Bairon Villa MD LAB - MICROBIOLOGY [place] Performing Organization Address [facility] Co de Phone Number [facility] [address] [place] [address], [facility] [phone] * (ABNORMAL) C DIFFICILE GDH AG + TOXIN A+B (09/01/2023 10:40 AM CDT) Pathologist [facility] C difficile GDH antigen & toxin A/B POSITIVE( A) NEGATIVE 09/02/2023 12:08 AM CDT [facility] Stool STOOL SPECIMEN / Unknown Collection / Unknown 09/01/2023 10:40 AM CDT 09/01/2023 10:54 AM CDT Narrative [facility] - 09/02/2023 12:08 AM CDT Positive for toxigenic C. difficile Bairon Villa MD LAB - MICROBIOLOGY O [place] Performing Organization Address [facility] Co de Phone Number [facility] [address] [place] [address], [facility] [phone] * ECHO COMPLETE W CONTRAST (09/01/2023 8:45 AM CDT) LA vol index 0.021 l/m SSM CV FUJI PACS IVSd 2D 0.995 cm SSM CV FUJ I PACS IVSd 2D 0.995 cm SSM CV FUJ I PACS LVIDd 4.599 cm SSM CV FUJ I PACS LVIDd 4.599 cm SSM CV FUJ I PACS LVIDs 3.25 cm SSM CV FUJ I PACS LVIDs 3.25 cm SSM CV FUJ I PACS LVOT diam 2.205 cm SSM CV FUJ I PACS LVOT diam 2.205 cm SSM CV FUJ I PACS LVPWd 0.995 cm SSM CV FUJ I PACS LVPWd 0.995 cm SSM CV [facility] I PACS LV biplane EF 56.911 % [facility] LV biplane EF 56.911 % [facility] LV biplane EF 56.911 % [facility] LV A2C EF 64.272 % SSM CV [facility] I PACS LV A2C EF 64.272 % SSM CV [facility] I PACS LV A2C EF 64.272 % SSM CV [facility] I PACS LV A4C EF 52.785 % SSM CV [facility] I PACS LV A4C EF 52.785 % SSM CV [facility] I PACS LV A4C EF 52.785 % SSM CV [facility] I PACS LV EDV A2C 88.908 ml SSM CV FU JI PACS LV EDV A2C 88.908 ml SSM CV FU JI PACS LV EDV A4C 83.549 ml SSM CV FU JI PACS LV EDV A4C 83.549 ml SSM CV FU JI PACS LV ESV A2C 31.765 ml SSM CV FU JI PACS LV ESV A2C 31.765 ml SSM CV FU JI PACS LV ESV A4C 39.448 ml SSM CV FU JI PACS LV ESV A4C 39.448 ml SSM CV FU JI PACS LVOT pk rhett 87.932 cm/s SSM CV F UJI PACS LVOT pk rhett 87.932 cm/s SSM CV F UJI PACS LVOT VTI 17.247 cm SSM CV FUJ I PACS LVOT VTI 17.247 cm SSM CV [facility] I PACS RVIDd 3.649 cm SSM CV FUJ I PACS RVIDd 3.649 cm SSM CV FUJ I PACS RVOT pk rhett 47.706 cm/s SSM CV F UJI PACS RVOT pk rhett 47.706 cm/s SSM CV F UJI PACS RVOT VTI 10.632 cm SSM CV FUJ I PACS RVOT VTI 10.632 cm SSM CV FUJ I PACS LA size 2.974 cm SSM CV FUJ I PACS LA size 2.974 cm SSM CV FUJ I PACS LA vol BP 36.092 ml SSM CV FUJ I PACS LA vol BP 36.092 ml SSM CV [facility] I PACS RA area 11.766 cm SSM CV FUJI PACS RA area 11.766 cm SSM CV FUJI PACS AV mn grad 2.886 mmHg SSM CV FU JI PACS AV mn grad 2.886 mmHg SSM CV FU PACS AV pk rhett 108.742 cm/s SSM CV [facility] I PACS AV pk rhett 108.742 cm/s SSM CV [facility] I PACS AV VTI 21.133 cm SSM CV [facility] I PACS AV VTI 21.133 cm SSM CV [facility] I PACS MV A pk rhett 73.209 cm/s SSM CV F UJI PACS MV A pk rhett 73.209 cm/s SSM CV F UJI PACS MV decel slope 442.892 cm/s2 SSM C [facility] MV decel slope 442.892 cm/s2 SSM C [facility] MV E pk rhett 57.762 cm/s SSM CV F UJI PACS MV E pk rhett 57.762 cm/s SSM CV F UJI PACS MV E' lateral rhett 8.194 cm/s SSM CV FUJI PACS MV E' lateral rhett 8.194 cm/s SSM CV FUJI PACS MV mn grad 0.913 mmHg SSM CV FU JI PACS MV mn grad 0.913 mmHg SSM CV FU JI PACS MV VTI 19.182 cm SSM CV FUJ I PACS MV VTI 19.182 cm SSM CV FUJ I PACS PV pk rhett 47.829 cm/s SSM CV FUJ I PACS PV pk rhett 47.829 cm/s SSM CV FUJ I PACS PV VTI 9.475 cm SSM CV FUJ I PACS PV VTI 9.475 cm SSM CV FUJ I PACS TAPSE 2.103 cm SSM CV FUJ I PACS TAPSE 2.103 cm SSM CV FUJ I PACS TR pk rhett 198.779 cm/s SSM CV FUJ I PACS TR pk rhett 198.779 cm/s SSM CV FUJ I PACS IVC Diam Expiration 2.381 cm SSM CV FUJI PACS IVC Diam Expiration 2.381 cm SSM CV FUJI PACS Anatomical Region Laterality Modality Ultrasound 09/01/2023 7:10 AM CDT Narrative 09/01/2023 11:19 AM CDT Summary * There is mild concentric hypertrophy of the left ventricle. * The left ventricle is normal in size. * Left ventricular segmental wall motion is normal. * Left ventricular systolic function is normal with an estimated ejection fraction of 57% by biplane method of disks. * The left ventricular diastolic function is normal. * Right ventricle is normal in size with normal systolic function. * The pulmonary artery systolic pressure is normal, 31 mmHg. * Mild calcification of the mitral valve. Patient Info Name: Bharati Varma Age: 68 years : 1955 Gender: Female Ht: 67 in Wt: 132 lb BSA: 1.68 m2 HR: 77 bpm BP: 108 / 64 mmHg Heart Rhythm: Sinus Rhythm Exam Date: 09/01/2023 7:10 AM Patient Status: I/P Study Site: [facility] Primary Location: [facility] EStudy Info Technical Quality: Fair Exam Type: ECHO COMPLETE W CONTRAST Indications W19.XXXA - Fall, initial encounter Procedure(s) * Complete 2D, color Doppler, spectral Doppler and M-Mode transthoracic echocardiogram is performed with an Ultrasound Enhancing Agent (UEA). Contrast/Agitated Saline Contrast / Saline: Lumason Amount: 2.00 ml Administered By: Trang Guzman [facility] Reaction to Contrast: no Reason for Technically Difficult Study: lung interference, restricted mobility, positional limitations Staff Referring Physician: Bairon Villa Ordering Provider: Bairon Villa Attending Physician: Bairon Villa Senior Security Engineer: Trang Guzman [facility] Left Ventricle The left ventricle is normal in size. Left ventricular systolic function is normal with an estimated ejection fraction of 57% by biplane method of disks. There is mild concentric hypertrophy of the left ventricle. Left ventricular segmental wall motion is normal. The left ventricular diastolic function is normal. Right Ventricle The right ventricle is normal in size. Right ventricular systolic function is normal. Left Atrium The left atrium is normal in size with a left atrial volume index of 21 ml/m2 by BP MOD. Right Atrium The right atrium is normal in size. Atrial Septum Intact interatrial septum visualized by 2D and color Doppler imaging. Aortic Valve The aortic valve is trileaflet. There is no aortic valve stenosis. There is no aortic valve regurgitation. Pulmonic Valve The pulmonic valve is normal. There is no pulmonic valve stenosis. There is no pulmonic regurgitation. Mitral Valve Mild calcification of the mitral valve. The mitral valve is calcified. There is no mitral valve stenosis. There is mild mitral valve regurgitation. Tricuspid Valve The pulmonary artery systolic pressure is normal, 31 mmHg. There is trace tricuspid valve regurgitation. The tricuspid valve is normal. Inferior Vena Cava The inferior vena cava is dilated (> 2.1 cm). There is < 50% collapse of the IVC upon inspiration with an estimated right atrial pressure of 15 mmHg. Pericardium/Pleural There is no pericardial effusion. Aorta The aortic root at the sinus of Valsalva is normal in size. The ascending aorta is normal in size. Measurements Left Ventricular Outflow Tract Name Value Normal LVOT 2D LVOT Diameter 2.2 cm LVOT Area 3.8 cm2 LVOT Doppler LVOT Peak Velocity 0.9 m/s LVOT Peak Gradient 3 mmHg LVOT Mean Velocity 67.14 cm/s LVOT Mean Gradient 2 mmHg LVOT VTI 17.2 cm LVOT VTI/AV VTI Ratio 0.8 LVOT Stroke Volume 66 ml LVOT Stroke Volume Index 39 ml/m2 35-58 LVOT CO 5.1 l/min LVOT CI 3.0 l/min/m2 Pulmonic Valve Name Value Normal RVOT Doppler RVOT Peak Velocity 0.5 m/s RVOT Peak Gradient 1 mmHg RVOT Mean Gradient 0 mmHg PV Doppler PV Peak Velocity 0.5 m/s PV Peak Gradient 1 mmHg PV Mean Gradient 1 mmHg Mitral Valve Name Value Normal MV Doppler MV Peak Gradient 2 mmHg MV Mean Gradient 1 mmHg MV DI (VTI) 1.11 MV PHT 85 ms MV Area (PHT) 2.58 cm2 4.00-5.00 MV Area (Cont Eq VTI) 3.43 cm2 MV Diastolic Function MV E Peak Velocity 0.6 m/sec MV A Peak Velocity 0.7 m/sec MV E/A 0.8 MV Decel Time (PW) 130 ms MV A Wave Duration 88 ms MV Annular TDI MV Septal e' Velocity 6 cm/s >=8 MV E/e' (Septal) 10 <=8 MV Lateral e' Velocity 8 cm/s >=10 MV E/e' (Lateral) 7 <=8 MV e' Average 7 cm/s MV E/e' (Average) 9 Tricuspid Valve Name Value Normal TV Doppler TV PHT 52 ms TV Area (PHT) 4.23 cm2 TV Regurgitation Doppler TR Peak Velocity 2.0 m/s TR Peak Gradient 16 mmHg Estimated PAP/RSVP RA Pressure 15 mmHg <=5 PA Systolic Pressure 31 mmHg <35 RV Systolic Pressure 31 mmHg <36 TV Diastolic Function TV E Peak Velocity 0.5 m/sec TV A Peak Velocity 0.5 m/sec TV E/A 1.2 0.8-2.0 TV Decel Time 179 ms >=120 TV Annular TDI TV Lateral Angie s' Velocity 8 cm/s 10-19 Pulmonary Vessels Name Value Normal Pulmonary Veins Pulm Vein Peak Systolic Velocity 33.3 cm/s Venous Name Value Normal IVC/SVC IVC Diameter 2.4 cm <=2.1 Aortic Valve Name Value Normal AV 2D/MM AV Cusp Sep (MM) 1.8 cm AV Doppler AV Peak Velocity 1.09 m/s AV Peak Gradient 5 mmHg AV Mean Gradient 3 mmHg AV VTI 21 cm AV Area (Cont Eq VTI) 3.12 cm2 >=2.00 AV Area (Cont Eq Rhett) 3.09 cm2 AV DI (Rhett) 0.81 AV Regurgitation 2D LVOT Area 3.82 cm2 Ventricles Name Value Normal LV Dimensions 2D/MM IVS Diastolic Thickness (2D) 1.0 cm 0.6-0.9 LVID Diastole (2D) 4.6 cm 3.8-5.2 LVPW Diastolic Thickness (2D) 1.0 cm 0.6-0.9 IVS Systolic Thickness (2D) 1.3 cm LVID Systole (2D) 3.3 cm 2.2-3.5 LVPW Systolic Thickness (2D) 1.4 cm LV Mass (2D Cubed) 164 g 67-162 LV Mass Index (2D Cubed) 98 g/m2 43-95 Relative Wall Thickness (2D) 0.43 <=0.42 LV Fractional Shortening/Ejection Fraction 2D/MM LV Fractional Shortening (2D) 29 % 27-45 LV EF (2D Teicholz) 56 % 54-74 LV Diastolic Volume (4C MOD) 84 ml LV EF (4C MOD) 53 % LV Diastolic Volume (2C MOD) 89 ml LV EF (2C MOD) 64 % LV Diastolic Volume (BP MOD) 87 ml 46-106 LV Diastolic Volume Index (BP MOD) 52 ml/m2 29-61 LV Systolic Volume (BP MOD) 37 ml 14-42 LV Systolic Volume Index (BP MOD) 22 ml/m2 8-24 LV EF (BP MOD) 57 % 54-74 LV Diastolic Length (4C) 7.3 cm LV Systolic Length (4C) 6.5 cm LV Stroke Volume (4C MOD) 44 ml RV Dimensions 2D/MM RVID Diastole (2D) 3.6 cm 2.5-3.5 RVID Systole (2D) 2.9 cm TAPSE 2.1 cm >=1.7 Atria Name Value Normal LA Dimensions LA Dimension (2D) 3.0 cm 2.7-3.8 LA Dimen Index (2D) 1.8 cm/m2 LA Volume (BP MOD) 36 ml LA Volume Index (BP MOD) 21 ml/m2 16-34 RA Dimensions RA Area (4C) 12 cm2 <=18 RA Area (4C) Index 7 cm2/m2 Report Signatures Finalized by Aster Monte MD on 09/01/2023 11:19 AM Procedure Note Aster Monte MD - 09/01/2023 Summary * There is mild concentric hypertrophy of the left ventricle. * The left ventricle is normal in size. * Left ventricular segmental wall motion is normal. * Left ventricular systolic function is normal with an estimatedejection fraction of 57% by biplane method of disks. * The left ventricular diastolic function is normal. * Right ventricle is normal in size with normal systolic function. * The pulmonary artery systolic pressure is normal, 31 mmHg. * Mild calcification of the mitral valve. Patient Info Name: Bharati Varma Age: 68 years : 1955 Gender: Female Ht: 67 in Wt: 132 lb BSA: 1.68 m2 HR: 77 bpm BP: 108 / 64 mmHg Heart Rhythm: Sinus Rhythm Exam Date: 09/01/2023 7:10 AM Patient Status: I/P [facility]: Fair Exam Type: ECHO COMPLETE W CONTRAST Indications W19.XXXA - Fall, initial encounter Procedure(s) * Complete 2D, color Doppler, spectral Doppler and M-Modetransthoracic echocardiogram is performed with an Ultrasound Enhancing Agent (UEA). Contrast/Agitated Saline Contrast / Saline: Lumason Amount: 2.00 ml Administered By: Trang Guzman RDCS Reaction to Contrast: no Reason for Technically Difficult Study: lung interference,restricted mobility, positional limitations Staff Referring Physician: Bairon Villa Ordering Provider: Bairon Villa Attending Physician: Bairon Villa Senior Security Engineer: Trang Guzman RDCS Left Ventricle The left ventricle is normal in size. Left ventricular systolic functionis normal with an estimated ejection fraction of 57% by biplane method ofdisks. There is mild concentric hypertrophy of the left ventricle. Leftventricular segmental wall motion is normal. The left ventricular diastolic functionis normal. Right Ventricle The right ventricle is normal in size. Right ventricular systolicfunction is normal. Left Atrium The left atrium is normal in size with a left atrial volume index of21 ml/m2 by BP MOD. Right Atrium The right atrium is normal in size. Atrial Septum Intact interatrial septum visualized by 2D and color Doppler imaging. Aortic Valve The aortic valve is trileaflet. There is no aortic valve stenosis. Thereis no aortic valve regurgitation. Pulmonic Valve The pulmonic valve is normal. There is no pulmonic valve stenosis. Thereis no pulmonic regurgitation. Mitral Valve Mild calcification of the mitral valve. The mitral valve is calcified.There is no mitral valve stenosis. There is mild mitral valve regurgitation. Tricuspid Valve The pulmonary artery systolic pressure is normal, 31 mmHg. There istrace tricuspid valve regurgitation. The tricuspid valve is normal. Inferior Vena Cava The inferior vena cava is dilated (> 2.1 cm). There is < 50% collapse ofthe IVC upon inspiration with an estimated right atrial pressure of 15 mmHg. Pericardium/Pleural There is no pericardial effusion. Aorta The aortic root at the sinus of Valsalva is normal in size. Theascending aorta is normal in size. Measurements Left Ventricular Outflow Tract Name Value Normal LVOT 2D LVOT Diameter 2.2 cm LVOT Area 3.8 cm2 LVOT Doppler LVOT Peak Velocity 0.9 m/s LVOT Peak Gradient 3 mmHg LVOT Mean Velocity 67.14 cm/s LVOT Mean Gradient 2 mmHg LVOT VTI 17.2 cm LVOT VTI/AV VTI Ratio 0.8 LVOT Stroke Volume 66 ml LVOT Stroke Volume Index 39 ml/m2 35-58 LVOT CO 5.1 l/min LVOT CI 3.0 l/min/m2 Pulmonic Valve Name Value Normal RVOT Doppler RVOT Peak Velocity 0.5 m/s RVOT Peak Gradient 1 mmHg RVOT Mean Gradient 0 mmHg PV Doppler PV Peak Velocity 0.5 m/s PV Peak Gradient 1 mmHg PV Mean Gradient 1 mmHg Mitral Valve Name Value Normal MV Doppler MV Peak Gradient 2 mmHg MV Mean Gradient 1 mmHg MV DI (VTI) 1.11 MV PHT 85 ms MV Area (PHT) 2.58 cm2 4.00-5.00 MV Area (Cont Eq VTI) 3.43 cm2 MV Diastolic Function MV E Peak Velocity 0.6 m/sec MV A Peak Velocity 0.7 m/sec MV E/A 0.8 MV Decel Time (PW) 130 ms MV A Wave Duration 88 ms MV Annular TDI MV Septal e' Velocity 6 cm/s >=8 MV E/e' (Septal) 10 <=8 MV Lateral e' Velocity 8 cm/s >=10 MV E/e' (Lateral) 7 <=8 MV e' Average 7 cm/s MV E/e' (Average) 9 Tricuspid Valve Name Value Normal TV Doppler TV PHT 52 ms TV Area (PHT) 4.23 cm2 TV Regurgitation Doppler TR Peak Velocity 2.0 m/s TR Peak Gradient 16 mmHg Estimated PAP/RSVP RA Pressure 15 mmHg <=5 PA Systolic Pressure 31 mmHg <35 RV Systolic Pressure 31 mmHg <36 TV Diastolic Function TV E Peak Velocity 0.5 m/sec TV A Peak Velocity 0.5 m/sec TV E/A 1.2 0.8-2.0 TV Decel Time 179 ms >=120 TV Annular TDI TV Lateral Angie s' Velocity 8 cm/s 10-19 Pulmonary Vessels Name Value Normal Pulmonary Veins Pulm Vein Peak Systolic Velocity 33.3 cm/s Venous Name Value Normal IVC/SVC IVC Diameter 2.4 cm <=2.1 Aortic Valve Name Value Normal AV 2D/MM AV Cusp Sep (MM) 1.8 cm AV Doppler AV Peak Velocity 1.09 m/s AV Peak Gradient 5 mmHg AV Mean Gradient 3 mmHg AV VTI 21 cm AV Area (Cont Eq VTI) 3.12 cm2 >=2.00 AV Area (Cont Eq Rhett) 3.09 cm2 AV DI (Rhett) 0.81 AV Regurgitation 2D LVOT Area 3.82 cm2 Ventricles Name Value Normal LV Dimensions 2D/MM IVS Diastolic Thickness (2D) 1.0 cm 0.6-0.9 LVID Diastole (2D) 4.6 cm 3.8-5.2 LVPW Diastolic Thickness (2D) 1.0 cm 0.6-0.9 IVS Systolic Thickness (2D) 1.3 cm LVID Systole (2D) 3.3 cm 2.2-3.5 LVPW Systolic Thickness (2D) 1.4 cm LV Mass (2D Cubed) 164 g 67-162 LV Mass Index (2D Cubed) 98 g/m2 43-95 Relative Wall Thickness (2D) 0.43 <=0.42 LV Fractional Shortening/Ejection Fraction 2D/MM LV Fractional Shortening (2D) 29 % 27-45 LV EF (2D Teicholz) 56 % 54-74 LV Diastolic Volume (4C MOD) 84 ml LV EF (4C MOD) 53 % LV Diastolic Volume (2C MOD) 89 ml LV EF (2C MOD) 64 % LV Diastolic Volume (BP MOD) 87 ml 46-106 LV Diastolic Volume Index (BP MOD) 52 ml/m2 29-61 LV Systolic Volume (BP MOD) 37 ml 14-42 LV Systolic Volume Index (BP MOD) 22 ml/m2 8-24 LV EF (BP MOD) 57 % 54-74 LV Diastolic Length (4C) 7.3 cm LV Systolic Length (4C) 6.5 cm LV Stroke Volume (4C MOD) 44 ml RV Dimensions 2D/MM RVID Diastole (2D) 3.6 cm 2.5-3.5 RVID Systole (2D) 2.9 cm TAPSE 2.1 cm >=1.7 Atria Name Value Normal LA Dimensions LA Dimension (2D) 3.0 cm 2.7-3.8 LA Dimen Index (2D) 1.8 cm/m2 LA Volume (BP MOD) 36 ml LA Volume Index (BP MOD) 21 ml/m2 16-34 RA Dimensions RA Area (4C) 12 cm2 <=18 RA Area (4C) Index 7 cm2/m2 Report Signatures Finalized by Aster Monte MD on 09/01/2023 11:19 AM Bairon Villa MD ECHO CUPID * CULTURE SPUTUM+GRAM STAIN (09/01/2023 8:43 AM CDT) Culture Light normal oropharyngeal byron LUIS A 09/03/2023 1:06 AM CDT [facility] Gram Stain Rare Polymorphonuclear cells 09/03/2023 1:06 AM CDT [facility] Gram Stain Moderate Squamous epithelial cells 09/03/2023 1:06 AM CDT [facility] Gram Stain Light Gram-negative bacilli 09/03/2023 1:06 AM CDT [facility] Gram Stain Light Gram-positive cocci 09/03/2023 1:06 AM CDT [facility] Microbiology SPUTUM SPECIMEN OBTAINED FROM SPUTUM SUCTION TRAP / Unknown Collection / Unknown 09/01/2023 8:43 AM CDT 09/01/2023 8:46 AM CDT Bairon Villa MD LAB - MICROBIOLOGY O [place] Performing Organization Address [facility]/ZIP Co de Phone Number [facility] [address] [place] [address], [facility] [phone] * CULTURE BLOOD (09/01/2023 8:42 AM CDT) Only the most recent of2 resultswithin the time period is included. Pathologist [facility] Culture No growth day 5 LUIS A 09/06/2023 2:31 PM CDT [facility] Blood PERIPHERAL BLOOD / Unknown Venipuncture / Unknown 09/01/2023 8:42 AM CDT 09/01/2023 9:44 AM CDT Bairon Villa MD LAB - MICROBIOLOGY O [place] Performing Organization Address [facility] Co de Phone Number [facility] [address] [address], [facility] [phone] * MRSA DNA PCR (09/01/2023 7:56 AM CDT) Pathologist [facility] MRSA DNA by PCR Not detected Not detected 09/01/2023 1:11 PM CDT [facility] Microbiology SPECIMEN FROM NASAL FOSSAE / Unknown Collection / Unknown 09/01/2023 7:56 AM CDT 09/01/2023 8:07 AM CDT Narrative [facility] - 09/01/2023 1:11 PM CDT Methicillin-resistant Staphylococcus aureus (MRSA) DNA is not detected (presumed not colonized with MRSA). Bairon Villa MD LAB - MICROBIOLOGY O [place] Performing Organization Address [facility] Co de Phone Number [facility] [address] [place] [address], [facility] [phone] * (ABNORMAL) DIFFERENTIAL MANUAL (09/01/2023 2:43 AM CDT) Pathologist [facility] Neutrophil % 70 41 - 74 % 09/01/2023 3:57 AM CDT [facility] Lymphocyte % 18 17 - 47 % 09/01/2023 3:57 AM CDT [facility] Monocyte % 9 3 - 11 % 09/01/2023 3:57 AM CDT [facility] Eosinophil % 1 0 - 7 % 09/01/2023 3:57 AM CDT [facility] Metamyelocyte % 2(H) 0% % 3:57 AM CDT [facility] Neutrophil Absolute 3.29 1.60 - 7.50 x10E9/L 09/01/2023 3:57 AM CDT [facility] Lymphocyte Absolute 0.85(L) 1.00 - 4.40 x10E9/L 09/01/2023 3:57 AM CDT [facility] Monocyte Absolute 0.42 0.15 - 1.00 x10E9/L 09/01/2023 3:57 AM CDT [facility] Eosinophil Absolute 0.05 0.00 - 0.60 x10E9/L 09/01/2023 3:57 AM CDT [facility] RBC Morphology REVIEWED 09/01/2023 3:57 AM T [facility] Macrocytosis MANY(A) (none) 09/01/2023 3:57 AM T [facility] Target Cells MODERATE(A) (none) 09/01/2023 3:57 AM T [facility] Large Platelets PRESENT(A) (none) 3:57 AM T [facility] Blood BLOOD SPECIMEN / Unknown Venipuncture / Unknown 09/01/2023 2:43 AM CDT 09/01/2023 2:47 AM CDT Bairon Villa MD LAB - HEMATOLOGY ORD ERABLES [facility] [address] [place] [address], [facility] [phone] * BLOOD TYPE VERIFICATION (08/30/2023 4:44 PM CDT) ABO Rh O POS 08/30/2023 5:2 7 PM CDT [facility] Blood Bank BLOOD SPECIMEN / Unknown Venipuncture / Unknown 08/30/2023 4:44 PM CDT 08/30/2023 4:57 PM CDT Bairon Villa MD LAB - BLOOD BANK ORD ERABLES [facility] [address] [place] [address], [facility] [phone] * (ABNORMAL) URINALYSIS W/MICROSCOPIC NO CULTURE (08/30/2023 3:39 PM CDT) Color UA Yellow Straw, Yellow 08/30/2023 3:54 PM CDT [facility] Clarity UA Clear Clear 08/30/2023 3:54 PM T [facility] Specific [place] UA 1.048(H) 1.005 - 1.030 08/30/2023 3:54 PM [facility] pH UA 6.0 5.0 - 8.0 pH 08/30/2023 3:54 PM [facility] Protein UA Negative Negative 08/30/2023 3:54 PM [facility] Glucose UA Negative Negative 08/30/2023 3:54 PM [facility] Ketone UA 1+(A) Negative 08/30/2023 3:54 PM [facility] Bilirubin UA Negative Negative 08/30/2023 3:54 PM [facility] Blood UA 1+(A) Negative 08/30/2023 3:54 PM [facility] Nitrite UA Negative Negative 08/30/2023 3:54 PM [facility] Leukocyte Esterase Negative Negative 08/30/2023 3:54 PM [facility] Urobilinogen UA 2.0(A) Negative mg/dL 08/30/2023 3:54 PM [facility] RBC UA 0-2 None Seen, 0-2, 3-5 /HPF 08/30/2023 3:54 PM [facility] WBC UA 0-5 None Seen, 0-5 /HPF 08/30/2023 3:54 PM [facility] Squamous Epithelial Cells UA 0-2 None Seen, 0-2, 3-5 /HPF 08/30/2023 3:54 PM [facility] Mucus UA 1+ /LPF 08/30/2023 3:54 PM [facility] Urine URINE SPECIMEN OBTAINED BY CLEAN CATCH PROCEDURE / Unknown Collection / Unknown 08/30/2023 3:39 PM CDT 08/30/2023 3:46 PM CDT Narrative [facility] - 08/30/2023 3:54 PM CDT Bairon Villa MD LAB - URINALYSIS ORD ERABLES [facility] [address] [place] [id number], [facility] [phone] * (ABNORMAL) URINE DRUG SCREEN IMMUNOASSAY (08/30/2023 3:39 PM CDT) [facility] Amphetamines Screen Urine Negative Negative : < 1000 ng/mL 08/30/2023 4:13 PM [facility] Barbiturates Screen Urine Negative Negative : < 200 ng/mL 08/30/2023 4:13 PM [facility] Benzodiazepine Screen Urine Negative Negative : < 200 ng/mL 08/30/2023 4:13 PM [facility] Opiates Urine Positive(A) Negative : < 300 ng/mL 08/30/2023 4:13 PM [facility] Comment:Positive urine opiat e screening results should be confirmed by another generally accepted non-immunological method such as gas chromatography or mass spectrometry. Cocaine Metabolites Urine Negative Negative : < 300 ng/mL 08/30/2023 4:13 PM [facility] Phencyclidine Screen Urine Negative Negative : < 25 ng/ml 08/30/2023 4:13 PM [facility] Cannabinoids Screen Urine Negative Negative : <50 ng/mL 08/30/2023 4:13 PM [facility] Methadone Screen Urine Negative Negative : < 300 ng/mL 08/30/2023 4:13 PM [facility] Fentanyl Screen Urine Negative Negative : <1.5 ng/mL 08/30/2023 4:13 PM [facility] Urine URINE / Unknown Collection / Unknown 08/30/2023 3:39 PM CDT 08/30/2023 3:46 PM CDT Narrative [facility] - 08/30/2023 4:13 PM CDT The Urine Toxicology Screening Panel does not screen for Propoxyphene, Meprobamate, Carisoprodol, Trazodone, elna-ycw-tsiibak medications and/or volatiles (Acetone, Isopropanol, Methanol or Ethylene Glycol). Ethanol, Salicylate, Acetaminophen, Tricyclic Antidepressants and several therapeutic drugs may be individually assayed in serum or plasma specimen. Toxicology testing by the [facility] is an aid to medical diagnosis and treatment of patients. No documented chain of custody was maintained. Results are intended to be used for clinical purposes only. Bairon Villa MD LAB - URINE CHEMISTR Y ORDERABLES Performing Organization Address [facility]/ZIP Co de Phone Number [address] [address], [facility] [phone] * TEG 6 GLOBAL HEMOSTASIS W/ LYSIS (08/30/2023 11:31 AM CDT) [facility] Signature Citrated Kaolin R (Reaction Time) 5.2 4.6 - 9.1 min 08/30/2023 12:39 PM CDT [facility] Citrated Kaolin LY30 (Lysis) 0.0 0.0 - 2.6 % 08/30/2023 12:39 PM CDT [facility] Citrated Functional Fibrinogen MA (Max Amplitude) 20.7 15.0 - 32.0 mm 08/30/2023 12:39 PM CDT [facility] Citrated RapidTEG MA (Max Amplitude) 60.5 52.0 - 70.0 mm 08/30/2023 12:39 PM CDT [facility] Blood BLOOD SPECIMEN / Unknown Venipuncture / Unknown 08/30/2023 11:31 AM CDT 08/30/2023 11:37 AM CDT Devante Hoang MD LAB - HEMATOLOGY ORD ERABLES [address] [address], [facility] [phone] * (ABNORMAL) TEG 6S PLATELET MAPPING (08/30/2023 11:31 AM CDT) TEGPLM (Max Amplitude) Koalin 59.0 53.0 - 68.0 mm 08/30/2023 1:09 PM CDT [facility] TEGPLM (Max Amplitude) ACTF 8.5 2.0 - 19.0 mm 08/30/2023 1:09 PM T [facility] TEGPLM (Max Amplitude) ADP 49.4 45.0 - 69.0 mm 08/30/2023 1:09 PM [facility] TEGPLM (Max Amplitude) AA 43.7(L) 51.0 - 71.0 mm 08/30/2023 1:09 PM [facility] Comment:AA MA below normal r berta. Inhibition present. TEGPLM %Inhibition ADP 19.0(H) 0.0 - 17.0 % 08/30/2023 1:09 PM [facility] TEGPLM %Inhibition AA 30.3(H) 0.0 - 11.0 % 08/30/2023 1:09 PM [facility] TEGPLM %Aggregation ADP 81.0(L) 83.0 - 100.0 % 08/30/2023 1:09 PM [facility] TEGPLM % Aggregation AA 69.7(L) 89.0 - 100.0 % 08/30/2023 1:09 PM [facility] Blood BLOOD SPECIMEN / Unknown Venipuncture / Unknown 08/30/2023 11:31 AM CDT 08/30/2023 11:37 AM CDT Devante Hoang MD LAB - HEMATOLOGY ORD ERABLES [facility] [address] [place] [phone], [facility] [phone] * TYPE + SCREEN PANEL (08/30/2023 11:31 AM CDT) Antibody Screen NEG 12:27 PM CDT [facility] ABO Rh O POS 08/30/2023 12:27 PM CDT [facility] Blood Bank BLOOD SPECIMEN / Unknown Venipuncture / Unknown 08/30/2023 11:31 AM CDT 08/30/2023 11:40 AM CDT Bairon Villa MD LAB - BLOOD BANK ORD ANNE [facility] [address] [place] [address], [place] [phone] * CK BLOOD (08/30/2023 11:31 AM CDT) CK Total 80 30 - 200 U/L 08/30/2023 11:59 AM CDT [facility] Blood BLOOD SPECIMEN / Unknown Venipuncture / Unknown 08/30/2023 11:31 AM CDT 08/30/2023 11:37 AM CDT Devante Hoang MD LAB - CHEMISTRY CHERYL ARGUELLO Performing Organization Address [facility]/ZIP Co de Phone Number [facility] [address] [place] [id number], [place] [phone] * CT FACIAL BONES WO CONTRAST - Facial trauma, fx suspected, blunt (08/30/2023 11:13 AM CDT) Anatomical Region Laterality Modality Head Computed Tomogra phy 08/30/2023 11:1 0 AM CDT Impressions 08/30/2023 12:03 PM CDT IMPRESSION: 1. An acute subdural hematoma in the left cerebral convexity measuring up to 6 mm in maximum thickness. A small amount of subarachnoid hemorrhage in the high left parietal and the left frontal region. Mass effect causing approximately 3 mm of left to right midline shift. 2. No acute facial bone fractures identified. Moderate right facial soft tissue swelling. 3. No evidence of acute fracture in the cervical, thoracic, or lumbar spine. 4. Mildly displaced acute fracture of the posterior left third rib. 5. Multiple chronic findings as detailed in the report. These findings were discussed in detail with the patient's care provider, Dr. Lopez by Dr. Mccormick via telephone at 12:02 PM on 08/30/2023 with readback comprehension and verification. > Interpreting Provider: Lora Mccormick MD on 08/30/2023 12:03 PM Narrative 08/30/2023 12:03 PM CDT PROCEDURE: CT HEAD WO CONTRAST, CT LUMBAR SPINE WO CONTRAST, CT THORACIC SPINE WO CONTRAST, CT CERVICAL SPINE WO CONTRAST, CT FACIAL BONES WO CONTRAST, DATE/TIME OF EXAM: 08/30/2023 11:16 AM, LOCATION [facility] INDICATION: Trauma ADDITIONAL CLINICAL INFORMATION: Ordering Provider Reason For Exam: Technologist Note: Additional: EXAMINATION: 1. Computed tomography (CT) of the head without contrast 2. CT of the maxillofacial bones, orbits, and paranasal sinuses without contrast 3. CT of the cervical spine without contrast 4. CT of the thoracic spine without contrast 5. CT of the lumbar spine without contrast TECHNIQUE: CT of the head, cervical spine, and maxillofacial bones, orbits, and paranasal sinuses was performed without contrast according to standard protocol. Reformatted axial, sagittal, and coronal images of the thoracic and lumbar spine were obtained by the technologist from a concurrently performed body CT and sent to the workstation for review. COMPARISON: No prior study is available for comparison at the time of this dictation. FINDINGS: Head: An acute subdural hematoma in the left cerebral convexity measuring up to 6 mm in maximum thickness. A small amount of subarachnoid hemorrhage in the high left parietal and the left frontal region. Mass effect causing approximately 3 mm of left to right midline shift. There is mild cerebral volume loss with associated ex vacuo ventricular dilatation. The basal cisterns are patent. The gotti-white matter differentiation is normal. Periventricular white matter hypoattenuation is a nonspecific finding that may be indicative of chronic small vessel ischemic disease. There is atherosclerotic calcification of the carotid siphons. No acute calvarial fracture is identified. Maxillofacial: Moderate right facial soft tissue swelling. The orbits including the globes, optic nerves, retrobulbar fat and extraocular muscles appear normal. There is mild paranasal sinus disease. The hard palate, mandible, and temporomandibular joints appear normal. The mastoid air cells are clear. Cervical spine: There is atherosclerotic calcification of the carotid bifurcations. Mild anterolisthesis of C4 on C5 and C7 on T1, likely degenerative in etiology. The prevertebral soft tissue is normal in thickness. The bones are mildly osteopenic. Vertebral bodies are normal in height without evidence of acute fracture. Other than middle atlantoaxial joint osteoarthritis, the craniocervical junction appears normal. There is mild to moderate multilevel degenerative disc disease, most pronounced at C5-6 and C6-7. The central canal is mildly stenotic at C5-6. There are varying degrees of moderate to severe multiple facet osteoarthritis. There are varying degrees of mild to moderate multilevel uncovertebral joint osteoarthritis with the same degree of neural foraminal stenosis at these levels. Thoracic spine: There is atherosclerotic calcification of the thoracic aorta and its branch vessels. Mild S-shaped scoliosis. The bones are moderately osteopenic. Vertebral bodies are normal in height without evidence of acute fracture. There is up to moderate multilevel degenerative disc disease. Bridging syndesmophytes and ossification of the anterior longitudinal ligament at multiple levels suggest diffuse idiopathic skeletal hyperostosis (DISH). The central canal is patent. There are varying degrees of up to moderate facet osteoarthritis with the same degree of neural foraminal stenosis at these levels. Mildly displaced acute fracture of the posterior left third rib. Lumbar spine: Multiple nonobstructing stones in the kidneys bilaterally with the largest in the left kidney measuring up to 7 mm. Atherosclerotic calcifications in the abdominal aorta and its major branches. Mild dextroscoliosis. Grade 1 anterolisthesis of L4 on L5, likely degenerative in etiology. The bones are moderately osteopenic. Vertebral bodies are normal in height without evidence of acute fracture. There is up to severe multilevel degenerative disc disease. The central canal is severely stenotic at L4-L5. There are varying degrees of up to severe facet osteoarthritis with the same degree of neural foraminal stenosis at these levels. Procedure Note Lora Mccormick MD - 08/30/2023 PROCEDURE: CT HEAD WO CONTRAST, CT LUMBAR SPINE WO CONTRAST, CTTHORACIC SPINE WO CONTRAST, CT CERVICAL SPINE WO CONTRAST, CT FACIAL BONES WO CONTRAST, DATE/TIME OF EXAM: 08/30/2023 11:16 AM, LOCATION [facility] INDICATION: Trauma ADDITIONAL CLINICAL INFORMATION: Ordering Provider Reason For Exam: Technologist Note: Additional: EXAMINATION: 1. Computed tomography (CT) of the head without contrast 2. CT of the maxillofacial bones, orbits, and paranasal sinuses without contrast 3. CT of the cervical spine without contrast 4. CT of the thoracic spine without contrast 5. CT of the lumbar spine without contrast TECHNIQUE: CT of the head, cervical spine, and maxillofacial bones,orbits, and paranasal sinuses was performed without contrast according tostandard protocol. Reformatted axial, sagittal, and coronal images of thethoracic and lumbar spine were obtained by the technologist from a concurrently performed body CT and sent to the workstation for review. COMPARISON: No prior study is available for comparison at the time ofthis dictation. FINDINGS: Head: An acute subdural hematoma in the left cerebral convexity measuring up to6 mm in maximum thickness. A small amount of subarachnoid hemorrhage inthe high left parietal and the left frontal region. Mass effect causing approximately 3 mm of left to right midline shift. There is mild cerebral volume loss with associated ex vacuo ventricular dilatation. The basal cisterns are patent. The gotti-white matter differentiation is normal. Periventricular white matter hypoattenuationis a nonspecific finding that may be indicative of chronic small vessel ischemic disease. There is atherosclerotic calcification of the carotid siphons. No acute calvarial fracture is identified. Maxillofacial: Moderate right facial soft tissue swelling. The orbits including the globes, optic nerves, retrobulbar fat and extraocular muscles appear normal. There is mild paranasal sinusdisease. The hard palate, mandible, and temporomandibular joints appear normal.The mastoid air cells are clear. Cervical spine: There is atherosclerotic calcification of the carotid bifurcations. Mild anterolisthesis of C4 on C5 and C7 on T1, likely degenerative in etiology. The prevertebral soft tissue is normal in thickness. The bones are mildly osteopenic. Vertebral bodies are normal in height without evidence of acute fracture. Other than middle atlantoaxial joint osteoarthritis, the craniocervical junction appears normal. There ismild to moderate multilevel degenerative disc disease, most pronounced atC5-6 and C6-7. The central canal is mildly stenotic at C5-6. There arevarying degrees of moderate to severe multiple facet osteoarthritis. There are varying degrees of mild to moderate multilevel uncovertebral joint osteoarthritis with the same degree of neural foraminal stenosis atthese levels. Thoracic spine: There is atherosclerotic calcification of the thoracic aorta and itsbranch vessels. Mild S-shaped scoliosis. The bones are moderately osteopenic. Vertebral bodies are normal in height without evidence of acute fracture. There isup to moderate multilevel degenerative disc disease. Bridgingsyndesmophytes and ossification of the anterior longitudinal ligament at multiplelevels suggest diffuse idiopathic skeletal hyperostosis (DISH). The centralcanal is patent. There are varying degrees of up to moderate facetosteoarthritis with the same degree of neural foraminal stenosis at these levels. Mildly displaced acute fracture of the posterior left third rib. Lumbar spine: Multiple nonobstructing stones in the kidneys bilaterally with thelargest in the left kidney measuring up to 7 mm. Atherosclerotic calcificationsin the abdominal aorta and its major branches. Mild dextroscoliosis. Grade 1 anterolisthesis of L4 on L5, likely degenerative in etiology. The bones are moderately osteopenic. Vertebral bodies are normal in height without evidence of acute fracture. There isup to severe multilevel degenerative disc disease. The central canal is severely stenotic at L4-L5. There are varying degrees of up to severefacet osteoarthritis with the same degree of neural foraminal stenosis atthese levels. IMPRESSION: 1. An acute subdural hematoma in the left cerebral convexity measuringup to 6 mm in maximum thickness. A small amount of subarachnoid hemorrhagein the high left parietal and the left frontal region. Mass effect causing approximately 3 mm of left to right midline shift. 2. No acute facial bone fractures identified. Moderate right facial soft tissue swelling. 3. No evidence of acute fracture in the cervical, thoracic, or lumbar spine. 4. Mildly displaced acute fracture of the posterior left third rib. 5. Multiple chronic findings as detailed in the report. These findings were discussed in detail with the patient's careprovider, Dr. Lopez by Dr. Mccormick via telephone at 12:02 PM on 08/30/2023 with readback comprehension and verification. > Interpreting Provider: Lora Mccormick MD on 08/30/2023 12:03 PM Bairon Villa MD CT ORDERABLES Care Teams Senior Erp Consultant Relationship Specialty Start Date End Date Alexis Velez MD [address] [place] [phone] PCP - General Internal Medicine 08/30/23
--- OUTSIDE RECORDS SUMMARY | 2024-04-25 06:33 | XMS_ITS | Encounter Summary ---
Author Organization [facility] Health Address [address] [facility] [address] [place] [address] Care Team Providers Care Nurse Practitioner Physicians Assistant Name Role Phone Alexis Velez MD Primary Care Provider [phone] Encounter Details Date Type Department Care Team (Late st Contact Info) Description 09/08/2023 Telephone [facility]ORD[facility] [address] [place] [phone] aBiron Villa MD [address] [facility] [address] [place] [address] Social History Tobacco Use Types Packs/Day Years Used Date Smoking Tobacco: Never Passive Smoke Exposure: Past Smokeless Tobacco: Never Alcohol Use Standard Drinks/Week Comments Not Currently 0 (1 standard drink = 0.6 oz pur e alcohol) AUDIT-C Answer Date Recorded Q1: How often do you have a drink containing alc ohol? 2-4 times a month 08/31/2023 Q2: How many drinks containi ng alcohol do you have on a typical day when you are drinking? 1 or 2 08/31/2023 Q3: How often do you have si x or more drinks on one occasion? Never 08/31/2023 Overall Financial Resource Strain (CARDIA) Answe r Date Recorded How hard is it for you to pa y for the very basics like food, housing, medical care, and heating? Somewhat hard 08/31/2023 [facility] [place] [facility] - Occupational Stress Questionnaire Answer Date Recorded Do you feel stress - tense, restless, nervous, or anxious, or unable to sleep at night because your mind is troubled all the time - these days? To some extent 08/31/2023 Hunger Vital Sign Answer Date Recorded Within the past 12 months, y ou worried that your food would run out before you got the money to buy more. Never true 08/31/19 24 Within the past 12 months, t he food you bought just didn't last and you didn't have money to get more. Never true 08/31/2023 PRAPARE - Transportation Answer Date Re corded In the past 12 months, has l ack of transportation kept you from medical appointments or from getting medications? No 08/21 In the past 12 months, has l ack of transportation kept you from meetings, work, or from getting things needed for daily living? No 08/31/2023 Housing Stability Vital Sign Answer Eric e Recorded In the last 12 months, was t here a time when you were not able to pay the mortgage or rent on time? No 08/31/2023 In the last 12 months, how many places have you lived? 1 08/31/2023 In the last 12 months, was t here a time when you did not have a steady place to sleep or slept in a long-term (including now)? No 08/31/2023 Sex and Gender Information Value Date Recorded Sex Assigned at Not on file Gender Identity Not on file Sexual Orientation Not on file documented as of this encounter Functional Status Functional Status Response Date of Assess ment Is person deaf or have serious hearing difficult y? No 08/31/2023 Is person blind or have serious difficulty seein g? No 08/31/2023 Does person have serious dif ficulty walking/climbing stairs? No 08/31/2023 Does person have difficulty dressing/bathing? No 08/31/2023 Does person have difficulty doing errands alone? No 08/31/2023 Cognitive Status Response Date of Assessm ent Does person have difficulty concentrating/remembering/making decisions? No 08/31/2023 documented as of this encounter Plan of Treatment Not on file documented as of this encounter Visit Diagnoses Not on filedocumented in this encounter Additional Health Concerns Infection Onset Date Last Indicated Resolved Time C DIFF 09/01/2023 09/01/2023 11/09/2023 8:32 AM CDT C Diff Hx 11/09/2023 11/09/2023 documented as of this encounter Care Teams Nurse Practitioner Physicians Assistant Relationship Specialty [place] [address] [place] [phone] PCP - General Internal Medicine 08/30/23 documented as of this encounter
[2024-04-25 08:04] LABS: Influenza A QL RT-PCR Negative (Negative); Influenza B QL RT-PCR Negative (Negative); RSV RNA, RT-PCR Negative (Negative); SARS-CoV-2 RNA PCR Negative (Negative)
--- NOTE | 2024-04-25 09:19 | ED.GENADULT ---
HPI - General Adult General Chief complaint: Unspecified Stated complaint: bodyaches, decreased appetite Time Seen by Provider: 04/25/24 08:58 Source: patient Mode of arrival: ambulatory Limitations: no limitations History of Present Illness HPI narrative: Patient is a 68 y/o female, with PMH of former alcoholism (7 months sober), who presents to the ED with c/o R sided pain. Patient reports having pain throughout her right wrist, right shoulder, right hip over the last 3 days. She has had some swelling in her right wrist. She denies any fall or injury. States she has been feeling increasingly weak over the last several days and has had difficulty getting out of bed due to the pain and weakness. Feels diffusely weak. Has been taking ibuprofen, Tylenol without relief of pain. She is also prescribed tramadol for her chronic arthritis, but states this gives her a headache. Patient reports mild nausea today. Otherwise denies recent illness, fevers, abdominal pain, chest pain, dizziness, slurred speech, confusion. Related Data Home Medications ?Medication ?Instructions ?Recorded ?Confirmed ?Last Taken ?Type amlodipine 10 mg tablet 10 mg PO DAILY 02/18/22 05/04/23 02/17/22 08:00 History omeprazole 20 mg tablet,delayed 20 mg PO DAILY 02/18/22 05/04/23 02/18/22 08:00 History release hydrochlorothiazide 25 mg tablet 25 mg PO DAILY 05/04/23 05/04/23 Unknown History magnesium oxide 400 mg PO DAILY 05/04/23 05/04/23 Unknown History multivitamin with minerals 1 tablet PO DAILY 05/04/23 05/04/23 Unknown History thiamine HCl (vitamin B1) 100 mg 100 mg PO DAILY 05/04/23 05/04/23 Unknown History tablet (Vitamin B-1) Allergies Allergy/AdvReac Type Severity Reaction Status Date / Time No Known Allergies Allergy Verified 04/25/24 06:31 Review of Systems Review of Systems: All systems reviewed & are unremarkable except as noted in HPI. All systems reviewed & are unremarkable except as noted in HPI and below PMFSH Past Medical History Medical History Anxiety Hypokalemia Elevated liver enzymes Alcoholic hepatitis Melena Tobacco abuse History of marijuana use History of alcoholism Hypertension Surgical History Surgical History History of parathyroid surgery H/O total knee replacement Family History Family History Sibling Hypothyroidism Mother Diabetes mellitus Hypertension Father Heart disease Social History Social History Social History: The patient used to use marijuana about once per month. The patient stated she was a heavy drinker and quit 3 weeks ago. The patient has 3 children and she is . 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 She denies other drug use. No hx if IVDU. Smokes 1/4pack per week and has smoked for about 20 yrs. Full code. She nominates her dtr to be the individual to make medical decisions for her if she is unable. Smoking packs per day: 0.5 Smoking cigarettes per day: 10.0 Years smoked: 10 Smoking pack-years: 5.00 Smoking status: Current some day smoker Tobacco type: cigarettes Second hand tobacco smoke exposure: No Alcohol intake: current Drinks per week: 3 Substance use: never Substance use type: does not use Last use: 10 days ago per pt Do You Feel Safe in your Home?: Yes Lack of Transportation: No Lack of Food: Never True Current Housing: I Have Housing Concerned About Future Housing: No Difficulty Paying Gas/Electric Bills: No Difficulty Paying for Meds: No Currently Unemployed: No Education: Trade/Vocational Certificate Difficulty w/ Childcare or Family Care: No Living arrangements: alone Occupation/Education: retired Gender identity (if verbalized by the patient): Female Spiritual care concerns: Yes (alevism/bhudism) Exam Narrative: GENERAL: Well appearing, well-nourished, non-toxic, in no acute distress. HEAD: Normocephalic, atraumatic. NECK: Supple. Normal ROM RESPIRATORY: Airway patent, respirations nonlabored. Clear to auscultation bilaterally, no rales, rhonchi, wheezing. CARDIOVASCULAR: Regular rate and rhythm without murmurs, rubs, or gallops. Peripheral pulses 2+ and equal bilaterally. MUSCULOSKELETAL: No gross deformities. Mild swelling and focal tenderness to palpation throughout right wrist joint/distal ulnar region. Slight erythema and minimal warmth noted to this region. Limited range of motion of right wrist flexion due to pain, increased range of R extension. SKIN: Warm, dry, normal color. No rashes. NEURO: A&O X3. Speech clear. Follows commands. CN II-XII intact. No facial droop. Sensation grossly intact. No ataxic movements. Difficult to determine strength due to patient's reported pain. 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 No appreciable pronator drift, but patient having difficulty raising right arm fully due to pain in wrist and shoulder. PSYCHIATRIC: Appropriate mood and affect. Normal interaction. Course Vital Signs Vital signs: Vital Signs Temperature 98.1 F 04/25/24 06:34 Pulse Rate 97 04/25/24 06:34 Respiratory Rate 18 04/25/24 06:34 Blood Pressure 159/93 H 04/25/24 06:34 Pulse Oximetry 100 04/25/24 06:34 Oxygen Delivery Room Air 04/25/24 06:34 Temperature 97.5 F L 04/25/24 13:32 Pulse Rate 98 04/25/24 13:32 Respiratory Rate 16 04/25/24 13:32 Blood Pressure 148/90 H 04/25/24 13:32 Pulse Oximetry 97 04/25/24 13:32 Oxygen Delivery Room Air 04/25/24 06:34 Medical Decision Making [facility] Narrative Medical decision making narrative: Patient presented to ED with 3 day history of right-sided pain, right shoulder, right wrist, right hip. Denies any fall or injury. Patient somewhat weaker on the right side on exam, however feel this is more pain related. Patient feels this is pain related/limiting, feels weak overall, denies feeling more weak on R side. Vital signs are otherwise stable. I do not appreciate any other gross neurologic deficits on my exam. CT brain is negative. No acute or subacute findings. Symptoms have been ongoing for the last 3 days. Would expect to see changes on CT imaging is neurologic in nature. Low suspicion for this. Right wrist x-ray without acute fracture. Does show arthritic/CPPD changes. Patient denies previous hx of gout. Right shoulder x-ray also with arthritic changes. No acute fracture. Right hip x-ray with possible pelvic fracture. Recommended CT. CT pelvis was obtained and showing healing right inferior pubic rami fracture. No acute fracture. This is known to patient. Previously underwent rehab for this. CBC without leukocytosis or anemia. CMP with bicarb of 19, anion gap of 15. Fluids initiated. Stable electrolytes. Stable kidney function. Magnesium borderline, given IV replacement. CK within normal range. Alk-phos is elevated, though this appears consistent with previous records. CRP is elevated. UA with 3+ ketones, small amount of WBC, though moderate squamous cells. Likely contaminated catch. Negative leuk esterase. Negative nitrite. Patient denies urinary complaints. Sent for cx. Alcohol level is negative here. Viral swabs are negative. Do feel pseudo gout fits with patient's clinical picture of right wrist pain. I have low suspicion for septic arthritis at this time. She does still have decent range of motion of wrist. Given x-ray findings, lack of significant warmth/leukocytosis/fevers, more consistent with pseudogout picture. Will be started on NSAIDs. Given dose of toradol in the ED. Patient is feeling improved with fluids, but still feels generally weak overall. She initially expressed desire for acute rehab for weakness, however after discussion with care coordination, patient would prefer to go home. Do not feel patient requires admission at this time. She is able to tolerate PO intake and I discussed having patient increase fluid intake at home. Given JOHN bandage in the ED for R wrist. Will d/c on naproxen for treatment of pseudogout. Discussed continued RICE therapy. Recommended that patient have very close follow-up with primary care doctor for further evaluation with the next 1 week. I discussed very strict return precautions and patient voiced understanding. She does feel comfortable going home. She has a cane and walker she can use at home. She also lives with her daughter at home. Discharged in stable condition. Medical Records Medical records reviewed: Yes I reviewed the external patient's medical records. Vital Signs Vital Signs: Vital Signs Temperature 98.1 F 04/25/24 06:34 Pulse Rate 97 04/25/24 06:34 Respiratory Rate 18 04/25/24 06:34 Blood Pressure 159/93 H 04/25/24 06:34 Pulse Oximetry 100 04/25/24 06:34 Oxygen Delivery Room Air 04/25/24 06:34 Temperature 97.5 F L 04/25/24 13:32 Pulse Rate 98 04/25/24 13:32 Respiratory Rate 16 04/25/24 13:32 Blood Pressure 148/90 H 04/25/24 13:32 Pulse Oximetry 97 04/25/24 13:32 Oxygen Delivery Room Air 04/25/24 06:34 Lab Data Lab results reviewed: Yes I reviewed the patient's lab results. 04/25/24 09:56 04/25/24 09:56 Labs: Lab Results 04/25/24 04/25/24 04/25/24 Range/Units 07:22 09:56 10:31 WBC 9.2 (4.5-10.0) K/mm3 RBC 4.63 (4.2-5.4) M/mm3 Hgb 13.7 (12.0-15.0) g/dL Hct 39.7 (37.0-47.0) % MCV 85.7 (80-100) fl MCH 29.6 (26-34) pg MCHC 34.5 (32-36) g/dl RDW 14.0 (11.5-14.5) % Plt Count 295 (150-375) k/mm3 MPV 9.1 (7.4-10.4) fl Immature Gran % (Auto) 0.4 (0-0.5) % Neut % (Auto) 81.3 H (45.5-73.1) % Lymph % (Auto) 9.0 L (18.3-44.2) % Snyder % (Auto) 9.1 H (2.6-8.5) % Eos % (Auto) 0.0 (0-4.4) % Baso % (Auto) 0.2 (0.2-1.2) % Lymph # (Auto) 0.83 L (0.9-3.2) K/mm3 Snyder # (Auto) 0.8 H (0.1-0.6) K/mm3 Eos # (Auto) 0.0 (0-0.3) K/mm3 Baso # (Auto) 0.0 (0.0-0.1) K/mm3 Abs Immat Gran (auto) 0.04 H (0.00-0.031) K/mm3 Absolute Neuts (auto) 7.5 H (1.3-6.7) K/mm3 Absolute Nucleated RBC 0.000 (0.0-0.012) K/mm3 Nucleated RBC % 0.0 (0.0-0.2) % Sodium 136 L (137-145) mmol/L Potassium 3.6 (3.4-5.0) mmol/L Chloride 102 (98-107) mmol/L Carbon Dioxide 19 L (22-30) mmol/L Anion Gap 15 H (4-12) mmol/L BUN 11 D (7-17) mg/dL Creatinine 0.50 L (0.7-1.0) mg/dL Estim Creat Clear Calc 86 ml/min Estimated GFR > 60 (59 - ) Glucose 124 H (65-110) mg/dL Calcium 10.0 (8.4-10.2) mg/dL Magnesium 1.6 (1.6-2.3) mg/dL Total Bilirubin 0.8 (0.2-1.3) mg/dL AST 27 (14-36) U/L ALT 21 (6-35) U/L Alkaline Phosphatase 216 H (38-126) U/L Total Creatine Kinase < 20 L (30-135) U/L C-Reactive Protein 17.3 H (<1.0) mg/dL Total Protein 9.0 H (6.3-8.2) g/dL Albumin 4.1 (3.5-5.1) g/dL Urine Color Yellow (Yellow) Urine Appearance Cloudy H (Clear) Urine pH 6.0 (5.0-9.0) Ur Specific Morning Sun 1.016 (1.001-1.035) Urine Protein Trace (Negative) mg/dL Urine Glucose (UA) Negative (Negative) mg/dL Urine Ketones 3+ H (Negative) mg/dL Ur Blood (Man) 1+ H (Negative) Urine Nitrate Negative (Negative) Urine Bilirubin Negative (Negative) Urine Urobilinogen 1.0 (<2.0) mg/dL Leukocyte Esterase Rfl Negative (Negative) JETHRO/UL Urine RBC 11-20 H (0-2) /hpf Urine WBC 6-10 H (0-3) /hpf Ur Squamous Epith Cells Moderate (Few) /hpf Urine Bacteria 2+ H /hpf Urine Casts 0-2 Ethyl Alcohol < 10 (<10) mg/dL Influenza A (RT-PCR) Negative (Negative) Influenza B (RT-PCR) Negative (Negative) RSV (RT-PCR) Negative (Negative) SARS-CoV-2 RNA (RT-PCR) Negative (Negative) Imaging Data Attestation: I personally reviewed and interpreted this imaging study as follows: Radiologist's impression: ITS Impressions Head CT 04/25/24 09:41 IMPRESSION: No acute intracranial findings. Wrist X-Ray 04/25/24 09:53 IMPRESSION: 1. 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 The disproportion predominance at the second and third metacarpophalangeal joints and chondral calcinosis in the triangular fibrocartilage complex are typical findings associated with calcium pyrophosphate deposition (CPPD) disease. Shoulder X-Ray 04/25/24 09:54 IMPRESSION: No acute osseous abnormality right shoulder. Narrowing of the joint space superiorly with osteophyte formation in the acromion process. Tendinitis is not excluded. Hip/Pelvis X-Ray 04/25/24 09:58 IMPRESSION: Possible fracture in the right inferior pubic ramus CT evaluation advised. Pelvis CT 04/25/24 10:28 IMPRESSION: Healing fracture in the right inferior pubic ramus. Bilateral kidney stones. Discharge Plan Discharge Clinical Impression: Generalized weakness, Dehydration, Pseudogout of right wrist Patient Disposition: Home, Self-Care Condition: Stable Instructions: Antibiotic Form, Gout (ED), Wrist Sprain (ED) Additional Instructions: Stay very well hydrated at home. Increase fluid intake. Recommend electrolyte rich fluids (Gatorade, Pedialyte, body armor). Take naproxen twice daily as prescribed over the next few days for relief of wrist pain. You may continue Tylenol with this. Recommend frequent icing to wrist, elevation of arm, utilize John bandage for support. Follow-up with your primary care doctor for further evaluation. Call office make appointment within the next 1 week. Return to the ED if you experience worsening or severe wrist pain/swelling/redness/warmth, worsening weakness, difficulty walking or getting out of bed, passing out, unable to keep down food or drink, chest pain, difficulty breathing, numbness or weakness of 1 side of body, difficulty speaking, or any other symptoms of concern. Patient Language: Uruguayan Prescriptions: New naproxen 500 mg tablet 500 mg PO BID PRN (Reason: pain) 10 Days Qty: 20 0RF No Action amlodipine 10 mg Tablet 10 mg PO DAILY omeprazole 20 mg Tablet,Delayed Release (Dr/Ec) 20 mg PO DAILY folic acid 1 mg Tablet 1 mg PO DAILY Qty: 30 0RF potassium chloride [K-Tab] 20 mEq Tablet Extended Release 20 meq PO DAILY@0800 Qty: 14 0RF thiamine HCl (vitamin B1) [Vitamin B-1] 100 mg Tablet 100 mg PO DAILY hydrochlorothiazide 25 mg Tablet 25 mg PO DAILY multivitamin with minerals Tablet 1 tablet PO DAILY magnesium oxide 400 mg magnesium Tablet 400 mg PO DAILY melatonin 3 mg Tablet 6 mg PO HS 30 Days Qty: 60 0RF carvedilol [Coreg] 3.125 mg Tablet 6.25 mg PO BIDWM 30 Days Qty: 120 0RF Follow-up/Referrals: Agustin,MD Alexis [Primary Care Provider] - Time of Disposition: 13:13
--- OUTSIDE RECORDS SUMMARY | 2024-04-25 09:57 | XMS_ITS | Encounter Summary ---
Author Organization [facility] Address [address] [place] [address] Care Team Providers Care Business Technology Professor Name Role Phone Alexis Velez MD Primary Care Provider [phone] Encounter Details Date Type Department Care Team (Late st Contact Info) Description 09/08/2023 Telephone [facility] CARE COORDINATION [address] [place] [phone] Bairon Villa MD [address] [facility] [address] [place] [address] Social History Tobacco Use Types Packs/Day Years [...] medical care, and heating? Somewhat hard 08/31/2023 [facility] [place] of Occupat ional Health - Occupational Stress [...] place to sleep or slept in a prison (including now)? No 08/31/2023 Sex and Gender [...] documented as of this encounter Care Teams Business Technology Professor Relationship Specialty [place] [address] [place] [id number] PCP - General Internal Medicine 08/30/23 documented as of this encounter
--- OUTSIDE RECORDS SUMMARY | 2024-04-25 09:57 | XMS_ITS | CONTINUITY OF CARE DOCUMENT ---
Author Name bella alexymadiha Address Unknown Organization [facility] Address [address] [place] [address] [address] [place] [address] Phone [phone] Care Team Providers Care Insurance Rater Name Role Phone Ann-Marie TAPIA, Kb Unavailable BELGICA GREENWOOD MD Unavailable BELGICA GREENWOOD MD Unavailable INSURANCE PROVIDERS Payer name Policy type / Coverage type [place] red green party ID [id number] [id number] insurance [employer] [id number] [place] Medicare [id number]
--- OUTSIDE RECORDS SUMMARY | 2024-04-25 09:57 | XMS_ITS | Clinical Summary ---
Author Organization [facility] Address [address] [place] [address] Care Team Providers Care Replacer Name Role Phone Bill Simms MD Primary [...] 03/09/2022 Assessment & Plan (03/09/2022 12:55 PM PHARMACY CLINICAL COORDINATOR): Happy/EGD Steatohepatitis 03/09/2022 Assessment & Plan (03/09/2022 12:55 PM PHARMACY CLINICAL COORDINATOR): Hepatology referral Angeles's esophagus without dysplasia 07/03/2020 Bronchitis 01/24/2020 Generalized osteoarthritis 01/24/2020 Cervical radiculopathy at C5 01/02/2020 Assessment & Plan (04/03/2020 11:58 AM PHARMACY CLINICAL COORDINATOR): Discussed the possibility of doing a a nerve conduction study to rule out the possibility of carpal tunnel or ulnar tunnel. She would prefer to wait at this time while she completes her therapy but will let me know if this persists Assessment & Plan (01/02/2020 11:53 AM PHARMACY CLINICAL COORDINATOR): Continues to do stretching. Is kept awake at night at times with this. Refer to Dr. Teague Essential hypertension 10/02/2019 Hyperparathyroidism (CMS/HCC) 10/02/2019 Assessment & Plan (06/09/2020 11:34 AM CDT): Labs Anxiety 09/20/2018 Dyslipidemia 09/20/2018 Resolved Problems Problem Noted Date Diagnosed Date Resolved Date Abdominal pain 02/17/2022 03/09/2022 Assessment & Plan (02/17/2022 2:07 PM PHARMACY CLINICAL COORDINATOR): Labs today EGD/COLO referral after labs received (suspect she is anemic) Fall 03/09/2021 02/17/2022 Assessment & Plan (03/09/2021 11:17 AM PHARMACY CLINICAL COORDINATOR): Exam is reassuring (pulses, DTR's, strength WNL) If this reoccurs to call for L-spine MRI Epigastric pain 06/09/2020 02/17/2022 Assessment & Plan (10/16/2021 9:43 AM CDT): With 8 pound weight loss. Has hepatomegaly. Check labs, check ct Assessment & Plan (06/09/2020 11:33 AM CDT): Hx gastritis, repeat EGD (previous in [place], prefers [facility] now) H. Pylori today Start omeprazole [...] on file Legal Sex Female 1:31 AM PHARMACY CLINICAL COORDINATOR Gender Identity Not on file Sexual Orientation Not on file Occupation Industry Job Start Date Job End Date disabled as 2013 Not on file Not on file Not on f ile Obstetrics History Comments Menopause at age 54 y/o Last Filed Vital Signs Vital Sign Reading Time Taken Comments Blood Pressure 143/88 03/25/2022 12:28 PM PHARMACY CLINICAL COORDINATOR Pulse 103 03/25/2022 12:28 PM PHARMACY CLINICAL COORDINATOR Temperature 36 C (96.8 F) 03/25/2022 12:08 PM PHARMACY CLINICAL COORDINATOR Respiratory Rate 16 03/25/2022 12:28 PM PHARMACY CLINICAL COORDINATOR Oxygen Saturation 95% 03/25/2022 12:28 PM PHARMACY CLINICAL COORDINATOR Inhaled Oxygen Concentration - - Weight 69.4 kg (153 lb) 03/25/2022 10:51 AM PHARMACY CLINICAL COORDINATOR Height 170.2 cm (5' 7 ) 03/25/2022 10:51 AM PHARMACY CLINICAL COORDINATOR Body Mass Index 23.96 03/25/2022 10:51 AM PHARMACY CLINICAL COORDINATOR Plan of Treatment Health Maintenance Due Date [...] Associated Diagnosis Comments COLONOSCOPY 03/25/2022 11:48 AM PHARMACY CLINICAL COORDINATOR HEPATITIS PANEL, ACUTE Routine 10/20/2021 11:08 AM CDT Elevated LFTs from Last 3 Months or Most Recently Relevant to Health Maintenance Results * COLONOSCOPY (03/25/2022 11:48 AM PHARMACY CLINICAL COORDINATOR) Anatomical Region Laterality Modality Other Narrative Procedure Note Donato Hartley MD - 03/25/2022 11:48 AM [facility] Patient Name: Bharati Varma Procedure Date: 03/25/2022 11:48 AM Date of : 1955 Admit Type: Outpatient Age: 66 Gender: Female Attending MD: Donato Hartley M.D. Room: [facility] ENDOSCOPY ROOM 3 Note Status: Finalized Procedure: [...] The scope was passed under direct vision.The [id number] endoscope was introduced through the anus and [...] On: 03/25/2022 11:48 AM Recognized by the [employer] for promoting quality [...] 3:08 PM CDT Performed at: - [facility] [place] [id number] Flight Readiness Technician: Edilberto Rivera PhD, Phone: [phone] us Bill Simms MD LAB MICROBIOLOGY - GENERAL OR DERABLES Final Result Performing Organization Address City/State/ZIP Co ne Phone Number [facility] - 01 from Last 3 Months or Most Recently Relevant to Health Maintenance Insurance [facility] MEDICARE MEDICARE [facility] MEDICARE [employer] MEDICARE [facility] MEDICARE Advance Directives For more information, please contact: [phone] * Full Code (Latest Code Status on File) Date Activated Date Inactivated Comments 03/25/2022 10:46 AM 03/25/2022 5:01 PM * Full Code Date Activated Date Inactivated Comments 06/17/2020 11:45 AM 06/17/2020 5:23 PM * Full Code Date Activated Date Inactivated Comments 10/02/2019 3:41 PM 10/03/2019 1:18 AM Care Teams Replacer Relationship Specialty Start Date End Date Bill Simms MD [address] [address] PCP - General 07/24/19
--- OUTSIDE RECORDS SUMMARY | 2024-04-25 09:57 | XMS_ITS | Clinical Summary ---
Author Organization [facility] Address [address] [place] [address] Care Team Providers Care Food Service Helper Name Role Phone Alexis Velez MD Primary Care Provider [phone] Source Comments [facility],non-owned Affiliates and Associated Physician Practices is amultiple site organization consisting of ambulatory clinics and hospital sitesin [place], [place], [place] and [place]. This disclosure is being madepursuant to the Care Everywhere program and may not contain all information available regarding this patient. Last updated 17.[facility] Allergies No known active allergies Medications * [...] Active vitamin D, ergocalciferol, (Drisdol) 1.25 MG (01002 UT) capsuleIndications :Vitamin D Deficiency Take 1 (one) capsule by mouth every 7 days Reasons: Vitamin D Deficiency 11/16/2023 Active oxyCODONE, immediate release, (Roxicodone) 10 MG tabletIndications: Closed fracture of ramus of right pubis, initial encounter ([facility]) Take 1 (one) tablet by mouth every [...] medical care, and heating? Somewhat hard 11/10/2023 [facility] of Occupat ional Health - Occupational Stress [...] place to sleep or slept in a senior living (including now)? No 11/10/2023 Sex and Gender [...] zion Non-reac tive 11/07/2023 11:20 AM CDT [facility] Comment:Hepatitis C Antibody screen indicates no [...] MD LAB - CHEMISTRY CHERYL ARGUELLO [facility] [address] [address], [facility] [phone] from Last 3 Months or Most Recently [...] 3:12 PM 08/31/2023 1:58 PM Care Teams Food Service Helper Relationship Specialty Start Date End Date Alexis Velez MD [address] [place] [address] PCP - General Internal Medicine 08/30/23
--- OUTSIDE RECORDS SUMMARY | 2024-04-25 09:57 | XMS_ITS | Encounter Summary ---
Author Organization [facility] Address [address] [place] [id number] Care Team Providers Care Customer Service Representative Name Role Phone Bill Simms MD Primary Care Provider [phone] Reason for Visit * Reason Onset Date Comments Ready to schedule 03/11/2022 Encounter Details Date Type Department Care Team (Late st Contact Info) Description 03/11/2022 Telephone [facility] Specialty Services [address] [place] [phone] Miscellaneous, Not In File Ready to schedule [...] on file Legal Sex Female 1:31 AM FLIGHT STEWARD Gender Identity Not on file Sexual Orientation Not on file Occupation Industry Job Start Date Job End Date disabled as of 2013 Not on file Not on file Not on f ile documented as of this encounter Plan of Treatment Not on file documented as of this encounter Visit Diagnoses Not on filedocumented in this encounter Care Teams Customer Service Representative Relationship Specialty Start Date End Date Bill Simms MD [address] [facility] [address] [place] [address] PCP - General 07/24/19 documented as of this encounter
--- OUTSIDE RECORDS SUMMARY | 2024-04-25 09:57 | XMS_ITS | Referral Summary ---
Author Organization [facility] Address [address] [place] [address] Care Team Providers Care Customer Engineer Name Role Phone Alexis Velez MD Primary Care Provider [phone] Source Comments [facility],non-owned Affiliates and Associated Physician Practices is amultiple site organization consisting of ambulatory clinics and hospital sitesin [place], [place], [place] and [place]. This disclosure is being madepursuant to the Care Everywhere program and may not contain all information available regarding this patient. Last updated 17.[facility] [employer] Allergies No known active allergies Medications * [...] Active vitamin D, ergocalciferol, (Drisdol) 1.25 MG (98619 UT) capsuleIndications :Vitamin D Deficiency Take 1 (one) capsule by mouth every 7 days Reasons: Vitamin D Deficiency 11/16/2023 Active oxyCODONE, immediate release, (Roxicodone) 10 MG tabletIndications: Closed fracture of ramus of right pubis, initial encounter ([facility]) Take 1 (one) tablet by mouth every [...] medical care, and heating? Somewhat hard 11/10/2023 [facility] [place] [facility] Occupat ional [facility] - Occupational Stress [...] place to sleep or slept in a correction (including now)? No 11/10/2023 Sex and Gender [...] zion Non-reac tive 11/07/2023 11:20 AM CDT [facility] Comment:Hepatitis C Antibody screen indicates no [...] Ovalles MD LAB - CHEMISTRY [facility] Organization Address City/State/ZIP Co de Phone Number [facility] [address] [place] [address], [facility] [phone] from Last 3 Months or Most Recently [...] 3:12 PM 08/31/2023 1:58 PM Care Teams Customer Engineer Relationship Specialty Start Date End Date Alexis Velez MD [address] [place] [id number] PCP - General Internal Medicine 08/30/23
--- OUTSIDE RECORDS SUMMARY | 2024-04-25 09:57 | XMS_ITS | Referral Summary ---
Author Organization [facility] Address [address] [place] [address] Care Team Providers Care Fretted Instrument Inspector Name Role Phone Bill Simms MD Primary Care Provider [phone] Allergies No known active allergies Medications amLODIPine [...] 03/09/2022 Assessment & Plan (03/09/2022 12:55 PM JOB PRINTER): [place]/EGD Steatohepatitis 03/09/2022 Assessment & Plan (03/09/2022 12:55 PM JOB PRINTER): Hepatology referral [place]'s esophagus without dysplasia 07/03/2020 Bronchitis 01/24/2020 Generalized osteoarthritis 01/24/2020 Cervical radiculopathy at C5 01/02/2020 Assessment & Plan (04/03/2020 11:58 AM JOB PRINTER): Discussed the possibility of doing a a nerve conduction study to rule out the possibility of carpal tunnel or ulnar tunnel. She would prefer to wait at this time while she completes her therapy but will let me know if this persists Assessment & Plan (01/02/2020 11:53 AM JOB PRINTER): Continues to do stretching. Is kept awake at night at times with this. Refer to Dr. Teague Essential hypertension 10/02/2019 Hyperparathyroidism (CMS/HCC) 10/02/2019 Assessment & Plan (06/09/2020 11:34 AM CDT): Labs Anxiety 09/20/2018 Dyslipidemia 09/20/2018 Resolved Problems Problem Noted Date Diagnosed Date Resolved Date Abdominal pain 02/17/2022 03/09/2022 Assessment & Plan (02/17/2022 2:07 PM JOB PRINTER): Labs today EGD/COLO referral after labs received (suspect she is anemic) Fall 03/09/2021 02/17/2022 Assessment & Plan (03/09/2021 11:17 AM JOB PRINTER): Exam is reassuring (pulses, DTR's, strength WNL) If this reoccurs to call for L-spine MRI Epigastric pain 06/09/2020 02/17/2022 Assessment & Plan (10/16/2021 9:43 AM CDT): With 8 pound weight loss. Has hepatomegaly. Check labs, check ct Assessment & Plan (06/09/2020 11:33 AM CDT): Hx gastritis, repeat EGD (previous in [place], prefers [facility] now) H. Pylori today Start omeprazole 20mg [...] on file Legal Sex Female 1:31 AM JOB PRINTER Gender Identity Not on file Sexual Orientation Not on file Occupation Industry Job Start Date Job End Date disabled as of 2013 Not on file Not on file Not on f ile Last Filed Vital Signs Vital Sign Reading Time Taken Comments Blood Pressure 143/88 03/25/2022 12:28 PM JOB PRINTER Pulse 103 03/25/2022 12:28 PM JOB PRINTER Temperature 36 C (96.8 F) 03/25/2022 12:08 PM JOB PRINTER Respiratory Rate 16 03/25/2022 12:28 PM JOB PRINTER Oxygen Saturation 95% 03/25/2022 12:28 PM JOB PRINTER Inhaled Oxygen Concentration - - Weight 69.4 kg (153 lb) 03/25/2022 10:51 AM JOB PRINTER Height 170.2 cm (5' 7 ) 03/25/2022 10:51 AM JOB PRINTER Body Mass Index 23.96 03/25/2022 10:51 AM JOB PRINTER Plan of Treatment Not on file Procedures Procedure Name Priority Date/Time Associated Diagnosis Comments COLONOSCOPY 03/25/2022 11:48 AM JOB PRINTER HEPATITIS PANEL, ACUTE Routine 10/20/2021 11:08 AM CDT Elevated LFTs from Last 3 Months or Most Recently Relevant to Health Maintenance Results * COLONOSCOPY (03/25/2022 11:48 AM JOB PRINTER) Anatomical Region Laterality Modality Other Narrative Procedure [...] The scope was passed under direct vision.The [id number] endoscope was introduced through the anus and [...] On: 03/25/2022 11:48 AM Recognized by the [employer] for promoting quality [...] PM CDT Performed at: 01 - [facility] [address] [id number] Biomedical Equipment Technician: Edilberto Rivera PhD, Phone: [phone] us Bill Simms MD LAB MICROBIOLOGY - GENERAL OR DERABLES Final Result [facility] - 01 from Last 3 Months or Most Recently Relevant to Health Maintenance Insurance AAR MEDICARE MEDICARE [facility] MEDICARE [facility] MEDICARE Advance Directives For more information, please contact: [phone] * Full Code (Latest Code Status on File) Date Activated Date Inactivated Comments 03/25/2022 10:46 AM 03/25/2022 5:01 PM * Full Code Date Activated Date Inactivated Comments 06/17/2020 11:45 AM 06/17/2020 5:23 PM * Full Code Date Activated Date Inactivated Comments 10/02/2019 3:41 PM 10/03/2019 1:18 AM Care Teams Fretted Instrument Inspector Relationship Specialty Start Date End Date Bill Simms MD [id number] [place] [address] PCP - General 07/24/19
--- OUTSIDE RECORDS SUMMARY | 2024-04-25 09:58 | XMS_ITS | Patient Health Summary ---
Author Organization [facility] Address [address] [place] [address] Care Team Providers Care Registered Respiratory Therapist Name Role Phone Alexis Velez MD Primary Care Provider [phone] Note from [facility],non-owned Affiliates and Associated Physician Practices is amultiple site organization consisting of ambulatory clinics and hospital sitesin [place], [place], [place] and [place]. This disclosure is being madepursuant to the Care Everywhere program and may not contain all information available regarding this patient. Last updated 17.[facility] Allergies No known active allergies Medications [...] * vitamin D, ergocalciferol, (Drisdol) 1.25 MG (93400 UT) capsule(Started 11/16/2023) Take 1 (one) capsule [...] medical care, and heating? Somewhat hard 11/10/2023 [facility] Occupat ional Health - Occupational Stress [...] place to sleep or slept in a snf (including now)? No 11/10/2023 Sex and Gender [...] - 10.7 x10E9/L 11/24/2023 7:46 AM CDT [facility] RBC Count 3.30(L) 3.90 - 5.20 x10E12/L 11/24/2023 7:46 AM CDT [facility] Hemoglobin 10.7(L) 11.9 - 15.8 g/dL 11/24/2023 7:46 AM CDT [facility] Hematocrit 33.5(L) 34.8 - 46.1 % 11/24/2023 7:46 AM CDT [facility] MCV 101.5(H) 80.0 - 98.0 fL 11/24/2023 7:46 AM CDT [facility] MCH 32.4 26.7 - 33.6 pg 11/24/2023 7:46 AM CDT [facility] MCHC 31.9 31.7 - 36.3 g/dL 11/24/2023 7:46 AM CDT [facility] RDW-CV 14.2 11.3 - 14.8 % 11/24/2023 7:46 AM CDT [facility] Platelet Count 329 150 - 420 x10E9/L 11/24/2023 7:46 AM CDT [facility] MPV 9.0 7.8 - 11.4 fL 11/24/2023 7:46 AM CDT [facility] Blood BLOOD SPECIMEN / Unknown Lab Venipuncture / Unknown 11/24/2023 6:38 AM CDT 11/24/2023 7:33 AM CDT Yashira Hill MD LAB - HEMATOLOGY OR DERABLES [facility] [address] [place] [address] * (ABNORMAL) BASIC METABOLIC PANEL (CALCIUM TOTAL) (11/24/2023 6:38 AM CDT) Only the most recent of9 resultswithin the time period is included. Glucose 83 70 - 99 mg/dL 11/24/2023 8:29 AM CDT [facility] Sodium 140 136 - 145 mmol/L 11/24/2023 8:29 AM CDT [facility] Potassium 3.8 3.5 - 5.1 mmol/L 11/24/2023 8:29 AM CDT [facility] Chloride 104 98 - 107 mmol/L 11/24/2023 8:29 AM CDT [facility] CO2 27 22 - 29 mmol/L 11/24/2023 8:29 AM CDT [facility] Calcium 10.2 8.4 - 10.4 mg/dL 11/24/2023 8:29 AM CDT [facility] Anion Gap 9 6 - 16 mmol/L 11/24/2023 8:29 AM CDT [facility] BUN 16 7 - 26 mg/dL 11/24/2023 8:29 AM CDT [facility] Creatinine 0.84 0.57 - 1.11 mg/dL 11/24/2023 8:29 AM CDT [facility] eGFR by CKD-EPI 75(L) >=90 mL/min/1.7 3 m2 11/24/2023 8:29 AM CDT [facility] Blood BLOOD SPECIMEN / Unknown Lab Venipuncture / Unknown 11/24/2023 6:38 AM CDT 11/24/2023 7:33 AM CDT Yashira Hill MD LAB - CHEMISTRY ORD ERABLES [facility] [address] [place] [address] * (ABNORMAL) URINALYSIS REFLEX MICROSCOPIC REFLEX CULTURE (11/13/2023 11:26 PM CDT) Color UA Yellow Straw, Yellow 11/13/2023 11:50 PM [facility] Clarity UA Clear Clear 11/13/2023 11:50 PM [facility] Specific [place] UA 1.015 1.005 - 1.030 11/13/2023 11:50 PM [facility] pH UA 6.0 5.0 - 8.0 pH 11/13/2023 11:50 PM [facility] Protein UA Negative Negative 11/13/2023 11:50 PM [facility] Glucose UA Negative Negative 11/13/2023 11:50 PM [facility] Ketone UA Negative Negative 11/13/2023 11:50 PM [facility] Bilirubin UA Negative Negative 11/13/2023 11:50 PM [facility] Blood UA Negative Negative 11/13/2023 11:50 PM [facility] Nitrite UA Negative Negative 11/13/2023 11:50 PM [facility] Leukocyte Esterase Negative Negative 11/13/2023 11:50 PM [facility] Urobilinogen UA 2.0(A) Negative mg/dL 11/13/2023 11:50 PM CDT [facility] Comment UA Microscopic not indicated. 11/13/2023 11:50 PM CDT [facility] Urine URINE SPECIMEN OBTAINED BY CLEAN CATCH PROCEDURE / Unknown Collection / Unknown 11/13/2023 11:26 PM CDT 11/13/2023 11:36 PM CDT Narrative [facility] - 11/13/2023 11:50 PM CDT Seth Brown MD LAB - URINALYSIS ORD ERABLES Performing Organization Address City/[facility]/ZIP Co de Phone Number [address] [address], [place] [phone] * (ABNORMAL) GLUCOSE - POINT OF CARE (11/12/2023 7:44 PM CDT) Glucose WB/POC 140(H) 70 - 115 mg/dL 11/12/2023 7:49 PM CDT [facility] Specimen Type Cap Fingerstick 2023 7:49 PM CDT [facility] Blood BLOOD SPECIMEN / Unknown 11/12/2023 7:44 PM CDT 11/12/2023 7:49 PM CDT Jaci Harp MD LAB - POINT OF CARE ORDERABLES Performing Organization Address [facility]/ZIP Co de Phone Number [address] [address], [place] [phone] * XR Abdomen Kub Portable (11/11/2023 12:19 PM CDT) Only the most recent of2 resultswithin the time period is included. Anatomical Region Laterality Modality Abdomen Radiographic Anabel ging 11/11/2023 1:35 PM CDT Impressions 11/11/2023 3:11 PM CDT IMPRESSION: 1.Non-obstructive bowel gas pattern. 2.Moderate to large stool burden. 3.Left-sided nephrolithiasis. Report dictated by Scott Todd MD, PhD (vice president of contracts). ILexa have personally reviewed and interpreted this examination/study. > Interpreting Provider: Lexa Lazo on 11/11/2023 3:11 PM Narrative 11/11/2023 3:11 PM CDT PROCEDURE: XR ABDOMEN KUB PORTABLE, DATE/TIME OF EXAM: 11/11/2023 12:19 PM, LOCATION [facility] INDICATION: R14.0: Abdominal distension ADDITIONAL CLINICAL INFORMATION: [...] DATE/TIME OF EXAM: 11/11/2023 12:19 PM, LOCATION [facility] INDICATION: R14.0: Abdominal distension ADDITIONAL CLINICAL INFORMATION: [...] Report dictated by Scott Todd MD, PhD (vice president of contracts). ILexa have personally reviewed and interpreted this examination/study. > Interpreting Provider: Lexa Lazo on 11/11/2023 3:11 PM Seth Ovalles MD DIAGNOSTIC IMAGING O RDERABLES * (ABNORMAL) CBC W AUTO DIFFERENTIAL (11/10/2023 9:38 AM [facility]) Only the most recent of7 resultswithin the time period is included. WBC 5.3 4.0 - 10.7 x10E9/L 11/10/2023 10:02 AM [facility] RBC Count 3.17(L) 3.90 - 5.20 x10E12/L 11/10/2023 10:02 AM [facility] Hemoglobin 10.7(L) 11.9 - 15.8 g/dL 11/10/2023 10:02 AM [facility] Hematocrit 31.5(L) 34.8 - 46.1 % 11/10/2023 10:02 AM [facility] MCV 99.4(H) 80.0 - 98.0 fL 11/10/2023 10:02 AM [facility] MCH 33.8(H) 26.7 - 33.6 pg 11/10/2023 10:02 AM [facility] MCHC 34.0 31.7 - 36.3 g/dL 11/10/2023 10:02 AM [facility] RDW-CV 14.8 11.3 - 14.8 % 11/10/2023 10:02 AM [facility] Platelet Count 291 150 - 420 x10E9/L 11/10/2023 10:02 AM [facility] MPV 9.9 7.8 - 11.4 fL 11/10/2023 10:02 AM [facility] Neutrophil % 52.6 41.0 - 74.0 % 11/10/2023 10:02 AM [facility] Lymphocyte % 23.0 17.0 - 47.0 % 11/10/2023 10:02 AM [facility] Monocyte % 19.4(H) 3.0 - 11.0 % 11/10/2023 10:02 AM [facility] Eosinophil % 3.6 0.0 - 7.0 % 11/10/2023 10:02 AM [facility] Basophil % 0.8 0.0 - 1.6 % 11/10/2023 10:02 AM [facility] Immature Granulocytes % 0.6 0.0 - 1.0 % 11/10/2023 10:02 AM [facility] Neutrophil Absolute 2.80 1.60 - 7.50 x10E9/L 11/10/2023 10:02 AM [facility] Lymphocyte Absolute 1.22 1.00 - 4.40 x10E9/L 11/10/2023 10:02 AM [facility] Monocyte Absolute 1.03(H) 0.15 - 1.00 x10E9/L 11/10/2023 10:02 AM [facility] Eosinophil Absolute 0.19 0.00 - 0.60 x10E9/L 11/10/2023 10:02 AM [facility] Basophil Absolute 0.04 0.00 - 0.13 x10E9/L 11/10/2023 10:02 AM [facility] Blood BLOOD SPECIMEN / Unknown Lab Venipuncture / Unknown 11/10/2023 9:38 AM CDT 11/10/2023 9:50 AM CDT Seth Ovalles MD LAB - HEMATOLOGY ORD ERABLES [facility] [address] [place] [phone], [facility] [phone] * (ABNORMAL) COMPREHENSIVE METABOLIC PANEL (11/10/2023 9:38 AM CDT) Only the most recent of6 resultswithin the time period is included. BUN 11 7 - 26 mg/dL 11/10/2023 11:16 AM [facility] Creatinine 0.80 0.56 - 0.96 mg/dL 11/10/2023 11:16 AM [facility] Sodium 134(L) 136 - 145 mmol/L 11/10/2023 11:16 AM [facility] Potassium 4.3 3.5 - 4.5 mmol/L 11/10/2023 11:16 AM [facility] Chloride 107 98 - 107 mmol/L 11/10/2023 11:16 AM [facility] CO2 21(L) 22 - 29 mmol/L 11/10/2023 11:16 AM [facility] Glucose 110 70 - 115 mg/dL 11/10/2023 11:16 AM [facility] Calcium 9.5 8.4 - 10.2 mg/dL 11/10/2023 11:16 AM [facility] Protein Total 6.8 6.0 - 8.3 g/dL 11/10/2023 11:16 AM [facility] Albumin 2.8(L) 3.4 - 5.0 g/dL 11/10/2023 11:16 AM [facility] Bilirubin Total 0.4 0.2 - 1.2 mg/dL 11/10/2023 11:16 AM [facility] Alkaline Phosphatase 151(H) 40 - 150 U/L 11/10/2023 11:16 AM [facility] ALT 24 5 - 55 U/L 11/10/2023 11:16 AM [facility] AST 27 5 - 34 U/L 11/10/2023 11:16 AM [facility] Anion Gap 6 6 - 16 11/10/2023 11:16 AM [facility] BUN/Creatinine Ratio 14 7 - 23 11/10/2023 11:16 AM [facility] Osmolality Calculated 278 275 - 295 mOsm/kg 11/10/2023 11:16 AM [facility] Albumin/Globulin Ratio 0.7(L) 1.1 - 2.3 11/10/2023 11:16 AM [facility] eGFR by CKD-EPI 80(L) >=90 mL/min/1.7 3 m2 11/10/2023 11:16 AM [facility] Blood BLOOD SPECIMEN / Unknown Lab Venipuncture / Unknown 11/10/2023 9:38 AM T 11/10/2023 9:50 AM [facility] Seth Ovalles MD LAB - CHEMISTRY CHERYL [employer] Organization Address City/State/ZIP Co de Phone Number [facility] [address] [place] [address], [facility] [phone] * PHOSPHORUS BLOOD (11/10/2023 9:38 AM CDT) Only the most recent of8 resultswithin the time period is included. Pathologist [facility] Phosphorus 4.5 2.9 - 5.1 mg/dL 11/10/2023 10:49 AM CDT [facility] Blood BLOOD SPECIMEN / Unknown Lab Venipuncture / Unknown 11/10/2023 9:38 AM CDT 11/10/2023 9:50 AM CDT Seht Ovalles MD LAB - CHEMISTRY CHERYL ARGUELLO Performing Organization Address City/[facility]/ZIP Co de Phone Number [address] [address], [facility] [phone] * MAGNESIUM BLOOD (11/10/2023 9:38 AM CDT) Only the most recent of8 resultswithin the time period is included. [facility] Magnesium 1.9 1.6 - 2.6 mg/dL 11/10/2023 10:49 AM CDT [facility] Blood BLOOD SPECIMEN / Unknown Lab Venipuncture / Unknown 11/10/2023 9:38 AM CDT 11/10/2023 9:50 AM CDT Seth Ovalles MD LAB - CHEMISTRY CHERYL ARGUELLO [address] [address], [facility] [phone] * (ABNORMAL) DRUG SCREEN EXPANDED TOXICOLOGY URINE PANEL (11/09/2023 1:47 PM CDT) [facility] Expanded Drug Screen, Urine Positive(A) Negative 11/09/2023 4:56 PM CDT [facility] Findings Caffeine Chlordiazepoxid e Cotinine Lorazepam glucuronide Noroxycodone Oxycodone 11/09/2023 4:56 PM CDT [facility] Urine URINE / Unknown Collection / Unknown 11/09/2023 1:47 PM CDT 11/09/2023 1:56 PM CDT Narrative [facility] - 11/09/2023 4:56 PM CDT Testing performed by Liquid Chromatography-Quadrupole Time Flight Mass Spectrometry. While mass spectrometry is highly sensitive and specific, false-positive and false-negative findings may occur in rare circumstances. If consultation is needed, please contact the Clinical Pathology Resident button riveter at [phone] (M-F, 8 am 5 pm) or [phone] after hours. This test does not include THC or barbiturates. This testing was developed by the [facility] in keeping with CLIA requirements. The test has not been cleared or approved by the U.S. Food and Drug Administration. Seth Ovalles MD LAB - URINE CHEMISTR Y ORDERABLES [facility] [address] [phone] * CARDIAC EKG ORDER (11/08/2023 10:53 AM CDT) Narrative 11/08/2023 10:53 AM CDT Ordered by an unspecified provider. Scanned Document CARDIAC SERVICES ORD ERABLES * (ABNORMAL) VITAMIN D 25-HYDROXY (11/08/2023 4:48 AM CDT) Only the most recent of2 resultswithin the time period is included. Vitamin D, 25 Hydroxy 14.2(L) 30.0 - 80.0 ng/mL 11/08/2023 3:55 PM CDT [facility] Comment: The recommendations for 25-Hydroxy [...] - CHEMIS TRY ORDERABLES Performing Organization Address City/[facility]/ZIP Co de Phone Number [facility] [address] [place] [phone], [place] [phone] * (ABNORMAL) FOLATE (11/08/2023 4:48 AM CDT) Only the most recent of2 resultswithin the time period is included. Folate 5.1(L) 7.0 - 31.4 ng/mL 11/08/2023 6:48 AM CDT [facility] Blood BLOOD SPECIMEN / Unknown Venipuncture / Unknown 11/08/2023 4:48 AM CDT 11/08/2023 5:43 AM CDT Seth Ovalles MD LAB - CHEMISTRY CHERYL ARGUELLO Performing Organization Address [facility] Co de Phone Number [address] [address], [place] [phone] * (ABNORMAL) VITAMIN B12 (11/08/2023 4:48 AM CDT) Only the most recent of2 resultswithin the time period is included. Vitamin B12 153(L) 213 - 816 pg/mL 11/08/2023 6:48 AM CDT [facility] Blood BLOOD SPECIMEN / Unknown Venipuncture / Unknown 11/08/2023 4:48 AM CDT 11/08/2023 5:43 AM CDT Seth Ovalles MD LAB - CHEMISTRY CHERYL ARGUELLO Performing Organization Address City/[facility]/ZIP Co de Phone Number [address] [address], [place] [phone] * HEMOGLOBIN A1C (11/08/2023 4:46 AM CDT) Hemoglobin A1c 4.5 <=5.6 % 11/08/2023 8:41 AM CDT [facility] Estimated Average Glucose 82 mg/dL 11/08/2023 8:41 AM CDT [facility] Comment: HbA1c Interpretation: Normal : < 5.7% Pre-diabetes: 5.7-6.4% Diabetes: Equal to or greater than 6.5% Test results diagnostic of diabetes should be repeated for confirmation. Treatment target values recommended by ADA and other clinical organizations should be used to evaluate metabolic control in patients. Reference: [place] Diabetes Association, Standards of Care in Diabetes [...] Ovalles MD LAB - CHEMISTRY CHERYL ARGUELLO [address] [address], [facility] [phone] * HEPATITIS B SURFACE ANTIGEN W RFLX CONFIRMATION (11/08/2023 4:46 AM CDT) Hepatitis B Virus Surface Antigen Non-reacti ve Non-reacti ve 11/08/2023 6:25 AM CDT [facility] Blood BLOOD SPECIMEN / Unknown Venipuncture / Unknown 11/08/2023 4:46 AM CDT 11/08/2023 5:30 AM CDT Seth Ovalles MD LAB - CHEMISTRY CHERYL ARGUELLO [address] [address], [facility] [phone] * XR Pelvis AP W Inlet Outlet [...] of ramus of right pubis, initial encounter ([facility]) Additional History: COMPARISON: Inlet outlet [...] of ramus of right pubis, initial encounter ([facility]) Additional History: COMPARISON: Inlet outlet views on 11/07/2023 2:28 AM. FINDINGS/IMPRESSION: Known fracture of the right pubic body and right superior pubic ramusare not well seen. > Interpreting Provider: Desiree Adams MD on 11/07/2023 12:32 PM Danielle Gibbons PA-C DIAGNOSTIC IMAGING ORDERABLES * HEPATITIS C AB SCREEN RFLX NAAT QUANT (11/07/2023 10:20 AM CDT) Pathologist [facility] Hepatitis C Antibody Non-react zion Non-reac tive 11/07/2023 11:20 AM CDT [facility] Comment:Hepatitis C Antibody screen indicates [...] Ovalles MD LAB - CHEMISTRY CHERYL ARGUELLO [facility] [address] [place] [address], [facility] [phone] * CT THORAX ABDOMEN PELVIS W CONT [...] verification. > Dictated by Xander Joel MD (vice president of contracts). IMagnus MD have personally reviewed and interpreted this examination/study. > Interpreting Provider: Magnus Lazaro MD on 11/07/2023 9:04 AM Narrative 11/07/2023 9:04 AM CDT PROCEDURE: CT CHEST ABDOMEN PELVIS W CONT, DATE/TIME OF EXAM: 11/07/2023 12:02 AM, LOCATION [facility] INDICATION: W19.XXXA: Fall, initial encounter ADDITIONAL CLINICAL [...] CONT, DATE/TIME OF EXAM:11/07/2023 12:02 AM, LOCATION [facility] INDICATION: W19.XXXA: Fall, initial encounter ADDITIONAL CLINICAL [...] wall thickening of the inferior bladder wall (, series 10), may represent contusion of the [...] ramus (series 9 image 64, series 6 -434). There are small hematomas in the adjacent [...] verification. > Dictated by Xander Joel MD (vice president of contracts). Magnus Sneed MD have personally reviewed and [...] findings. Report dictated by Doug Gale MD (vice president of contracts). Joe Sneed MD have personally reviewed and interpreted this examination/study. > Interpreting Provider: Joe Wood MD on 11/07/2023 7:07 AM Narrative 11/07/2023 7:07 AM CDT PROCEDURE: CT HEAD WO CONTRAST, CT CERVICAL SPINE WO CONTRAST, CT THORACIC SPINE WO CONTRAST, CT LUMBAR SPINE WO CONTRAST, DATE/TIME OF EXAM: 11/07/2023 12:02 AM, LOCATION [facility] INDICATION: W19.XXXA: Fall, initial encounter EXAMINATION: 1.Computed tomography (CT) of the head without contrast 2.CT of the cervical spine without contrast 3.CT of the thoracic spine without contrast 4.CT of the lumbar spine without contrast ADDITIONAL CLINICAL INFORMATION: Ordering Provider Reason For Exam: Fall (accession [id number]), Fall intoxicated (accession [id number]), Fall (accession [id number]), Fall back pain (accession [id number]) Technologist Note: None. Additional: None. TECHNIQUE: CT [...] or midline shift is seen, previously mild [id number]-tn-[id number] midline shift was seen. The gotti-white matter [...] DATE/TIME OF EXAM: 11/07/2023 12:02 AM, LOCATION [facility] INDICATION: W19.XXXA: Fall, initial encounter EXAMINATION: 1.Computed tomography (CT) of the head without contrast 2.CT of the cervical spine without contrast 3.CT of the thoracic spine without contrast 4.CT of the lumbar spine without contrast ADDITIONAL CLINICAL INFORMATION: Ordering Provider Reason For Exam: Fall (accession [id number]), Fall intoxicated (accession [id number]), Fall (accession [id number]), Fall back pain (accession [id number]) Technologist Note: None. Additional: None. TECHNIQUE: CT [...] or midline shift is seen, previously mild joto-hr-cmhiw midline shift was seen. The gotti-white matter [...] findings. Report dictated by Doug Gale MD (vice president of contracts). Joe Sneed MD have personally reviewed and [...] findings. Report dictated by Doug Gale MD (vice president of contracts). Joe Sneed MD have personally reviewed and interpreted this examination/study. > Interpreting Provider: Joe Wood MD on 11/07/2023 7:07 AM Narrative 11/07/2023 7:07 AM CDT PROCEDURE: CT HEAD WO CONTRAST, CT CERVICAL SPINE WO CONTRAST, CT THORACIC SPINE WO CONTRAST, CT LUMBAR SPINE WO CONTRAST, DATE/TIME OF EXAM: 11/07/2023 12:02 AM, LOCATION [facility] INDICATION: W19.XXXA: Fall, initial encounter EXAMINATION: 1.Computed tomography (CT) of the head without contrast 2.CT of the cervical spine without contrast 3.CT of the thoracic spine without contrast 4.CT of the lumbar spine without contrast ADDITIONAL CLINICAL INFORMATION: Ordering Provider Reason For Exam: Fall (accession [id number]), Fall intoxicated (accession [id number]), Fall (accession [id number]), Fall back pain (accession [id number]) Technologist Note: None. Additional: None. TECHNIQUE: CT [...] or midline shift is seen, previously mild thrw-cc-ratwa midline shift was seen. The gotti-white matter [...] DATE/TIME OF EXAM: 11/07/2023 12:02 AM, LOCATION [facility] INDICATION: W19.XXXA: Fall, initial encounter EXAMINATION: 1.Computed tomography (CT) of the head without contrast 2.CT of the cervical spine without contrast 3.CT of the thoracic spine without contrast 4.CT of the lumbar spine without contrast ADDITIONAL CLINICAL INFORMATION: Ordering Provider Reason For Exam: Fall (accession [id number]), Fall intoxicated (accession [id number]), Fall (accession [id number]), Fall back pain (accession [id number]) Technologist Note: None. Additional: None. TECHNIQUE: CT [...] or midline shift is seen, previously mild ftpv-hq-aryny midline shift was seen. The gotti-white matter [...] findings. Report dictated by Doug Gale MD (vice president of contracts). Joe Sneed MD have personally reviewed and [...] findings. Report dictated by Doug Gale MD (vice president of contracts). Joe Sneed MD have personally reviewed and interpreted this examination/study. > Interpreting Provider: Joe Wood MD on 11/07/2023 7:07 AM Narrative 11/07/2023 7:07 AM CDT PROCEDURE: CT HEAD WO CONTRAST, CT CERVICAL SPINE WO CONTRAST, CT THORACIC SPINE WO CONTRAST, CT LUMBAR SPINE WO CONTRAST, DATE/TIME OF EXAM: 11/07/2023 12:02 AM, LOCATION [facility] INDICATION: W19.XXXA: Fall, initial encounter EXAMINATION: 1.Computed tomography (CT) of the head without contrast 2.CT of the cervical spine without contrast 3.CT of the thoracic spine without contrast 4.CT of the lumbar spine without contrast ADDITIONAL CLINICAL INFORMATION: Ordering Provider Reason For Exam: Fall (accession [id number]), Fall intoxicated (accession [id number]), Fall (accession [id number]), Fall back pain (accession [id number]) Technologist Note: None. Additional: None. TECHNIQUE: CT [...] or midline shift is seen, previously mild bcpi-gk-bixtw midline shift was seen. The gotti-white matter [...] DATE/TIME OF EXAM: 11/07/2023 12:02 AM, LOCATION [facility] INDICATION: W19.XXXA: Fall, initial encounter EXAMINATION: 1.Computed tomography (CT) of the head without contrast 2.CT of the cervical spine without contrast 3.CT of the thoracic spine without contrast 4.CT of the lumbar spine without contrast ADDITIONAL CLINICAL INFORMATION: Ordering Provider Reason For Exam: Fall (accession [id number]), Fall intoxicated (accession [id number]), Fall (accession [id number]), Fall back pain (accession [id number]) Technologist Note: None. Additional: None. TECHNIQUE: CT [...] or midline shift is seen, previously mild pxbf-wk-mexcc midline shift was seen. The gotti-white matter [...] findings. Report dictated by Doug Gale MD (vice president of contracts). I, Joe Wood MD have personally reviewed [...] findings. Report dictated by Doug Gale MD (vice president of contracts). IJoe MD have personally reviewed and interpreted this examination/study. > Interpreting Provider: Joe Wood MD on 11/07/2023 7:07 AM Narrative 11/07/2023 7:07 AM CDT PROCEDURE: CT HEAD WO CONTRAST, CT CERVICAL SPINE WO CONTRAST, CT THORACIC SPINE WO CONTRAST, CT LUMBAR SPINE WO CONTRAST, DATE/TIME OF EXAM: 11/07/2023 12:02 AM, LOCATION [facility] INDICATION: W19.XXXA: Fall, initial encounter EXAMINATION: 1.Computed tomography (CT) of the head without contrast 2.CT of the cervical spine without contrast 3.CT of the thoracic spine without contrast 4.CT of the lumbar spine without contrast ADDITIONAL CLINICAL INFORMATION: Ordering Provider Reason For Exam: Fall (accession [id number]), Fall intoxicated (accession [id number]), Fall (accession [id number]), Fall back pain (accession [id number]) Technologist Note: None. Additional: None. TECHNIQUE: CT [...] or midline shift is seen, previously mild ijle-fk-hyfrd midline shift was seen. The gotti-white matter [...] DATE/TIME OF EXAM: 11/07/2023 12:02 AM, LOCATION [facility] INDICATION: W19.XXXA: Fall, initial encounter EXAMINATION: 1.Computed tomography (CT) of the head without contrast 2.CT of the cervical spine without contrast 3.CT of the thoracic spine without contrast 4.CT of the lumbar spine without contrast ADDITIONAL CLINICAL INFORMATION: Ordering Provider Reason For Exam: Fall (accession [id number]), Fall intoxicated (accession [id number]), Fall (accession [id number]), Fall back pain (accession [id number]) Technologist Note: None. Additional: None. TECHNIQUE: CT [...] or midline shift is seen, previously mild [id number] midline shift was seen. The gotti-white matter [...] findings. Report dictated by Doug Gale MD (vice president of contracts). IJoe MD have personally reviewed and interpretedthis [...] (Bezet) 447 ms [facility] MUSE Calculated P [place] 63 degrees [facility] MUSE Calculated R [place] 23 degrees [facility] MUSE Calculated T [place] -4 degrees [facility] MUSE Interpretation EKG NORMAL SINUS RHYTHM ST & T WAVE ABNORMALITY, CONSIDER ANTERIOR ISCHEMIA ABNORMAL ECG NO PREVIOUS ECGS AVAILABLE Confirmed by LOUISA HAYWARD MD ([id number]) on 11/13/2023 11:33:28 PM SL MUSE 11/06/2023 10:5 4 PM CDT 11/13/2023 11:33 PM CDT Devante Hoang MD ECG ORDERABLES [facility] MUSE * XR HIP 2+ VW RIGHT (11/06/2023 10:28 PM CDT) Anatomical Region Laterality Modality Pelvis, Lower Extremity Radiogra phic Imaging 11/06/2023 11:3 7 PM CDT Narrative 11/07/2023 12:27 PM CDT EXAMINATION: XR HIP RIGHT 2VW OR MORE DATE/TIME OF EXAM: 11/06/2023 10:29 PM, LOCATION [facility] HISTORY: W19.XXXA: Fall, initial encounter Right hip pain COMPARISON: Same day CT chest, abdomen and pelvis FINDINGS/IMPRESSION: A minimally displaced fracture of the right pubic body and superior ramus is poorly visualized on this study, best seen on the concurrent CT chest, abdomen and pelvis. The hip joint space is preserved. Bone density and texture are normal. Report dictated by Doug Gale MD (vice president of contracts). IDesiree MD have personally reviewed and interpreted this examination/study. > Interpreting Provider: Desiree Adams MD on 11/07/2023 12:27 PM Procedure Note Desiree Adams MD - 11/07/2023 EXAMINATION: XR HIP RIGHT 2VW OR MORE DATE/TIME OF EXAM: 11/06/2023 10:29 PM, LOCATION [facility] HISTORY: W19.XXXA: Fall, initial encounter Right hip pain COMPARISON: Same day CT chest, abdomen and pelvis FINDINGS/IMPRESSION: A minimally displaced fracture of the right pubic body and superiorramus is poorly visualized on this study, best seen on the concurrent CTchest, abdomen and pelvis. The hip joint space is preserved. Bone density and texture are normal. Report dictated by Doug Gale MD (vice president of contracts). Desiree Sneed MD have personally reviewed and [...] seen. Report dictated by Doug Gale MD (vice president of contracts). Desiree Sneed MD have personally reviewed and interpreted this examination/study. > Interpreting Provider: Desiree Adams MD on 11/07/2023 12:24 PM Narrative 11/07/2023 12:24 PM CDT EXAMINATION: XR PELVIS 1 OR 2VW DATE/TIME OF EXAM: 11/06/2023 10:28 PM, LOCATION [facility] HISTORY: W19.XXXA: Fall, initial encounter Right hip [...] DATE/TIME OF EXAM: 11/06/2023 10:28 PM, LOCATION [facility] HISTORY: W19.XXXA: Fall, initial encounter Right hip [...] seen. Report dictated by Doug Gale MD (vice president of contracts). I, Desiree Adams MD have personally reviewed and interpreted this examination/study. > Interpreting Provider: Desiree Adams MD on 11/07/2023 12:24 PM Devante Hoang MD DIAGNOSTIC IMAGING O RDERABLES * TROPONIN-I HIGH SENSITIVE (11/06/2023 10:13 PM CDT) Troponin I High Sensitive <3 <=14 ng/L 11/06/2023 10:55 PM CDT [facility] Blood BLOOD SPECIMEN / Unknown Venipuncture / Unknown 11/06/2023 10:13 PM CDT 11/06/2023 10:18 PM CDT Devante Hoang MD LAB - CHEMISTRY CHERYL ARGUELLO [facility] [address] [place] [address], [facility] [phone] * PTT [facility] (11/06/2023 10:13 PM CDT) Only the most recent of2 resultswithin the time period is included. APTT 25.2 23.0 - 38.4 Seconds 11/06/2023 10:37 PM CDT [facility] Comment:Suggested therapeuti c range for full dose I.V. unfractionated heparin therapy for venous thromboembolism is 71 to 109 seconds. Blood BLOOD SPECIMEN / Unknown Venipuncture / Unknown 11/06/2023 10:13 PM CDT 11/06/2023 10:16 PM CDT Devante Hoang MD LAB - COAGULATION OR DERABLES Performing Organization Address [facility] Co de Phone Number [address] [address], [facility] [phone] * (ABNORMAL) PT-INR [facility] (11/06/2023 10:13 PM CDT) Only the most recent of2 resultswithin the time period is included. PT 12.0(L) 12.1 - 14.8 Seconds 11/06/2023 10:37 PM CDT [facility] INR 0.9 See Comment 11/06/2023 10:37 PM CDT [facility] Comment:The suggested therap eutic range for standard coumadin (warfarin) therapy is an INR of 2.0-3.0. For high-risk patients (Mechanical Mitral Valve Prosthesis, etc.), the suggested prophylactic therapeutic range is an INR of 2.5-3.5. Blood BLOOD SPECIMEN / Unknown Venipuncture / Unknown 11/06/2023 10:13 PM CDT 11/06/2023 10:16 PM CDT Devante Hoang MD LAB - COAGULATION OR DERABLES Performing Organization Address [facility] Co de Phone Number [address] [address], [place] [phone] * (ABNORMAL) ALCOHOL ETHYL BLOOD (11/06/2023 10:13 PM CDT) Only the most recent of3 resultswithin the time period is included. Ethanol (mg/dL) 180(H) <10 mg/dL 10:51 PM CDT [facility] Ethanol Calculated (g/dL) 0.180(H) <=0.010 g/dL 11/06/2023 10:51 PM CDT [facility] Blood BLOOD SPECIMEN / Unknown Venipuncture / Unknown 11/06/2023 10:13 PM CDT 11/06/2023 10:18 PM CDT Narrative [facility] - 11/06/2023 10:51 PM CDT Ethanol Interp <10: None Detected. Depression of FITTER HAND: >100 mg/dl Potentially Critical: >250 mg/dl Potentially [...] Hoang MD LAB - CHEMISTRY CHERYL ARGUELLO [facility] Organization Address City/State/ZIP Co de Phone Number [address] [address], [facility] [phone] * XR CHEST 1VW PORTABLE (11/06/2023 10:12 PM CDT) Only the most recent of5 resultswithin the time period is included. Anatomical Region Laterality Modality Chest Radiographic Anabel ging 11/06/2023 11:2 9 PM CDT Narrative 11/07/2023 12:17 PM CDT PROCEDURE: XR CHEST 1VW PORTABLE, DATE/TIME OF EXAM: 11/06/2023 10:28 PM, LOCATION [facility] INDICATION: W19.XXXA: Fall, initial encounter ADDITIONAL CLINICAL [...] redemonstrated. Report dictated by Doug Gale MD (vice president of contracts). Desiree Sneed MD have personally reviewed and interpreted this examination/study. > Interpreting Provider: Desiree Adams MD on 11/07/2023 12:17 PM Procedure Note Desiree Adams MD - 11/07/2023 PROCEDURE: XR CHEST 1VW PORTABLE, DATE/TIME OF EXAM: 11/06/2023 10:28PM, LOCATION [facility] INDICATION: W19.XXXA: Fall, initial encounter ADDITIONAL CLINICAL [...] redemonstrated. Report dictated by Doug Gale MD (vice president of contracts). Desiree Sneed MD have personally reviewed and interpreted this examination/study. > Interpreting Provider: Desiree Adams MD on 11/07/2023 12:17 PM Devante Hoang MD DIAGNOSTIC IMAGING O RDERABLES * (ABNORMAL) CALCIUM IONIZED WHOLE BLOOD (09/03/2023 5:30 AM CDT) Only the most recent of3 resultswithin the time period is included. Calcium Ionized 1.19 mmol/L 09/03/2023 5:42 AM [facility] pH 7.36 7.35 - 7.45 pH 09/03/2023 5:42 AM [facility] Ionized Calcium pH Adjusted 1.17(L) 1.19 - 1.34 mmol/L 09/03/2023 5:42 AM [facility] Blood BLOOD SPECIMEN / Unknown Lab Venipuncture / Unknown 09/03/2023 5:30 AM CDT 09/03/2023 5:38 AM CDT Bairon Villa MD LAB - CHEMISTRY CHERYL ARGUELLO Performing Organization Address City/[facility]/ZIP Co de Phone Number [facility] [address] [place] [phone], [facility] [phone] * (ABNORMAL) HEPATIC FUNCTION PANEL (09/03/2023 5:30 AM CDT) Only the most recent of2 resultswithin the time period is included. Protein Total 5.0(L) 6.0 - 8.3 g/dL 024 6:13 AM [facility] Albumin 2.1(L) 3.4 - 5.0 g/dL 09/03/2023 6:13 AM [facility] Bilirubin Total 0.7 0.2 - 1.2 mg/dL 08/21 6:13 AM [facility] Bilirubin Conjugated 0.5 0.1 - 0.5 mg/dL 09/03/2023 6:13 AM [facility] Bilirubin Unconjugated 0.2 Unconjugated Bilirubin is a calculated value: Reference ranges have not been established. mg/dL 09/03/2023 6:13 AM [facility] Alkaline Phosphatase 99 40 - 150 U/L 09/03/2023 6:13 AM [facility] ALT 25 5 - 55 U/L 09/03/2023 6:13 AM [facility] AST 40(H) 5 - 34 U/L 09/03/2023 6:13 AM [facility] Albumin/Globulin Ratio 0.7(L) 1.1 - 2.3 09/03/2023 6:13 AM [facility] Blood BLOOD SPECIMEN / Unknown Lab Venipuncture / Unknown 09/03/2023 5:30 AM CDT 09/03/2023 5:42 AM CDT Bairon Villa MD LAB - CHEMISTRY CHERYL ARGUELLO [facility] [address] [place] [address], [facility] [phone] * TSH REFLEX FREE T4 (09/02/2023 3:17 AM CDT) Only the most recent of2 resultswithin the time period is included. Pathologist [facility] TSH 0.646 0.350 - 4.940 uIU/mL 09/02/2023 4:11 AM CDT [facility] Blood BLOOD SPECIMEN / Unknown Venipuncture / Unknown 09/02/2023 3:17 AM CDT 09/02/2023 3:25 AM CDT Krupa Callejas MD LAB - CHEMISTRY ORDERABLES [address] [address], [facility] [phone] * CORTISOL BLOOD AM (09/02/2023 3:17 AM CDT) [facility] Cortisol AM 15.4 3.7 - 19.4 ug/dL 09/02/2023 4:11 AM CDT [facility] Blood BLOOD SPECIMEN / Unknown Venipuncture / Unknown 09/02/2023 3:17 AM CDT 09/02/2023 3:25 AM CDT Narrative [facility] - 09/02/2023 4:11 AM CDT Normal cortisol levels are generally highest in the morning hours and lowest from late evening through the operator catalyst concentration hours (8 PM to 4 AM). The PM measurements of cortisol run approximately one-half to one-third of the AM values. Krupa Callejas MD LAB - CHEMISTRY ORDERABLES [address] [address], [facility] [phone] * (ABNORMAL) URINALYSIS REFLEX TO MICROSCOPIC NO CULTURE (09/02/2023 2:47 AM CDT) Only the most recent of2 resultswithin the time period is included. Pathologist [facility] Color UA Yellow Straw, Yellow 09/02/2023 3:04 AM [facility] Clarity UA Clear Clear 09/02/2023 3:04 AM [facility] Specific [place] UA 1.018 1.005 - 1.030 09/02/2023 3:04 AM [facility] pH UA 5.0 5.0 - 8.0 pH 09/02/2023 3:04 AM [facility] Protein UA Negative Negative 09/02/2023 3:04 AM [facility] Glucose UA Negative Negative 09/02/2023 3:04 AM [facility] Ketone UA Negative Negative 09/02/2023 3:04 AM [facility] Bilirubin UA Negative Negative 09/02/2023 3:04 AM [facility] Blood UA 2+(A) Negative 09/02/2023 3:04 AM [facility] Nitrite UA Negative Negative 09/02/2023 3:04 AM [facility] Leukocyte Esterase 1+(A) Negative 09/02/2023 3:04 AM [facility] Urobilinogen UA Negative Negative mg/dL 09/02/2023 3:04 AM [facility] RBC UA 11-20(A) None Seen, 0-2, 3-5 /HPF 09/02/2023 3:04 AM [facility] WBC UA 11-20(A) None Seen, 0-5 /HPF 09/02/2023 3:04 AM [facility] Squamous Epithelial Cells UA None Seen None Seen, 0-2, 3-5 /HPF 09/02/2023 3:04 AM [facility] Urine URINE SPECIMEN OBTAINED VIA [employer]WELL[employer] URINARY CATHETER / Unknown Collection / Unknown 09/02/2023 2:47 AM CDT 09/02/2023 2:49 AM [facility] - 09/02/2023 3:04 AM [facility] Josh Ocampo [employer] [employer] [employer] LAB - URINA LYSIS ORDERABLES [facility] [address] [place] [address], [facility] [phone] * OSMOLALITY URINE (09/01/2023 3:25 PM CDT) Osmolality Urine 459 50 - 1,200 mOsm/kg 09/01/2023 4:08 PM CDT [facility] Urine URINE SPECIMEN OBTAINED BY CLEAN CATCH PROCEDURE / Unknown Collection / Unknown 09/01/2023 3:25 PM CDT 09/01/2023 3:49 PM CDT Bairon Villa MD LAB - URINE CHEMISTR Y ORDERABLES [address] [address], [place] [phone] * LYTES (NA K CL) URINE RANDOM PANEL (09/01/2023 3:25 PM CDT) Sodium Urine 51 Not Established mmol/L 09/01/2023 3:55 PM CDT [facility] Potassium Urine 69.5 Not Established mmol/L 09/01/2023 3:55 PM CDT [facility] Chloride Random Urine 40 Not Established mmol/L 09/01/2023 3:55 PM CDT [facility] Urine URINE SPECIMEN OBTAINED BY CLEAN CATCH PROCEDURE / Unknown Collection / Unknown 09/01/2023 3:25 PM CDT 09/01/2023 3:49 PM CDT Bairon Villa MD LAB - URINE CHEMISTR Y ORDERABLES [address] [address], [place] [phone] * CREATININE URINE RANDOM (09/01/2023 3:25 PM CDT) Creatinine Urine 59.19 Not Established mg/dL 09/01/2023 4:02 PM CDT [facility] Urine URINE SPECIMEN OBTAINED BY CLEAN CATCH PROCEDURE / Unknown Collection / Unknown 09/01/2023 3:25 PM CDT 09/01/2023 3:49 PM CDT Bairon Villa MD LAB - URINE CHEMISTR Y ORDERABLES [facility] [address] [place] [address], [facility] [phone] * (ABNORMAL) GASTROINTESTINAL PATHOGEN PANEL BY PCR [...] detected Not detected 09/01/2023 5:26 PM CDT [facility] Adenovirus F 40/41 Not detected Not detected 09/01/2023 5:26 PM CDT [facility] Astrovirus Not detected Not detected 09/01/2023 5:26 PM CDT [facility] Norovirus GI/GII Not detected Not detected 09/01/2023 5:26 PM CDT [facility] Rotavirus A Not detected Not detected 09/01/2023 5:26 PM CDT [facility] Sapovirus Not detected Not detected 09/01/2023 5:26 PM CDT [facility] Stool STOOL SPECIMEN / Unknown Collection / Unknown 09/01/2023 10:40 AM CDT 09/01/2023 10:54 AM CDT Narrative [facility] - 09/01/2023 5:26 PM CDT Test performed by [employer] RT-PCR. Bairon Villa MD LAB - MICROBIOLOGY O MARILUZ Performing Organization Address City/[facility] Co de Phone Number [facility] [address] [place] [address], [facility] [phone] * (ABNORMAL) C DIFFICILE GDH AG + TOXIN A+B (09/01/2023 10:40 AM CDT) Pathologist [facility] C difficile GDH antigen & toxin A/B POSITIVE( A) NEGATIVE 09/02/2023 12:08 AM CDT [facility] Stool STOOL SPECIMEN / Unknown Collection / Unknown 09/01/2023 10:40 AM CDT 09/01/2023 10:54 AM CDT Narrative [facility] - 09/02/2023 12:08 AM CDT Positive for toxigenic C. difficile Bairon Villa MD LAB - MICROBIOLOGY O MARILUZ Performing Organization Address City/[facility] Co de Phone Number [facility] [address] [place] [address], [facility] [phone] * ECHO COMPLETE W CONTRAST (09/01/2023 8:45 [...] I PACS LVPWd 0.995 cm SSM CV [facility] I PACS LV biplane EF 56.911 % [facility] biplane EF 56.911 % [facility] biplane EF 56.911 % [facility] LV A2C EF 64.272 % [facility] CV [facility] I PACS LV A2C EF 64.272 % [facility] CV [facility] I PACS LV A2C EF 64.272 % [facility] CV [facility] I PACS LV A4C EF 52.785 % SSM CV [facility] I PACS LV A4C EF 52.785 % [facility] CV [facility] I PACS LV A4C EF 52.785 % [facility] CV [facility] I PACS LV EDV A2C 88.908 ml [...] PACS LVOT VTI 17.247 cm SSM CV [facility] I PACS RVIDd 3.649 cm SSM CV [...] LA vol BP 36.092 ml SSM CV [facility] I PACS RA area 11.766 cm SSM CV FUJI PACS RA area 11.766 cm SSM CV FUJI PACS AV mn grad 2.886 mmHg SSM CV FU JI PACS AV mn grad 2.886 mmHg SSM CV FU PACS AV pk rhett 108.742 cm/s SSM CV [facility] I PACS AV pk rhett 108.742 cm/s SSM CV [facility] I PACS AV VTI 21.133 cm SSM CV [facility] I PACS AV VTI 21.133 cm SSM CV [facility] I PACS MV A pk rhett 73.209 cm/s SSM CV F UJI PACS MV A pk rhett 73.209 cm/s SSM CV F UJI PACS MV decel slope 442.892 cm/s2 [facility] decel slope 442.892 cm/s2 [facility] MV E pk rhett 57.762 cm/s [...] 7:10 AM Patient Status: I/P Study Site: [facility] Primary Location: [facility] EStudy Info Technical Quality: Fair Exam Type: ECHO COMPLETE W CONTRAST Indications W19.XXXA - Fall, initial encounter Procedure(s) * Complete 2D, color Doppler, spectral Doppler and M-Mode transthoracic echocardiogram is performed with an Ultrasound Enhancing Agent (UEA). Contrast/Agitated Saline Contrast / Saline: Lumason Amount: 2.00 ml Administered By: Trang Guzman [facility] Reaction to Contrast: no Reason for Technically Difficult Study: lung interference, restricted mobility, positional limitations Staff Referring Physician: Bairon Villa Ordering Provider: Bairon Villa Attending Physician: Bairon Villa Medical Sales Specialist: Trang Guzman [facility] Left Ventricle The left ventricle is [...] 7:10 AM Patient Status: I/P Study Site: [facility] Quality: Fair Exam Type: ECHO [...] Provider: Bairon Villa Attending Physician: Bairon Villa Medical Sales Specialist: Trang Guzman RDCS Left Ventricle The left [...] byron LUIS A 09/03/2023 1:06 AM CDT [facility] Gram Stain Rare Polymorphonuclear cells 09/03/2023 1:06 AM CDT [facility] Gram Stain Moderate Squamous epithelial cells 09/03/2023 1:06 AM CDT [facility] Gram Stain Light Gram-negative bacilli 09/03/2023 1:06 AM CDT [facility] Gram Stain Light Gram-positive cocci 09/03/2023 1:06 AM CDT [facility] Microbiology SPUTUM SPECIMEN OBTAINED FROM SPUTUM SUCTION TRAP / Unknown Collection / Unknown 09/01/2023 8:43 AM CDT 09/01/2023 8:46 AM CDT Bairon Villa MD LAB - MICROBIOLOGY O MARILUZ Performing Organization Address [facility]/ZIP Co de Phone Number [facility] [address] [place] [address], [facility] [phone] * CULTURE BLOOD (09/01/2023 8:42 AM CDT) Only the most recent of2 resultswithin the time period is included. Pathologist [facility] Culture No growth day 5 LUIS A 09/06/2023 2:31 PM CDT [facility] Blood PERIPHERAL BLOOD / Unknown Venipuncture / Unknown 09/01/2023 8:42 AM CDT 09/01/2023 9:44 AM CDT Bairon Villa MD LAB - MICROBIOLOGY O MARILUZ Performing Organization Address [facility] Co de Phone Number [facility] [address] [facility] [place] [facility] [place] [address], [facility] [phone] * MRSA DNA PCR (09/01/2023 7:56 AM CDT) Pathologist [facility] MRSA DNA by PCR Not detected Not detected 09/01/2023 1:11 PM CDT [facility] Microbiology SPECIMEN FROM NASAL FOSSAE / Unknown Collection / Unknown 09/01/2023 7:56 AM CDT 09/01/2023 8:07 AM CDT Narrative [facility] - 09/01/2023 1:11 PM CDT Methicillin-resistant Staphylococcus aureus (MRSA) DNA is not detected (presumed not colonized with MRSA). Bairon Villa MD LAB - MICROBIOLOGY O [place]IL[place] Performing Organization Address City/[facility] Co de Phone Number [facility] [address] [place] [address], [facility] [phone] * (ABNORMAL) DIFFERENTIAL MANUAL (09/01/2023 2:43 AM CDT) Pathologist [facility] Neutrophil % 70 41 - 74 % 09/01/2023 3:57 AM CDT [facility] Lymphocyte % 18 17 - 47 % 09/01/2023 3:57 AM CDT [facility] Monocyte % 9 3 - 11 % 09/01/2023 3:57 AM CDT [facility] Eosinophil % 1 0 - 7 % 09/01/2023 3:57 AM CDT [facility] Metamyelocyte % 2(H) 0% % 3:57 AM CDT [facility] Neutrophil Absolute 3.29 1.60 - 7.50 x10E9/L 09/01/2023 3:57 AM CDT [facility] Lymphocyte Absolute 0.85(L) 1.00 - 4.40 x10E9/L 09/01/2023 3:57 AM CDT [facility] Monocyte Absolute 0.42 0.15 - 1.00 x10E9/L 09/01/2023 3:57 AM CDT [facility] Eosinophil Absolute 0.05 0.00 - 0.60 x10E9/L 09/01/2023 3:57 AM CDT [facility] RBC Morphology REVIEWED 09/01/2023 3:57 AM T [facility] Macrocytosis MANY(A) (none) 09/01/2023 3:57 AM T [facility] Target Cells MODERATE(A) (none) 09/01/2023 3:57 AM T [facility] Large Platelets PRESENT(A) (none) 3:57 AM T [facility] Blood BLOOD SPECIMEN / Unknown Venipuncture / Unknown 09/01/2023 2:43 AM CDT 09/01/2023 2:47 AM CDT Bairon Villa MD LAB - HEMATOLOGY ORD ERABLES [facility] [address] [place] [address], [facility] [phone] * BLOOD TYPE VERIFICATION (08/30/2023 4:44 PM CDT) ABO Rh O POS 08/30/2023 5:2 7 PM CDT [facility] BLOOD BANK LAB Blood Bank BLOOD SPECIMEN / Unknown Venipuncture / Unknown 08/30/2023 4:44 PM CDT 08/30/2023 4:57 PM CDT Bairon Villa MD LAB - BLOOD BANK ORD ERABLES [facility] LAB [address] [place] [address], [facility] [phone] * (ABNORMAL) URINALYSIS W/MICROSCOPIC NO CULTURE (08/30/2023 3:39 PM CDT) Color UA Yellow Straw, Yellow 08/30/2023 3:54 PM CDT [facility] Clarity UA Clear Clear 08/30/2023 3:54 PM T [facility] Specific [place] UA 1.048(H) 1.005 - 1.030 08/30/2023 3:54 PM [facility] pH UA 6.0 5.0 - 8.0 pH 08/30/2023 3:54 PM [facility] Protein UA Negative Negative 08/30/2023 3:54 PM [facility] Glucose UA Negative Negative 08/30/2023 3:54 PM [facility] Ketone UA 1+(A) Negative 08/30/2023 3:54 PM [facility] Bilirubin UA Negative Negative 08/30/2023 3:54 PM [facility] Blood UA 1+(A) Negative 08/30/2023 3:54 PM [facility] Nitrite UA Negative Negative 08/30/2023 3:54 PM [facility] Leukocyte Esterase Negative Negative 08/30/2023 3:54 PM [facility] Urobilinogen UA 2.0(A) Negative mg/dL 08/30/2023 3:54 PM [facility] RBC UA 0-2 None Seen, 0-2, 3-5 /HPF 08/30/2023 3:54 PM [facility] WBC UA 0-5 None Seen, 0-5 /HPF 08/30/2023 3:54 PM [facility] Squamous Epithelial Cells UA 0-2 None Seen, 0-2, 3-5 /HPF 08/30/2023 3:54 PM [facility] Mucus UA 1+ /LPF 08/30/2023 3:54 PM [facility] Urine URINE SPECIMEN OBTAINED BY CLEAN CATCH PROCEDURE / Unknown Collection / Unknown 08/30/2023 3:39 PM CDT 08/30/2023 3:46 PM CDT Narrative [facility] - 08/30/2023 3:54 PM CDT Bairon Villa MD LAB - URINALYSIS ORD ERABLES [facility] [address] [place] [phone], [facility] [phone] * (ABNORMAL) URINE DRUG SCREEN IMMUNOASSAY (08/30/2023 3:39 PM CDT) [facility] Amphetamines Screen Urine Negative Negative : < 1000 ng/mL 08/30/2023 4:13 PM [facility] Barbiturates Screen Urine Negative Negative : < 200 ng/mL 08/30/2023 4:13 PM [facility] Benzodiazepine Screen Urine Negative Negative : < 200 ng/mL 08/30/2023 4:13 PM [facility] Opiates Urine Positive(A) Negative : < 300 ng/mL 08/30/2023 4:13 PM [facility] Comment:Positive urine opiat e screening results should be confirmed by another generally accepted non-immunological method such as gas chromatography or mass spectrometry. Cocaine Metabolites Urine Negative Negative : < 300 ng/mL 08/30/2023 4:13 PM [facility] Phencyclidine Screen Urine Negative Negative : < 25 ng/ml 08/30/2023 4:13 PM [facility] Cannabinoids Screen Urine Negative Negative : <50 ng/mL 08/30/2023 4:13 PM [facility] Methadone Screen Urine Negative Negative : < 300 ng/mL 08/30/2023 4:13 PM [facility] Fentanyl Screen Urine Negative Negative : <1.5 ng/mL 08/30/2023 4:13 PM [facility] Urine URINE / Unknown Collection / Unknown 08/30/2023 3:39 PM CDT 08/30/2023 3:46 PM CDT Narrative [facility] - 08/30/2023 4:13 PM CDT The Urine Toxicology Screening Panel does not screen for Propoxyphene, Meprobamate, Carisoprodol, Trazodone, ljrc-qlp-qrazedx medications and/or volatiles (Acetone, Isopropanol, Methanol or Ethylene Glycol). Ethanol, Salicylate, Acetaminophen, Tricyclic Antidepressants and several therapeutic drugs may be individually assayed in serum or plasma specimen. Toxicology testing by the [facility] is an aid to medical diagnosis and treatment of patients. No documented chain of custody was maintained. Results are intended to be used for clinical purposes only. Bairon Villa MD LAB - URINE CHEMISTR Y ORDERABLES Performing Organization Address City/[facility]/ZIP Co de Phone Number [address] [phone], [facility] [phone] * TEG 6 GLOBAL HEMOSTASIS W/ LYSIS (08/30/2023 11:31 AM CDT) [facility] Signature Citrated Kaolin R (Reaction Time) 5.2 4.6 - 9.1 min 08/30/2023 12:39 PM CDT [facility] Citrated Kaolin LY30 (Lysis) 0.0 0.0 - 2.6 % 08/30/2023 12:39 PM CDT [facility] Citrated Functional Fibrinogen MA (Max Amplitude) 20.7 15.0 - 32.0 mm 08/30/2023 12:39 PM CDT [facility] Citrated RapidTEG MA (Max Amplitude) 60.5 52.0 - 70.0 mm 08/30/2023 12:39 PM CDT [facility] Blood BLOOD SPECIMEN / Unknown Venipuncture / Unknown 08/30/2023 11:31 AM CDT 08/30/2023 11:37 AM CDT Devante Hoang MD LAB - HEMATOLOGY ORD ERABLES [address] [phone], [facility] [phone] * (ABNORMAL) TEG 6S PLATELET MAPPING (08/30/2023 11:31 AM CDT) TEGPLM (Max Amplitude) Koalin 59.0 53.0 - 68.0 mm 08/30/2023 1:09 PM CDT [facility] TEGPLM (Max Amplitude) ACTF 8.5 2.0 - 19.0 mm 08/30/2023 1:09 PM T [facility] TEGPLM (Max Amplitude) ADP 49.4 45.0 - 69.0 mm 08/30/2023 1:09 PM [facility] TEGPLM (Max Amplitude) AA 43.7(L) 51.0 - 71.0 mm 08/30/2023 1:09 PM [facility] Comment:AA MA below normal r berta. Inhibition present. TEGPLM %Inhibition ADP 19.0(H) 0.0 - 17.0 % 08/30/2023 1:09 PM [facility] TEGPLM %Inhibition AA 30.3(H) 0.0 - 11.0 % 08/30/2023 1:09 PM [facility] TEGPLM %Aggregation ADP 81.0(L) 83.0 - 100.0 % 08/30/2023 1:09 PM [facility] TEGPLM % Aggregation AA 69.7(L) 89.0 - 100.0 % 08/30/2023 1:09 PM [facility] Blood BLOOD SPECIMEN / Unknown Venipuncture / Unknown 08/30/2023 11:31 AM CDT 08/30/2023 11:37 AM CDT Devante Hoang MD LAB - HEMATOLOGY ORD ERABLES [facility] [address] [place] [phone], [facility] [phone] * TYPE + SCREEN PANEL (08/30/2023 11:31 AM CDT) Antibody Screen NEG 12:27 PM CDT [facility] BLOOD BANK LAB ABO Rh O POS 08/30/2023 12:27 PM CDT [facility] Blood Bank BLOOD SPECIMEN / Unknown Venipuncture / Unknown 08/30/2023 11:31 AM CDT 08/30/2023 11:40 AM CDT Bairon Villa MD LAB - BLOOD BANK ORD ANNE [facility] BLOOD [facility] LAB [address] [place] [address], [place] [phone] * CK BLOOD (08/30/2023 11:31 AM CDT) CK Total 80 30 - 200 U/L 08/30/2023 11:59 AM CDT [facility] Blood BLOOD SPECIMEN / Unknown Venipuncture / Unknown 08/30/2023 11:31 AM CDT 08/30/2023 11:37 AM CDT Devante Hoang MD LAB - CHEMISTRY CHERYL ARGUELLO Performing Organization Address City/[facility]/ZIP Co de Phone Number [facility] [address] [place] [phone], [place] [phone] * CT FACIAL BONES WO CONTRAST - [...] DATE/TIME OF EXAM: 08/30/2023 11:16 AM, LOCATION [facility] INDICATION: Trauma ADDITIONAL CLINICAL INFORMATION: Ordering Provider [...] DATE/TIME OF EXAM: 08/30/2023 11:16 AM, LOCATION [facility] INDICATION: Trauma ADDITIONAL CLINICAL INFORMATION: Ordering Provider [...] Bairon Villa MD CT ORDERABLES Care Teams Registered Respiratory Therapist Relationship Specialty Start Date End Date Alexis Velez MD [address] [place] [phone] PCP - General Internal Medicine 08/30/23
--- OUTSIDE RECORDS SUMMARY | 2024-04-25 09:58 | XMS_ITS | Clinical Summary ---
Author Organization [facility] Address [address] [place] [address] Care Team Providers Care Instructional Coordinator Name Role Phone Alexis Velez Primary Care Provider Unavailabl e Allergies Active Allergy Reactions Criticality Noted Date Comments Alprazolam 11/14/2023 Other Reaction(s): Not available Lorazepam 11/14/2023 Other Reaction(s): Not available Medications ergocalciferol (vitamin D2, Ergocalciferol, ) 1.25 MG (44918 UT) capsule Take 1 capsule (50,000 Units total) by mouth once a week. Active bacitracin ointment Apply 1 application (1 g total) topically 3 (three) times a day. To affected area Active Cyanocobalamin 100 MCG tablet Take 1 tablet (100 mcg total) by mouth in the morning. Active multivitamin-ir oy-vdmnxvwq-uut ic acid (THERAPEUTIC-M) tablet tablet Take 1 [...] drink = 0.6 oz pu re alcohol) [facility] Utilities Answer Date Recorded In the past 12 months has th e electric, gas, oil, or water [employer] threatened to shut off services in your home? Patient declined 11/15/2023 Social Connection and Isolation Panel [NHANES] A nswer Date Recorded In a typical week, how many times do you talk on the phone with family, friends, or neighbors? Patient declined 11/15/2023 How often do you get togethe r with friends or relatives? Patient declined 11/15/2023 How often do you attend religion or baptist serv ices? Patient declined 11/15/2023 Do you belong to any clubs o r organizations such as religion groups, unions, fraternal or athletic groups, or [...] medical care, and heating? Patient declined 11/15/2023 [facility] - Occupational Stress [...] any time in the past 12 m [facility], were you homeless or living in a fpc (including now)? Patient declined 11/15/2023 Domestic Abuse [...] things needed for daily living? 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 Yes Care Teams Instructional Coordinator Relationship Specialty Start Date End Date Alexis Velez [address] [phone] PCP - General 11/14/23
[2024-04-25 10:02] LABS: Basophils Percent Auto 0.2 % (0.2-1.2); Hematocrit 39.7 % (37.0-47.0); Hemoglobin 13.7 g/dL (12.0-15.0); Immature Granulocyte Absolute 0.04 K/mm3 (0.00-0.031); Immature Granulocyte Percent A 0.4 % (0-0.5); Lymphocytes Absolute Auto 0.83 K/mm3 (0.9-3.2); Mean Corpuscular HGB Conc 34.5 g/dl (32-36); Mean Corpuscular Hemoglobin 29.6 pg (26-34); Mean Corpuscular Volume 85.7 fl (80-100); Mean Platelet Volume 9.1 fl (7.4-10.4); Monocytes Absolute Auto 0.8 K/mm3 (0.1-0.6); Monocytes Percent Auto 9.1 % (2.6-8.5); Neutrophils Absolute Auto 7.5 K/mm3 (1.3-6.7); Neutrophils Percent Auto 81.3 % (45.5-73.1); Platelet Count Result 295 k/mm3 (150-375); Red Blood Count 4.63 M/mm3 (4.2-5.4); White Blood Count 9.2 K/mm3 (4.5-10.0)
[2024-04-25 10:11] LABS: Ethanol < 10 mg/dL (<10); Magnesium 1.6 mg/dL (1.6-2.3)
[2024-04-25 10:12] LABS: Alanine Aminotransferase 21 U/L (6-35); Albumin Level 4.1 g/dL (3.5-5.1); Alkaline Phosphatase 216 U/L (38-126); Anion Gap 15 mmol/L (4-12); Aspartate Amino Transferase 27 U/L (14-36); Bilirubin,Total 0.8 mg/dL (0.2-1.3); Blood Urea Nitrogen 11 mg/dL (7-17); Carbon Dioxide 19 mmol/L (22-30); Chloride 102 mmol/L (98-107); Creatine Kinase < 20 U/L (30-135); Estimated CRCL calculation 86 ml/min; Estimated Glomerular Filt Rate > 60; Glucose 124 mg/dL (65-110); Potassium 3.6 mmol/L (3.4-5.0); Sodium 136 mmol/L (137-145)
[2024-04-25 10:46] LABS: Add Urine Microscopic? YES; Appearance Urine Cloudy (Clear); Bacteria Urine 2+ /hpf; Bilirubin Urine Negative (Negative); Blood Urine 1+ (Negative); Color Urine Yellow (Yellow); Glucose Urine UA Negative (Negative); Ketones Urine 3+ mg/dL (Negative); Leukocyte Esterase Ur Negative LEU/UL (Negative); Nitrate Urine Negative (Negative); Non Pathogenic Casts 0-2; Protein Urine Trace mg/dL (Negative); Specific Grav Ur 1.016 (1.001-1.035); Squamous Epithelial Cell Urine Moderate /hpf (Few)
[2024-04-25 10:48] LABS: CRP 17.3 mg/dL (<1.0)
[2024-04-25] MEDS: MAGNESIUM SULF 2 GM/WATER 50ML 2 GM/50 ML BAG IVPB (10:56)
[2024-04-25] MEDS: SODIUM CHLORIDE 0.9% IV 1,000 ML 999 ML IV CONT (10:56)
[2024-04-25] MEDS: HYDROcodone/acetaminophen (*CRX) 5-325 MG TABLET 1 TAB PO (11:05)
--- NOTE | 2024-04-25 12:47 | PC.NURSE ---
Care coordination notified for consult
--- NOTE | 2024-04-25 13:01 | PCCCNOTE ---
Called to the ED to discuss placement with the pt. Spoke to the pt, stated she lives at home with her daughter who works from home. Stated she came in because she thought her arm/hip may be broke. ED provider stated her assessment was negative. Educated the pt on placement process per Medicare A&B and asked what her desires are. Stated she would like to go home per private car. Stated she feels safe at home and does have a PCP, Dr. Velez whom she will f/u with after discharge. Called the daughter Irma and had to [facility] requesting a return call.-wilbert
[2024-04-25] MEDS: KETOROLAC 30 MG/ML VIAL (*BKC) IV PUSH (13:05)
--- NOTE | 2024-04-25 13:34 | PCCCNOTE ---
[id number]-Called pt's daughter Bharati and LVM asking for a return call.-wilbert.
--- NOTE | 2024-04-25 14:14 | PCCCNOTE ---
Incoming call from daughter Pilar noted, gained verbal permission from the pt to speak to her d/t at this time Pilar was not in the contact list. Pilar wanted to know if the pt was still here. Updated Pilar yes, the pt was still in house. Pilar stated she has also not been able to contact Irma for p/u of the pt however will continue to outreach her. Pt's nurse updated on the status.-natasha.
== END 2024-04-25 15:06 | disposition home or self-care (01) ==
PROVIDERS: Emergency Medicine; Emergency Provider Physician Assistant; PCP Internal Medicine
DX: M11.831 Other specified crystal arthropathies, right wrist (principal); R53.1 Weakness; E86.0 Dehydration; Z20.822 Contact with and (suspected) exposure to COVID-19; I10 Essential (primary) hypertension; K70.10 Alcoholic hepatitis without ascites; F17.210 Nicotine dependence, cigarettes, uncomplicated; F10.20 Alcohol dependence, uncomplicated; Z96.659 Presence of unspecified artificial knee joint; Z79.899 Other long term (current) drug therapy; M19.031 Primary osteoarthritis, right wrist; N20.0 Calculus of kidney; M25.711 Osteophyte, right shoulder
CPT/HCPCS: 36415; 70450; 72192; 73030; 73110; 73502; 80053; 81001; 82077; 82550; 83735; 85025; 86140; 87086; 87637; 96361; 96365; 96375; 99284; A9270; J1885; J3475; J7030